=== PATIENT | female | born 1990 | race Caucasian/White ===

== ENCOUNTER 2022-10-12 10:28 | Emergency (ER) | payer OTHER, SELFPAY ==
--- NOTE | 2022-10-12 10:29 | ECG_ITS ---
Test Reason : CP Blood Pressure : / mmHG Vent. Rate : 111 BPM Atrial Rate : 111 BPM P-R Int : 146 ms QRS Dur : 074 ms QT Int : 360 ms P-R-T Axes : 069 029 032 degrees QTc Int : 489 ms Sinus tachycardia Otherwise normal ECG No previous ECGs available Referred By: Generic ED Physician Electronically Signed By:JONATHAN CARDONA MD
[2022-10-12 10:44] VITALS: BP 180/100; BMI 35.4
[2022-10-12 11:06] VITALS: BP 164/112; PULSE 101; TEMP 36.7; O2SAT 95
--- NOTE | 2022-10-12 11:15 | ED_ITS ---
HPI - Alcohol General Chief Complaint: ETOH/Substance Use Stated Complaint: chest pain Time Seen by Provider: 10/12/22 10:45 Source: patient Mode of arrival: EMS History of Present Illness HPI narrative: 32-year-old female with history of asthma, alcohol use disorder, states that she typically drinks a sleeve and a half a day but is been unable to drink much other than 1 shot this morning and is been having nausea and vomiting. Patient states she is also on methadone program but has been unable to get her methadone for 11 days as they will not give the methadone if she is intoxicated and she knew that she would fail the Breathalyzer. She states that she has had seizures previously from alcohol withdrawal and states that the chest pain is associated with her nausea and vomiting. Related Data Allergies Allergy/AdvReac Type Severity Reaction Status Date / Time Sulfa (Sulfonamide Allergy Intermediate RASH Verified 10/12/22 11:00 Antibiotics) [SULFA (SULFONAMIDE ANTIBIOTICS)] Review of Systems Review of Systems: Pertinent positives and negatives as stated in HPI PMFSH Past Medical History Source: nursing notes reviewed Social History Social History Advance Directives: No Physical Exam ED Vital Signs: Vital Signs - 24 hr 10/12/22 11:06 10/12/22 11:36 Temperature 98.0 F 98.4 F Pulse Rate 101 H 99 Respiratory Rate 12 Blood Pressure 164/112 H 164/110 H Pulse Oximetry 95 94 Oxygen Delivery Method Room Air Room Air BMI result Body Mass Index 35.4 VITAL SIGNS: Reviewed. GENERAL: Well developed, well nourished, in no acute distress. HEAD: Normocephalic/atraumatic EYES: PERRLA, EOMI EARS: Ext canals without abnormality NOSE: Nares patent bilateral OROPHARYNX: no oral lesions noted, posterior pharynx clear NECK: Supple, no adenopathy LUNGS: Normal breath sounds. No adventitious sounds or accessory muscle use. SpO2<95> CARDIOVASCULAR: Sinus tachycardia and rhythm without noted murmurs ABDOMEN: Soft, non-tender, non-distended with bowel sounds. MUSCULOSKELETAL: No tenderness, deformities, or effusions noted on gross inspection. EXTREMITIES: No cyanosis, clubbing or edema. SKIN: Inspection of the skin reveals no rashes NEUROLOGIC: Alert and oriented x 4. Strength and sensation to light touch were grossly intact x 4. Medical Decision Making Medical Decision Making [facility] Narrative: 32-year-old female with history and clinical presentation, DDX: Alcohol intoxication, alcohol withdrawal, alcohol gastritis, pancreatitis, no clinical suspicion for ACS. I reviewed all investigations, hematologic indices are significantly different from 5 year comparison, most notably patient has a macrocytic anemia which is consistent with underlying alcohol use and there are no history or symptoms to suggest occult bleeding from elsewhere. There is no left shift and a mild drop in wbc's, patient is afebrile. Coagulation studies are grossly within normal limits, chemistry indices are consistent with a very mild alcohol ketoacidosis but patient is tolerating oral intake at this time and has received 1 L of IV fluids as well as Zofran. In addition, there is a noted elevation of lipase and suspect patient has mild pancreatitis that is not interfering with oral intake at this time. Patient was placed on a CIWA and will give 10 mg of Librium and she will be evaluated by the gymnastics coach or instructor for inpatient alcohol detox program. She is otherwise medically clear to pursue that. Urinalysis negative for UTI. BAL-225. Patient placed in physician observation because the patient needed more time for evaluation and placement by the gymnastics coach or instructor for alcohol detox. At the time observation was started the patient's vital signs were stable, patient is alert and oriented, neuro: Nonfocal, CV RRR, lungs clear Differential Diagnosis Differential Diagnoses: The differential diagnosis associated with the presentation includes Please see the discussion above Lab Data [facility] Lab Attestation statement: I reviewed the patient's lab results. Please see the discussion above 10/12/22 12:15 10/12/22 11:25 Labs: Lab Results 10/12/22 10/12/22 10/12/22 Range/Units 11:25 11:25 11:25 WBC (4.8-10.8) X10*3/uL RBC (4.20-5.50) X10*6/uL Hgb (12.0-16.0) g/dl Hct (37.0-47.0) % MCV (80.0-98.0) fL MCH (27.0-33.0) pg MCHC (31.0-35.0) g/dl RDW (11.0-16.0) % Immature Gran % (Auto) (0.0-0.4) % Neut % (Auto) (45-73) % Lymph % (Auto) (20-40) % [place] % (Auto) (2-11) % Eos % (Auto) (0-4) % Baso % (Auto) (0-2) % Lymph # (Auto) (1.2-4.9) X10*3/uL [place] # (Auto) (0.1-1.2) X10*3/uL Eos # (Auto) (0.0-0.4) X10*3/uL Baso # (Auto) (0.0-0.2) X10*3/uL Abs Immat Gran (auto) (0.00-0.03) X10*3/uL Absolute Neuts (auto) (2.0-8.3) x10*3/uL Absolute Nucleated RBC (0.0-0.012) X10*3/uL Nucleated RBC % (auto) (0.0-0.2) /100WBC Sodium 136 (135-145) mmol/L Potassium 3.5 (3.3-5.1) mmol/L Chloride 98 (96-108) mmol/L Carbon Dioxide 18 L (22-29) mmol/L Anion Gap 24 H (12-20) BUN 10 (9-16) mg/dL Creatinine 0.59 (0.5-1.4) mg/dL Estim Creat Clear Calc 149.0 Estimated GFR > 60 Random Glucose 120 H (60-115) mg/dL Calcium 8.2 L (8.4-10.2) mg/dL Total Bilirubin 0.6 (0.0-1.0) mg/dL AST 93 H (5-31) U/L ALT 28 (0-31) U/L Alkaline Phosphatase 126 H (39-117) U/L Total Protein 6.9 (6.5-8.0) g/dL Albumin 3.1 L (3.5-5.0) g/dL Lipase 115 H (8-78) U/L Beta HCG, Quant < 2 mIU/mL Urine Color Urine Appearance Urine pH (5.0-9.0) Ur Specific [place] (1.005-1.025) Urine Protein (Neg-Trace) mg/dL Urine Glucose (UA) (Negative) mg/dL Urine Ketones (Negative) mg/dL Urine Blood (Negative) Urine Nitrite (Negative) Ur Leukocyte Esterase (Negative) Urine RBC (0-2) /HPF Urine WBC (0-5) /HPF Ur Squamous Epith Cells (0-2) /HPF Urine Bacteria (None Seen) Hyaline Casts (0-2) /LPF Urine Opiates Screen (Not Detect) Urine Fentanyl Screen (Not Detect) Ur Barbiturates Screen (Not Detect) Ur Phencyclidine Scrn (Not Detect) Ur Amphetamines Screen (Not Detect) U Benzodiazepines Scrn (Not Detect) Urine Cocaine Screen (Not Detect) U Marijuana (THC) Screen (Not Detect) Ethyl Alcohol 225 mg/dL 10/12/22 10/12/22 10/12/22 Range/Units 11:48 11:48 12:15 WBC 4.0 L (4.8-10.8) X10*3/uL RBC 3.14 L (4.20-5.50) X10*6/uL Hgb 11.5 L (12.0-16.0) g/dl Hct 31.2 L (37.0-47.0) % MCV 99.4 H (80.0-98.0) fL MCH 36.6 H (27.0-33.0) pg MCHC 36.9 H (31.0-35.0) g/dl RDW 16.3 H (11.0-16.0) % Immature Gran % (Auto) 0.3 (0.0-0.4) % Neut % (Auto) 55.6 (45-73) % Lymph % (Auto) 37.7 (20-40) % [place] % (Auto) 5.1 (2-11) % Eos % (Auto) 0.8 (0-4) % Baso % (Auto) 0.5 (0-2) % Lymph # (Auto) 1.5 (1.2-4.9) X10*3/uL [place] # (Auto) 0.2 (0.1-1.2) X10*3/uL Eos # (Auto) 0.0 (0.0-0.4) X10*3/uL Baso # (Auto) 0.0 (0.0-0.2) X10*3/uL Abs Immat Gran (auto) 0.01 (0.00-0.03) X10*3/uL Absolute Neuts (auto) 2.2 (2.0-8.3) x10*3/uL Absolute Nucleated RBC 0.000 (0.0-0.012) X10*3/uL Nucleated RBC % (auto) 0.0 (0.0-0.2) /100WBC Sodium (135-145) mmol/L Potassium (3.3-5.1) mmol/L Chloride (96-108) mmol/L Carbon Dioxide (22-29) mmol/L Anion Gap (12-20) BUN (9-16) mg/dL Creatinine (0.5-1.4) mg/dL Estim Creat Clear Calc Estimated GFR Random Glucose (60-115) mg/dL Calcium (8.4-10.2) mg/dL Total Bilirubin (0.0-1.0) mg/dL AST (5-31) U/L ALT (0-31) U/L Alkaline Phosphatase (39-117) U/L Total Protein (6.5-8.0) g/dL Albumin (3.5-5.0) g/dL Lipase (8-78) U/L Beta HCG, Quant mIU/mL Urine Color Yellow Urine Appearance Clear Urine pH 7.0 (5.0-9.0) Ur Specific [place] 1.025 (1.005-1.025) Urine Protein 30 (1+) H (Neg-Trace) mg/dL Urine Glucose (UA) Negative (Negative) mg/dL Urine Ketones Trace (Negative) mg/dL Urine Blood Negative (Negative) Urine Nitrite Negative (Negative) Ur Leukocyte Esterase Negative (Negative) Urine RBC 0-2 (0-2) /HPF Urine WBC 0-5 (0-5) /HPF Ur Squamous Epith Cells 0-2 (0-2) /HPF Urine Bacteria None Seen (None Seen) Hyaline Casts 0-2 (0-2) /LPF Urine Opiates Screen Not Detected (Not Detect) Urine Fentanyl Screen POSITIVE H (Not Detect) Ur Barbiturates Screen Not Detected (Not Detect) Ur Phencyclidine Scrn Not Detected (Not Detect) Ur Amphetamines Screen Not Detected (Not Detect) U Benzodiazepines Scrn Not Detected (Not Detect) Urine Cocaine Screen Not Detected (Not Detect) U Marijuana (THC) Screen Not Detected (Not Detect) Ethyl Alcohol mg/dL Independent Interpretation I performed an independent interpretation of an: EKG Interpretation: Sinus tachycardia, HR-111, no STEMI, ID/QRS/QTC are within normal limits. External Record Review External record reviewed: Outpatient record and Prior outpatient labs Chronic Conditions Patient?s care impacted by: Other Alcohol use disorder Medications Administered Discontinued Medications Generic Name Dose Route Start Last Admin Trade Name Freq PRN Reason Stop Dose Admin Sodium Chloride 1,000 mls @ 999 mls/hr 10/12/22 11:30 10/12/22 12:17 Ns IV 10/12/22 12:30 999 mls/hr .Q1H1M DI Administration Ondansetron HCl 4 mg 10/12/22 11:20 10/12/22 12:20 Ondansetron Hcl 4 Mg/2 Ml Vial IVPUSH 10/12/22 11:21 4 mg ONCE ONE Administration Critical Care Time Critical Care Time Critical Care Time: Yes Total Critical Care Time: 30 Attestation: I personally attest to this time spent taking care of the patient. Discharge Plan Discharge Clinical Impression: Alcoholic intoxication, Pancreatitis, Alcohol use disorder Patient Disposition: Still a Patient
[2022-10-12 11:36] VITALS: BP 164/110; PULSE 99; RESP 12; TEMP 36.9; O2SAT 94
[2022-10-12 11:46] LABS: Ethanol 225 mg/dL
--- NOTE | 2022-10-12 11:46 | PC.NURSE ---
pt a+o x3. brought from home via ems. she reported that she independently stopped taking methadone 11 days ago and has been substituting alcohol for methadone. she is a daily drinker and last drank one nip this morning and is requesting detox. she also reported that she has been a daily drinker x4 years after losing her son. hx of withdrawal and has been in detox in the past. CIWA 3, denies SI/HI, admits thoughts of self harm in the past but none at this time. reports feeling depressed.
[2022-10-12 11:50] LABS: Alanine Aminotransferase 28 U/L (0-31); Albumin Level 3.1 g/dL (3.5-5.0); Alkaline Phosphatase 126 U/L (39-117); Anion Gap 24 (12-20); Aspartate Amino Transferase 93 U/L (5-31); Bilirubin Total 0.6 mg/dL (0.0-1.0); Blood Urea Nitrogen 10 mg/dL (9-16); Calcium 8.2 mg/dL (8.4-10.2); Carbon Dioxide 18 mmol/L (22-29); Chloride 98 mmol/L (96-108); Estimated Glomerular Filt Rate > 60; Glucose Random 120 mg/dL (60-115); Lipase 115 U/L (8-78); Potassium 3.5 mmol/L (3.3-5.1); Sodium 136 mmol/L (135-145); Total Protein 6.9 g/dL (6.5-8.0)
[2022-10-12 11:55] LABS: Appearance Urine Clear; Color Urine Yellow; Glucose Urine UA Negative (Negative); Leukocyte Esterase Urine Negative (Negative); Nitrite Urine Negative (Negative); Specific Gravity - Urine 1.025 (1.005-1.025); UMIC TRIGGER UACC YES; Urine Blood Negative (Negative); Urine Ketones Trace mg/dL (Negative); Urine Protein 30 (1+) mg/dL (Neg-Trace)
[2022-10-12 11:56] LABS: HCG Quantitative < 2 mIU/mL
[2022-10-12 12:01] LABS: Bacteria Urine None Seen (None Seen); Hyaline Casts Urine 0-2 /LPF (0-2); RBC Urine 0-2 /HPF (0-2); Squamous Epithelial Cell Urine 0-2 /HPF (0-2); WBC Urine 0-5 /HPF (0-5)
[2022-10-12 12:08] LABS: Amphetamine Screen Urine Not Detected (Not Detect); Barbiturates, Urine Not Detected (Not Detect); Benzodiazepines Screen Urine Not Detected (Not Detect); Cannabinoid Screen Urine Not Detected (Not Detect); Cocaine Screen Urine Not Detected (Not Detect); Fentanyl, urine POSITIVE (Not Detect); Opiate Screen Urine Not Detected (Not Detect); Phencyclidine Screen Urine Not Detected (Not Detect)
[2022-10-12] MEDS: 0.9 % Sodium Chloride 1,000 ML 999 ML IV (12:17)
[2022-10-12] MEDS: ondansetron HCL 4 MG/2 ML VIAL IVPUSH (12:20)
[2022-10-12 12:35] LABS: Basophils Percent Auto 0.5 % (0-2); Eosinophils Percent Auto 0.8 % (0-4); Hematocrit 31.2 % (37.0-47.0); Hemoglobin 11.5 g/dl (12.0-16.0); Imm Gran Abs Auto 0.01 X10*3/uL (0.00-0.03); Imm Gran Pct Auto 0.3 % (0.0-0.4); Lymphocytes Absolute Auto 1.5 X10*3/uL (1.2-4.9); Lymphocytes Percent Auto 37.7 % (20-40); Mean Corpuscular HGB Conc 36.9 g/dl (31.0-35.0); Mean Corpuscular Hemoglobin 36.6 pg (27.0-33.0); Mean Corpuscular Volume 99.4 fL (80.0-98.0); Monocytes Absolute Auto 0.2 X10*3/uL (0.1-1.2); Monocytes Percent Auto 5.1 % (2-11); Neutrophils Absolute Auto 2.2 x10*3/uL (2.0-8.3); Neutrophils Percent Auto 55.6 % (45-73); Red Blood Count 3.14 X10*6/uL (4.20-5.50); Red Cell Distribution Width 16.3 % (11.0-16.0)
[2022-10-12 12:39] LABS: INTERNATIONAL NORM RATIO 1.1 (0.9-1.1); Prothrombin Time 12.3 SEC (10.0-13.1)
[2022-10-12 12:53] LABS: Mean Platelet Volume 10.5 fL (9.4-12.3); Platelet Count 74 X10*3/uL (160-400)
[2022-10-12] MEDS: chlordiazePOXIDE HCl 5 MG CAPSULE 10 MG PO (13:01)
--- NOTE | 2022-10-12 14:00 | MHC.RECOVSUP ---
Addendum entered by Thomas Marie 10/12/22 15:42: Pt accepted to [facility] for 9pm admission. [facility] will be scheduled for 7pm, provider aware. Original Note: Met with pt in ED8 who is here for GAUDENCIO. Pt informs she had been on Methadone but stopped taking it about 11 days ago and is not longer interested in MAT. Pt reports drinking about 2 sleeves of alcohol a day with her last drink being a shot this morning. Pt reports having been to [facility] a year ago and is interested in ATS again at this time. ATS bed search in process.
--- NOTE | 2022-10-12 14:43 | MHC.CARE ---
CARE Team left VM for RENNY Garza at [facility]
[2022-10-12 17:00] VITALS: BP 165/113; PULSE 105; RESP 12; TEMP 37.1; O2SAT 97
--- NOTE | 2022-10-12 19:12 | PC.NURSE ---
CLEARED FOR DISCHARGE, DISCHARGE INSTRUCTIONS REVIEWED WITH PT. Kori[facility]ori [facility] CENTER[facility]HELLE PROVIDED BY HEAVY DUTY CUSTODIAN.
== END 2022-10-12 18:00 | disposition home or self-care (01) ==
PROVIDERS: Emergency Provider Student in an Organized Health Care Education/Training Program
DX: F10.920 Alcohol use, unspecified with intoxication, uncomplicated (principal); Y90.7 Blood alcohol level of 200-239 mg/100 ml; F10.988 Alcohol use, unspecified with other alcohol-induced disorder; K85.90 Acute pancreatitis without necrosis or infection, unspecified; R07.9 Chest pain, unspecified
CPT/HCPCS: 36415; 80053; 80307; 81001; 83690; 84702; 85025; 85610; 93005; 96361; 96374; 99284; 99285; J2405

== ENCOUNTER → 2022-10-12 10:29 | Outpatient (BNV) | payer OTHER, SELFPAY | PROVIDERS: Emergency Provider Student in an Organized Health Care Education/Training Program; Visit Provider Internal Medicine Cardiovascular Disease | DX: R00.0 Tachycardia, unspecified (principal) | CPT/HCPCS: 93010 ==

== ENCOUNTER 2023-01-22 08:33 | Inpatient (IN) | payer OTHER, SELFPAY ==
[2023-01-22] VITALS (7 sets, daily range): BP systolic 131–161; BP diastolic 79–104; PULSE 102–135; RESP 18–21; TEMP 36.7–37.1; O2SAT 93–98; BMI 31.3
--- NOTE | ~2023-01-22 | XR_ITS ---
EXAMINATION: XR CHEST CLINICAL INFORMATION: Anterior chest pain, recent seizure. COMPARISON: None available. TECHNIQUE: Frontal view of the chest was obtained. FINDINGS: No significant abnormality is noted involving the heart, lungs, mediastinum, bony thorax or soft tissues. XR/XR chest 1V IMPRESSION: Unremarkable chest examination.
--- NOTE | ~2023-01-22 | US_ITS ---
EXAMINATION: US VENOUS ULTRASOUND WITH DOPPLER LOWER EXTREMITY, RIGHT CLINICAL INFORMATION: Right calf tenderness COMPARISON: None available. TECHNIQUE: Ultrasound of the deep veins is performed from the hip to the calf with compression sonography and color and pulse Doppler assessment. Spectral analysis with color-flow imaging is performed. FINDINGS: There is normal venous compression and respiratory variation and augmented flow. The visualized common femoral vein, superficial femoral vein, profunda femoral vein, popliteal vein, and the trifurcation region shows no evidence of deep venous thrombosis. There is no significant popliteal fossa cyst. If the patient's symptoms persist, followup ultrasound in 5 days 7 days might be of value to exclude proximal propagation from a non-visualized calf vein. US/US venous duplex LE RT IMPRESSION: No DVT demonstrated in the right lower extremity.
[2023-01-22 09:18] LABS: MANUAL DIFF FLAG NO
[2023-01-22 09:21] LABS: Basophils Percent Auto 0.5 % (0-2); Eosinophils Absolute Auto 0.2 X10*3/uL (0.0-0.4); Hematocrit 36.7 % (37.0-47.0); Imm Gran Abs Auto 0.01 X10*3/uL (0.00-0.03); Imm Gran Pct Auto 0.3 % (0.0-0.4); Lymphocytes Absolute Auto 0.9 X10*3/uL (1.2-4.9); Lymphocytes Percent Auto 22.8 % (20-40); Mean Corpuscular HGB Conc 35.4 g/dl (31.0-35.0); Mean Corpuscular Hemoglobin 37.8 pg (27.0-33.0); Mean Corpuscular Volume 106.7 fL (80.0-98.0); Mean Platelet Volume 9.3 fL (9.4-12.3); Monocytes Absolute Auto 0.2 X10*3/uL (0.1-1.2); Monocytes Percent Auto 5.1 % (2-11); Neutrophils Absolute Auto 2.5 x10*3/uL (2.0-8.3); Neutrophils Percent Auto 67.3 % (45-73); Red Blood Count 3.44 X10*6/uL (4.20-5.50); Red Cell Distribution Width 14.2 % (11.0-16.0); White Blood Count 3.7 X10*3/uL (4.8-10.8)
--- OUTSIDE RECORDS SUMMARY | 2023-01-22 09:22 | XMS_ITS | Continuity of Care Document ---
Author Name Unknown Organization [facility] ter Address [address] [place] [id number]- Care Team Providers Care Doctor Of Pharmacy Name Role Phone Not on Staff, PCP Primary Care Physician Unavail able Encounter [facility] Date(s): 05/01/22 - 05/02/[address] [id number]- Encounter Diagnosis Alcohol intoxication(Final) - 05/01/22 Opioid overdose(Final) - 05/01/22 Discharge Disposition: A-D/C Home Attending Physician: Yovanny Orozco MD Admitting Physician: Yovanny Orozco MD Referring Physician: Not on Staff, Referring MD Allergies, Adverse Reactions, Alerts Substance Reaction Severity Status Bactrim Active Immunizations Given and Recorded Vaccine Date Status Refusal Reason hepatitis B adult vaccine 1 05/03/11 Given tetanus-diphtheria toxoids (Td) 2 04/02/10 Given Influenza Inactive (IM) (oldterm) 3 12/19/09 Given influ virus vac, H1N1, inactive(oldterm) 4 04/04/09 Given Not Given Vaccine Date Status Refusal Reason hepatitis B adult vaccine 06/27/21 Not Given Pa rent Or Guardian Refuses 1Admin Note: vis given 2Admin Note: VIS 02/16/2008 3Admin Note: vis 4Admin Note: VIS Medications Acetaminophen 0 Refills, Maintenance Start Date: 12/06/10 Status: Ordered Aerochamber See Instructions, # 1 units, Maintenance, Use with albuterol and Qvar Inhalers., 11/20/12 15:08:49,Compound Start Date: 11/20/12 Status: Ordered albuterol CFC free 90 mcg/inh inhalation aerosol 2 puffs, Inhalation, Every 4 hours, PRN for wheezing, # 8.5 Gm, 12 Refills, Maintenance, Aerosol Start Date: 3/15/13 Status: Ordered albuterol CFC free 90 mcg/inh inhalation aerosol 2 puffs, Inhalation, Every 4 hours, PRN for wheezing, # 8.5 Gm, 11 Refills, Maintenance, Aerosol, 2puffs Inhalation Every 4 hours,PRN:for wheezing Start Date: 11/20/12 Status: Ordered albuterol CFC free 90 mcg/inh inhalation aerosol 1 puffs, Inhalation, 4 times a day, PRN for wheezing, # 25 Gm, 0 Refills, Maintenance, Aerosol Start Date: 07/10/10 Status: Ordered EC Naprosyn 500 mg oral enteric coated tablet 1 tablet = 500 mg, By Mouth, 2 times a day, with food, # 60 tablet, 2 Refills, Maintenance, EC Tablet, 1 tablet By Mouth 2 times a day,Instr:with food Start Date: 11/20/12 Status: Ordered EpiPen 2-Cipriano 0.3 mg injectable kit = 0.3 mg, Intramuscular, Once, # 2 pack/packet, 0 Refills, Soft Stop, 09/25/20 18:06:00 EDT, [facility]/pharmacy #[id number], Partial fill upon patient request if the prescription is for a schedule II opioid drug., 163, cm, 09/25/20 17:11:00 EDT, Height, 90.7, kg,... Start Date: 09/25/20 Status: Ordered gabapentin 100 mg oral capsule 2 capsule = 200 mg, By Mouth, 3 times a day, # 60 capsule, 0 Refills, Maintenance, Capsule Start Date: 07/13/10 Stop Date: 07/23/10 Status: Ordered ibuprofen 600 mg oral tablet 1 tablet = 600 mg, By Mouth, Every 6 hours, # 30 capsule, 1 Refills, Maintenance Start Date: 05/22/10 Status: Ordered Methadone By Mouth, 0 Refills, Maintenance Start Date: 08/31/12 Status: Ordered Multivitamin By Mouth, Daily, 0 Refills, Maintenance Start Date: 12/06/10 Status: Ordered Qvar 80 mcg/inh inhalation aerosol with adapter 1 puffs, Inhalation, 2 times a day, # 1 each, 11 Refills, Maintenance, 1 puffs Inhalation 2 times aday Start Date: 11/20/12 Status: Ordered Splint See Instructions, # 2 units, Maintenance, One right and one left wrist splint, to be worn at night for carpal tunnel. Dx: Wrist Pain and Carpal Tunnel, 11/20/12 15:15:00, Compound Start Date: 11/20/12 Status: Ordered Tivicay 50 mg oral tablet 1 tablet = 50 mg, By Mouth, Daily, # 5 tablet, 0 Refills, Maintenance, 06/26/21 23:08:00 EDT, Tablet, Partial fill upon patient request if the prescription is for a schedule II opioid drug. Start Date: 06/26/21 Stop Date: 07/01/21 Status: Ordered Truvada 200 mg-300 mg oral tablet 1 tablet, By Mouth, Daily, # 5 tablet, 0 Refills, Maintenance, 06/26/21 23:08:00 EDT, Tablet, Partial fill upon patient request if the prescription is for a schedule II opioid drug. Start Date: 06/26/21 Stop Date: 07/01/21 Status: Ordered Ventolin HFA 108 mcg/inh inhalation aerosol with adapter 2 puffs, Inhalation, Every 4 hours, PRN for wheezing, please give pt ventolin, # 18 Gm, 5 Refills, Maintenance, Aerosol Start Date: 08/31/12 Status: Ordered Xanax 1 mg oral tablet 1 tablet, By Mouth, 3 times a day, PRN Anxiety, tablet, 0 Refills, Maintenance, Tablet Start Date: 07/10/10 Status: Ordered Problem List Condition Confirmation Course Effective Dates Status Health St [facility] Informant Anxiety Confirmed Active Asthma Confirmed Active Depression Confirmed Active Pelvic fracture Confirmed Active Severe obesity (BMI 35.0-39.9) with comorbidity Confirmed Active Results Radiology Reports * Exam Date Time Procedure Performing Provider Status 05/01/22 11:45 PM Chest 2 Views Frontal and Lat Xiomara Villasenor; Auth (Verified) Notes: (Chest 2 Views Frontal and Lat) Reason For Exam: Trauma RESULT: Chest 2 Views Frontal and Lat Chest 2 Views Frontal and Lat Hx of Present Illness: pt coming from home after suspected overdose, agitated upon arrival; Reason:Trauma; Clinical Question(s): Fracture COMPARISON: 06/02/2021 FINDINGS: LINES AND TUBES: None. LUNGS AND PLEURA: Clear lungs. Normal pulmonary vascularity. No pleural effusion. No pneumothorax. HEART, MEDIASTINUM AND MARGO: Heart is normal in size. Normal mediastinal and hilar contour. BONES AND SOFT TISSUES: No acute abnormality. IMPRESSION: No acute abnormality. WSN: [id number] Ordering Physician: Malinda Sutton Dictated By: Garland Falcon MD Dictated Date/Time: 05/01/22 11:48 p Reviewed By: Garland Falcon MD Signed By: Garland Falcon MD Signed Date/Time: 05/01/22 11:48 pm Transcribed By: AISHA Transcribed Date/Time: 05/01/22 11:47 pm Vital Signs Most recent to oldest [Reference Range]: 1 2 3 Oxygen Saturation [94-100 %] 98 % (05/02/22 8:54 AM) 97 % (05/02/22 6:03 AM) 98 % (05/02/22 4:24 AM) Pulse Rate [55-90 bpm] 84 bpm (05/02/22 8:54 AM) 80 bpm (05/02/22 6:03 AM) 100 bpm *H* (05/02/22 4:24 AM) Blood Pressure [90-138/55-84 mm Hg] 149/86mm Hg *H* (05/02/22 8:54 AM) 140/80mm Hg *H* (05/02/22 6:03 AM) 135/83mm Hg (05/02/22 4:24 AM) Respiratory Rate [16-30 br/min] 18 br/min (05/02/22 8:54 AM) 18 br/min (05/02/22 6:03 AM) 16 br/min (05/02/22 4:24 AM) Temperature [96.8-100.4 DegF] 98.3 DegF (05/02/22 8:54 AM) 98.1 DegF (05/01/22 8:26 PM) Mode of Delivery (Oxygen) Room air (05/02/22 8:54 AM) Room air (05/02/22 6:03 AM) Room air (05/02/22 4:24 AM) Blood pressure sites Arm, left (05/02/22 8:54 AM) Temperature Route Oral (05/02/22 8:54 AM) Oral (05/01/22 8:26 PM) Social History Social History Type Response Smoking Status 10 or more cigarette s (1/2 pack or more)/day in last 30 days entered on: 09/25/20 Sex Note * [facility] , CIS S: TRANSCRIBE Garland Falcon MD S: VERIFY Event Display: Result: Authored Date: Chest 2 Views Frontal and Lat Hx of Present Illness: pt coming from home after suspected overdose, agitated upon arrival; Reason:Trauma; Clinical Question(s): Fracture COMPARISON: 06/02/2021 FINDINGS: LINES AND TUBES: None. LUNGS AND PLEURA: Clear lungs. Normal pulmonary vascularity. No pleural effusion. No pneumothorax. HEART, MEDIASTINUM AND MARGO: Heart is normal in size. Normal mediastinal and hilar contour. BONES AND SOFT TISSUES: No acute abnormality. IMPRESSION: No acute abnormality. WSN: [id number] Ordering Physician: Malinda Sutton Dictated By: Garland Falcon MD Dictated Date/Time: 05/01/22 11:48 p Reviewed By: Garland Falcon MD Signed By: Garland Falcon MD Signed Date/Time: 05/01/22 11:48 pm Transcribed By: AISHA Transcribed Date/Time: 05/01/22 11:47 pm Patient Care team information Care Team Personnel Name: Not on Staff, PCP Position: [facility] Physician (General Medicine) Member Role: PCP Name: *[facility], ED Attending Position: [facility] ED Attendings Patient Name: Felisha Mackenzie RN Position: [facility] ED RN W/OE and Tasks Member Role: Patient Care Provider Name: Virgilio Rolon Position: [facility] ED TA [facility] Member Role: Nursing Associate Name: Yovanny Orozco MD Position: [facility] Resident Member Role: ED Attending Physician Address: Address: [address] [place] [address] [place] [address]- Care Team Related Persons Name: CAROLINE RHODES Address: home [address] [place] [id number]
--- OUTSIDE RECORDS SUMMARY | 2023-01-22 09:22 | XMS_ITS | Continuity of Care Document ---
Author Name Unknown Organization [facility] ter Address [address] [place] [id number]- Care Team Providers Care Data Input Clerk Name Role Phone Not on Staff, PCP Primary Care Physician Unavail able Encounter [facility] Date(s): 08/14/21 - 08/14/[address] [address]- Discharge Disposition: A-D/C Walkout Attending Physician: Edil Braxton MD Admitting Physician: Edil Braxton MD Referring Physician: Not on Staff, Referring [...] Gm, 12 Refills, Maintenance, Aerosol Start Date: 06/12/12 Status: Ordered albuterol CFC free 90 mcg/inh inhalation aerosol 2 puffs, Inhalation, Every 4 hours, PRN for wheezing, # 8.5 Gm, 11 Refills, Maintenance, Aerosol, 2puffs Inhalation Every 4 hours,PRN:for wheezing Start Date: 11/20/12 Status: Ordered EC Naprosyn 500 mg oral enteric coated tablet 1 tablet = 500 mg, By Mouth, 2 times a day, with food, # 60 tablet, 2 Refills, Maintenance, EC Tablet, 1 tablet By Mouth 2 times a day,Instr:with food Start Date: 11/20/12 Status: Ordered ibuprofen 600 mg oral tablet [...] Maintenance, Aerosol Start Date: 08/31/12 Status: Ordered Problem List Condition Effective Dates Status Health Status Inform ant Anxiety(Confirmed) Active Asthma(Confirmed) Active Depression(Confirmed) Active Vital Signs Most recent to oldest [Reference Range]: 1 Oxygen Saturation [94-100 %] 99 % (08/14/21 9:39 AM) Pulse Rate [55-90 bpm] 86 bpm (08/14/21 9:39 AM) Blood Pressure [90-138/55-84 mm Hg] 133/ 99mm Hg (08/14/21 9:39 AM) Respiratory Rate [16-30 br/min] 21 br/mi n (08/14/21 9:39 AM) Temperature [96.8-100.4 DegF] 99.1 DegF (08/14/21 9:39 AM) Mode of Delivery (Oxygen) Room air (08/14/21 9:39 AM) Blood pressure sites Arm, left (08/14/21 9:39 AM) Temperature Route Oral (08/14/21 9:39 AM)
--- OUTSIDE RECORDS SUMMARY | 2023-01-22 09:22 | XMS_ITS | Continuity of Care Document ---
Author Name Unknown Organization [facility] ter Address [address] [place] [id number]- Care Team Providers Care Test Tech Name Role Phone Not on Staff, PCP Primary Care Physician Unavail able [facility]counter [facility] Date(s): 01/12/23 - 01/12/[address] [address]- Discharge Disposition: A-D/C Home Attending Physician: Helen Clark MD Admitting Physician: Helen Clark MD Referring Physician: Not on Staff, Referring MD Allergies, Adverse Reactions, Alerts Substance Reaction Severity Status Bactrim Active Immunizations Given and Recorded Vaccine Date Status Refusal Reason hepatitis B adult vaccine 1 05/03/11 Given tetanus-diphtheria toxoids (Td) 2 04/02/10 Given Influenza Inactive (IM) (oldterm) 3 12/19/09 Given influ virus vac, H1N1, inactive(oldterm) 4 04/04/09 Given 1Admin Note: vis given 2Admin Note: VIS 02/16/2008 3Admin Note: vis 4Admin Note: VIS Medications acetaminophen 325 mg oral tablet 325 mg, 1, tablet, By Mouth, Every 4 hours, PRN, # 12 tablet, Refills 0, Maintenance, as needed forpain, 12/16/22 3:31:00 EDT, Partial fill upon patient request if the prescription is for a scheduleII opioid drug. Start Date: 12/16/22 Status: Ordered Aerochamber See Instructions, # 1 units, Maintenance, Use with albuterol and Qvar Inhalers., 11/20/12 15:08:49,Compound Start Date: 11/20/12 Status: Ordered albuterol CFC free 90 mcg/inh inhalation aerosol 2 puffs, Inhalation, Every 4 hours, PRN for wheezing, # 8.5 Gm, 12 Refills, Maintenance, Aerosol Start Date: 06/12/12 Status: Ordered amLODIPine 5 mg oral tablet TAKE 1 TABLET BY MOUTH ONCE A DAY FOR HYPERTENSION Start Date: 12/16/22 Status: Ordered Comprehensive metabolic panel, CBC, Magnesium level Comprehensive metabolic panel, CBC, Magnesium level, See Instructions, # 1 Unknown, Refills 0, Tot.Refills 0, Maintenance, Please get labs done from 12/25 onwards at any [facility]. Please forward all results to Jose Reyes MD., 11/30... Start Date: 12/20/22 Status: Ordered EpiPen 2-Cipriano 0.3 mg injectable kit = 0.3 mg, Intramuscular, Once, # 2 pack/packet, 0 Refills, Soft Stop, 09/25/20 18:06:00 EDT, [facility]/pharmacy #[id number], Partial fill upon patient request if the prescription is for a schedule II opioid drug., 163, cm, 09/25/20 17:11:00 EDT, Height, 90.7, kg,... Start Date: 09/25/20 Status: Ordered FLUoxetine 10 mg oral tablet 1 tablet = 10 mg, By Mouth, Daily, Follow up with PCP to uptitrate dose, # 30 tablet, 0 Refills, Maintenance, 07/02/22 10:36:00 EDT, Tablet, [facility]/pharmacy #[id number], 163, cm, 07/01/22 23:25:00 EDT, Height, 96.4, kg, 06/28/22 18:30:00 EDT, Dry Weight Start Date: 07/02/22 Stop Date: 08/01/22 Status: Ordered folic acid 1 mg oral tablet 1 mg, 1, tablet, By Mouth, Daily, # 30 tablet, Refills 0, Tot. Refills 0, Maintenance, 07/02/22 10:33:00 EDT, Route to Pharmacy Electronically, [facility]/pharmacy #[id number], 163, cm, 07/01/22 23:25:00 EDT, Height, 96.4, kg, 06/28/22 18:30:00 EDT, Dry Weight Start Date: 07/02/22 Status: Ordered gabapentin 300 mg oral capsule 300 mg, 1, capsule, By Mouth, 3 times a day, # 90 capsule, Refills 0, Tot. Refills 0, Maintenance, 07/02/22 10:32:00 EDT, Route to Pharmacy Electronically, [facility]/pharmacy #[id number], 163, cm, 07/01/22 23:25:00 EDT, Height, 96.4, kg, 06/28/22 18:30:00 EDT, . Start Date: 07/02/22 Status: Ordered hydrOXYzine hydrochloride 25 mg oral tablet 1 tablet = 25 mg, By Mouth, 4 times a day, PRN for anxiety, # 40 tablet, 0 Refills, Maintenance, 12/16/22 3:31:00 EDT, Tablet, Partial fill upon patient request if the prescription is for a schedule II opioid drug. Start Date: 12/16/22 Status: Ordered Multivitamin By Mouth, Daily, 0 Refills, Maintenance Start Date: 12/06/10 Status: Ordered naloxone 4 mg/0.1 mL nasal spray 0 Refills, Maintenance, 12/16/22 3:32:00 EDT, Partial fill upon patient request if the prescriptionis for a schedule II opioid drug. Start Date: 12/16/22 Status: Ordered nicotine 21 mg/24 hr transdermal film, extended release 1 patch, Topically, Daily, # 30 patch, 0 Refills, Maintenance, 12/16/22 3:32:00 EDT, Patch, Partialfill upon patient request if the prescription is for a schedule II opioid drug. Start Date: 12/16/22 Status: Ordered Qvar 80 mcg/inh inhalation aerosol [...] Date: 06/26/21 Stop Date: 07/01/21 Status: Ordered Vitamin B1 100 mg oral tablet TAKE 1 TABLET BY MOUTH TWICE A DAY Start Date: 12/16/22 Status: Ordered Vitamin B6 50 mg oral tablet TAKE 1 TABLET BY MOUTH EVERY DAY Start Date: 12/16/22 Status: Ordered Problem List Condition Confirmation Course Effective Dates Status Health St atus Informant Anxiety Confirmed Active Asthma Confirmed Active Depression Confirmed Active Pelvic fracture Confirmed Active Severe obesity (BMI 35.0-39.9) with comorbidity Confirmed Active Vital Signs Most recent to oldest [Reference Range]: 1 2 3 Oxygen Saturation [94-100 %] 98 % (01/12/23 9:12 AM) 96 % (01/12/23 3:04 AM) 96 % (01/12/23 1:50 AM) Pulse Rate [55-90 bpm] 94 bpm *H* (01/12/23 9:12 AM) 116 bpm *H* (01/12/23 3:04 AM) 109 bpm *H* (01/12/23 1:50 AM) Blood Pressure [90-138/55-84 mm Hg] 138/85mm Hg (01/12/23 9:12 AM) 149/110mm Hg *H* (01/12/23 3:04 AM) 130/94mm Hg (01/12/23 1:50 AM) Respiratory Rate [16-30 br/min] 18 br/min (01/12/23 9:12 AM) 20 br/min (01/12/23 3:04 AM) 16 br/min (01/12/23 1:50 AM) Temperature [96.8-100.4 DegF] 98.5 DegF (01/12/23 3:04 AM) 98.7 DegF (01/12/23 1:50 AM) Mode of Delivery (Oxygen) Room air (01/12/23 9:12 AM) Room air (01/12/23 3:04 AM) Room air (01/12/23 1:50 AM) Blood pressure sites Arm, right (01/12/23 9:12 AM) Arm, right (01/12/23 3:04 AM) Arm, left (01/12/23 1:50 AM) Temperature Route Oral (01/12/23 3:04 AM) Oral (01/12/23 1:50 AM) Social History Social History Type Response Smoking Status 10 or more cigarette s (1/2 pack or more)/day in last 30 days entered on: 09/25/20 Sex Note * Thi JACKSON, Karolina Cerna: PERFORM Event Display: Patient Education Leaflets Authored Date: [id number] Alcohol Intoxication ?? [id number] Alcohol Intoxication Alcohol intoxication is very serious. It occurs when you drink alcohol faster than your liver can break it down. Severe intoxication is a medical emergency. It's also called alcohol overdose or alcohol poisoning. It can lead to . Here are some patrick facts: ??? It can take 10 minutes or more??to start??to??feel the effects of a drink. So it's easy to drink more than you planned. Binge drinking can lead to an alcohol overdose. Binge drinking is having: o5 or more drinks over a short time for men o 4 or more drinks over a short time for women ??? One drink may be more than 1 serving of alcohol. In some cases, a drink can be 2 to 4 servings. This depends on the type of drink. ??? It takes about 1 hour for your body to break down 1 serving of alcohol. If you have more than 1 drink, it can take a few hours or more. ??? People with alcohol abuse disorders are more likely to get alcohol poisoning. But it can happen to anyone who drinks too much alcohol. Even a first-time drinker is at risk. ??? Many things affect how drinks will affect you. These include: o If you've eaten o How fast you drink o Your weight o How much you normally drink (or not)o Medicines you are taking o If you have a chronic disease o If you are male or female o How old you are Symptoms of alcohol intoxication Mild intoxication ??? Feel more relaxed, less tense ??? Slightly slurred speech ??? Sleepiness ??? Poor motor skills Moderate intoxication ??? Changing behavior, aggression, depression ??? Poor judgment ??? Confusion ??? Trouble focusing ??? Poor balance and coordination ??? Worsening slurred speech Severe intoxication ??? Vomiting ??? Seizures ??? Fainting or passing out (unconscious) ??? Cold, clammy skin ??? Slow or irregular breathing ??? Low body temperature (hypothermia) ??? Coma ?? Health effects Alcohol causes health problems.??This can happen after only drinking a little. There is no set number of drinks or amount of alcohol that's too much.??How much you drink at one time affects your health. And so does drinking often. Alcohol affects your whole body in these ways: ??? Brain.??Alcohol can harm parts of the brain that affect your balance, memory, thinking, and feelings. It can cause memory loss, blackouts, depression, agitation, sleep cycle changes, and seizures. These changes may or may not go away. ??? Heart and vascular system.??Alcohol can damage heart muscle. This can cause the heart muscle to weaken and stretch (cardiomyopathy). This can lead to: o Trouble breathing o Irregular heartbeat o Atrial fibrillation o Leg swelling o Heart failure Alcohol also makes the blood vessels stiffen. This causes high blood pressure. All of these problems raise your risk for heart attacks or strokes. ??? Liver.??Alcohol causes fat to build up in the liver. This affects how the liver works. And it raises the risk for hepatitis. This condition leads to belly pain, appetite loss, yellow skin and eyes (jaundice), and bleeding problems. It also leads to harmful changes in the liver. These include??liver fibrosis and cirrhosis. This can affect your ability to fight off infections. These liver changes stop it from removing toxins in your blood. This can cause a brain disease called encephalopathy. ??? Pancreas.??Alcohol can cause inflammation of the pancreas (pancreatitis). It can lead to belly pain, fever, and diabetes. ??? Immune system.??Alcohol weakens your immune system. This makes it harder to fight off infections and colds. You'll also have a higherrisk of some infections. ??? Cancer risk.??Alcohol raises your risk of some types of cancer. They include cancer of the: o Mouth o Esophagus o Pharynx o Larynx o Liver o Breast ? Sexual function.??Alcohol abuse can also lead to sexual problems. There is no safe level of alcohol use for people who are or thinking of getting . Alcohol use in may cause lifelong harm to the baby. So alcohol should be avoided. It can also cause a group of defects called alcohol spectrum disorder. These defects can include physical problems. And also behavior and learning problems. ?? Home care for alcohol intoxication Follow these tips to care for yourself at home: ??? Don't drink any more alcohol. ??? Don't drive??until all effects of the alcohol have worn off. ??? Don't use machinery that can cause injuries. ??? Get lots of rest over the next few days. ??? Drink plenty of water and other drinks that don't have alcohol. ??? Try to eat regular meals. If you have been drinking a lot every day, you may have alcohol withdrawal. Symptoms often last 3 to 4 days. They may include: ??? Nervousness ??? Shakiness ??? Nausea ??? Sweating ??? Sleeplessness They may also include severe, life-threatening symptoms. These are known as delirium tremens (DTs).DTs typically begin between 48 and 96 hours after the last drink and last 1 to 5 days. They include: ??? Seizures ??? Confusion ??? Seeing or hearing things that are not there (hallucinations) Alcohol withdrawal can cause . Call your healthcare provider before you stop drinking. This isespecially important if you've had DTs during past alcohol withdrawals. They may be able to help you with medicine. They can also refer you to an inpatient detox program. Or stay with family or friends who know when to call for medical help and can support you. If you have severe symptoms, call your provider or call 911 for help (see below). ?? Follow-up care These groups can help you and your loved one: ??? Alcoholics Anonymous (A.A.). Gives support through a self-help fellowship. ?? Find A.A. meetings near you at www.aa.org. ??? Al-Anoliza. ?? Gives support to families at www.al-anon.org . Or call 443-337-1232. ??? SMART Recovery ( Self- Management and Recovery Training). A nationwide abstinence-oriented support group for people with addictive issues. This free program is focused on motivation to change, urge control, and living a balanced life. For more information and meetings near you, go to www.Reverbeo.org/ ??? Substance Abuse and Mental Health Services Administration (SAMHSA) Treatment [employer]. Free information on treatment resources in your area at https://findtreatment.gov/. Or call 458-352-8695. Call 911 Call 911 if any of these occur: ??? Trouble breathing or slow irregular breathing ??? Chest pain ??? Sudden weakness on 1 side of your body or sudden trouble speaking ??? Heavy bleeding or vomiting blood ??? Very sleepy or having trouble waking up ??? Fainting ??? Fast heart rate ??? Seizure ?? When to get medical advice Call your healthcare provider right away if any of these occur: ??? Severe shakiness? Fever of100.4??F (38??C) or higher, or as advised by your provider ??? Confusion or hallucinations ??? Painin your upper belly that gets worse ??? Repeated vomiting ?? Last Reviewed Date: 2021 ?? 1711-9827 [employer]. All rights reserved. This information is not intended as a substitute for professional medical care. Always follow your healthcare professional's instructions. ?? Patient Care team information Care Team Personnel Name: Elio Pack RN Position: [facility] RN Member Role: Primary Care Nurse Name: Geni Mesa RN Position: [facility] RN Member Role: Primary Care Nurse Name: Not on Staff, PCP Position: [facility] Physician (General Medicine) Member Role: PCP Name: Nusrat Miller RN Position: [facility] RN Member Role: Primary Care Nurse Name: Lea Michelle Position: [facility] ED [facility] Name: Helen Clark MD Position: [facility] ED Medicine MD Member Role: Admitting Physician Address: Address: [address] [place] [address] Name: Riaz Aguayo MD Position: [facility] Resident Member Role: ED Resident Address: Address: [address] [place] [address] Name: Mehrdad Stone RN Position: [facility] ED RN W/OE and Tasks Member Role: Patient Care Provider Care Team Related Persons Name: CAROLINE RHODES Address: home [address] [place] [address] [place] [id number]
--- OUTSIDE RECORDS SUMMARY | 2023-01-22 09:22 | XMS_ITS | Continuity of Care Document ---
Author Name Unknown Organization [facility] Address [address] [place] [id number]- Care Team Providers Care Manager Provider Relations Name Role Phone Not on Staff, PCP Primary Care Physician Unavail able Encounter [facility] Date(s): 10/29/21 - 10/29/[address] [address]- Discharge Disposition: A-D/C Care Home, Half-Way, or Care Home Fac Attending Physician: Isidro Alonzo MD Admitting Physician: Isidro Alonzo MD Referring Physician: Not on Staff, Referring [...] Most recent to oldest [Reference Range]: 1 Weight 80 kg (10/29/21 5:41 AM) Oxygen Saturation [94-100 %] 95 % (10/29/21 5:43 AM) Pulse Rate [55-90 bpm] 91 bpm *H* (10/29/21 5:43 AM) Blood Pressure [90-138/55-84 mm Hg] 127/ 87mm Hg (10/29/21 5:43 AM) Temperature [96.8-100.4 DegF] 98.5 DegF (10/29/21 5:43 AM) Mode of Delivery (Oxygen) Room air (10/29/21 5:43 AM) Blood pressure sites Arm, right (10/29/21 5:43 AM) Temperature Route Oral (10/29/21 5:43 AM)
--- OUTSIDE RECORDS SUMMARY | 2023-01-22 09:22 | XMS_ITS | Continuity of Care Document ---
Author Name Unknown Organization [facility] ter Address [address] [place] [address]- Care Team Providers Care Windshield Installer Name Role Phone Not on Staff, PCP Primary Care Physician Unavail able Encounter [facility] Date(s): 01/14/23 - 01/14/[address] [address]- Encounter Diagnosis Alcohol intoxication(Final) - 01/14/23 Discharge Disposition: A-D/C Home Attending Physician: Delia Gutierrez DO Admitting Physician: Delia Gutierrez DO Referring Physician: Not on Staff, Referring MD Allergies, Adverse Reactions, Alerts Substance Reaction Severity Status sulfADIAZINE Active Bactrim Active Immunizations Given and Recorded Vaccine [...] labs done from 12/25 onwards at any [facility]. Please forward all results to Jose Reyes MD., 11/30... Start Date: 12/20/22 Status: Ordered EpiPen 2-Cipriano 0.3 mg injectable kit = 0.3 mg, Intramuscular, Once, # 2 pack/packet, 0 Refills, Soft Stop, 09/25/20 18:06:00 EDT, [facility]/pharmacy #[id number], Partial fill upon patient request if the prescription is for a schedule II opioid drug., 163, cm, 09/25/20 17:11:00 EDT, Height, 90.7, kg,... Start Date: 09/25/20 Status: Ordered FLUoxetine 10 mg oral tablet 1 tablet = 10 mg, By Mouth, Daily, Follow up with PCP to uptitrate dose, # 30 tablet, 0 Refills, Maintenance, 07/02/22 10:36:00 EDT, Tablet, [facility]/pharmacy #[id number], 163, cm, 07/01/22 23:25:00 EDT, Height, 96.4, kg, 06/28/22 18:30:00 EDT, Dry Weight Start Date: 07/02/22 Stop Date: 08/01/22 Status: Ordered folic acid 1 mg oral tablet 1 mg, 1, tablet, By Mouth, Daily, # 30 tablet, Refills 0, Tot. Refills 0, Maintenance, 07/02/22 10:33:00 EDT, Route to Pharmacy Electronically, [facility]/pharmacy #[id number], 163, cm, 07/01/22 23:25:00 EDT, Height, 96.4, kg, 06/28/22 18:30:00 EDT, Dry Weight Start Date: 07/02/22 Status: Ordered gabapentin 300 mg oral capsule 300 mg, 1, capsule, By Mouth, 3 times a day, # 90 capsule, Refills 0, Tot. Refills 0, Maintenance, 07/02/22 10:32:00 EDT, Route to Pharmacy Electronically, [facility]/pharmacy #[id number], 163, cm, 07/01/22 23:25:00 EDT, Height, [...] [Reference Range]: 1 Oxygen Saturation [94-100 %] 96 % (01/14/23 5:07 AM) Pulse Rate [55-90 bpm] 103 bpm *H* (01/14/23 5:07 AM) Blood Pressure [90-138/55-84 mm Hg] 166/ 95mm Hg *H* (01/14/23 5:07 AM) Respiratory Rate [16-30 br/min] 18 br/mi n (01/14/23 5:07 AM) Temperature [96.8-100.4 DegF] 98.2 DegF (01/14/23 5:07 AM) Mode of Delivery (Oxygen) Room air (01/14/23 5:07 AM) Blood pressure sites Arm, right (01/14/23 5:07 AM) Temperature Route Oral (01/14/23 5:07 AM) Social History Social History Type Response Smoking Status 10 or more cigarette s (1/2 pack or more)/day in last 30 days entered on: 09/25/20 Sex Patient Care team information Care Team Personnel Name: Elio Pack RN Position: [facility] RN Member Role: Primary Care Nurse Name: Geni Mesa RN Position: S RN Member Role: Primary Care Nurse Name: Not on Staff, PCP Position: S Physician (General Medicine) Member Role: PCP Name: Nusrat Miller RN Position: [facility] RN Member Role: Primary Care Nurse Name: Delia Gutierrez DO Position: [facility] Resident Member Role: Admitting Physician Address: Address: [address] [place] [address] [place] [address]- Name: Grisel Campbell Position: [facility] ED TA [facility] Member Role: Beck Operator Name: Jennifer Heck RN Position: [facility] ED RN W/OE and Tasks Member Role: Patient Care Provider Name: Ted Knight Position: [facility] Resident Member Role: ED Resident Address: Address: [address] [place] [address]- Care Team Related Persons Name: RICHARDCHRISTALAnjali CAROLINE Address: home [address] [place] [address]
--- OUTSIDE RECORDS SUMMARY | 2023-01-22 09:22 | XMS_ITS | Continuity of Care Document ---
Author Name Unknown Organization [facility] Address [address] [place] [address]- Care Team Providers Care Day Care Home Mother Name Role Phone Not on Staff, PCP Primary Care Physician Unavail able Encounter [facility] Date(s): 04/03/22 - 04/04/[address] [address]- Encounter Diagnosis Alcohol intoxication(Final) - 04/03/22 Discharge Disposition: A-D/C Home Attending Physician: Arcadio Drake DO Admitting Physician: Arcadio Drake DO Referring Physician: Not on Staff, Referring [...] 0 Refills, Soft Stop, 09/25/20 18:06:00 EDT, [facility]pharm[facility] #[id number], Partial fill upon patient request if the [...] Refills, Maintenance Start Date: 08/31/12 Status: Ordered Methadone Liquid 24 mg, Solution, By Mouth, Once, Routine, 04/04/22 9:00:00 EST, Stop date 04/04/22 9:00:00 EST Start Date: 04/04/22 Stop Date: 04/04/22 Status: Completed Multivitamin By Mouth, Daily, 0 Refills, Maintenance [...] List Condition Confirmation Course Effective Dates Status [facility] atus Informant Anxiety Confirmed Active Asthma Confirmed Active Depression Confirmed Active Pelvic fracture Confirmed Active Severe obesity (BMI 35.0-39.9) with comorbidity Confirmed Active Vital Signs Most recent to oldest [Reference Range]: 1 2 3 Height 162 cm (04/03/22 7:02 PM) 162 cm (04/03/22 6:58 PM) Weight 95 kg (04/03/22 7:02 PM) 95 kg (04/03/22 6:58 PM) Oxygen Saturation [94-100 %] 98 % (04/04/22 10:40 AM) 98 % (04/04/22 7:01 AM) 99 % (04/03/22 10:16 PM) Pulse Rate [55-90 bpm] 66 bpm (04/04/22 10:40 AM) 79 bpm (04/04/22 7:01 AM) 87 bpm (04/03/22 10:16 PM) Body Mass Index [18.5-24.99 kg/m2] 36.2 kg/m2 *>HHI* (04/03/22 6:58 PM) Blood Pressure [90-138/55-84 mm Hg] 141/92mm Hg *H* (04/04/22 10:40 AM) 139/99mm Hg *H* (04/04/22 7:01 AM) 143/102mm Hg *H* (04/03/22 10:16 PM) Respiratory Rate [16-30 br/min] 15 br/min *L* (04/04/22 10:40 AM) 16 br/min (04/04/22 8:50 AM) 18 br/min (04/04/22 7:01 AM) Temperature [96.8-100.4 DegF] 98.5 DegF (04/04/22 10:40 AM) 99 DegF (04/04/22 7:01 AM) 98.6 DegF (04/03/22 10:16 PM) Mode of Delivery (Oxygen) Room air (04/04/22 7:01 AM) Room air (04/03/22 10:16 PM) Room air (04/03/22 6:58 PM) Blood pressure sites Arm, right (04/03/22 6:58 PM) Temperature Route Temporal (04/04/22 7:01 AM) Temporal (04/03/22 10:16 PM) Temporal (04/03/22 6:58 PM) Dry Weight 95 kg (04/03/22 7:02 PM) 95 kg (04/03/22 6:58 PM) Weight Obtained Via Bed scale (04/03/22 6:58 PM) Dry Weight Obtained Via Bed scale (04/03/22 6:58 PM) Social History Social History Type Response Smoking Status 10 or more cigarette s (1/2 pack or more)/day in last 30 days entered on: 09/25/20 Sex EKG study * Event Display: EKG Authored Date: Note * Марина CARO, Jana Richards: PERFORM Event Display: Patient Education Leaflets Authored Date: [id number] [facility] - Substance Abuse Resources ?? 151 If you need Substance Abuse Resources: ?? [facility] [place] [phone] ?? [facility] [phone] ?? [facility] [phone] ?? [facility] [phone] ?? [facility] [place] [phone] ?? [facility] [place] [phone] ?? [place] [facility] [phone] ?? [facility] [phone] ?? [facility] [place] [phone] ?? [facility] [phone] ?? [facility] [phone] ?? [facility] [phone] ?? [facility] [phone] ?? [facility] [phone] ?? [facility] [place] ?? [facility] (13-17 yo) [place] [phone] ?? [facility] [place] [phone] ? Partial Hospitalization ??? Outpatient therapy for adults and families with substance abuse problems [address] [place] [address] ? Support Services ? [facility] - Outpatient therapy /support for recovery / transitional housing &&shelters? [facility] [phone] ? [facility] [place] Action - women's AA group/street outreach program/health access assistance? [address] [place] [address] ? Alcoholic Anonymous - AA program to maintain sobriety/ Alanon-support for families of alcoholics/Alateen-support for children of same [phone] ? [facility] - recovery support services/sober social Opportunities [address] [place] [address] ? Patient Care team information Care Team Personnel Name: Not on Staff, PCP Position: [facility] Physician (General Medicine) Member Role: PCP Name: Spenser Mehta RN Position: [facility] ED RN W/OE and Tasks Member Role: Patient Care Provider Name: Arcadio Drake DO Position: [facility] Resident Member Role: Admitting Physician Address: Address: [address] [facility] [place] [address]- Care Team Related Persons Name: MIGUELAnjali CAROLINE Address: home [address] [place] [id number]
--- OUTSIDE RECORDS SUMMARY | 2023-01-22 09:22 | XMS_ITS | Continuity of Care Document ---
Author Name Unknown Organization [facility] Address [address] [place] [id number]- Care Team Providers Care Unit Director Name Role Phone Not on Staff, PCP Primary Care Physician Unavail able Encounter [facility] Date(s): 08/03/21 - 08/04/[address] [address]- Discharge Disposition: A-D/C Assisted, Group Home, or Long-Term Fac Attending Physician: Elizabeth Lugo MD Admitting Physician: Elizabeth Lugo MD Referring Physician: Not on Staff, Referring [...] day,Instr:with food Start Date: 11/20/12 Status: Ordered gabapentin 300 mg oral capsule 300 mg, Capsule, By Mouth, Once, Routine, 08/04/21 2:00:00 EDT, Stop date 08/04/21 2:00:00 EDT Start Date: 08/04/21 Stop Date: 08/04/21 Status: Completed ibuprofen 600 mg oral tablet 1 tablet [...] 1 2 3 Oxygen Saturation [94-100 %] 99 % (08/04/21 3:12 AM) 92 % *L* (08/03/21 10:00 PM) Pulse Rate [55-90 bpm] 78 bpm (08/04/21 3:12 AM) 72 bpm (08/03/21 10:00 PM) Blood Pressure [90-138/55-84 mm Hg] 124/81mm Hg (08/04/21 3:12 AM) 131/75mm Hg (08/03/21 10:00 PM) Respiratory Rate [16-30 br/min] 18 br/min (08/04/21 3:12 AM) 20 br/min (08/04/21 1:33 AM) 18 br/min (08/03/21 10:00 PM) Temperature [96.8-100.4 DegF] 98.7 DegF (08/04/21 3:12 AM) 98.1 DegF (08/03/21 10:00 PM) Mode of Delivery (Oxygen) Room air (08/04/21 3:12 AM) Room air (08/03/21 10:00 PM) Blood pressure sites Arm, right (08/04/21 3:12 AM) Temperature Route Oral (08/04/21 3:12 AM) Oral (08/03/21 10:00 PM)
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
[2023-01-22 09:23] LABS: Platelet Count 80 X10*3/uL (160-400)
--- OUTSIDE RECORDS SUMMARY | 2023-01-22 09:23 | XMS_ITS | Continuity of Care Document ---
Author Name Unknown Organization [facility] ter Address [address] [place] [id number] Care Team Providers Care Tobacco Grower Name Role Phone Not on Staff, PCP Primary Care Physician Unavail able Encounter [facility] Date(s): 06/28/22 - 07/02/[address] [id number]- Discharge Disposition: A-D/C Home Attending Physician: Bella Ramirez MD Admitting Physician: Amilcar Claros MD Referring Physician: Not on Staff, Referring [...] Not Given Pa rent Or Guardian Refuses influenza virus vaccine, inactivated 06/29/22 Not Given Patient Refuses 1Admin Note: vis given 2Admin Note: VIS 02/16/2008 3Admin Note: vis 4Admin Note: VIS Medications acetaminophen 325 mg oral tablet 650 mg, By Mouth, 3 times a day, for 14 days, # 42 tablet, Refills 0, Tot. Refills 0, Acute 07/16/22 10:37:00 EDT, 07/02/22 10:37:00 EDT, Route to Pharmacy Electronically, [facility]/pharmacy #[id number], 163, cm, 07/01/22 23:25:00 EDT, Height, 96.4, kg, 06/28/22... Start Date: 07/02/22 Stop Date: 07/16/22 Status: Ordered Acetaminophen Tablet 650 mg, Tablet, By Mouth, 07/02/22 8:00:00 EDT Start Date: 07/02/22 Stop Date: 07/02/22 Status: Completed Aerochamber See Instructions, # 1 units, Maintenance, Use with albuterol and Qvar Inhalers., 11/20/12 15:08:49,Compound Start Date: 11/20/12 Status: Ordered albuterol CFC free 90 mcg/inh inhalation aerosol 2 puffs, Inhalation, Every 4 hours, PRN for wheezing, # 8.5 Gm, 12 Refills, Maintenance, Aerosol Start Date: 06/12/12 Status: Ordered EpiPen 2-Cipriano 0.3 mg injectable kit = 0.3 mg, Intramuscular, Once, # 2 pack/packet, 0 Refills, Soft Stop, 09/25/20 18:06:00 EDT, [facility]/pharmacy #[id number], Partial fill upon patient request if the prescription is for a schedule II opioid drug., 163, cm, 09/25/20 17:11:00 EDT, Height, 90.7, kg,... Start Date: 09/25/20 Status: Ordered FLUoxetine 10 mg oral tablet 1 tablet = 10 mg, By Mouth, Daily, Follow up with PCP to uptitrate dose, # 30 tablet, 0 Refills, Maintenance, 07/02/22 10:36:00 EDT, Tablet, [facility]/pharmacy #[id number], 163, cm, 07/01/22 23:25:00 EDT, Height, 96.4, kg, 06/28/22 18:30:00 EDT, Dry Weight Start Date: 07/02/22 Stop Date: 08/01/22 Status: Ordered folic acid 1 mg oral tablet 1 mg, 1, tablet, By Mouth, Daily, # 30 tablet, Refills 0, Tot. Refills 0, Maintenance, 07/02/22 10:33:00 EDT, Route to Pharmacy Electronically, [facility]/pharmacy #[id number], 163, cm, 07/01/22 23:25:00 EDT, Height, 96.4, kg, 06/28/22 18:30:00 EDT, Dry Weight Start Date: 07/02/22 Status: Ordered gabapentin 300 mg oral capsule 300 mg, 1, capsule, By Mouth, 3 times a day, # 90 capsule, Refills 0, Tot. Refills 0, Maintenance, 07/02/22 10:32:00 EDT, Route to Pharmacy Electronically, [facility]/pharmacy #[id number], 163, cm, 07/01/22 23:25:00 EDT, Height, 96.4, kg, 06/28/22 18:30:00 EDT, Start Date: 07/02/22 Status: Ordered gabapentin 300 mg oral capsule 300 mg, Capsule, By Mouth, 07/02/22 9:00:00 EDT Start Date: 07/02/22 Stop Date: 07/02/22 Status: Completed hydrOXYzine pamoate 25 mg oral capsule 1 capsule = 25 mg, By Mouth, Every 6 hours, PRN Anxiety, for 30 days, # 120 capsule, 0 Refills, Acute 08/01/22 10:33:00 EDT, 07/02/22 10:33:00 EDT, Capsule, [facility]/pharmacy #[id number], 163, cm, 07/01/22 23:25:00 EDT, Height, 96.4, kg, 06/28/22 18:30:00 EDT, Marlena Start Date: 07/02/22 Stop Date: 08/01/22 Status: Ordered Methadone By Mouth, 0 Refills, Maintenance Start Date: 08/31/12 Status: Ordered Methadone Liquid 42 mg, Solution, By Mouth, 07/02/22 9:00:00 EDT Start Date: 07/02/22 Stop Date: 07/02/22 Status: Completed metoprolol 25 mg oral tablet 25 mg, Tablet, By Mouth, 07/02/22 9:00:00 EDT Start Date: 07/02/22 Stop Date: 07/02/22 Status: Completed Multivitamin By Mouth, Daily, 0 Refills, Maintenance Start Date: 12/06/10 Status: Ordered pyridoxine 50 mg oral tablet 50 mg, 1, tablet, By Mouth, Daily, for 30 days, # 30 tablet, Refills 0, Tot. Refills 0, Acute 08/01/22 10:59:00 EDT, 07/02/22 10:59:00 EDT, Route to Pharmacy Electronically, [facility]/pharmacy #[id number], 163, cm, 07/01/22 23:25:00 EDT, Height, 96.4, kg, 2... Start Date: 07/02/22 Stop Date: 08/01/22 Status: Ordered Qvar 80 mcg/inh inhalation aerosol [...] 15:15:00, Compound Start Date: 11/20/12 Status: Ordered thiamine 100 mg oral tablet 100 mg, 1, tablet, By Mouth, 2 times a day, for 30 days, # 60 tablet, Refills 0, Tot. Refills 0, Acute 08/01/22 10:34:00 EDT, 07/02/22 10:34:00 EDT, Route to Pharmacy Electronically, [facility]/pharmacy #[id number], 163, cm, 07/01/22 23:25:00 EDT, Height, 96.4, kg... Start Date: 07/02/22 Stop Date: 08/01/22 Status: Ordered Tivicay 50 mg oral tablet [...] Date: 06/26/21 Stop Date: 07/01/21 Status: Ordered Xanax 1 mg oral tablet [...] Exam Date Time Procedure Performing Provider Status 06/28/22 11:[address] Abd/Pelvis W/ IV Contrast Only Anika Estrella; Auth (Verified) Notes: (CT Abd/Pelvis W/ IV Contrast Only) Reason For Exam: chest pain, upper abdominal pain;Other: RESULT: CT Abd/Pelvis W/ IV Contrast Only CT Abd/Pelvis W/ IV Contrast Only Hx of Present Illness: pt reports CP since Friday night, states it radiates down her back and into her legs and that it is causing her to have SOB.; Reason: Other:; chest pain, upper abdominal pain; Clinical Question(s): Pancreatitis TECHNIQUE: Spiral CT through the abdomen and pelvis with IV contrast formatted in 3 planes. 100 cc of Omnipaque 300 was administered intravenously. This study was performed without oral contrast. Weight-based protocol using automatic tube modulation was used to optimize exposure parameters. CTDIvol Body: 12.32 mGy, DLP Body: 1615 mGy*cm. COMPARISON: None. FINDINGS: Corporate General Manager View Findings, Lines and Tubes: None. Visualized Chest: Lung bases are clear. No pleural effusion. The heart is normal in size. No pericardial effusion. Diaphragm: Normal. Liver: Liver is moderately fatty infiltrated. Low-attenuation area within the medial segment of theleft hepatic lobe adjacent to the falciform ligament consistent with normal variant. Gallbladder: No CT evidence of gallbladder pathology. Bile ducts: No biliary ductal dilation. Spleen: Normal. Pancreas: The pancreas appears edematous with peripancreatic stranding and trace amount of fluid. Adrenal glands: Normal. Kidneys and ureters: No hydronephrosis, stones, or suspicious masses. Bladder: Normal. Reproductive organs: Unremarkable. Stomach, small bowel, and large bowel: There is circumferential wall thickening within the duodenumwith adjacent stranding. Fatty infiltration of the submucosa throughout the colon may be a normal variant versus sequela to chronic inflammatory bowel disease. Appendix: Normal. Peritoneum and retroperitoneum: No ascites or pneumoperitoneum. No omental or mesenteric lesions. Lymph nodes: No enlarged lymph nodes. Blood vessels: Normal. No aneurysm. No evidence of venous thrombosis. Abdominal and pelvic wall: Unremarkable. Bones: No acute abnormality. IMPRESSION: Pancreatitis. Inflammatory wall thickening within the duodenum versus duodenitis. Moderate hepatic steatosis. No evidence of cholelithiasis or choledocholithiasis. WSN: [id number] Ordering Physician: Dora Grant Dictated By: Bipin Helton MD Dictated Date/Time: 06/28/22 12:19 p Reviewed By: Bipin Helton MD Signed By: Bipin Helton MD Signed Date/Time: 06/28/22 12:19 pm Transcribed By: AISHA Transcribed Date/Time: 06/28/22 12:11 pm * Exam Date Time Procedure Performing Provider Status 06/28/22 11:[address] Angio Chest Anika Estrella; Auth (Verified) Notes: (CT Angio Chest) Reason For Exam: PE suspected, Intermediate prob, positive D-dimer,;Other: RESULT: CT Angio Chest EXAMINATION: CT Angio Chest INDICATION: Hx of Present Illness: pt reports CP since Friday night, states it radiates down her back and into her legs and that it is causing her to have SOB.; Reason: Other:; PE suspected, Intermediate prob, positive D-dimer,; Clinical Question(s): Pulmonary Embolism; Order Comment: TECHNIQUE: Spiral CTA of the chest was performed after rapid IV contrast administration without cardiac gating, triggered by an EVA on the main pulmonary artery. Images are formatted in multiple planes using 2-D multiplanar and 3-D maximum intensity projection. 100 cc of Omnipaque 300 was administered intravenously. Weight-based protocol using automatic tube modulation was used to optimize exposure parameters. CTDIvol Body: 12.33 mGy, DLP Body: 1615 mGy*cm. COMPARISONS: None. ANGIOGRAPHIC FINDINGS: No pulmonary embolism to the subsegmental level. Normal caliber pulmonary arteries. No acute aortic abnormality seen on this study performed without cardiac gating. NON-ANGIOGRAPHIC FINDINGS: Corporate General Manager View Findings, Lines and Tubes: None. Trachea and Airways: Patent without evidence of tracheal or endobronchial lesion. Lungs and Pleura: Clear lungs. No effusion or pneumothorax. Mediastinum and kiko: No mass or hematoma. No mediastinal or hilar lymphadenopathy. No esophageal abnormality. Heart: Heart is normal in size. No pericardial effusion. Chest Wall Soft Tissues: Normal. Diaphragm and upper abdomen: No significant abnormality. The liver is fatty infiltrated. Bones: No acute abnormality. IMPRESSION: No evidence of pulmonary embolism. Hepatic steatosis. WSN: [id number] Ordering Physician: Dora Grant Dictated By: Bipin Helton MD Dictated Date/Time: 06/28/22 12:08 p Reviewed By: Bipin Helton MD Signed By: Bipin Helton MD Signed Date/Time: 06/28/22 12:08 pm Transcribed By: AISHA Transcribed Date/Time: 06/28/22 12:04 pm * Exam Date Time Procedure Performing Provider Status 06/28/22 3:01 AM Chest 2 Views Frontal and Lat Miller , Steph; Auth (Verified) Notes: (Chest 2 Views Frontal and Lat) Reason For Exam: Chest Pain;Other: RESULT: Chest 2 Views Frontal and Lat Chest 2 Views Frontal and Lat Hx of Present Illness: pt reports CP since Friday night, states it radiates down her back and into her legs and that it is causing her to have SOB.; Reason: Other:; Chest Pain; Clinical Question(s): Other: COMPARISON: 05/01/2022 FINDINGS: LINES AND TUBES: None. LUNGS AND PLEURA: Clear lungs. Normal pulmonary vascularity. No pleural effusion. No pneumothorax. HEART, MEDIASTINUM AND KIKO: Heart is normal in size. Normal mediastinal and hilar contour. BONES AND SOFT TISSUES: No acute abnormality. IMPRESSION: No acute abnormality. WSN: [id number] Ordering Physician: Audrey Foreman Dictated By: Garland Falcon MD Dictated Date/Time: 06/28/22 6:38 am Reviewed By: Garland Falcon MD Signed By: Garland Falcon MD Signed Date/Time: 06/28/22 6:38 am Transcribed By: AISHA Transcribed Date/Time: 06/28/22 6:38 am Vital Signs Most recent to oldest [Reference Range]: 1 2 3 4 Height 163 cm (07/02/22 12:50 PM) 163 cm (07/01/22 11:25 PM) 163 cm (07/01/22 7:54 PM) Weight 96.4 kg (06/28/22 6:30 PM) 100 kg (06/28/22 2:28 AM) Oxygen Saturation [94-100 %] 95 % (07/02/22 12:50 PM) 98 % (07/02/22 7:00 AM) 99 % (07/02/22 4:00 AM) Pulse Rate [55-90 bpm] 85 bpm (07/02/22 12:50 PM) 78 bpm (07/02/22 9:00 AM) 61 bpm (07/02/22 8:35 AM) Body Mass Index [18.5-24.99 kg/m2] 36.28 kg/m2 *>HHI* (06/28/22 6:30 PM) Blood Pressure [90-138/55-84 mm Hg] 133/79mm Hg (07/02/22 12:50 PM) 120/82mm Hg (07/02/22 9:00 AM) 125/91mm Hg (07/02/22 8:35 AM) Respiratory Rate [16-30 br/min] 95 br/min *H* (07/02/22 12:50 PM) 19 br/min (07/02/22 10:10 AM) 19 br/min (07/02/22 10:10 AM) 19 br/min (07/02/22 10:10 AM) Temperature [96.8-100.4 DegF] 97.4 DegF (07/02/22 12:50 PM) 97.7 DegF (07/02/22 7:00 AM) 98.1 DegF (07/02/22 4:00 AM) Mode of Delivery (Oxygen) Room air (07/02/22 12:50 PM) Room air (07/02/22 7:00 AM) Room air (07/02/22 4:00 AM) Blood pressure sites Arm, left (07/02/22 12:50 PM) Arm, left (07/02/22 7:00 AM) Arm, left (07/02/22 4:00 AM) Temperature Route Oral (07/02/22 12:50 PM) Oral (07/02/22 7:00 AM) Oral (07/01/22 11:25 PM) Dry Weight 96.4 kg (06/28/22 6:30 PM) Weight Obtained Via Bed scale (06/28/22 6:30 PM) Patient/family stated (06/28/22 2:28 AM) Dry Weight Obtained Via Bed scale (06/28/22 6:30 PM) Social History Social History Type Response Smoking Status 10 or more cigarette s (1/2 pack or more)/day in last 30 days entered on: 09/25/20 Sex Admission evaluation note * Praveen Barreto: PERFORM Event Display: Admission Note Authored Date: [id number] Patient: ??SARAH RHODES ? Age:??32 Years?Sex:??Female?:??1990?? Chief Complaint/Reason for Consultation Abdominal pain History of Present Illness 32-year-old female with history of EtOH, Opioid Use Disorder on Methadone, presents with abdominal pain.?? She was found to have acute pancreatitis demonstrated??on CT abdomen??with??elevated lipase.?? She was started on IV fluids??and her pain improved some with ketorolac.?? She drinks about 10 nips per day??and does not use any??heroin on the streets.?? She takes 42 mg of methadone daily from [facility],??last dose??06/24.?? She was treated with phenobarbital for alcohol withdrawal syndrome in the emergency department.?? She was unable to advance her diet as she was she will be admitted for further management. Review of Systems CONSTITUTIONAL: ??Denies any fever, chills, changes to weight or fatigue. EYES: Denies any changes to vision, burning or diplopia. HEENT: Denies any GRADY, nasal d/c, nose bleeds, changes to voice, vertigo, photophobia, hearing changes or dental problems. CV: Denies any CP, orthopnea, PND, edema, palpitations. PULM: Denies any SOB, wheezing, cough or production of phlegm. ABD: See HPI : Denies any changes to frequency. ??Denies dysuria, urgency, straining, hematuria, incontinence.? MS: Denies any joint or muscle pain, falls or changes to gait. NEURO: Denies any weakness, numbness, changes to speech confusion or memory loss. SKIN: Denies any rashes or lesions. ?? PSYCH: Denies any depression or anxiety. SIGECAPS negative. FUNCTIONAL: At baseline the patient is able to??ambulate independently Objective Vital Signs?? Temperature: 100.1 DegF (06/28/22 18:30:00) Temperature Route: Oral (06/28/22 18:30:00) Pulse Rate: 88 bpm (06/28/22 18:30:00) Respiratory Rate: 20 br/min (06/28/22 18:30:00) Systolic Blood Pressure:??169 mm Hg??High (06/28/22 18:30:00) Diastolic Blood Pressure:??111 mm Hg??High (06/28/22 18:30:00) Blood pressure sites: Arm, left (06/28/22 18:30:00) Mean Arterial Pressure: 130 mm Hg (06/28/22 18:30:00) Pulse Pressure: 58 mm Hg (06/28/22 18:30:00) Oxygen Saturation: 98 % (06/28/22 18:30:00) Mode of Delivery (Oxygen): Room air (06/28/22 18:30:00) Early Warning Score: 4 (06/28/22 18:31:59) ? Physical Exam General:??32-year-old female appears anxious??and irritable HEENT: NCAT, moist oral mucosa, good dentition, oropharynx without erythema Card: RRR no murmur, non displaced PMI, no JVD, 2+ radial pulse B/L Resp: CTA B/L, no wheezing, rales, ronchi Abdomen: Mild epigastric tenderness Extremities: no pitted edema B/L lower extremities Skin: Without rashes or lesions, good turgor Hem/Lymph: without bruising or lymphadenopathy Psych: appropriate affect Neuro: A&OX3, no focal motor deficits Assessment/Plan 32-year-old female with history of EtOH, Opioid Use Disorder on Methadone, presents with abdominal pain.? Pancreatitis (K85.90):??Treating with IV fluids and pain management??advance diet as tolerated ?? Alcohol use with withdrawal (F10.939):??Treating with CIWA protocol, phenobarbital, Ativan ?? Opioid use disorder (F11.90):??Confirmed with [facility]. We will resume methadone 42 mg daily ?? VTE Prophylaxis:??Pneumoboots ?VTE Prophylaxis Assessment:??VTE Prophylaxis Ordered ?? Code Status:??Full ?Order Code Status:??Code Status Ordered ?? Discharge Planning:??Home when ready ? Histories Allergies Allergies ?(Active and Proposed Allergies Only) Bactrim? (Severity: Unknown severity, Onset: Unknown) ? Past Medical History/Problem List Active Problems??(5) Anxiety Asthma Depression Pelvic fracture Severe obesity (BMI 35.0-39.9) with comorbidity ? Past Surgical History No surgery history documented. ? Social History Alcohol Details:??Use: Current. ??Frequency: 3-5 times per week. Substance Abuse Details:??Use: Never. Tobacco Details:??Use: 10 or more cigarettes (1/2 pack or more)/day in last 30 days. ? Family History Father: Diabetes mellitus type II Sister: Bipolar ? Medications Home Medications Albuterol (albuterol CFC free 90 mcg/inh inhalation aerosol)?2?puff(s)?Inhalation?Every4 hours?as needed?for wheezing Alprazolam (Xanax 1 mg oral tablet)?1?tab(s)?By Mouth?3 times a day?as needed?Anxiety Beclomethasone (Qvar 80 mcg/inh inhalation aerosol with adapter)?1?puff(s)?Inhalation?2times a day dolutegravir (Tivicay 50 mg oral tablet)?1?tab(s)?50?Milligram?By Mouth?Daily?for 5?Days Durable Medical Equipment (Aerochamber)?See Instructions?Use with albuterol and Qvar Inhalers. Durable Medical Equipment (Splint)?See Instructions?One right and one left wrist splint, to be worn at night for carpal tunnel.Dx: Wrist Pain and Carpal Tunnel Emtricitabine-Tenofovir (Truvada 200 mg-300 mg oral tablet)?1?tab(s)?By Mouth?Daily?for 5?Days EPINEPHrine (EpiPen 2-Cipriano 0.3 mg injectable kit)?0.3?Milligram?Intramuscular?Once Gabapentin (gabapentin 100 mg oral capsule)?2?capsule?200?Milligram?By Mouth?3 times a day?for 10?Days Ibuprofen (ibuprofen 600 mg oral tablet)?1?tab(s)?600?Milligram?By Mouth?Every 6 hours Methadone?By Mouth Multivitamin?By Mouth?Daily Naproxen (EC Naprosyn 500 mg oral enteric coated tablet)?1?tab(s)?500?Milligram?By Mouth?2 times a day?with food ? Results Recent Labs BLOOD COUNT & DIFF WBC 9.4 k/mm3 ()?? 06/28/2022 03:06 RBC 4.18 m/mm3 (Low)?? 06/28/2022 03:06 Hgb 13.5 Gm/dL ()?? 06/28/2022 03:06 Hct 38.6 % ()?? 06/28/2022 03:06 MCV 92.3 femtoliters ()?? 06/28/2022 03:06 MCH 32.3 pg ()?? 06/28/2022 03:06 MCHC 35.0 g/dL ()?? 06/28/2022 03:06 Platelet Count 145 k/mm3 (Low)?? 06/28/2022 03:06 RDW-SD 51.3 femtoliters (High)?? 06/28/2022 03:06 MPV 9.2 femtoliters (Low)?? 06/28/2022 03:06 Nucleated RBC (Automated) 0.0 #/100 WBC'S ()?? 06/28/2022 03:06 Abs. NRBC 0.0 k/mm3 ()?? 06/28/2022 03:06 Abs. Neut 7.1 k/mm3 (High)?? 06/28/2022 03:06 Abs. Lymph 1.8 k/mm3 ()?? 06/28/2022 03:06 Abs. Bond 0.4 k/mm3 ()?? 06/28/2022 03:06 Abs. Eo 0.0 k/mm3 ()?? 06/28/2022 03:06 Abs. Baso 0.0 k/mm3 ()?? 06/28/2022 03:06 Neut % 75.9 % ()?? 06/28/2022 03:06 Lymph % 18.7 % ()?? 06/28/2022 03:06 Bond % 4.5 % ()?? 06/28/2022 03:06 Eos % 0.1 % ()?? 06/28/2022 03:06 Baso % 0.3 % ()?? 06/28/2022 03:06 Imm Gran 0.5 % ()?? 06/28/2022 03:06 Abs. Imm Gran 0.1 k/mm3 ()?? 06/28/2022 03:06 ?? CARDIAC Nt-Probnp 364 pg/mL (High)?? 06/28/2022 03:06 High Sensitivity Troponin (HSTnT) HEMOLYZED ng/L ()?? 06/28/2022 14:50 ?? CHEM GENERAL Sodium 132 mmol/L (Low)?? 06/28/2022 09:14 Potassium 3.9 mmol/L ()?? 06/28/2022 09:14 Chloride 94 mmol/L (Low)?? 06/28/2022 09:14 Bicarbonate Level 21 mmol/L (Low)?? 06/28/2022 09:14 Anion Gap 17 ()?? 06/28/2022 09:14 Glucose Level 105 mg/dL (High)?? 06/28/2022 09:14 BUN 11 mg/dL ()?? 06/28/2022 09:14 Creatinine-Blood 0.8 mg/dL ()?? 06/28/2022 09:14 Estimated GFR Creatinine 105 ML/MIN/1.73 M2 ()?? 06/28/2022 09:14 Calcium 7.1 mg/dL (Low)?? 06/28/2022 09:14 Magnesium 1.5 mg/dL (Low)?? 06/28/2022 09:14 Protein, Total 6.2 Gm/dL ()?? 06/28/2022 09:14 Albumin 3.2 Gm/dL (Low)?? 06/28/2022 09:14 AG Ratio 1.1 ()?? 06/28/2022 09:14 Alkaline Phosphatase 197 units/L (High)?? 06/28/2022 09:14 Lipase 499 units/L (High)?? 06/28/2022 09:14 AST (SGOT) 249 units/L (High)?? 06/28/2022 09:14 ALT (SGPT) 149 units/L (High)?? 06/28/2022 09:14 Bilirubin, Total 1.6 mg/dL (High)?? 06/28/2022 09:14 ?? COAG D-Dimer 1.79 mg/L FEU (High)?? 06/28/2022 09:14 ?? ENDOCRINE/TUMOR MARKER Serum Qual NEGATIVE mIU/mL ()?? 06/28/2022 03:06 ?? HEME OTHER Hold Blue Top SPECIMEN DISCARDED AFTER 4 HOURS. ()?? 06/28/2022 03:06 ?? MISC. CHEMISTRY Hold Gel Top SPECIMEN DISCARDED AFTER 1 WEEK ()?? 06/28/2022 14:50 ?? UA/URINALYSIS Appear/Color, Urine YELLOW ()?? 06/28/2022 08:00 Specific [place], Urine 1.030 ()?? 06/28/2022 08:00 pH, Urine 6.0 ()?? 06/28/2022 08:00 Albumin, Urine 1+ (Abnormal)?? 06/28/2022 08:00 Glucose, Urine NEGATIVE ()?? 06/28/2022 08:00 Ketones, Urine TRACE (Abnormal)?? 06/28/2022 08:00 Bilirubin, Urine NEGATIVE ()?? 06/28/2022 08:00 Hemoglobin, Urine 3+ (Abnormal)?? 06/28/2022 08:00 Nitrite, Urine NEGATIVE ()?? 06/28/2022 08:00 Leukocyte, Urine NEGATIVE ()?? 06/28/2022 08:00 Urobilinogen NORMAL mg/dL ()?? 06/28/2022 08:00 WBC's, Urine 2 /HPF ()?? 06/28/2022 08:00 RBC's, Urine 3 /HPF ()?? 06/28/2022 08:00 Bacteria MODERATE HPF (Abnormal)?? 06/28/2022 08:00 Squamous Epith 16 /HPF (High)?? 06/28/2022 08:00 Amorphous Crystals MODERATE /HPF ()?? 06/28/2022 08:00 Mucus SLIGHT /LPF ()?? 06/28/2022 08:00 Hold Urine Culture Testing available 48 hours from time of collection. ()?? 06/28/2022 08:00 ?? VIROLOGY COVID-19 POC Result NEGATIVE ()?? 06/28/2022 02:11 ?RESULT: CT Abd/Pelvis W/ IV Contrast Only CT Abd/Pelvis W/ IV Contrast Only? IMPRESSION:? Pancreatitis. Inflammatory wall thickening within the duodenum versus duodenitis. ?? Moderate hepatic steatosis. ?? No evidence of cholelithiasis or choledocholithiasis. EKG study * Event Display: ECG 12-Lead Authored Date: Please click on pdf link to open report * Event Display: ECG 12-Lead Authored Date: Ventricular Rate: 91 BPM Atrial Rate: 91 BPM P-R Interval: 134 ms QRS Duration: 68 ms Q-T Interval: 366 ms QTC Calculation(Bazett): 450 ms P [place]: 39 degrees R [place]: 54 degrees T [place]: 45 degrees Normal sinus rhythm Normal ECG When compared with ECG of 03-APR-2022 21:07, Left posterior fascicular block is no longer Present Nonspecific T wave abnormality no longer evident in Inferior leads T wave inversion no longer evident in Lateral leads T wave amplitude has increased in Anterolateral leads Confirmed by PRINCE BACA MD ([id number]) on 06/28/2022 1:47:09 PM [place]: PRINCE BACA MD Note * Event Display: Cardiac Rhythm Strips Authored Date: * Roma Choe RN: PERFORM Event Display: Discharge/Transfer Note Hospital Authored Date: [id number] Nursing Discharge Note Entered On: 07/02/2022 13:36 EDT Performed On: 07/02/2022 13:35 EDT by Roma Choe RN Nursing Discharge Note 2 Discharge Time : 07/02/2022 13:35 EDT Discharge Level of Care at Discharge : Home/Fpc/Foster Care Patient Left Unit Via : Wheelchair Patient Accompanied Off Unit with : Other: oskar LANDEROS Instructions Provided & Signed by Pt : Yes Patient Understands D/C Instructions : Yes Verbalized Understanding of D/C Plan By : Patient Patient Instructions Discharge Signed : Yes Did Pt have Specialty Bed or Wound Vac : No Roma Choe RN - 07/02/2022 13:35 EDT * Ghulam Hicks DO: MODIFY, PERFORM Event Display: Discharge/Transfer Note Hospital Authored Date: Patient: ??SARAH RHODES ? Age:??32 Years?Sex:??Female?:??1990?? Patient Information Discharge Location: W4 Primary Care Physician: Not on Staff, PCP Admit Date/Time: 06/28/22 13:24 Discharge Disposition Discharge Disposition: Home: No Services Discharge Diagnosis Alcohol use disorder, severe, dependence (F10.20) Anxiety (F41.9) Depression, unspecified (F32.A) Hepatic steatosis (K76.0) Hypertension (I10) Nicotine use disorder (F17.200) Opioid use disorder (F11.90) Pancreatitis (K85.90) Thrombocytopenia (D69.6) _ Discharge Medications Acetaminophen (acetaminophen 325 mg oral tablet)?650?Milligram?By Mouth?3 times a day?for 14?Days Albuterol (albuterol CFC free 90 mcg/inh inhalation aerosol)?2?puff(s)?Inhalation?Every4 hours?as needed?for wheezing Alprazolam (Xanax 1 mg oral tablet)?1?tab(s)?By Mouth?3 times a day?as needed?Anxiety Beclomethasone (Qvar 80 mcg/inh inhalation aerosol with adapter)?1?puff(s)?Inhalation?2times a day dolutegravir (Tivicay 50 mg oral tablet)?1?tab(s)?50?Milligram?By Mouth?Daily?for 5?Days Durable Medical Equipment (Aerochamber)?See Instructions?Use with albuterol and Qvar Inhalers. Durable Medical Equipment (Splint)?See Instructions?One right and one left wrist splint, to be worn at night for carpal tunnel.Dx: Wrist Pain and Carpal Tunnel Emtricitabine-Tenofovir (Truvada 200 mg-300 mg oral tablet)?1?tab(s)?By Mouth?Daily?for 5?Days EPINEPHrine (EpiPen 2-Cipriano 0.3 mg injectable kit)?0.3?Milligram?Intramuscular?Once Fluoxetine (FLUoxetine 10 mg oral tablet)?1?tab(s)?10?Milligram?By Mouth?Daily?for 30?Days?Follow up with PCP to uptitrate dose Folic Acid (folic acid 1 mg oral tablet)?1?Milligram?1?tablet?By Mouth?Daily Gabapentin (gabapentin 300 mg oral capsule)?300?Milligram?1?capsule?By Mouth?3 times a day HydrOXYzine (hydrOXYzine pamoate 25 mg oral capsule)?1?capsule?25?Milligram?By Mouth?Every 6 hours?as needed?Anxiety?for 30?Days Methadone?By Mouth Multivitamin?By Mouth?Daily Pyridoxine (pyridoxine 50 mg oral tablet)?50?Milligram?1?tablet?By Mouth?Daily?for 30?Days Thiamine (thiamine 100 mg oral tablet)?100?Milligram?1?tablet?By Mouth?2 times a day?for 30?Days Medications Started Fluoxetine (FLUoxetine 10 mg oral tablet)?1?tab(s)?10?Milligram?By Mouth?Daily?for 30?Days?Follow up with PCP to uptitrate dose Folic Acid (folic acid 1 mg oral tablet)?1?Milligram?1?tablet?By Mouth?Daily Pyridoxine (pyridoxine 50 mg oral tablet)?50?Milligram?1?tablet?By Mouth?Daily?for 30?Days Thiamine (thiamine 100 mg oral tablet)?100?Milligram?1?tablet?By Mouth?2 times a day?for 30?Days Medications Discontinued Ibuprofen (ibuprofen 600 mg oral tablet)?1?tab(s)?600?Milligram?By Mouth?Every 6 hours Naproxen (EC Naprosyn 500 mg oral enteric coated tablet)?1?tab(s)?500?Milligram?By Mouth?2 times a day?with food Doses Changed Acetaminophen (acetaminophen 325 mg oral tablet)?650?Milligram?By Mouth?3 times a day?for 14?Days Gabapentin (gabapentin 300 mg oral capsule)?300?Milligram?1?capsule?By Mouth?3 times a day Allergies Allergies ?(Active and Proposed Allergies Only) Bactrim? (Severity: Unknown severity, Onset: Unknown) ? PCP Follow-Up/Heads-Up Please repeat CBC to monitor thrombocytopenia and LFTs within a week of discharge. Patient has anxiety that is not well controlled. She is started on fluoxetine and hydroxyzine. Please follow up on management of anxiety. Patient is interested in alcohol cessation but declines acamprosate. Please follow up and support alcohol cessation. Hospital Course 32-year-old female with history of EtOH, Opioid Use Disorder on Methadone, presents with abdominal pain.?? She was found to have acute pancreatitis demonstrated??on CT abdomen??with??elevated lipase.?? She was started on IV fluids??and her pain improved some with ketorolac.?? She drinks about 10 nips per day??and does not use any??heroin on the streets.?? She takes 42 mg of methadone daily from the [facility],??last dose??07/02/2022.?? She was treated with benzodiazepines for alcohol withdrawal syndrome??and scored low CIWA??not requiring??prn lorazepam on day of discharge. She has progressed to regular diet on discharge. ?? Pancreatitis - resolved Elevated transaminases Patient presenting due to abdominal pain. Transaminases likely 2/2 pancreatitis/alcohol associated??liver injury Found to have pancreatitis from CT of the abdomen as well as positive lipase without biliary involvement Tolerating PO. Pain control with methadone 42mg??verified home dose ?? Recommendations -Continue oral intake -Follow up LFT with PCP within 1??week ?? Alcohol use disorder, severe Unspecified depressive disorder Opiate use disorder, severe, on methadone maintenance therapy Nicotine use disorder, moderate Likely PTSD Drinking 10??nips a day. Addiction medicine consulted; a list of local clinics has been added??to her discharge materials ?? Recommendations -Continue multivitamin, folate, thiamine, pyridoxine -Continue hydroxyzine 25mg PO PRN anxiety -Discharge on acamprosate 666 mg TID which patient declines -Continue methadone 42mg -Continue gabapentin 300mg TID -Continue acetaminophen 650 TID PRN -Follow up with PCP for mental health management and evaluation ?? Hypertension - follow up with PCP.??Anxiety may be strong component to this patient's hypertension ?? Thrombocytopenia?? 4T score 1-2 and no recent exposure to heparin products this admission Likely component of dilution with IV fluids and liver dysfunction ?? Recommendations -Follow up with PCP for repeat CBC within 1 week Objective Measurements?? Height: 163 cm (07/01/22) Weight: 96.4 kg (06/28/22) Dry Weight: 96.4 kg (06/28/22) Body Mass Index:??36.28 kg/m2??Critical (06/28/22) ? Vital Signs?? Temperature: 97.7 DegF (07/02/22 07:00:00) Temperature Route: Oral (07/02/22 07:00:00) Pulse Rate: 78 bpm (07/02/22 09:00:00) Respiratory Rate: 19 br/min (07/02/22 10:10:00) Respiratory Rate: 19 br/min (07/02/22 10:10:00) Respiratory Rate: 19 br/min (07/02/22 10:10:00) Systolic Blood Pressure: 120 mm Hg (07/02/22 09:00:00) Diastolic Blood Pressure: 82 mm Hg (07/02/22 09:00:00) Blood pressure sites: Arm, left (07/02/22 07:00:00) Mean Arterial Pressure: 115 mm Hg (07/01/22 23:25:00) Pulse Pressure: 34 mm Hg (07/02/22 07:00:00) Oxygen Saturation: 98 % (07/02/22 07:00:00) Mode of Delivery (Oxygen): Room air (07/02/22 07:00:00) Early Warning Score: 6 (07/02/22 10:16:05) ? . Physical Exam General: No acute distress HEENT: EOMI, mucous membranes moist CV: RRR S1 S2 present. No murmurs, gallops, rubs appreciated. No JVD. No edema. Respiratory: All wynne clear to auscultation bilaterally. No wheezes, rales, rhonchi appreciated Abdominal: Soft, nontender. No rebound tenderness. Bowel sounds noted all four quadrants. : No suprapubic tenderness. Neuro: A&OX3. Moving upper and lower extremities. Sensation intact. CN II-XII. Psych: Affect appropriate Skin: No lesions, wounds, rashes. Consultants Shay[facility] - ??[place] Pending Results CBC ordered on 07/02/2022 Patient Education Titles Fluoxetine Oral Tablet?? Pancreatitis?? Hydroxyzine Oral Tablet?? Vitamin B1 (thiamine) Oral Tablet?? Folic Acid Supplements?? a - Provider Patient Instructions?? Follow-Up Appointments Added Follow Up ?Time Frame ?Comments [facility] PCP Assignment Line [phone]?1 to 2 weeks?inpatient followup Not on Staff, PCP Patient Instructions You were admitted for alcohol withdrawal and pancreatitis. ?? 1. Please take hydroxyzine 25mg one tablet every??6 hours as needed for anxiety. 2. Please take fluoxetine 10mg one tablet daily for anxiety. Follow up with your PCP to titrate up this medication. 3. Please take multivitamin,??folic acid, thiamine, and pyridoxine daily for supplementing nutrients that are deficient with alcohol intake. 4. Please follow up with your PCP to repeat your blood count and monitor your platelets and liver function within a week. 5. Please follow up with your PCP to address your high blood pressure. ?? If symptoms worsen or new symptoms develop, please seek medical attention. If you do not have a PCP, please call the [facility] hotline [phone]. Results Discharge Labs BLOOD COUNT & DIFF WBC 7.1 k/mm3 ()?? 07/01/2022 02:18 RBC 3.06 m/mm3 (Low)?? 07/01/2022 02:18 Hgb 10.3 Gm/dL (Low)?? 07/01/2022 02:18 Hct 29.1 % (Low)?? 07/01/2022 02:18 MCV 95.1 femtoliters ()?? 07/01/2022 02:18 MCH 33.7 pg ()?? 07/01/2022 02:18 MCHC 35.4 g/dL ()?? 07/01/2022 02:18 Platelet Count 91 k/mm3 (Low)?? 07/01/2022 02:18 RDW-SD 56.8 femtoliters (High)?? 07/01/2022 02:18 MPV 10.2 femtoliters ()?? 07/01/2022 02:18 Nucleated RBC (Automated) 0.0 #/100 WBC'S ()?? 07/01/2022 02:18 Abs. NRBC 0.0 k/mm3 ()?? 07/01/2022 02:18 Abs. Neut 7.1 k/mm3 (High)?? 06/28/2022 03:06 Abs. Lymph 1.8 k/mm3 ()?? 06/28/2022 03:06 Abs. Bond 0.4 k/mm3 ()?? 06/28/2022 03:06 Abs. Eo 0.0 k/mm3 ()?? 06/28/2022 03:06 Abs. Baso 0.0 k/mm3 ()?? 06/28/2022 03:06 Neut % 75.9 % ()?? 06/28/2022 03:06 Lymph % 18.7 % ()?? 06/28/2022 03:06 Bond % 4.5 % ()?? 06/28/2022 03:06 Eos % 0.1 % ()?? 06/28/2022 03:06 Baso % 0.3 % ()?? 06/28/2022 03:06 Imm Gran 0.5 % ()?? 06/28/2022 03:06 Abs. Imm Gran 0.1 k/mm3 ()?? 06/28/2022 03:06 ?? CARDIAC Nt-Probnp 364 pg/mL (High)?? 06/28/2022 03:06 High Sensitivity Troponin (HSTnT) HEMOLYZED ng/L ()?? 06/28/2022 14:50 ?? CHEM GENERAL Sodium 135 mmol/L ()?? 07/02/2022 09:48 Potassium 4.5 mmol/L ()?? 07/02/2022 09:48 Chloride 98 mmol/L ()?? 07/02/2022 09:48 Bicarbonate Level 26 mmol/L ()?? 07/02/2022 09:48 Anion Gap 11 ()?? 07/02/2022 09:48 Glucose Level 121 mg/dL (High)?? 07/02/2022 09:48 BUN 6 mg/dL ()?? 07/02/2022 09:48 Creatinine-Blood 0.6 mg/dL ()?? 07/02/2022 09:48 Estimated GFR Creatinine 121 ML/MIN/1.73 M2 ()?? 07/02/2022 09:48 Calcium 9.0 mg/dL ()?? 07/02/2022 09:48 Magnesium 2.4 mg/dL (High)?? 06/30/2022 02:53 Protein, Total 5.9 Gm/dL (Low)?? 07/02/2022 09:48 Albumin 3.2 Gm/dL (Low)?? 07/02/2022 09:48 AG Ratio 1.2 ()?? 07/02/2022 09:48 Alkaline Phosphatase 167 units/L (High)?? 07/02/2022 09:48 Lipase 499 units/L (High)?? 06/28/2022 09:14 AST (SGOT) 43 units/L (High)?? 07/02/2022 09:48 ALT (SGPT) 54 units/L (High)?? 07/02/2022 09:48 Bilirubin, Total 0.6 mg/dL ()?? 07/02/2022 09:48 Bilirubin, Direct 1.2 mg/dL (High)?? 06/29/2022 07:14 Bilirubin, Indirect 0.6 mg/dL ()?? 06/29/2022 07:14 ? COAG D-Dimer 1.79 mg/L FEU (High)?? 06/28/2022 09:14 ? ENDOCRINE/TUMOR MARKER Serum Qual NEGATIVE mIU/mL ()?? 06/28/2022 03:06 ? HEME OTHER Hold Blue Top SPECIMEN DISCARDED AFTER 4 HOURS. ()?? 06/28/2022 03:06 ? MISC. CHEMISTRY Hold Gel Top SPECIMEN DISCARDED AFTER 1 WEEK ()?? 06/28/2022 14:50 ? UA/URINALYSIS Appear/Color, Urine YELLOW ()?? 06/28/2022 08:00 Specific [place], Urine 1.030 ()?? 06/28/2022 08:00 pH, Urine 6.0 ()?? 06/28/2022 08:00 Albumin, Urine 1+ (Abnormal)?? 06/28/2022 08:00 Glucose, Urine NEGATIVE ()?? 06/28/2022 08:00 Ketones, Urine TRACE (Abnormal)?? 06/28/2022 08:00 Bilirubin, Urine NEGATIVE ()?? 06/28/2022 08:00 Hemoglobin, Urine 3+ (Abnormal)?? 06/28/2022 08:00 Nitrite, Urine NEGATIVE ()?? 06/28/2022 08:00 Leukocyte, Urine NEGATIVE ()?? 06/28/2022 08:00 Urobilinogen NORMAL mg/dL ()?? 06/28/2022 08:00 WBC's, Urine 2 /HPF ()?? 06/28/2022 08:00 RBC's, Urine 3 /HPF ()?? 06/28/2022 08:00 Bacteria MODERATE HPF (Abnormal)?? 06/28/2022 08:00 Squamous Epith 16 /HPF (High)?? 06/28/2022 08:00 Amorphous Crystals MODERATE /HPF ()?? 06/28/2022 08:00 Mucus SLIGHT /LPF ()?? 06/28/2022 08:00 Hold Urine Culture Testing available 48 hours from time of collection. ()?? 06/28/2022 08:00 ?? VIROLOGY COVID-19 POC Result NEGATIVE ()?? 06/28/2022 02:11 ? Imaging(s) ?CT Angio Chest ?? 06/28/2022 11:39??by Sunitha CARO, Bipin Ko ?EXAMINATION: CT Angio Chest ?? INDICATION: Hx of Present Illness: pt reports CP since Friday night, states it radiates down her back and into her legs and that it is causing her to have SOB.; Reason: Other:; PE suspected, Intermediate prob, positive D-dimer,; Clinical Question(s): Pulmonary Embolism; Order Comment: ?? TECHNIQUE: Spiral CTA of the chest was performed after rapid IV contrast administration without cardiac gating, triggered by an EAV on the main pulmonary artery. Images are formatted in multiple planes using 2-D multiplanar and 3-D maximum intensity projection. 100 cc of Omnipaque 300 was administered intravenously. Weight-based protocol using automatic tube modulation was used to optimize exposure parameters. ?? CTDIvol Body: 12.33 mGy, DLP Body: 1615 mGy*cm. ? COMPARISONS: None. ?? ANGIOGRAPHIC FINDINGS: ?? No pulmonary embolism to the subsegmental level. Normal caliber pulmonary arteries. ?? No acute aortic abnormality seen on this study performed without cardiac gating. ? NON-ANGIOGRAPHIC FINDINGS: ?? Corporate General Manager View Findings, Lines and Tubes: None. ?? Trachea and Airways: Patent without evidence of tracheal or endobronchial lesion. ?? Lungs and Pleura: Clear lungs. No effusion or pneumothorax. ?? Mediastinum and kiko: No mass or hematoma. No mediastinal or hilar lymphadenopathy. No esophageal abnormality. ?? Heart: Heart is normal in size. No pericardial effusion. ?? Chest Wall Soft Tissues: Normal. ?? Diaphragm and upper abdomen: No significant abnormality. The liver is fatty infiltrated. Bones: No acute abnormality. ?? IMPRESSION: ?? No evidence of pulmonary embolism. ?Chest 2 Views Frontal and Lat ?? 06/28/2022 03:01??by Garland Falcon MD ?Chest 2 Views Frontal and Lat ?? Hx of Present Illness: pt reports CP since Friday night, states it radiates down her back and into her legs and that it is causing her to have SOB.; Reason: Other:; Chest Pain; Clinical Question(s): Other: ?? COMPARISON: 05/01/2022 ?? FINDINGS: ?? LINES AND TUBES: None. ?? LUNGS AND PLEURA: Clear lungs. Normal pulmonary vascularity. No pleural effusion. No pneumothorax. ?? HEART, MEDIASTINUM AND KIKO: Heart is normal in size. Normal mediastinal and hilar contour. ?? BONES AND SOFT TISSUES: No acute abnormality. ?? IMPRESSION: ?? No acute abnormality. ?CT Abd/Pelvis W/ IV Contrast Only ?? 06/28/2022 11:39??[facility] ?CT Abd/Pelvis W/ IV Contrast Only ?? Hx of Present Illness: pt reports CP since Friday night, states it radiates down her back and into her legs and that it is causing her to have SOB.; Reason: Other:; chest pain, upper abdominal pain; Clinical Question(s): Pancreatitis ?? TECHNIQUE: Spiral CT through the abdomen and pelvis with IV contrast formatted in 3 planes. 100 cc of Omnipaque 300 was administered intravenously. This study was performed without oral contrast. Weight-based protocol using automatic tube modulation was used to optimize exposure parameters. ?? CTDIvol Body: 12.32 mGy, DLP Body: 1615 mGy*cm. ? COMPARISON: None. ?? FINDINGS: ?? Corporate General Manager View Findings, Lines and Tubes: None. ?? Visualized Chest: Lung bases are clear. No pleural effusion. The heart is normal in size. No pericardial effusion. ?? Diaphragm: Normal. ?? Liver: Liver is moderately fatty infiltrated. Low-attenuation area within the medial segment of theleft hepatic lobe adjacent to the falciform ligament consistent with normal variant. ?? Gallbladder: No CT evidence of gallbladder pathology. ?? Bile ducts: No biliary ductal dilation. ?? Spleen: Normal. ?? Pancreas: The pancreas appears edematous with peripancreatic stranding and trace amount of fluid. ?? Adrenal glands: Normal. ?? Kidneys and ureters: No hydronephrosis, stones, or suspicious masses. ?? Bladder: Normal. ?? Reproductive organs: Unremarkable. ?? Stomach, small bowel, and large bowel: There is circumferential wall thickening within the duodenumwith adjacent stranding. Fatty infiltration of the submucosa throughout the colon may be a normal variant versus sequela to chronic inflammatory bowel disease. ?? Appendix: Normal. ?? Peritoneum and retroperitoneum: No ascites or pneumoperitoneum. No omental or mesenteric lesions. ?? Lymph nodes: No enlarged lymph nodes. ?? Blood vessels: Normal. No aneurysm. No evidence of venous thrombosis. ?? Abdominal and pelvic wall: Unremarkable. ?? Bones: No acute abnormality. ?? IMPRESSION: ?? Pancreatitis. Inflammatory wall thickening within the duodenum versus duodenitis. ?? Moderate hepatic steatosis. ? 30 minutes spent on discharge ?? Patient seen and discussed with attending physician, MD Ghulam Franks DO, PGY-2 * Bella Ramirez MD: PERFORM Event Display: Discharge/Transfer Note Hospital Authored Date: [id number] Attending Attestation:??I have seen and evaluated this patient on day of service noted above. ??I have discussed the case and its management with the resident and agree with the findings and plan as documented in the resident???s note. * Roma Choe RN: PERFORM Event Display: Patient Education/Instruction Authored Date: [id number] Inpatient Adult Discharge Instructions [address] [address] Name: SARAH RHODES : 1990 Visit: 06/28/2022 13:24:00 Current Date: 07/02/2022 13:15 Account: [id number] Inpatient Adult Discharge Instructions We would like to thank you for allowing us to assist you with your healthcare needs. The following includes patient education materials and information regarding your injury/illness. Our entire staffstrives to provide an excellent experience for our patients and their families. PLEASE ENSURE YOU FOLLOW-UP PER THE INSTRUCTIONS BELOW! ?? YOUR OPINION IS IMPORTANT TO US! Please complete the survey you may receive by mail or email. Your feedback will be used to make improvements to the healthcare experiences of our patients and their families. Surveys are administered by [employer] ?? If further treatment with your primary care physician or another doctor is recommended, it is important for you to keep the appointment. Call your primary care physician or return to the Emergency Department immediately if your condition worsens, fails to improve, or new symptoms develop. If you need to find a doctor, you can call [facility] for a referral at [phone] or toll free at [phone] or log in to [email or web address].. ?? You can view and manage your care through the patient portal or by using a health care mike of your choosing. [employer] is a website that allows you to securely view your medical information including your hospital discharge summary, office visit summaries, medications and follow-up visits. You can also request appointments, renew medications, and request access to your medical information using a health care mike of your choosing, or just ask a question. You can enroll at [email or web address] or register during your next office visit. You have been discharged from [facility], Patient Care Unit: S3. If you have any questions regarding these instructions after you leave, please call us and we will be happy to assist you. [facility] Your Care Team Attending Physician James CARO, Bella Consulting Providers Eric CARO, Jose Peoples MD, Magali Discharging Providers Ghulam Hicks DO Reason for Admission From home. Pleuritic chest pain reported since friday. Radiates down to bilat legs. States pain is pressure and constant. Only hx is asthma. Reports also having nausea. NAD upon arrival. Refused IV. Your Diagnosis Pancreatitis Alcohol use with withdrawal Opioid use disorder Alcohol use disorder, severe, dependence Nicotine use disorder Anxiety Thrombocytopenia Depression, unspecified Hypertension Hepatic steatosis Tests Performed Below is a partial list of the tests performed during your hospitalization. You may have had other tests and procedures not included in this list. Please discuss all test results with your provider. B Type Natriuretic Peptide Basic Metabolic Panel BUN CBC w/ Differential Comprehensive Metabolic Panel COVID-19 RNA POC Creatinine D Dimer Electrolytes High??Sensitivity??Troponin T Hold Blue Top Tube HOLD GEL TUBE LFT's Lipase Magnesium Level Serum Qualitative Troponin T, High Sensitivity Urinalysis w/hold for Urine Culture CT Abd/Pelvis W/ IV Contrast Only CT Angio Chest XR Chest 2 Views Frontal and Lat Primary Care Provider Not on Staff, PCP Advance Directive Health Care Proxy on File No Patient is <18 years old Discharge Vitals Temperature: 97.4 DegF Height: 163 cm Pulse Rate: 85 bpm Weight: 96.4 kg Respiratory Rate:??95 br/min??High Body Mass Index:??36.28 kg/m2??Critical Systolic Blood Pressure: 133 mm Hg Body surface area: 2.09 Diastolic Blood Pressure: 79 mm Hg ?? Oxygen Saturation: 95 % ?? Studies Pending All tests and labs ordered during this hospital stay have been completed unless listed below. Please discuss all pending results with your provider listed above in these instructions. ?? CBC What to do next Instructions From Your Doctor You were admitted for alcohol withdrawal and pancreatitis. ?? 1. Please take hydroxyzine 25mg one tablet every??6 hours as needed for anxiety. 2. Please take fluoxetine 10mg one tablet daily for anxiety. Follow up with your PCP to titrate up this medication. 3. Please take multivitamin,??folic acid, thiamine, and pyridoxine daily for supplementing nutrients that are deficient with alcohol intake. 4. Please follow up with your PCP to repeat your blood count and monitor your platelets and liver function within a week. 5. Please follow up with your PCP to address your high blood pressure. 6. Please increase gabapentin from 200mg to 300mg three times a day. ?? If symptoms worsen or new symptoms develop, please seek medical attention. If you do not have a PCP, please call the [facility] PCP hotline [phone]. Discharge Orders You Need to Schedule the Following Appointments Follow Up with??[facility] PCP Assignment Line [phone] When??Within 1 to 2 weeks Why: inpatient followup Where: Follow Up with??Not on Staff, PCP When?? Discharge Medications SARAH RHODES :1990 Visit Date:06/28/2022 Medications: Please continue your medications until treatment is completed or stopped by your provider. Medications not listed below should be discontinued. Discuss any questions related to medications with your provider. What How Much When Instructions Next Dose New Fluoxetine (FLUoxetine 10 mg oral tablet) 1 tab(s) Oral Daily Duration: 30 Days Follow up with PCP to uptitrate dose ?? Pickup at [facility]/pharmacy #0859 as prescribed New Folic Acid (folic acid 1 mg oral tablet) 1 tab(s) Oral Daily Pickup at [facility]/pharmacy #0859 07/03?? AM New HydrOXYzine (hydrOXYzine pamoate 25 mg oral capsule) 1 capsule Oral Every 6 hours as needed for Anxiety Duration: 30 Days Pickup at [facility]/pharmacy #0859 as prescribed New Pyridoxine (pyridoxine 50 mg oral tablet) 1 tab(s) Oral Daily Duration: 30 Days Pickup at [facility]/pharmacy #0859 07/03?? AM New Thiamine (thiamine 100 mg oral tablet) 1 tab(s) Oral Twice a day Duration: 30 Days Pickup at [facility]/pharmacy #0859 07/02?? PM Changed Acetaminophen (acetaminophen 325 mg oral tablet) 650 Milligram Oral 3 times a day Duration: 14 [facility] 3PM if needed Changed Albuterol (albuterol CFC free 90 mcg/ inh inhalation aerosol) 2 puff(s) Inhalation Every 4 hours as needed for for wheezing as prescribed Changed Gabapentin (gabapentin 300 mg oral capsule) 1 capsule Oral 3 times a day Pickup at [facility]/pharmacy #0859 07/02 3PM Unchanged Alprazolam (Xanax 1 mg oral tablet) 1 tab(s) Oral 3 times a day as needed for Anxiety as prescribed Unchanged Beclomethasone (Qvar 80 mcg/ inh inhalation aerosol with adapter) 1 puff(s) Inhalation Twice a day as prescribed Unchanged dolutegravir (Tivicay 50 mg oral tablet) 1 tab(s) Oral Daily Duration: 5 Days as prescribed Unchanged Durable Medical Equipment (Aerochamber) See instructions Use with albuterol and Qvar Inhalers. ?? Unchanged Durable Medical Equipment (Splint) See instructions One right and one left wrist splint, to be worn at night for carpal tunnel. ?? Dx: Wrist Pain and Carpal Tunnel ?? Unchanged Emtricitabine-Tenofovir (Truvada 200 mg-300 mg oral tablet) 1 tab(s) Oral Daily Duration: 5 Days as prescribed Unchanged EPINEPHrine (EpiPen 2-Cipriano 0.3 mg injectable kit) 0.3 Milligram Intramuscular Once as prescribed Unchanged Methadone Oral 07/03 as prescribed Unchanged Multivitamin Oral Daily 4 AM Pharmacy Information [facility]/pharmacy #[id number]: [address], [place] [id number] [phone] ?? What How Much When Comments Stop Taking Ibuprofen (ibuprofen 600 mg oral tablet) 1 tab(s) Oral Every 6 hours Stop Taking Naproxen (EC Naprosyn 500 mg oral enteric coated tablet) 1 tab(s) Oral Twice a day with food ?? Test Results Below is a partial list of the most recent Laboratory test results done prior to this discharge. You may have had other tests and procedures not included in this list. Please discuss all test resultswith your provider. B Type Natriuretic Peptide (06/28/2022) ???Nt-Probnp - 364 pg/mL Basic Metabolic Panel (06/30/2022) ???Sodium - 133 mmol/L???Potassium - 3.7 mmol/L???Chloride - 101 mmol/L???Bicarbonate Level - 24 mmol/L???Anion Gap - 8???Glucose Level - 116 mg/dL???BUN - 3 mg/dL???Creatinine-Blood - 0.7 mg/dL???Estimated GFR Creatinine - 118 ML/MIN/1.73 M2???Calcium - 7.4 mg/dL BUN (06/29/2022) ???BUN - 3 mg/dL CBC w/ Differential (06/28/2022) ???WBC - 9.4 k/mm3???RBC - 4.18 m/mm3???Hgb - 13.5 Gm/dL???Hct - 38.6 %???MCV - 92.3 femtoliters???MCH - 32.3 pg???MCHC - 35.0 g/dL???Platelet Count - 145 k/mm3???RDW-SD - 51.3 femtoliters???MPV - 9.2 femtoliters???Nucleated RBC (Automated) - 0.0 #/100 WBC'S???Abs. NRBC - 0.0 k/mm3???Abs. Neut - 7.1 k/mm3???Abs. Lymph - 1.8 k/mm3???Abs. Bond - 0.4 k/mm3???Abs. Eo - 0.0 k/mm3???Abs. Baso - 0.0 k/mm3???Neut % - 75.9 %???Lymph % - 18.7 %???Bond % - 4.5 %???Eos % - 0.1 %???Baso % - 0.3 %???Imm Gran- 0.5 %???Abs. Imm Gran - 0.1 k/mm3 Comprehensive Metabolic Panel (07/02/2022) ???Sodium - 135 mmol/L???Potassium - 4.5 mmol/L???Chloride - 98 mmol/L???Bicarbonate Level - 26 mmol/L???Anion Gap - 11???Glucose Level - 121 mg/dL???BUN - 6 mg/dL???Creatinine-Blood - 0.6 mg/dL???Estimated GFR Creatinine - 121 ML/MIN/1.73 M2???Calcium - 9.0 mg/dL???Protein, Total - 5.9 Gm/dL???Albu min - 3.2 Gm/dL???AG Ratio - 1.2???Alkaline Phosphatase - 167 units/L???AST (SGOT) - 43 units/L???ALT (SGPT) - 54 units/L???Bilirubin, Total - 0.6 mg/dL COVID-19 RNA POC (06/28/2022) ???COVID-19 POC Result - NEGATIVE Creatinine (06/29/2022) ???Creatinine-Blood - 0.6 mg/dL???Estimated GFR Creatinine - 121 ML/MIN/1.73 M2 D Dimer (06/28/2022) ???D-Dimer - 1.79 mg/L FEU Electrolytes (06/29/2022) ???Sodium - 130 mmol/L???Potassium - 3.5 mmol/L???Chloride - 96 mmol/L???Bicarbonate Level - 22 mmol/L???Anion Gap - 12 High??Sensitivity??Troponin T (06/28/2022) ???High Sensitivity Troponin (HSTnT) - HEMOLYZED Hold Blue Top Tube (06/28/2022) ???Hold Blue Top - SPECIMEN DISCARDED AFTER 4 HOURS. HOLD GEL TUBE (06/28/2022) ???Hold Gel Top - SPECIMEN DISCARDED AFTER 1 WEEK LFT's (06/29/2022) ???Protein, Total - 5.3 Gm/dL???Albumin - 2.7 Gm/dL???Alkaline Phosphatase - 182 units/L???AST (SGOT) - 213 units/L???ALT (SGPT) - 90 units/L???Bilirubin, Total - 1.9 mg/dL???Bilirubin, Direct - 1.2 mg/dL???Bilirubin, Indirect - 0.6 mg/dL Lipase (06/28/2022) ???Lipase - 499 units/L Magnesium Level (06/30/2022) ???Magnesium - 2.4 mg/dL Serum Qualitative (06/28/2022) ??? Serum Qual - NEGATIVE Troponin T, High Sensitivity (06/28/2022) ???High Sensitivity Troponin (HSTnT) - HEMOLYZED Urinalysis w/hold for Urine Culture (06/28/2022) ???Appear/Color, Urine - YELLOW???Specific [place], Urine - 1.030???pH, Urine - 6.0???Albumin, Urine - 1+???Glucose, Urine - NEGATIVE???Ketones, Urine - TRACE???Bilirubin, Urine - NEGATIVE???Hemoglobin, Urine - 3+???Nitrite, Urine - NEGATIVE???Leukocyte, Urine - NEGATIVE???Urobilinogen - NORMAL???WBC's, Urine - 2 /HPF???RBC's, Urine - 3 /HPF???Bacteria - MODERATE???Squamous Epith - 16 /HPF???Amorphous Crystals - MODERATE???Mucus - SLIGHT???Hold Urine Culture - Testing available 48 hours from time of collection. Immunizations This Visit Not Given Vaccine Commentsinfluenza virus vaccine, inactivated Patient Refuses Allergies (NKA means No Known Allergies) Bactrim Problems Active Problems??(11) Age at leaving school-high schools?? Anxiety?? Asthma?? cocaine in urine 2009?? Depression?? 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 Pelvic fracture?? positive bronchial challenge?? Severe obesity (BMI 35.0-39.9) with comorbidity?? Education Materials Below is the list of Educational Leaflet Providered with your Discharge Instructions. Discharge Instructions for Acute Pancreatitis?? Fluoxetine Oral Tablet?? Pancreatitis?? Hydroxyzine Oral Tablet?? Vitamin B1 (thiamine) Oral Tablet?? Folic Acid Supplements?? a - Provider Patient Instructions?? Valuables and Belongings I fully understand and agree that [facility] accepts no responsibility for all my personal property including clothing, toilet articles, radios, jewelry, dentures, hearing aids, rings, money, or any other property that is in my possession or is brought to me after admission. I understand certain valuables may be placed in a hospital safe for a short period of time. I understand that the hospital is not liable for loss or damage due to accident, fire, or other natural occurrence while said property is in the safe. I accept full responsibility for any personal property that I keep with me, and will not hold the hospital responsible in case of loss or disappearance. I acknowledge that i have been encouraged to send valuables and belongings home. ?? Review of Valuable and Belonging List: With patient Date for Pt to Sign Valuables/Belongings: 07/02/22 12:50:00 ?? Other Discharge Information ? Case Management Discharge Plan?? Discharge Plan?? Discharge Level of Care at Discharge: Home/Fpc/Foster Care ?? Pulmonary Rehab Status?? Pulmonary Rehab Discharge Status?? Respiratory Rate:??95 br/min??High ? Common Emergency Awareness Tips IS IT A STROKE? Act FAST and Check for these signs: FACE Does the face look uneven? ARM Does one arm drift down? SPEECH Does their speech sound strange? TIME Call at any sign of stroke ?? Heart Attack Signs Chest discomfort: Most heart attacks involve discomfort in the center of the chest and lasts more than a few minutes, or goes away and comes back. It can feel like uncomfortable pressure, squeezing, fullness or pain. Discomfort in upper body: Symptoms can include pain or discomfort in one or both arms, back, neck, jaw or stomach. Shortness of breath: With or without discomfort. Other signs: Breaking out in a cold sweat, nausea, or lightheaded. Remember, MINUTES DO MATTER. If you experience any of these heart attack warning signs, call to get immediate medical attention! ?? Smoking can increase your chances of developing chronic health problems and can cause harmful effects to other family members in your house. If you smoke, you are strongly encouraged to quit. Please call [facility] Touchbase Link at [phone] or [phone] ([phone]) or log in to [email or web address] for referrals to smoking cessation programs. ?? The National Suicide Prevention Hotline is available 21/10 if you or someone you know needs to find a reason to keep living. By calling 3-683-172-TMMI ([employer] (0852) you'll be connected to a skilled, trained counselor at a crisis center in your area. INPATIENT DISCHARGE INSTRUCTIONS SIGNATURE PAGE SARAH RHODES Location:[facility] Registration Date and Time:06/28/2022 13:24 EDT Primary Care Physician: Not on Staff, PCP Kumar SARAH RHODES, have received the above patient education materials/instructions and have verbalized understanding. If ambulance or transport services are being used I further acknowledge being given a choice of service. ?? If you need to contact me, please call me at this number: . Patient/Vocational Education Teacher Name: Patient/Vocational Education Teacher Signature: Relationship to Patient: Witness Name/Signature: Date: * Roma Choe RN: PERFORM Event Display: Patient Education Leaflets Authored Date: [id number] Discharge Instructions for Acute Pancreatitis ?? [id number] Discharge Instructions for Acute Pancreatitis You have been diagnosed with acute pancreatitis. The pancreas is an organ that makes digestive juices and hormones. Your pancreas is inflamed or swollen. Gallstones are a common cause of pancreatitis. These hard stones form in the gallbladder. The gallbladder shares a tube with the pancreas into the small intestine. If gallstones block this tube, fluid can???t leave the pancreas. The fluid backs up and causes redness and swelling (inflammation).??Alcohol use is another very common cause of pancreatitis. There are other causes. Make sure you understand the cause of your pancreatitis. Then you can try to stop it from happening again. Immediate home care ??? Find someone to drive you to appointments. Acute pancreatitis is a serious condition, and you should never drive if you have symptoms. ??? Stop drinking if your illness was caused by alcohol. o Ask your healthcare provider about alcohol abuse programs and support groups suchas Alcoholics Anonymous. o Ask your provider about prescription medicines that can help you stop drinking. o Tell your provider about the alcohol withdrawal symptoms you have when you stop drinking. This is very important. You may need close medical supervision and special medicines??when you stop drinking. This will depend on your alcohol withdrawal history.? Take your medicines exactly as directed. Don???t skip doses. ??? Eat a low-fat diet. Ask your provider for menus and other diet information. ??? Stop smoking. Smoking increases problems if you have pancreatitis. ??? Learn to take your own pulse. Keep a record of your results. Ask your provider which readings mean that you need medical attention. ?? Ongoing??care ??? Tell your provider about any medicines you are taking. Some medicines can cause this condition. ??? Before starting any new medicine, ask your provider if it will harm your pancreas. This includes any new qkhd-aps-kgkrzqq medicines, vitamins, or herbal supplements. ??? Tell your pr ovider if you lose weight without dieting. ??? Be aware of symptoms that may mean your pancreatitishas come back. These symptoms include belly pain, nausea and vomiting, and fever. ??? Keep all follow-up appointments with your provider. Problems can often show up later. ??? If your pancreatitis was caused by gallstones, gallbladder removal will likely be advised. ?? Follow-up Follow up with your healthcare provider as advised. ?? When to call your healthcare provider Call your healthcare provider right away or seek immediate medical attention if you have any of thefollowing: ??? Fever??of?? 100.4?? F??( 38.0??C) or higher, or as advised by your provider ??? Chills ??? Severe pain from your upper belly to your back ??? Nausea and vomiting ??? Feel dizzy or lightheaded ??? Yellowing of your skin or eyes (jaundice) ??? Bruises on your belly or back ??? Belly swe lling and tenderness ??? Rapid pulse ??? Shallow, fast breathing ?? Last Reviewed Date: 2021 ?? [employer]. All rights reserved. This information is not intended as a substitute for professional medical care. Always follow your healthcare professional's instructions. ?? * Ghulam Hicks DO: PERFORM Event Display: Patient Education Leaflets Authored Date: [id number] Fluoxetine Oral Tablet ?? 86925-28 Fluoxetine Oral Tablet Brands: [employer] Uses This medicine is used for the following purposes: ??? anxiety ??? depression ??? eating disorders ??? menopausal symptoms ??? muscle weakness ??? obsessive compulsive disorder ??? post-traumatic stress disorder ?? Instructions This medicine may be taken with or without food. This medicine will work best if you take it at about the same time every day. Keep the medicine at room temperature. Avoid heat and direct light. It is important that you keep taking each dose of this medicine on time even if you are feeling well. If you forget to take a dose on time, take it as soon as you remember. If it is almost time for thenext dose, do not take the missed dose. Return to your normal schedule. Do not take 2 doses at one time. Tell your doctor and pharmacist about all your medicines. Include prescription and ijio-qkf-kgzlscghmmexlvwf, vitamins, and herbal medicines. Do not suddenly stop taking this medicine. Check with your doctor before stopping. ?? Cautions Tell your doctor and pharmacist if you ever had an allergic reaction to a medicine. Do not use the medication any more than instructed. Your ability to stay alert or to react quickly may be impaired by this medicine. Do not drive or operate machinery until you know how this medicine will affect you. Please check with your doctor before drinking alcohol while on this medicine. Contact your doctor if you notice a change in the amount or darkening of your urine. Family should check on the patient often. Call the doctor if patient becomes more depressed, has thoughts of suicide, or shows changes in behavior. Call the doctor if there are any signs of confusion or unusual changes in behavior. Tell the doctor or pharmacist if you are , planning to be , or . Do not start or stop any other medicines without first speaking to your doctor or pharmacist. If you have a painful erection or an erection for more than 4 hours, seek medical care right away. Do not share this medicine with anyone who has not been prescribed this medicine. Some patients have serious side effects from this medicine. Ask your pharmacist to show you the information from the Food and Drug Administration (FDA) and discuss it with you. ?? Side Effects The following is a list of some common side effects from this medicine. Please speak with your doctor about what you should do if you experience these or other side effects. ??? agitated feeling or trouble sleeping ??? decreased appetite ??? dizziness or drowsiness ??? lack of energy and tiredness ??? nausea ??? sweating Call your doctor or get medical help right away if you notice any of these more serious side effects: ??? bleeding or bruising ??? confusion ??? coughing up blood or vomit that looks like coffee grounds ??? swelling of the legs, feet, and hands ??? pain in the eye ??? fainting ??? hallucinations (unusual thoughts, seeing or hearing things that are not real) ??? fast or irregular heart beats ??? muscle aches, spasms or abnormal movements ??? muscle weakness ??? dilation of the pupils ??? problems w ith sexual functions or desire ??? bloody or dark, tarry stools ??? suicidal thoughts ??? blurring or changes of vision ??? severe or persistent vomiting ??? unexpected or extreme weight loss A few people may have an allergic reaction to this medicine. Symptoms can include difficulty breathing, skin rash, itching, swelling, or severe dizziness. If you notice any of these symptoms, seek medical help quickly. ?? Extra Please speak with your doctor, nurse, or pharmacist if you have any questions about this medicine. ?? [email or web address] IMPORTANT NOTE: This document tells you briefly how to take your medicine, but it does not tell youall there is to know about it. Your doctor or pharmacist may give you other documents about your medicine. Please talk to them if you have any questions. Always follow their advice. There is a more complete description of this medicine available in Indian. Scan this code on your smartphone or tablet or use the web address below. You can also ask your pharmacist for a printout. If you have any questions, please ask your pharmacist. The display and use of this drug information is subject to Terms of Use. Copyright(c) 2022 [employer]. ?? [employer]. All rights reserved. This information is not intended as a substitute for professional medical care. Always follow your healthcare professional's instructions. ?? * Ghulam Hicks DO: PERFORM Event Display: Patient Education Leaflets Authored Date: [id number] Pancreatitis ?? [id number] Pancreatitis The pancreas is an organ in the??belly (abdomen). It secretes hormones and digestive juices (enzymes) into the stomach to aid with digestion and blood sugar levels. Pancreatitis is an inflammation ofthe pancreas. In many cases, it's caused when the duct that connects the pancreas and gallbladder is blocked by a gallstone.??Heavy alcohol use is another major cause.??Less common causes can includemedicines, trauma, certain medical procedures, viruses, and toxins. Sometimes the cause of pancreatitis can't be found.??Genetic testing is sometimes done in those cases, especially if there is a family history of pancreatic disease. Symptoms of pancreatitis include: ??? Severe abdominal pain? Nausea and vomiting ??? Severe indigestion ??? Racing heart ??? Fever If the pancreatitis becomes a chronic problem, diarrhea, chronic pain, weight loss, and poor nutrition can result. At first, pancreatitis may be treated in the hospital.??It may be diagnosed by history, exam, bloodtests, and sometimes imaging studies.?? While in the hospital, fluids and medicines can be provided. The underlying cause of the problem must also be treated to prevent further problems. If gallstones are the cause, you and your healthcare provider can discuss choices for treating them.??This oftenresults in gallbladder surgery. Sometimes another test must be done to clear the drainage ducts of a blocked gallstones.??If alcohol is the cause, talk with your healthcare provider about a program to help you stop drinking. Home care ??? Don't drink alcohol. ??? Rest in bed or sit up in a chair until you feel better. ??? Take medicines as prescribed. If you were given??an antibiotic for infection,??take it until it's gone, even if you feel better. Let your healthcare provider know if you vomit up your medicine. Tips for eating and drinking: ??? Try sipping small amounts of clear liquids often to prevent dehydration.? Your provider may advise clear liquids only for 1 or 2 days. This is to rest the pancreas. ??? When you start eating again, start with small amounts. Have small, more frequent meals rather than larger meals.??Low-fat meals are best. Fruits, vegetables, and whole grains are good choices. Stay away from fried and greasy foods. ?? Follow-up care Follow up with your healthcare provider as advised. ?? When to get medical care Call your healthcare provider right away if any of these occur: ??? Pain that continues or gets worse ??? Repeated vomiting ??? Dizziness, weakness ??? Fever of 100.4?? F (38?? C) or higher, or as advised by your provider ??? Severe muscle cramps ??? Yellowish coloring of the skin and eyes (jaundice) ?? Call 911 Call 911 if you have any of the following: ??? Vomiting blood or large amounts of blood in stool ??? Seizure ??? Loss of consciousness ?? Last Reviewed Date: 2021 ?? [id number] [employer]. All rights reserved. This information is not intended as a substitute for professional medical care. Always follow your healthcare professional's instructions. ?? * [facility]SP[facility]erscribe , CIS S: TRANSCRIBE Garland Falcon MD: VERIFY Event Display: Result: Authored Date: [id number] Chest 2 Views Frontal and Lat Hx of Present Illness: pt reports CP since Friday night, states it radiates down her back and into her legs and that it is causing her to have SOB.; Reason: Other:; Chest Pain; Clinical Question(s): Other: COMPARISON: 05/01/2022 FINDINGS: LINES AND TUBES: None. LUNGS AND PLEURA: Clear lungs. Normal pulmonary vascularity. No pleural effusion. No pneumothorax. HEART, MEDIASTINUM AND KIKO: Heart is normal in size. Normal mediastinal and hilar contour. BONES AND SOFT TISSUES: No acute abnormality. IMPRESSION: No acute abnormality. WSN: [id number] Ordering Physician: Audrey Foreman Dictated By: Garland Falcon MD Dictated Date/Time: 06/28/22 6:38 am Reviewed By: Garland Falcon MD Signed By: Garland Falcon MD Signed Date/Time: 06/28/22 6:38 am Transcribed By: AISHA Transcribed Date/Time: 06/28/22 6:38 am Hospital Progress note * Lorri Marie RN: SIGN, MODIFY, PERFORM, SIGN, VERIFY Event Display: Progress Note Hospital Authored Date: [id number] Patient: SARAH RHODES Age: 32 years Sex: Female : 1990 Associated Diagnoses: None Author: Lorri Marie RN Findings Problem Related to Alteration in Gastrointestinal : Alteration in Gastrointestinal Func/new 07/02/2022 9:00 EDT Alteration in GI status Related to Pancreatitis, Other: acute pancreatitis Goals & Outcomes, Gastrointestinal Establish a regular pattern of elimination for pt, Pt will have a bowel movement prior to discharge, Pt will maintain adequate GI function appropriate for pt, Pt will maintain normal elimination patterns Interventions, Gastrointestinal Assess/monitor abdomen for distention, tenderness, Assess/monitor abdominal girth & bowel function, Assess/monitor bowel pattern, bowel sounds, flatus, Assess/monitor number of bowel movements, Assess/monitor color, quantity, quality, consistency of stoo, Assess/monitor pt for nausea, vomiting, Assess/monitor intake & output BH Goals/Interventions, Gastrointestinal Yes Gastrointestinal, Problem Start 06/29/2022 4:23 Reviewed plan with, Gastrointestinal Patient Patient Progression, Gastrointestinal Pt progressing according to plan . Nursing Data Musculoskeletal Data. : Musculoskeletal Data. 07/02/2022 9:00 EDT Musculoskeletal WNL . Vital Signs : VITAL SIGNS SECTION 07/02/2022 9:00 EDT Pulse Rate 78 bpm Respiratory Rate 19 br/min Systolic Blood Pressure 120 mm Hg Diastolic Blood Pressure 82 mm Hg . Evaluation A?Ox4, speech is claer, follows all commands, denies any dizziness, N,V, diarrhea. Reports abdominal pain 8/10 minimal relief with medications states iot does not work, anxious requesting multiple medication andrea CARO at the bedside, appetite excellent, no issues with , ambulating independently.Plan is to be discharged to home, Refused vitamins, Methadone given 42mg oral solution. refer to [facility] for further detailed information. . * Lorri Marie RN: PERFORM Event Display: Progress Note Hospital Authored Date: report called to S3 yinka pt to be discharged to home * Elio Pack RN: PERFORM, SIGN, VERIFY Event Display: Progress Note Hospital Authored Date: Patient: SARAH RHODES Age: 32 years Sex: Female : 1990 Associated Diagnoses: None Author: Elio Pack RN Findings Narrative/Incidental A/ox4, follows commands and makes needs known, ambulating independently in the room. Abd pain and headache noted, given prn toradol with good effect, scoring a 6 on the CIWA scale not requiring any ativan. Anxiety noted. Due to be discharged in the AM. Bed in locked low position.. * Ghulam Hicks DO: PERFORM, MODIFY Event Display: Progress Note Hospital Authored Date: Patient: ??SARAH RHODES ? Age:??32 Years?Sex:??Female?:??1990?? Subjective No acute events overnight. ?? Patient seen and examined at bedside. ??Patient extremely anxious??and??boring her tray across the room??in frustration.?? Reporting pain??in right arm after IV reinsertion.?? Flushing without??issue??with IV therapy nurse at bedside.?? She is tolerating p.o.??at a slow pace??now on regular diet Will discontinue IV fluids and??continue to monitor.?? Add on oxycodone??2.5??mg??3 times daily??for??as needed for pain control. ??Addiction medicine consult??with recommendations for gabapentin andacamprosate. Dissipate discharge tomorrow. ?? She has not??scoring high enough for as needed??lorazepam for CIWA??but will give??hydroxyzine and a one-time dose of lorazepam??for her anxiety at this time.?? We will start clonidine??today Review of Systems A full review of systems was completed and is otherwise negative except as mentioned in history of present illness. Allergies Allergies ?(Active and Proposed Allergies Only) Bactrim? (Severity: Unknown severity, Onset: Unknown) ? Objective Vital Signs?? Temperature: 98.2 DegF (07/01/22 19:54:00) Temperature Route: Oral (07/01/22 19:54:00) Pulse Rate: 87 bpm (07/01/22 19:54:00) Respiratory Rate: 18 br/min (07/01/22 19:54:00) Systolic Blood Pressure:??142 mm Hg??High (07/01/22 19:54:00) Diastolic Blood Pressure:??95 mm Hg??High (07/01/22 19:54:00) Blood pressure sites: Arm, left (07/01/22 19:54:00) Mean Arterial Pressure: 111 mm Hg (07/01/22 19:54:00) Pulse Pressure: 47 mm Hg (07/01/22 19:54:00) Oxygen Saturation: 99 % (07/01/22 19:54:00) Mode of Delivery (Oxygen): Room air (07/01/22 19:54:00) Early Warning Score: 4 (07/01/22 19:55:24) ? Ventilator Settings?? No qualifying data available. ? Intake/Output? 06/28 13:24 07/01 07:00 06/30 07:00 06/29 07:00 06/28 07:00 ?? 07/01 20:00 07/01 20:00 07/01 06:59 06/30 06:59 06/29 06:59 Intake ? 9290 ? 1680 ? 3030 ? 3205 ? 1375 Output ?0 ?0 ?0 ?0 ?0 Net Total ? 9290 ? 1680 ? 3030 ? 3205 ? 1375 ? Urine Count ? 13 ?4 ?6 ?3 ?0 ? Physical Exam General: Anxious HEENT: EOMI, mucous membranes moist CV: RRR S1 S2 present. No murmurs, gallops, rubs appreciated. No JVD. No edema. Respiratory: All wynne clear to auscultation bilaterally. No wheezes, rales, rhonchi appreciated Abdominal: Soft, tenderness to epigastric. No rebound tenderness. Bowel sounds noted all four quadrants. : No suprapubic tenderness. Neuro: A&OX3. Moving upper and lower extremities. Sensation intact. CN II-XII. Psych: Affect appropriate Skin: No lesions, wounds, rashes. _ Inpatient Medications Medications (26) Active SCHEDULED: (12) Acetaminophen 325 mg Tablet (Acetaminophen Tablet) ??650 mg, By Mouth, Every 4 hours Calcium Carbonate 500 mg (Calcium 200 mg) Chewable Tablet (calcium carbonate 500 mg (200 mg elemental calcium) oral tablet, chewable) ??1,000 mg 2 tablet, Chew, 3 times a day Clonidine 0.1 mg Tablet (cloNIDine 0.1 mg oral tablet) ??0.1 mg, By Mouth, 4 times a day Folic Acid 1 mg Tablet (Folic Acid Tablet) ??1 mg, By Mouth, Daily Gabapentin 300 mg Capsule (gabapentin 300 mg oral capsule) ??300 mg, By Mouth, 3 times a day Methadone 10mg/5mL UD Solution (Methadone Liquid) ??42 mg 21 mL, By Mouth, Daily Metoprolol 25mg Tablet (metoprolol 25 mg oral tablet) ??25 mg, By Mouth, 2 times a day Multivitamin Tablet ??1 tablet, By Mouth, Daily NaCl 0.9% Flush 3ml (NaCL 0.9% Flush) ??3 mL, IV Push, Every 8 hours Pantoprazole 40 mg EC Tablet (Protonix 40 mg oral delayed release tablet) ??40 mg, By Mouth, 2 times a day Pyridoxine 50 mg Tablet (Pyridoxine Tablet) ??50 mg, By Mouth, Daily Thiamine 100 mg Tablet (Thiamine Tablet) ??100 mg, By Mouth, 2 times a day CONTINUOUS: (0) PRN: (14) Albuterol 90mcg/Inhalation Inhaler HFA (albuterol CFC free 90 mcg/inh inhalation aerosol) ??180 mcg2 puffs, Inhalation, Every 4 hours Dextromethorphan-Guaifenesin 20 mg-200 mg/10 mL Liqu UD (Robitussin DM Liquid) ??10 mL, By Mouth, Every 4 hours HydrOXYzine Pamoate 25mg Capsule (hydrOXYzine pamoate 25 mg oral capsule) ??25 mg, By Mouth, Every 6 hours Ketorolac 30 mg/mL Inj (Toradol Inj) ??15 mg 0.5 mL, IV Push Slowly, Every 6 hours Lorazepam 1 mg Tablet (Ativan Tablet) ??1 mg, By Mouth, Every 2 hours Lorazepam 2 mg Tablet (Ativan Tablet) ??2 mg, By Mouth, Every 2 hours Lorazepam 2 mg Tablet (LORazepam Tablet) ??2 mg, By Mouth, Every hour Melatonin 3 mg Tablet (Melatonin Tablet) ??3 mg, By Mouth, Daily at bedtime NaCl 0.9% Flush 3ml (NaCL 0.9% Flush) ??3 mL, IV Push, Every 8 hours nalOXONE ??400mcg/mL Inj (nalOXONE Inj) ??0.2 mg 0.5 mL, IV Push, Every 5 minutes OxyCODONE 5 mg IR Tablet (oxyCODONE 5 mg oral tablet) ??2.5 mg, By Mouth, Every 8 hours Polyethylene Glycol 17 Gm Powder (MiraLax Powder) ??17 Gm 1 pack/packet, By Mouth, Daily Senna 8.6 mg / Docusate 50 mg tablet (Docusate/Senna Tablet) ??1 tablet, By Mouth, 2 times a day Simethicone 80 mg Chewable Tablet (Simethicone Tablet) ??80 mg, Chew, 3 times a day ? Results Recent Labs BLOOD COUNT & DIFF WBC 7.1 k/mm3 ()?? 07/01/2022 02:18 RBC 3.06 m/mm3 (Low)?? 07/01/2022 02:18 Hgb 10.3 Gm/dL (Low)?? 07/01/2022 02:18 Hct 29.1 % (Low)?? 07/01/2022 02:18 MCV 95.1 femtoliters ()?? 07/01/2022 02:18 MCH 33.7 pg ()?? 07/01/2022 02:18 MCHC 35.4 g/dL ()?? 07/01/2022 02:18 Platelet Count 91 k/mm3 (Low)?? 07/01/2022 02:18 RDW-SD 56.8 femtoliters (High)?? 07/01/2022 02:18 MPV 10.2 femtoliters ()?? 07/01/2022 02:18 Nucleated RBC (Automated) 0.0 #/100 WBC'S ()?? 07/01/2022 02:18 Abs. NRBC 0.0 k/mm3 ()?? 07/01/2022 02:18 ?? CHEM GENERAL Sodium 135 mmol/L ()?? 07/01/2022 02:18 Potassium 4.7 mmol/L ()?? 07/01/2022 02:18 Chloride 101 mmol/L ()?? 07/01/2022 02:18 Bicarbonate Level 23 mmol/L ()?? 07/01/2022 02:18 Anion Gap 11 ()?? 07/01/2022 02:18 Glucose Level 108 mg/dL (High)?? 07/01/2022 02:18 BUN 5 mg/dL (Low)?? 07/01/2022 02:18 Creatinine-Blood 0.7 mg/dL ()?? 07/01/2022 02:18 Estimated GFR Creatinine 118 ML/MIN/1.73 M2 ()?? 07/01/2022 02:18 Calcium 9.0 mg/dL ()?? 07/01/2022 02:18 Magnesium 2.4 mg/dL (High)?? 06/30/2022 02:53 Protein, Total 5.4 Gm/dL (Low)?? 07/01/2022 02:18 Albumin 2.8 Gm/dL (Low)?? 07/01/2022 02:18 AG Ratio 1.1 ()?? 07/01/2022 02:18 Alkaline Phosphatase 170 units/L (High)?? 07/01/2022 02:18 AST (SGOT) 88 units/L (High)?? 07/01/2022 02:18 ALT (SGPT) 69 units/L (High)?? 07/01/2022 02:18 Bilirubin, Total 0.7 mg/dL ()?? 07/01/2022 02:18 ? Assessment/Plan 32-year-old woman with history of EtOH, Opioid Use Disorder on Methadone, that s admitted to [facility] due to abdominal pain, found to have pancreatitis, currently on CIWA for alcohol withdrawal. ?? Pancreatitis Elevated transaminases Patient presenting due to abdominal pain. Transaminases likely 2/2 pancreatitis/alcohol associated??liver injury Found to have pancreatitis from CT of the abdomen as well as positive lipase without biliary involvement Tolerating PO. Pain control with methadone 42mg??verified home dose ?? Plan: -Discontinue IV fluids. -Continue oral intake -Pain control as below -Follow LFTs,??can consider HIDA if having worsening??LFTs/abdominal pain ?? Alcohol use disorder, severe, with active withdrawal Unspecified depressive disorder Opiate use disorder, severe, on methadone maintenance therapy Nicotine use disorder, moderate Likely PTSD Drinking 10??nips a day. Addiction medicine consulted; a list of local clinics has been added??to her discharge materials ?? Plan: -CIWA with PRN lorazepam with multivitamin, folate, thiamine, pyridoxine -Start hydroxyzine 25mg PO PRN anxiety -Can do PRN lorazepam for anxiety -Discharge on acamprosate 666 mg TID -Continue methadone 42mg -Start oxycodone 2.5mg??q8h PRN pain -Start gabapentin 300mg TID -Continue keterolac PRN -Schedule acetaminophen 650 q4h -Follow up with PCP for mental health management and evaluation ?? Hypertension - start clonidine 0.1mg QID;??can consider switching metoprolol to carvedilol 3.125mg BID on discharge ?? Thrombocytopenia?? 4T score 1-2 and no recent exposure to heparin products this admission Likely component of dilution with IV fluids and liver dysfunction ?? Plan -Continue to monitor ?? Full Code DVT prophylaxis: pneumatic compression boots Regular diet ?? Anticipate discharge tomorrow ?? Patient seen and discussed with attending physician, MD Ghulam Franks DO, PGY-2 * James CARO, Bella: PERFORM Event Display: Progress Note Hospital Authored Date: Attending Attestation:??I have seen and evaluated this patient on day of service noted above. ??I have discussed the case and its management with the resident and agree with the findings and plan as documented in the resident???s note. CTA Chest vessels W contrast IV * [facility] , CIS S: TRANSCRIBE Sunitha CARO, Bipin H: VERIFY Event Display: Result: Authored Date: EXAMINATION: CT Angio Chest INDICATION: Hx of Present Illness: pt reports CP since Friday night, states it radiates down her back and into her legs and that it is causing her to have SOB.; Reason: Other:; PE suspected, Intermediate prob, positive D-dimer,; Clinical Question(s): Pulmonary Embolism; Order Comment: TECHNIQUE: Spiral CTA of the chest was performed after rapid IV contrast administration without cardiac gating, triggered by an EVA on the main pulmonary artery. Images are formatted in multiple planes using 2-D multiplanar and 3-D maximum intensity projection. 100 cc of Omnipaque 300 was administered intravenously. Weight-based protocol using automatic tube modulation was used to optimize exposure parameters. CTDIvol Body: 12.33 mGy, DLP Body: 1615 mGy*cm. COMPARISONS: None. ANGIOGRAPHIC FINDINGS: No pulmonary embolism to the subsegmental level. Normal caliber pulmonary arteries. No acute aortic abnormality seen on this study performed without cardiac gating. NON-ANGIOGRAPHIC FINDINGS: Corporate General Manager View Findings, Lines and Tubes: None. Trachea and Airways: Patent without evidence of tracheal or endobronchial lesion. Lungs and Pleura: Clear lungs. No effusion or pneumothorax. Mediastinum and kiko: No mass or hematoma. No mediastinal or hilar lymphadenopathy. No esophageal abnormality. Heart: Heart is normal in size. No pericardial effusion. Chest Wall Soft Tissues: Normal. Diaphragm and upper abdomen: No significant abnormality. The liver is fatty infiltrated. Bones: No acute abnormality. IMPRESSION: No evidence of pulmonary embolism. Hepatic steatosis. WSN: [id number] Ordering Physician: Dora Grant Dictated By: Bipin Helton MD Dictated Date/Time: 06/28/22 12:08 p Reviewed By: Bipin Helton MD Signed By: Bipin Helton MD Signed Date/Time: 06/28/22 12:08 pm Transcribed By: AISHA Transcribed Date/Time: 06/28/22 12:[address] Abdomen and Pelvis W contrast IV * [facility] , CIS S: TRANSCRIBE Bipin Helton MD: VERIFY Event Display: Result: Authored Date: [id number] CT Abd/Pelvis W/ IV Contrast Only Hx of Present Illness: pt reports CP since Friday night, states it radiates down her back and into her legs and that it is causing her to have SOB.; Reason: Other:; chest pain, upper abdominal pain; Clinical Question(s): Pancreatitis TECHNIQUE: Spiral CT through the abdomen and pelvis with IV contrast formatted in 3 planes. 100 cc of Omnipaque 300 was administered intravenously. This study was performed without oral contrast. Weight-based protocol using automatic tube modulation was used to optimize exposure parameters. CTDIvol Body: 12.32 mGy, DLP Body: 1615 mGy*cm. COMPARISON: None. FINDINGS: Corporate General Manager View Findings, Lines and Tubes: None. Visualized Chest: Lung bases are clear. No pleural effusion. The heart is normal in size. No pericardial effusion. Diaphragm: Normal. Liver: Liver is moderately fatty infiltrated. Low-attenuation area within the medial segment of theleft hepatic lobe adjacent to the falciform ligament consistent with normal variant. Gallbladder: No CT evidence of gallbladder pathology. Bile ducts: No biliary ductal dilation. Spleen: Normal. Pancreas: The pancreas appears edematous with peripancreatic stranding and trace amount of fluid. Adrenal glands: Normal. Kidneys and ureters: No hydronephrosis, stones, or suspicious masses. Bladder: Normal. Reproductive organs: Unremarkable. Stomach, small bowel, and large bowel: There is circumferential wall thickening within the duodenumwith adjacent stranding. Fatty infiltration of the submucosa throughout the colon may be a normal variant versus sequela to chronic inflammatory bowel disease. Appendix: Normal. Peritoneum and retroperitoneum: No ascites or pneumoperitoneum. No omental or mesenteric lesions. Lymph nodes: No enlarged lymph nodes. Blood vessels: Normal. No aneurysm. No evidence of venous thrombosis. Abdominal and pelvic wall: Unremarkable. Bones: No acute abnormality. IMPRESSION: Pancreatitis. Inflammatory wall thickening within the duodenum versus duodenitis. Moderate hepatic steatosis. No evidence of cholelithiasis or choledocholithiasis. WSN: [id number] Ordering Physician: Dora Grant Dictated By: Bipin Helton MD Dictated Date/Time: 06/28/22 12:19 p Reviewed By: Bipin Helton MD Signed By: Bipin Helton MD Signed Date/Time: 06/28/22 12:19 pm Transcribed By: AISHA Transcribed Date/Time: 06/28/22 12:11 pm Patient Care team information Care Team Personnel Name: Elio Pack RN Position: [facility] RN Member Role: Primary Care Nurse Name: Not on Staff, PCP Position: [facility] Physician (General Medicine) Member Role: PCP Name: SHANAE Incat Attending Position: [facility] ED Medicine Name: Nieves Cornelius Position: [facility] ED TA [facility] Member Role: Patient Care Provider Name: Dora Álvarez Position: [facility] Associate Professional Member Role: ED Physician Patient Service Coordinator Address: Address: [address] [place] [address] [place] [address]- [place] Name: Gela Bernardo RN Position: S ED RN W/OE and Tasks Member Role: Patient Care Provider Care Team Related Persons Name: CAROLINE RHODES Address: home [address] [place] [id number]
--- OUTSIDE RECORDS SUMMARY | 2023-01-22 09:23 | XMS_ITS | Continuity of Care Document ---
Author Name Unknown Organization [facility] ter Address [address] [place] [id number] Care Team Providers [employer] Consulting Director Name Role Phone Not on Staff, PCP Primary Care Physician Unavail able [place] [facility] [place]16[place]22 - 12/20/[address] [address]- Encounter Diagnosis Aggression(Final) - 12/15/22 Altered mental status(Final) - 12/15/22 Alcohol use(Final) - 12/15/22 Discharge Disposition: A-D/C Home Attending Physician: Juan Mario MD Admitting Physician: Nandini Clay MD Referring Physician: Not on Staff, Referring [...] labs done from 12/25 onwards at any [facility]. Please forward all results to Jose Reyes MD., 11/30... Start Date: 12/20/22 Status: Ordered EpiPen 2-Cipriano 0.3 mg injectable kit = 0.3 mg, Intramuscular, Once, # 2 pack/packet, 0 Refills, Soft Stop, 09/25/20 18:06:00 EDT, [facility]/pharmacy #[id number], Partial fill upon patient request if the prescription is for a schedule II opioid drug., 163, cm, 09/25/20 17:11:00 EDT, Height, 90.7, kg,... Start Date: 09/25/20 Status: Ordered FLUoxetine 10 mg oral tablet 1 tablet = 10 mg, By Mouth, Daily, Follow up with PCP to uptitrate dose, # 30 tablet, 0 Refills, Maintenance, 07/02/22 10:36:00 EDT, Tablet, [facility]/pharmacy #[id number], 163, cm, 07/01/22 23:25:00 EDT, Height, 96.4, kg, 06/28/22 18:30:00 EDT, Dry Weight Start Date: 07/02/22 Stop Date: 08/01/22 Status: Ordered folic acid 1 mg oral tablet 1 mg, 1, tablet, By Mouth, Daily, # 30 tablet, Refills 0, Tot. Refills 0, Maintenance, 07/02/22 10:33:00 EDT, Route to Pharmacy Electronically, [facility]/pharmacy #[id number], 163, cm, 07/01/22 23:25:00 EDT, Height, 96.4, kg, 06/28/22 18:30:00 EDT, Dry Weight Start Date: 07/02/22 Status: Ordered gabapentin 300 mg oral capsule 300 mg, Capsule, By Mouth, 12/20/22 9:00:00 EDT Start Date: 12/20/22 Stop Date: 12/20/22 Status: Completed gabapentin 300 mg oral capsule 300 mg, 1, capsule, By Mouth, 3 times a day, # 90 capsule, Refills 0, Tot. Refills 0, Maintenance, 07/02/22 10:32:00 EDT, Route to Pharmacy Electronically, [facility]/pharmacy #[id number], 163, cm, 07/01/22 23:25:00 EDT, Height, [...] (BMI 35.0-39.9) with comorbidity Confirmed Active Results Orders for Microbiology Reports Name Date Blood Culture 12/15/22 Blood Culture #2 12/15/22 Microbiology Reports TEST:Blood Culture, Second Order STATUS:Auth (Verified) BODY SITE: SOURCE:Blood COLLECTED DATE/TIME:12/15/22 9:45 PM Blood Culture, Second Order SPECIMEN DESCRIPTION : BLOOD L AC SPECIAL REQUESTS : NONE CULTURE : NO GROWTH 5 DAYS. REPORT STATUS : FINAL 12/20/2022 TEST:Blood Culture STATUS:Auth (Verified) BODY SITE: SOURCE:Blood COLLECTED DATE/TIME:12/15/22 9:40 PM Blood Culture SPECIMEN DESCRIPTION : BLOOD RT AC SPECIAL REQUESTS : NONE CULTURE : NO GROWTH 5 DAYS. REPORT STATUS : FINAL 12/20/2022 Radiology Reports * Exam Date Time Procedure Performing Provider Status 12/17/22 9:[address] Angio Chest Francine Lozano; Au th (Verified) Notes: (CT Angio Chest) Reason For Exam: PE Suspected, Intermediate Prob, Positive D-Dimer;Other: RESULT: CT Angio Chest EXAMINATION: CT Angio Chest INDICATION: Reason: Other:; PE Suspected, Intermediate Prob, Positive D-Dimer; Clinical Question(s): Pulmonary Embolism; Order Comment: TECHNIQUE: Spiral CTA of the chest was performed after rapid IV contrast administration without cardiac gating, triggered by an EVA on the main pulmonary artery. Images are formatted in multiple planes using 2-D multiplanar and 3-D maximum intensity projection. 50 cc of Omnipaque 300 was administered intravenously. Weight-based protocol using automatic tube modulation was used to optimize exposure parameters. CTDIvol Body: 5.53 mGy, DLP Body: 297 mGy*cm. COMPARISONS: 06/10/2022. ANGIOGRAPHIC FINDINGS: No pulmonary embolism to the proximalmost segmental level. Normal caliber pulmonary arteries. No acute aortic abnormality seen on this study performed without cardiac gating. Incidental two-vessel aortic arch, normal anatomical variant. NON-ANGIOGRAPHIC FINDINGS: Architectural Associate View Findings, Lines and Tubes: None. Trachea and Airways: Proximal tracheal bronchial tree is patent. Lungs and Pleura: Minimal basilar atelectasis. Low inspiratory volumes. No consolidation or cavitation. No effusion or pneumothorax. Mediastinum and kiko: No mass or hematoma. No mediastinal or hilar lymphadenopathy. No esophageal abnormality. Heart: Mild left ventricular enlargement with overall normal heart size. Low-attenuation seen in the right atrium with appearance of series 301 image 65 is new from the previous exam but is likely due to mixing artifact. There is mild lipomatous intra-atrial septum. No pericardial effusion. Chest Wall Soft Tissues: No acute abnormality. No axillary adenopathy. Diaphragm and upper abdomen: Hepatic steatosis. Bones: No acute abnormality. IMPRESSION: No evidence of pulmonary embolism to the proximal segmental level. WSN: [id number] Ordering Physician: Marielle Harris Dictated By: Yadira Washburn MD Dictated Date/Time: 12/17/22 10:18 a Reviewed By: Yadira Washburn MD Signed By: Yadira Washburn MD Signed Date/Time: 12/17/22 10:18 am Transcribed By: AISHA Transcribed Date/Time: 12/17/22 10:13 am * Exam Date Time Procedure Performing Provider Status 12/16/22 9:36 AM US RUQ Billings , Leticia; Auth (Ve rified) Notes: (US RUQ) Reason For Exam: Cirrhosis RESULT: US RUQ US RUQ Reason: Cirrhosis; Clinical Question(s): Biliary Obstruction COMPARISON: CT abdomen pelvis 06/28/2022 FINDINGS: The union laborer, suboptimal study due to body habitus. Liver: Diffusely echogenic parenchyma with focal sparing around the gallbladder. No suspicious lesion. Smooth hepatic contour. Main portal vein patent with normal hepatopetal direction of flow. Gallbladder: No gallstones. Nonmobile sludge present. Normal wall thickness. No pericholecystic fluid. Negative Gerber sign. Biliary Tree: Suboptimal visualization due body habitus. Common duct measures not visualized. Pancreas: Not visualized. Right kidney: 11.5 cm in length. Suboptimal visualization due to the habitus, but appears to have normal parenchymal echotexture and thickness. No hydronephrosis, stone or mass. IMPRESSION: Echogenic liver likely representing hepatic steatosis. Nonmobile sludge present in gallbladder. I have personally reviewed the images and I agree with this report. WSN: [id number] Ordering Physician: Kiana Daly Dictated By: Wendie Bazan DO Dictated Date/Time: 12/16/22 11:56 a Reviewed By: Florentin Rawls MD Signed By: Florentin Rawls MD Signed Date/Time: 12/16/22 12:01 pm Transcribed By: AISHA Transcribed Date/Time: 12/16/22 10:37 am * Exam Date Time Procedure Performing Provider Status 12/15/22 10:16 PM Chest Portable Ania Btets; Au th (Verified) Notes: (Chest Portable) Reason For Exam: Shortness of Breath RESULT: Chest Portable Chest Portable Hx of Present Illness: ETOH; Reason: Shortness of Breath; Clinical Question(s): CHF COMPARISON: Priors, most recent dated 06/28/2022 FINDINGS: LINES AND TUBES: None. LUNGS AND PLEURA: The lung volumes are low which accentuates the cardiac silhouette and pulmonary vasculature and causes crowding of bronchovascular markings at the bases. No focal consolidation. Normal pulmonary vasculature. No pleural effusion. No pneumothorax. HEART, MEDIASTINUM AND KIKO: Prominence of the cardiac silhouette is likely secondary to AP portable technique and low lung volumes. Normal mediastinal and hilar contour. BONES AND SOFT TISSUES: No acute abnormality. IMPRESSION: Slightly low lung volumes. No acute abnormality. WSN: [id number] Ordering Physician: Juanis Moreira Dictated By: Karen Ness MD Dictated Date/Time: 12/15/22 10:40 p Reviewed By: Karen Ness MD Signed By: Karen Ness MD Signed Date/Time: 12/15/22 10:40 pm Transcribed By: AISHA Transcribed Date/Time: 12/15/22 10:39 pm * Exam Date Time Procedure Performing Provider Status 12/15/22 10:[address] Head/Brain W/O Contrast Stupak , O leg; Auth (Verified) Notes: (CT Head/Brain W/O Contrast) Reason For Exam: Trauma RESULT: CT Head/Brain W/O Contrast CT Head/Brain W/O Contrast INDICATION: Hx of Present Illness: ETOH; Reason: Trauma; Clinical Question(s): Hematoma; Order Comment: TECHNIQUE: Noncontrast head CT using axial technique and reconstructed in axial and coronal planes.Iterative reconstruction techniques are used to optimize dose and image quality. CTDIvol Head: 46.40 mGy, DLP Head: 772 mGy*cm. COMPARISON: 06/02/2021. FINDINGS: Architectural Associate view findings, lines and tubes: None. BRAIN AND EXTRA-AXIAL SPACES: No parenchymal hemorrhage, midline shift, or mass effect. Mejía-white matter differentiation is wellpreserved. No acute infarct. Negative insular ribbon and hyperdense vessel signs. Ventricles, sulci, and basilar cisterns are normal. No white matter lesions. No subarachnoid hemorrhage. No subdural or epidural collection. CALVARIUM, SKULL BASE, AND SOFT TISSUES: No fractures or suspicious bony lesions. Mild mucosal thickening of the paranasal sinuses. The mastoid air cells are clear. Visualized orbits and globes are intact. The extracranial soft tissues are unremarkable. IMPRESSION: No acute intracranial pathology. I have personally reviewed the images and I agree with this report. WSN: [id number] Ordering Physician: Wendie Ordoñez Dictated By: Donavan[Radiology] Rojelio CARO Dictated Date/Time: 12/15/22 10:14 p Reviewed By: Timo Navarro MD Signed By: Timo Navarro MD Signed Date/Time: 12/15/22 10:19 pm Transcribed By: AISHA Transcribed Date/Time: 12/15/22 10:07 pm Vital Signs Most recent to oldest [Reference Range]: 1 2 3 Height 163 cm (12/20/22 9:19 AM) 163 cm (12/20/22 5:30 AM) 163 cm (12/19/22 8:25 PM) Weight 97.5 kg (12/17/22 10:11 AM) Oxygen Saturation [94-100 %] 99 % (12/20/22 11:00 AM) 99 % (12/20/22 5:30 AM) 18 % *L* (12/19/22 8:25 PM) Pulse Rate [55-90 bpm] 111 bpm *H* (12/20/22 11:00 AM) 84 bpm (12/20/22:19 AM) 81 bpm (12/20/22 5:30 AM) Body Mass Index [18.5-24.99 kg/m2] 36.7 kg/m2 *>HHI* (12/17/22 10:11 AM) Blood Pressure [90-138/55-84 mm Hg] 136/85mm Hg (12/20/22 11:00 AM) 145/85mm Hg *H* (12/20/22: AM) 145/84mm Hg *H* (12/20/22 5:30 AM) Respiratory Rate [16-30 br/min] 16 br/min (12/20/22 11:00 AM) 16 br/min (12/20/22:22 AM) 18 br/min (12/20/22 5:30 AM) Temperature [96.8-100.4 DegF] 98.2 DegF (12/20/22 11:00 AM) 98.3 DegF (12/20/22 5:30 AM) 98.8 DegF (12/19/22 8:25 PM) Liters per Minute 2 L/min (12/17/22 1:34 AM) 1.5 L/min (12/16/22 11:24 PM) 3 L/min (12/16/22 1:56 PM) Mode of Delivery (Oxygen) Room air (12/20/22 11:00 AM) Room air (12/20/22 5:30 AM) Room air (12/19/22 8:25 PM) Blood pressure sites Arm, right (12/20/22 11:00 AM) Arm, right (12/20/22 9:19 AM) Arm, right (12/20/22 5:30 AM) Temperature Route Oral (12/20/22 11:00 AM) Oral (12/20/22 5:30 AM) Oral (12/19/22 8:25 PM) Dry Weight 97.5 kg (12/17/22 10:11 AM) Social History Social History Type Response Smoking Status 10 or more cigarette s (1/2 pack or more)/day in last 30 days entered on: 09/25/20 Sex Admission evaluation note * Malika CARO, Kiana Meyer: PERFORM, MODIFY, MODIFY, MODIFY, MODIFY Event Display: Admission Note Authored Date: [id number] Patient: ??AMANDA RHODES ? Age:??32 Years?Sex:??Female?:??1990?? Chief Complaint/Reason for Consultation ETOH/Aggression History of Present Illness 32-year-old female with PMH of alcohol use disorder, anxiety/depression, history of hep C, hypertension, tobacco use disorder, opioid use disorder on methadone, history of pancreatitis,, thrombocytopenia was brought to the ED due to agitation and altered mental status. ?? Patient's medical chart reviewed, seen and examined at bedside.?? Patient altered and dozed out. not able to obtain any history from her. history obtained from chart review and collaterals.??As per the patient's father Mr. Lomax phone [phone] states that patient has been drinking a lot lately.?? He mentions that he saw her a month ago and again few days ago he noticed increased swellingaround her eyes and throughout her body.?? He also endorses 2 weeks ago that patient had an episodeof seizure but refused to go to the hospital.?? Earlier today patient drank a lot and got into argument with her father on phone and later syncopized and fell so EMS was called and brought to the ED for evaluation.?? Not sure if patient has any head injury.?? Not able to obtain any review of systemquestions from the patient. ?? Initially in the ED patient remains afebrile, HR 118, tachypneic 25, BP 142/78, saturation 98% on 3 L of nasal cannula.?? No leukocytosis WBC 4.8, macrocytic anemia 8.1, PLT 150, electrolytes normal, BUN/creatinine 8/0.6, alk phos 197, AST/ALT 225/72, alcoholic pattern, T. bili 2.8, lactate 2.2,ammonia 60, ethanol 475, CT head negative, chest x-ray with no acute findings.?? Patient received thiamine/folic acid/multivitamin, lorazepam, Versed.?? Patient will be admitted to inpatient medicineservice for alcohol intoxication and impending withdrawal Review of Systems Not able to obtain due to altered mental status Objective ? Vital Signs?? Temperature: 98.2 DegF (12/15/22 22:07:00) Temperature Route: Oral (12/15/22 22:07:00) Pulse Rate:??118 bpm??High (12/16/22 02:37:00) Respiratory Rate: 25 br/min (12/16/22 02:37:00) Systolic Blood Pressure:??142 mm Hg??High (12/16/22 02:37:00) Diastolic Blood Pressure: 78 mm Hg (12/16/22 02:37:00) Mean Arterial Pressure: 93 mm Hg (12/15/22 21:43:00) Pulse Pressure: 64 mm Hg (12/16/22 02:37:00) Oxygen Saturation: 98 % (12/16/22 02:37:00) Liters per Minute: 3 L/min (12/16/22 02:37:00) Mode of Delivery (Oxygen): Nasal cannula (12/16/22 02:37:00) Early Warning Score:??10??Critical (12/16/22 02:41:28) ? Pain Scores 1 - 10 Pain Scale Score: 0 (21:05) ? Intake/Output? 12/16 00:05 12/16 07:00 12/15 07:00 12/14 07:00 12/13 07:00 ?? 12/16 03:40 12/16 03:40 12/16 06:59 12/15 06:59 12/14 06:59 Intake ? 50 ?0 ? 50 ?0 ?0 Output ?0 ?0 ?0 ?0 ?0 Net Total ? 50 ?0 ? 50 ?0 ?0 ? Precautions Seizure Precautions ? Physical Exam Gen- not in acute distress,comfortabily lying on bed, speaking in full sentences. HEENT- Normocephalic, Atraumatic, Neck-supple, no JVD Heart-S1S2(+),??regular, no murmurs. lungs- Clear, b/l air entry, no wheezing. Abdomen-soft,, + distended,??bowel sounds present, No guarding. Extremities-pulses palpable. No pedal edema. No calf tenderness. Neurological-altered, moving all her extremities and sleep??and??responds??with??loud shouting Psychiatric-not able to assess. ?? (12/15/2022 22:[address] Head/Brain W/O Contrast) IMPRESSION: ?? No acute intracranial pathology. ? (12/15/2022 22:16 EDT Chest Portable) IMPRESSION: Slightly low lung volumes. No acute abnormality. Assessment/Plan 32-year-old female with PMH of alcohol use disorder, anxiety/depression, history of hep C, hypertension, tobacco use disorder, opioid use disorder on methadone, history of pancreatitis,, thrombocytopenia was brought to the ED due to agitation and altered mental status.Initially in the ED patient remains afebrile, HR 118, tachypneic 25, BP 142/78, saturation 98% on 3 L of nasal cannula.?? No leukocytosis WBC 4.8, macrocytic anemia 8.1, PLT 150, electrolytes normal, BUN/creatinine 8/0.6, alk [id number], AST/ALT 225/72, alcoholic pattern, T. bili 2.8, lactate 2.2, ammonia 60, ethanol 475, CT head negative, chest x-ray with no acute findings.?? Patient received thiamine/folic acid/multivitamin, lo razepam, Versed.?? Patient will be admitted to inpatient medicine service for alcohol intoxication and impending withdrawal ? 1. ??Aggression ??(R46.89) 2. ??Altered mental status ??(R41.82) 3. ??Alcohol use ??(Z78.9) 4. ??Alcohol withdrawal ??(F10.939) Alcohol induced thrombocytopenia Alcohol liver disease/cirrhosis Transaminitis Macrocytic anemia Hyperbilirubinemia 5. ??Syncope and collapse ??(R55) Vitals as per unit standards Telemetry monitoring On [facility] protocol Lorazepam as needed as per [facility] score Thiamine/folic acid/multivitamin/pyridoxine Right upper quadrant ultrasound Elevated LFTs Daily trend BUN/creatinine Follow-up with hepatitis??panel Hydroxyzine for anxiety as needed Addiction medicine consult and social work consult Cautious with fluids ?? 6. ??Asthma ??(J45.909)??albuterol as needed 7. ??Depression ??(F32.A)??fluoxetine 10 mg daily ?? Code???full Diet???regular diet DVT prophylaxis???pneumatic compression boots, VTE guidelines??done, thrombocytopenia ?? Patient seen and examined on??12/16/2022 Histories Allergies Allergies ?(Active and Proposed Allergies [...] II Sister: Bipolar ? Medications Home Medications Acetaminophen (acetaminophen 325 mg oral tablet)?325?Milligram?1?tablet?By Mouth?Every 4 hours?as needed?as needed for pain Albuterol (albuterol CFC free 90 mcg/inh inhalation aerosol)?2?puff(s)?Inhalation?Every4 hours?as needed?for wheezing Amlodipine (amLODIPine 5 mg oral tablet)?TAKE 1 TABLET BY MOUTH ONCE A DAY FOR HYPERTENSION Beclomethasone (Qvar 80 mcg/inh inhalation aerosol with [...] capsule)?300?Milligram?1?capsule?By Mouth?3 times a day HydrOXYzine (hydrOXYzine hydrochloride 25 mg oral tablet)?1?tab(s)?25?Milligram?By Mouth?4 times a day?as needed?for anxiety Methadone?By Mouth Multivitamin?By Mouth?Daily Nicotine (nicotine 21 mg/24 hr transdermal film, extended release)?1?patch(es)?Topically?Daily Pyridoxine (Vitamin B6 50 mg oral tablet)?TAKE 1 TABLET BY MOUTH EVERY DAY Thiamine (Vitamin B1 100 mg oral tablet)?TAKE 1 TABLET BY MOUTH TWICE A DAY ? Inpatient Medications Medications (21) Active SCHEDULED: (9) Amlodipine 5 mg Tablet (amLODIPine 5 mg oral tablet) ??5 mg, By Mouth, Daily Fluoxetine 10 mg Capsule (FLUoxetine 10 mg oral capsule) ??10 mg, By Mouth, Daily Folic Acid 1 mg Tablet (Folic Acid Tablet) ??1 mg, By Mouth, Daily Gabapentin 300 mg Capsule (gabapentin 300 mg oral capsule) ??300 mg, By Mouth, 3 times a day Multivitamin Tablet ??1 tablet, By Mouth, Daily Nicotine 21 mg / 24 hour Patch (Nicotine Topical) ??21 mg, Topically, Daily Pyridoxine 50 mg Tablet (Pyridoxine Tablet) ??50 mg, By Mouth, Daily Remove Patch (Remove ??Patch) ??1 each, Topically, Daily Thiamine 100 mg Tablet (Thiamine Tablet) ??100 mg, By Mouth, 2 times a day CONTINUOUS: (0) PRN: (12) Acetaminophen 325 mg Tablet (Acetaminophen Tablet) ??650 mg, By Mouth, Every 4 hours Albuterol 90mcg/Inhalation Inhaler HFA (albuterol CFC free 90 mcg/inh inhalation aerosol) ??180 mcg2 puffs, Inhalation, Every 4 hours Docusate Sodium 100 mg Capsule (Docusate Sodium Capsule) ??100 mg 1 capsule, By Mouth, 2 times a day HydrOXYzine HCL 10mg Tablet (hydrOXYzine hydrochloride 10 mg oral tablet) ??25 mg, By Mouth, 4 times a day Lorazepam 2 mg Inj Syringe (LORazepam Inj) ??1 mg, IV Push Slowly, Every hour Lorazepam 2 mg Inj Syringe (LORazepam Inj) ??2 mg, IV Push Slowly, Every hour Lorazepam 2 mg Inj Syringe (LORazepam Inj) ??3 mg, IV Push Slowly, Every hour Lorazepam 2 mg Inj Syringe (LORazepam Inj) ??4 mg, IV Push Slowly, Every hour Melatonin 3 mg Tablet (Melatonin Tablet) ??3 mg, By Mouth, Daily at bedtime NaCl 0.9% Flush 3ml (NaCL 0.9% Flush) ??3 mL, IV Push, Every 8 hours Polyethylene Glycol 17 Gm Powder (MiraLax Powder) ??17 Gm 1 pack/packet, By Mouth, Daily Senna Tablet ??8.6 mg 1 tablet, By Mouth, 2 times a day ? Results Recent Labs BLOOD COUNT & DIFF WBC 4.8 k/mm3 ()?? 12/15/2022 21:40 RBC 2.04 m/mm3 (Low)?? 12/15/2022 21:40 Hgb 8.1 Gm/dL (Low)?? 12/15/2022 21:40 Hct 24.7 % (Low)?? 12/15/2022 21:40 MCV 121.1 femtoliters (High)?? 12/15/2022 21:40 MCH 39.7 pg (High)?? 12/15/2022 21:40 MCHC 32.8 g/dL (Low)?? 12/15/2022 21:40 Platelet Count 150 k/mm3 ()?? 12/15/2022 21:40 RDW-SD 95.0 femtoliters (High)?? 12/15/2022 21:40 MPV 9.2 femtoliters (Low)?? 12/15/2022 21:40 Nucleated RBC (Automated) 8.0 #/100 WBC'S ()?? 12/15/2022 21:40 Abs. NRBC 0.4 k/mm3 ()?? 12/15/2022 21:40 Abs. Neut 2.0 k/mm3 ()?? 12/15/2022 21:40 Abs. Lymph 2.2 k/mm3 ()?? 12/15/2022 21:40 Abs. [place] 0.4 k/mm3 ()?? 12/15/2022 21:40 Abs. Eo 0.1 k/mm3 ()?? 12/15/2022 21:40 Abs. Baso 0.1 k/mm3 ()?? 12/15/2022 21:40 Neut % 41.9 % (Low)?? 12/15/2022 21:40 Lymph % 45.7 % (High)?? 12/15/2022 21:40 [place] % 8.6 % ()?? 12/15/2022 21:40 Eos % 1.5 % ()?? 12/15/2022 21:40 Baso % 1.3 % ()?? 12/15/2022 21:40 Imm Gran 1.0 % ()?? 12/15/2022 21:40 Abs. Imm Gran 0.1 k/mm3 ()?? 12/15/2022 21:40 ?? CHEM GENERAL Sodium 146 mmol/L (High)?? 12/15/2022 21:40 Potassium 3.6 mmol/L ()?? 12/15/2022 21:40 Chloride 106 mmol/L ()?? 12/15/2022 21:40 Bicarbonate Level 29 mmol/L ()?? 12/15/2022 21:40 Anion Gap 11 ()?? 12/15/2022 21:40 Glucose Level 126 mg/dL (High)?? 12/15/2022 21:40 BUN 8 mg/dL ()?? 12/15/2022 21:40 Creatinine-Blood 0.6 mg/dL ()?? 12/15/2022 21:40 Estimated GFR Creatinine 123 ML/MIN/1.73 M2 ()?? 12/15/2022 21:40 Calcium 8.1 mg/dL (Low)?? 12/15/2022 21:40 Protein, Total 5.9 Gm/dL (Low)?? 12/15/2022 21:40 Albumin 3.4 Gm/dL ()?? 12/15/2022 21:40 AG Ratio 1.4 ()?? 12/15/2022 21:40 Alkaline Phosphatase 197 units/L (High)?? 12/15/2022 21:40 AST (SGOT) 225 units/L (High)?? 12/15/2022 21:40 ALT (SGPT) 72 units/L (High)?? 12/15/2022 21:40 Bilirubin, Total 2.8 mg/dL (High)?? 12/15/2022 21:40 Lactate 2.2 mmol/L ()?? 12/15/2022 21:40 ?? ENDOCRINE/TUMOR MARKER TSH 1.33 uIU/mL ()?? 12/15/2022 21:40 ?? MISC. CHEMISTRY Ammonia, Venous 60 ??mole/L (High)?? 12/15/2022 21:40 ?? TOXICOLOGY/TDM Ethanol, Serum or Plasma 475 mg/dL (Abnormal)?? 12/15/2022 21:40 Salicylate Level <0.3 mg/dL (Low)?? 12/15/2022 21:40 Acetaminophen Level <5 mg/L (Low)?? 12/15/2022 21:40 ?? UA/URINALYSIS Appear/Color, Urine YELLOW ()?? 12/16/2022 02:09 Specific [place], Urine 1.006 ()?? 12/16/2022 02:09 pH, Urine 6.5 ()?? 12/16/2022 02:09 Albumin, Urine TRACE (Abnormal)?? 12/16/2022 02:09 Glucose, Urine NEGATIVE ()?? 12/16/2022 02:09 Ketones, Urine NEGATIVE ()?? 12/16/2022 02:09 Bilirubin, Urine NEGATIVE ()?? 12/16/2022 02:09 Hemoglobin, Urine NEGATIVE ()?? 12/16/2022 02:09 Nitrite, Urine NEGATIVE ()?? 12/16/2022 02:09 Leukocyte, Urine 3+ (Abnormal)?? 12/16/2022 02:09 Urobilinogen NORMAL mg/dL ()?? 12/16/2022 02:09 WBC's, Urine 14 /HPF (High)?? 12/16/2022 02:09 RBC's, Urine 2 /HPF ()?? 12/16/2022 02:09 Bacteria HEAVY HPF (Abnormal)?? 12/16/2022 02:09 Squamous Epith 1 /HPF ()?? 12/16/2022 02:09 Hold Urine Culture Testing available 48 hours from time of collection. ()?? 12/16/2022 02:09 ? Urinalysis Albumin, Urine: TRACE Abnormal (02:09) Appear/Color, Urine: YELLOW (02:09) Bacteria: HEAVY Abnormal (02:09) Bilirubin, Urine: NEGATIVE (02:09) Glucose, Urine: NEGATIVE (02:09) Hemoglobin, Urine: NEGATIVE (02:09) Hold Urine Culture: Testing available 48 hours from time of collection. (02:09) Ketones, Urine: NEGATIVE (02:09) Leukocyte, Urine: 3+ Abnormal (02:09) Nitrite, Urine: NEGATIVE (02:09) pH, Urine: 6.5 (02:09) RBC's, Urine: 2 /HPF (02:09) Specific [place], Urine: 1.006 (02:09) Squamous Epith: 1 /HPF (02:09) Urobilinogen: NORMAL (02:09) WBC's, Urine:??14 /HPF??High (02:09) ? [1]??Chest Portable; Karen Ness MD 12/15/2022 22:16 EDT * Priti Lucas MD: PERFORM Event Display: Admission Note Authored Date: Patient was seen and examined in a.m. in the ER Boyfriend at bedside. Patient was??agitated at the time of my evaluation. ??She is alert awake and oriented x2 Complaining of short of breath and right upper quadrant abdominal pain. Patient's LFTs high.?? Ultrasound abdomen showed hepatic steatosis,??sludge in the gallbladder. Troponin high, denies any chest pain. ??Could be from tachycardia. ??Unable to find an EKG. ??Ordered an EKG, will follow We will continue to trend troponin I will check D-dimer level. ??If D-dimer high, will need CT angio chest to rule out any PE. ??Patient is on oxygen since admission. ??Chest x-ray normal. ??Reason unclear ?? For details please check H&P done earlier today US Heart * Event Display: Echocardiogram - Complete Authored Date: Transthoracic Echocardiography Report (TTE) Patient Demographics Patient Name AMANDA RHODES Date of Study 12/18/2022 Corporate Gender Female Facility Race Ethnicity Date of 1990 Height: 64.17 inches Age 32 year(s) Weight: 211.64 pounds Accession Number [id number] BSA: 2.01 m2 Room Number [id number] BMI: 36.13 kg/m2 Referring Physician Shayy Marcos MD Interpreting Prince Baca MD Physician Hot Pipe Gauger Ale Flores Indications Heart failure. Clinical History HTN, tobacco use disorder, opioid use disorder, alcohol abuse Study Data Type of Study TTE procedure:Echo Complete-Doppler, Colorflow, M-Mode. Study Date12/18/2022 Start Time: 10:26 AM Study [place] [facility] [place] Status: Bedside Patient Status: Routine Technical Quality: Adequate due to non-compliant. Blood Pressure:141/97 mmHg EKG: Normal sinus rhythm HR: 94 bpm 2D Measurements LV Diastolic Dimension: 4.87 cm LV Systolic Dimension: 3.52 cm LV Septum Diastolic: 1.36 cm LV PW Diastolic: 1.19 cm AO Root Dimension: 3.1 cm LA ESV (BP):63.02 ml LVOT Stroke Volume: 71.69 ml LA ESV Index: 31 ml/m2 Stroke Volume Index35.67 ml/m2 LVOT: 2.24 cm Cardiac Index:3.35 l/min/m2 Ascending Aorta:3.1 cm Doppler Measurements MV Peak E-Wave: 90.9 cm/s MV Peak A-Wave: 102 cm/s LVOT Peak Velocity: 114 cm/s MV E/A Ratio: 0.89 LVOT VTI18.2 cm MV P1/2t: 47 msec TR Velocity:238 cm/s MV Deceleration Time: 161 msec TR Gradient:22.66 mmHg MV Area (PHT): 4.68 cm2 E' Septal Velocity: 10.2 cm/s E' Lateral Velocity: 13.1 cm/s E/Med E':[id number] E/Lat E':[id number] Cardiac Anatomy Left Ventricle/Interventricular Septum The left ventricle is poorly visualized. The apical views are foreshortened. The left ventricular size is normal. The left ventricular wall thickness is moderately increased. The LV systolic function is low normal . The left ventricular ejection fraction is 50-55 %. The inferior wall is hypokinetic . Unable to assess diastolic function due to E/A fusion . Left Atrium/Interatrial Septum The left atrium is poorly visualized. The left atrial size is at the upper limit of normal. Aortic Valve The aortic valve is trileaflet . There is no significant aortic regurgitation. There is no significant aortic stenosis. Mitral Valve The mitral valve opening is normal. There is mild mitral regurgitation. Aorta The aortic root is normal in size. The ascending aorta is not well visualized. Right Ventricle The right ventricle is normal in size and function. Right Atrium The right atrium is normal in size. Pulmonic Valve The pulmonic valve appears normal. Tricuspid Valve The tricuspid valve appears normal . There is trace tricuspid valve regurgitation. Pumonary Artery The pulmonary artery systolic pressure estimation is within normal limits. Venous Structures The inferior vena cava is poorly visualized. The inferior vena cava appears grossly normal. Pericardium/Extracardiac There is no significant pericardial effusion. Summary The left ventricle is poorly visualized. The apical views are foreshortened. The left ventricular size is normal. The left ventricular wall thickness is moderately increased. The LV systolic function is low normal . The left ventricular ejection fraction is 50-55 %. The inferior wall is hypokinetic . Unable to assess diastolic function due to E/A fusion . The mitral valve opening is normal. There is mild mitral regurgitation. The right ventricle is normal in size and function. Comparison No prior study available for comparison. Signature * Event Display: Echocardiogram - Complete Authored Date: Cardiology * Event Display: Cardiac Rhythm Strips Authored Date: Hospital Progress note * Eric CARO, Jose Oneill: PERFORM Event Display: Progress Note Hospital Authored Date: This patient was seen today by me at 10:46 AM. She was awake alert calm much better than she was yesterday. On task oriented cooperative. She looked quite comfortable. Knows that she is going to be getting discharged today. Overnight there was some agitation and some outburst threatening to leave AGAINST MEDICAL ADVICE but eventually some additional lorazepam to calm things down She has no other new complaints today. On exam as noted above no obvious intoxication no obvious withdrawal. Vital signs show temperature 98 heart rate 84 blood pressure 145/85 O2 sat 99% on room air Laboratory studies reviewed: White count good H&H stable but low platelet count a little lower but still decent at 137. Electrolytes and renal numbers good magnesium 1.5. Alk phos 177 down from 185 SGOT 128 down from 160 SGPT 58 which is stable at 58 from yesterday bilirubin down to 2.0 from 2.8. ASSESSMENT AND PLAN: This is a 32-year-old woman admitted to the hospital for alcohol intoxication,aggressive behavior, altered mental status. The addiction consultation service was asked to see herfor advice regarding substance use disorders. As previously: 1. Alcohol use disorder. This clearly is the major drug addiction that she has at this point in time. See above for the history. What she is interested in now would be a referral for counseling. She would not really want any other outpatient programs. She also agrees to take naltrexone. Unfortunately, her current LFTs are abnormal, high enough that we would not want to start naltrexone at this moment. However, I will continue to monitor the LFTs and once she hits SGOTs and SGPTs of 50 or less, she can consider. She is almost there with the SGPT at least. The only stipulations when she starts the naltrexone is to make sure she has not been having any opioids and also to make sure the LFTs are in the acceptable range as mentioned. The patient is going to be discharged today. Unfortunately she has no primary care physician who can follow-up on the LFTs and give her the go ahead to start the naltrexone. We we have arranged is that the primary team will give the patient a lab slip and have her get the lab work done by next Friday, 25 December. They will send the results to me. I will check them when available and advise our addiction coordinator Michell to convey the results and the recommendationfrom the to the staff at [facility] who will be seeing her I believe on January 02 as a new patient specifically for some help with her alcohol use disorder and to prescribe the naltrexone going forward. As previously: 2. Opioid use disorder. This is not active. She did have a problem with it a decade ago. She was onmethadone for years and amazingly she has done well self weaning and being off of the methadone forfew months. At this point, she is not interested in any further agonist therapy, but antagonist therapy in the form of naltrexone is something she would certainly consider, especially where she will also be on it for alcohol use disorder. This would be the perfect medication to try for her. All themore reason to try to get her started on that in the near future as mentioned above. 3. Cocaine use disorder. Again, this is old, historical, no use for over 10 years, doing well. No action necessary really at this time. Smoking, she knows she should stop. She is going to make a concerted effort to do that over time. She is now on the 21+7 mg nicotine patches. She just started that this morning so it is too soon tojudge the effectiveness. She can continue that at home if it is working out well wean it as tolerated over time and she should discuss it further with her treatment providers. I have communicated my thoughts and recommendations today to Dr. Davis of the primary team. The addiction consultation service will sign off at this time as she is being discharged. * Geni Mesa RN: MODIFY, SIGN, PERFORM, SIGN, VERIFY, MODIFY, SIGN Event Display: Progress Note Hospital Authored Date: [id number] Patient: AMANDA RHODES Age: 32 years Sex: Female : 1990 Associated Diagnoses: None Author: Geni Mesa RN Findings Problem Related to Alteration in Fluid Electrolyte : Alteration in Fluid Electrolyte Func/new 12/19/2022 22:00 EDT Alteration Fluid Electrolytes Related to Electrolyte Imbalance Goals & Outcomes, Fluid/Electrolyte Blood glucose levels will stabilize during hospitalization,Vital signs, electrolytes & glucose levels will stabilize, Pt will maintain adequate GI/ function appropriate for pt, Pt will maintain skin turgor, Pt will resume/maintain adequate cardiac output, Pt will resume/maintain adequate hemodynamic status, Pt will state importance of adhering to medication regime Interventions, Fluid Electrolyte monitor cardiac status, monitor dietary intake, monitor effects ofinsulin, glucose values, Teach Pt/caregiver cause of imbalance & corrective therapy Goals/Interventions,Fluid Electrolyte Yes Fluid Electrolyte, Problem Start 12/19/2022 12:20 Reviewed plan with, Fluid Electrolyte Patient Patient Progression, Fluid Electrolyte Pt progressing according to plan . Alteration in Psychosocial : Alteration in Psychosocial Function/new 12/19/2022 22:00 EDT Alteration in Psychosocial Related to Acute Alcohol Withdrawal Goals & Outcomes, Psychosocial Psychosocial support will be provided to Pt/S.O. as needed, Pt will state importance of adhering to medication regime, Pt/caregiver will be offered appropriate resources & support, Pt/caregiver will express feelings/needs/fears /concerns Interventions, Psychosocial Assess for complications related to acute alcohol withdrawal, Determinept's stage of withdrawal as per CIWA scale, Encourage pt to continue to detox, Initiate & maintain Seizure Precautions, Minimize stimulation, Minimize stressors Goals/Interventions, Psychosocial Yes Psychosocial, Problem Start 12/17/2022 11:47 Reviewed Plan with, Psychosocial Patient Patient Progression, Psychosocial Pt progressing according to plan . Narrative/Incidental Notified by PCT that pt was angry and pulled off heart monitor at the start of shift. Upon enteringroom, asked the pt what was wrong; pt was upset and complained, raised voice and swearing, that shehad not seen and talked to the doctor since the prior day. She was upset and angry at the wait and not being able to get medication. Pt stated she was done and wanted to leave AMA. This RN told the pt as it is the first time with the pt; she will look into it and page the provider; also attempted to get the heart monitor back on and explain the risks of low magnesium (she did receive magnesium during the day to replace), the pt continued with her complaint. director supply chain was notified. Covering provider paged; ativan 3mg IV once ordered. After receiving, pt calmed down and allowed heart monitor jeremías placed back on. Informed that pt refused lab. Spoke to pt and reinforced low magnesium and risks. Pt agreeable to labs being draw but later in the morning. Spoke to lab and someone will try later. Provider made aware. Pt is A&Ox4. On tele, NSR to ST. On RA. Heparin subcut. Able to ambulate independently. On Alcohol Withdrawal Protocol. CIWA hit a score of 11 once when pt was restless and pacing about the room.Prn phenobarbital 130mg IV given. Hep C lab pending from 12/15. . Discharge Information Rehabilitation Discharge : Rehab Discharge Index 12/17/2022 13:12 EDT Comments on treatment indicated 32 F admitted 2' AMS, alcohol intoxication and impending withdrawal. WBAT. Skilled PT for ambulation, strength, balance, stairs. Rec d/c home Cane: distance 20-50 Distance pt will ambulate > 30 feet c LRAD Full chart review completed Yes Hospital course Hospital course Other findings see comment Plan of care PT Gait training, Transfer training, Therapeutic exercise, Functional Activities, Balance training, Neuromuscular education * Paul CARO, Darren: PERFORM Event Display: Progress Note Hospital Authored Date: Patient: ??AMANDA RHODES ? Age:??32 Years?Sex:??Female?:??1990?? I was paged to the patient's bedside by nurse at 8:13PM by request from patient who was angry and pulled off heart monitor . Per nurse, patient wanted to leave AMA because she had not seen a doctor since yesterday (12/18). I took a few minutes to review the patient's chart and noted progress notes and note from addiction medicine in chart since 12/18. During chart review, I noted that patient had switched from ativan to phenobarbital due to concerns regarding sedation and not adequately coveringpatient's symptoms as well as a concern for new cardiomyopathy. I went to assess the patient a few minutes later and while walking into room, noted the patient was visibly upset. She stated that she w anted to leave against medical advice because she has not seen a doctor in the last two days because they come in while she is sleeping and then never come again. She endorses frustration regarding length of time between requests for medication and receiving them. While discussing concerns regarding level of sedation with medications, patient states that the doctor does not know the difference between heavy sleeping and sedation and that she has nothing else to do in the room except sleep. She is angry that she has not received anything for her pain which she equates to her alcohol withdrawalsymptoms. At one point she noted wanting to due to the severity of her w/d symptoms but no active SI or plan. Patient does not feel that phenobarbital works for withdrawal, going so far as correct this provider as he tried to explain the treatment plan for her. She stated that ativan worked better for her but wanted more than one or two milligrams as these only worked for 1 and 4 hours respectively. When provider asked what he can do to help her, she stated that she would want 5mg of ativan and when provider offered 2mg as this was a more standard dose, patient requested 3mgs. Patient stated that she would stay if she could get 3mgs SHAHBAZ but would not wait an hour for it and provider told her he would try and coordinate with the nurse to get that done as quickly as possible. Did not go completely into the risks of leaving AMA as patient agreed to stay, but should patient request again will start with defining risks in order to assess patient understanding.??At this time, patient was able to make needs known and communicate with provider but still require further discussion with patient to assess decision making capacity. ?? Darren Miller MD PGY-3 Medicine-Pediatrics Pager [phone] Consult note * Event Display: Consultation Note Authored Date: [id number] CONSULTATION DATE: 12/19/2022 INPATIENT ADDICTION CONSULTATION REASON FOR CONSULTATION: Advice regarding polysubstance use disorder. We were asked to see this patient by Dr. Tory Do's service, for advice regarding the above. The patient's chart was reviewed in detail and the patient was seen and interviewed today by me in her room on [place] [id number] at 1320. Present was a male visitor at the bedside. I asked her in private whether she would like him present and she wanted me to excuse him from the room, which I did. He was therefore not present for any of the discussion and I did not discuss her situation with him at all. He came back again after the visit. CHIEF COMPLAINT: Alcohol intoxication, aggression, altered mental status. HISTORY OF PRESENT ILLNESS: The patient is a 32-year-old woman admitted to the hospital on 12/16/2022 with the above complaints. She has a longstanding known history of alcohol use disorder and she was in with the above. She has been improving since. PAST MEDICAL HISTORY: As follows: 1. Alcohol use disorder, see below. 2. Anxiety. 3. Depression. 4. Hepatitis C. 5. Hypertension. 6. Opioid use disorder, see below. 7. Smoking, see below. 8. Pancreatic problems in the past. 9. Thrombocytopenia. 10. Recent seizure at home, refused hospital stay. Details not that delineated. 11. Asthma. 12. Morbid obesity. 13. Old pelvic fracture. 14. Possible cirrhosis of the liver. 15. Abnormal LFTs. 16. Elevated MCV. PAST SURGICAL HISTORY: None that we know of. MEDICATIONS: Now here in the hospital include the followin. Phenobarbital 130 mg IV q. 2 hours p.r.n. 2. Melatonin 3 mg one p.o. at bedtime p.r.n. 3. Pyridoxine 50 mg daily. 4. Folic acid 1 mg daily. 5. Heparin 5000 units subcu t.i.d. 6. Thiamine 100 mg b.i.d. 7. Multivitamin with minerals 1 a day. 8. B12 1000 mcg daily. 9. Ondansetron 4 mg IV every 6 hours. 10. Fluoxetine 10 mg daily. 11. Amlodipine 5 mg daily. 12. Nicotine patch 21 mg daily. 13. Gabapentin 300 mg t.i.d. 14. Hydroxyzine 25 mg p.o. 4 times a day p.r.n. for anxiety. 15. Albuterol inhaler p.r.n. 16. Tylenol p.r.n. 17. Senna and other bowel regimen p.r.n. ALLERGIES TO MEDICATIONS: BACTRIM, which causes no stated drug reaction. FAMILY HISTORY: Father had diabetes type 2. Sister with bipolar disorder. SOCIAL HISTORY: The patient is not currently employed. I think she lives with others, but it is notclear. SMOKING HISTORY: One-half pack of cigarettes now and she smoked for many, many years, probably since teenage years. She notes that the current nicotine patch is not adequate to control nicotine craving, that size is 21 mg. She is not sure she wants to stop smoking, but she is giving it some thought. Alcohol use disorder. This has been a problem for about 5 years. Prior to that, she would just drink a little bit here and there. 5 years ago, she lost a child and that set her off to major problems with alcohol over the last few years. She has had pretty good experience with AA in the past, has had a sponsor through AA as well. She never was a sponsor though. She agrees that some of the principles of AA would be helpful to her. She does not really believe in the 12 steps per se, but does get some benefit out of the meetings themselves, that is one thing she is willing to consider going forward. She notes that she has not ever been able to go to any longer stays like a 30- day program or anything like that. Mostly that is because of some housing rules and she cannot be out of her facility, where she lives for longer than certain period of time, where she will lose it and have to move out. Thus she is not be interested in that. On the other hand, she would be interested in outpatient counseling. She is not interested in wellness health coach is because she has had 2 separate ones and both of them had failed her. They were not available, they did not followup when she needed them and she is not interested in the wellness health coach approach at this point. She is interested in medication. She notes that she had tried Campral in the past and it was not effective for her. She has never tried naltrexone. In the past, she had been on methadone for an extensive period of time, so she was not a candidate for naltrexone, but she is no longer on the methadone and would consider it. Opioid use disorder, used to be a major problem. She used opioids for a while when she was younger.However, her last use was about 10 years ago. She has been on methadone fairly consistently until just a few months ago and then she decided she wanted to get off of that. Happily, she was able to wean herself off and has done okay without a relapse since, that is quite an accomplishment. Consequently, she has no interest in going back on the methadone or Suboxone. However, it may coincide beautifully with trying naltrexone for alcohol use disorder and she is willing to consider the naltrexone obviously for opioid use disorder as well. Next problem is cocaine use disorder. She did have a problem with cocaine use disorder, but that was many years ago and she has not used at all in about 10 years. She feels no need for any help with that, per se. She notes no other street drug use or any past addiction to anything else. She does note that about a month ago, she had 4 doses of Suboxone that she tried to help with alcohol use disorder and craving. They did nothing for her. That is not surprising because that is not really clinically indicated for alcohol use disorder. She has used none since. Therefore, she would not be at risk of using naltrexone soon, even though she used Suboxone in the past because it has beenlong enough to be out of her system. REVIEW OF SYSTEMS: Right now is positive for a lot of withdrawal symptoms. She feels that the primary team has not treated her withdrawal aggressively enough and hopes for more medication and taking a little bit more time to get her completely off of things. Review of systems is otherwise negative. PHYSICAL EXAMINATION: GENERAL: The patient appears alert, active, a little agitated at times. Initially when I first mentioned who I was and why I was there, she got little tearful. She got slightly tearful when she mentioned her child passing away, understandably. She got a little frustrated at first when she stated something like I do not really like to talk about all this, meaning drug use disorder history. We persevered and she persevered and we got to thehistory pretty well. Eventually, she was very easily forthcoming with the history it seems. VITAL SIGNS: Today, temperature 98, heart rate 107, respiratory rate 18, blood pressure 146/112, O2sat 98% on room air. CIWA numbers are 7, 12, 1, 0, 1. So by the CIWA scale numbers, things seem to be doing pretty well. She did not look overtly intoxicated or to be in any withdrawal when I was looking at her at that moment. HEENT: Oral mucosa is moist. She was eating lunch including some fish. LUNGS: Clear anteriorly. HEART: S1, S2 normal. NEUROLOGIC: Moving all 4 extremities pretty well. MUSCULOSKELETAL: Appears to have normal muscle bulk and tone. SKIN: Had no gooseflesh or diaphoresis. PSYCHIATRIC: A little agitated mood, affect was anxious a bit, but not terribly so. DATA REVIEW: White count normal, H and H low at 8 and 25, MCV very high at 117 and it had been [id number]. Platelets 149. INR up to 1.2. Electrolytes good, renal numbers good. Phosphorus high at 4.6. Magnesium a touch low at 1.1. Calcium 9.2, phosphorus 4.6, magnesium 1.1. B12 was 276. Folate was a little low at 2.3. Alkaline phosphatase today 185 up from 179 on the 17th. SGOT 160, down from 216, SGPT 58, down from 67. Bilirubin up to 2.8 from 1.6. ASSESSMENT AND PLAN: This is a 32-year-old woman admitted to the hospital for alcohol intoxication,aggressive behavior, altered mental status. The addiction consultation service was asked to see herfor advice regarding substance use disorders. 1. Alcohol use disorder. This clearly is the major drug addiction that she has at this point in time. See above for the history. What she is interested in now would be a referral for counseling. She would not really want any other outpatient programs. She also agrees to take naltrexone. Unfortunately, her current LFTs are abnormal, high enough that we would not want to start naltrexone at this moment. However, I will continue to monitor the LFTs and once she hits SGOTs and SGPTs of 50 or less, she can consider. She is almost there with the SGPT at least. The only stipulations when she starts the naltrexone is to make sure she has not been having any opioids and also to make sure the LFTs are in the acceptable range as mentioned. At the time of discharge, hopefully, she can get a month's supply and then follow up with her doctors about that. 2. Opioid use disorder. This is not active. She did have a problem with it a decade ago. She was onmethadone for years and amazingly she has done well self weaning and being off of the methadone forfew months. At this point, she is not interested in any further agonist therapy, but antagonist therapy in the form of naltrexone is something she would certainly consider, especially where she will also be on it for alcohol use disorder. This would be the perfect medication to try for her. All themore reason to try to get her started on that in the near future as mentioned above. 3. Cocaine use disorder. Again, this is old, historical, no use for over 10 years, doing well. No action necessary really at this time. Smoking, she knows she should stop. She is going to make a concerted effort to do that over time. The current nicotine patch 21 mg is not adequate though to currently control her nicotine withdrawal symptoms. She requested increase. My recommendation would be to add a second 7 mg patch, so she would be on both of 21 mg and a 7 mg patch daily to help control the symptoms. That could be further titrated if necessary going forward. Longer term strategies, she will hopefully be talked about with her primary care doctor as well. The hospital service is taking care of all of the other issues. I note that she does have a pretty high MCV higher than one would expect only with alcohol use disorder. I see that other studies have been done regarding B12 and folate and she is on supplements. That of course can be followed up overtime as well. 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 Hopefully, that is going to settle down enough to allow her to take the medication. She may have some degree of underlying cirrhosis as well. I did point out to her that Suboxone is not a good medication choice or clinically indicated choicefor alcohol use disorder. She understands that now. Thank you very much for this consultation. If you have any further questions, please do not hesitate to ask them. I have communicated my thoughts and recommendations today to Dr. Davis of the primary team. The addiction consultation service will continue to follow this patient with you. Dictated by: Jose Reyes M.D. Signing Clinician: Jose Reyes M.D. Dictated: 12/19/2022 05:28:52 Transcribed: 01:24:17 PM Transcribed by: JC DocID: [id number] PRELIMINARY REPORT UNLESS MANUALLY/ELECTRONICALLY SIGNED cc: Tory Do M.D. RESIDENT -[facility] [address], [address] * Michell Lang: PERFORM, SIGN, VERIFY Event Display: Consultation Note Authored Date: [id number] Patient: AMANDA RHODES Age: 32 years Sex: Female : 1990 Associated Diagnoses: None Author: Michell Lang This remote mortgage underwriter met with patient this afternoon to discuss addiction recovery resources. Patient was asked if she had a preference of a clinic she would prefer for naltrexone. Patient stated she does notcare. Patient was asked if she would like other resources or referrals and patient stated I don't want to think about that stuff right now . I informed patient that I will follow up with her in the morning about additional resources. For Naltrexone, patient has an appointment scheduled at [facility] on01/02/2023 at 9:15am. Addiction Consultation Team [address] [place] [id number] Patient: Amanda Rhodes (: 1990) Date: 12/19/2022 You have been referred to the following: [address] [address] Appointment: 01/02/2023 at 9:15am for naltrexone. * Martina CARO, Gil Oneill: PERFORM, MODIFY, MODIFY Event Display: Consultation Note Authored Date: [id number] Patient: ??AMANDA RHODES ? Age:??32 Years?Sex:??Female?:??1990?? Indication for Consult ETOH/Aggression History of Present Illness/Interval History This is a 32-year-old female with past medical history of alcohol use disorder, tobacco use disorder, opioid use disorder on methadone, hepatitis C, hypertension, history of pancreatitis, thrombocytopenia who was admitted on 12/16/2022 with agitation and altered mental status and was admitted for alcohol intoxication. ? Based on admission note: He mentions that he saw her a month ago and again few days ago he noticed increased swelling around her eyes and throughout her body.?? He also endorses 2 weeks ago that patient had an episode of seizure but refused to go to the hospital.?? Earlier today patient drank a lotand got into argument with her father on phone and later syncopized and fell so EMS was called and brought to the ED for evaluation. ??When I saw the patient patient was??initially??withdrawing keeping asking for??pain medications and??Ativan. ??She was not cooperative with history.?? When I saw her on the following day she was??complaining that she is not getting??her medications and??she is??con sidering??leaving AMA.?? Also she was talking over the phone on??and??did not participate in??history.?? Patient informed about the cardiac findings and??and need to follow-up in the future. ? Initially in the ED patient remains afebrile, HR 118, tachypneic 25, BP 142/78, saturation 98% on 3L of nasal cannula.?? No leukocytosis WBC 4.8, macrocytic anemia 8.1, PLT 150, electrolytes normal,BUN/creatinine 8/0.6, alk phos 197, AST/ALT 225/72. T. bili 2.8, lactate 2.2, ammonia 60, ethanol 475. ?? CTA chest was negative for pulmonary embolism. CT head is no acute abnormality. ?? Cardiac work-up Patient had elevated troponin on 12/16/2022.?? Troponin was 54 then 69 and 62,023. She had an echocardiogram which showed LVEF 50 to 55%.?? There is inferior wall hypokinesia. Chest x-ray no pulmonary edema. Review of Systems Pertinent positives as per the HPI. All other systems were reviewed and were negative ? Physical Exam Vitals & Measurements T:??98.2?F?? HR:??107??(Peripheral)?? RR:??18?? BP:??148/95?? SpO2:??96%?? HT:??163??cm?? WT:??97.5??kg?? BMI:??36.7?? Weight lb/oz: 214 lb 15 oz General: In no acute distress HEENT: Sclerae anicteric Cardiovascular: Regular rhythm, normal first and second heart sounds. No Murmur . No JVP Respiratory: Clear to auscultation all lung wynne GI: Normoactive bowel sounds, soft Extremities: Warm, no edema Neuro: Nonfocal? Assessment/Plan ?? Assessment This is a 32-year-old female with past medical history of alcohol use disorder, tobacco use disorder, opioid use disorder on methadone, hepatitis C, hypertension, history of pancreatitis, thrombocytopenia who was admitted on 12/16/2022 with agitation and altered mental status and was admitted for alcohol intoxication. Troponin was 54 then 69 and 62,023. She had an echocardiogram which showed LVEF 50 to 55%.?? There is inferior wall hypokinesia. EKG with no ischemic changes. ??Patient was not participating in history but??no significant chest pain on exertion. ??She is complaining from pain everywhere. ??Patient has??issues with alcohol abuse and she is not??interested in quitting or??detox. ??At the present given??her symptoms with??the flat troponin??patient did not have??acute??ACS. ?? Recommendations?? Patient need a stress test outpatient Follow-up with cardiology outpatient ? Thank you for allowing us to participate in the care of your patient. Please feel free to page the cardiology consult pager [phone] with questions. ?? Patient discussed with attending physician ??Marlene ?? Allergies Bactrim Home Medications Acetaminophen: 325 mg = 1 tablet, By Mouth, Every 4 hours, PRN (as needed for pain) Albuterol: 2 puffs, Inhalation, Every 4 hours, PRN (for wheezing) Amlodipine: TAKE 1 TABLET BY MOUTH ONCE A DAY FOR HYPERTENSION Beclomethasone: 1 puffs, Inhalation, 2 times a day dolutegravir: 50 mg = 1 tablet, By Mouth, Daily Durable Medical Equipment: See Instructions, Use with albuterol and Qvar Inhalers. Durable Medical Equipment: See Instructions, One right and one left wrist splint, to be worn at night for carpal tunnel.Dx: Wrist Pain and Carpal Tunnel Emtricitabine-Tenofovir: 1 tablet, By Mouth, Daily EPINEPHrine: 0.3 mg, Intramuscular, Once Fluoxetine: 10 mg = 1 tablet, By Mouth, Daily, Follow up with PCP to uptitrate dose Folic Acid: 1 mg = 1 tablet, By Mouth, Daily Gabapentin: 300 mg = 1 capsule, By Mouth, 3 times a day HydrOXYzine: 25 mg = 1 tablet, By Mouth, 4 times a day, PRN (for anxiety) Multivitamin: By Mouth, Daily nalOXONE Nicotine: 1 patch, Topically, Daily Pyridoxine: TAKE 1 TABLET BY MOUTH EVERY DAY Thiamine: TAKE 1 TABLET BY MOUTH TWICE A DAY Hospital Medications Medications (20) Active SCHEDULED: (10) Amlodipine 5 mg Tablet (amLODIPine 5 mg oral tablet) ??5 mg, By Mouth, Daily Fluoxetine 10 mg Capsule (FLUoxetine 10 mg oral capsule) ??10 mg, By Mouth, Daily Folic Acid 1 mg Tablet (Folic Acid Tablet) ??1 mg, By Mouth, Daily Gabapentin 300 mg Capsule (gabapentin 300 mg oral capsule) ??300 mg, By Mouth, 3 times a day Multivitamin Therapeutic / Minerals Tablet (Multivit Therapeutic/Minerals Tablet) ??1 tablet, By Mouth, Daily Nicotine 21 mg / 24 hour Patch (Nicotine Topical) ??21 mg, Topically, Daily Pyridoxine 50 mg Tablet (Pyridoxine Tablet) ??50 mg, By Mouth, Daily Remove Patch (Remove ??Patch) ??1 each, Topically, Daily Thiamine 100 mg Tablet (Thiamine Tablet) ??100 mg, By Mouth, 2 times a day Vitamin B-12 ??1000 mcg Tablet (Vitamin B12 1000 mcg oral tablet) ??1,000 mcg, By Mouth, Daily CONTINUOUS: (1) Lactated Ringers (1000 mL) Cont IV 1,000 mL (LR 1,000 mL) ??1,000 mL, IV Infusion, 75 mL/hr PRN: (9) Acetaminophen 325 mg Tablet (Acetaminophen Tablet) ??650 mg, By Mouth, Every 4 hours Albuterol 90mcg/Inhalation Inhaler HFA (albuterol CFC free 90 mcg/inh inhalation aerosol) ??180 mcg2 puffs, Inhalation, Every 4 hours Docusate Sodium 100 mg Capsule (Docusate Sodium Capsule) ??100 mg 1 capsule, By Mouth, 2 times a day HydrOXYzine HCL 10mg Tablet (hydrOXYzine hydrochloride 10 mg oral tablet) ??25 mg, By Mouth, 4 times a day Melatonin 3 mg Tablet (Melatonin Tablet) ??3 mg, By Mouth, Daily at bedtime NaCl 0.9% Flush 3ml (NaCL 0.9% Flush) ??3 mL, IV Push, Every 8 hours Ondansetron 2mg/mL Inj (2mL Vial) (Zofran Inj) ??4 mg, IV Push, Every 6 hours Polyethylene Glycol 17 Gm Powder (MiraLax Powder) ??17 Gm 1 pack/packet, By Mouth, Daily Senna Tablet ??8.6 mg 1 tablet, By Mouth, 2 times a day Lab Results Cardiology Labs WBC: 4.9 k/mm3 (12/17/22) RBC:??2.01 m/mm3??Low (12/17/22) Hgb:??8.1 Gm/dL??Low (12/17/22) Hct:??24.2 %??Low (12/17/22) MCV:??120.4 femtoliters??High (12/17/22) MCH:??40.3 pg??High (12/17/22) MCHC: 33.5 g/dL (12/17/22) Platelet Count: 164 k/mm3 (12/17/22) RDW-SD:??85.9 femtoliters??High (12/17/22) Nucleated RBC (Automated): 8.4 #/100 WBC'S (12/17/22) Abs. Neut: 1.8 k/mm3 (12/16/22) Abs. Lymph: 2.4 k/mm3 (12/16/22) Abs. [place]:??0.3 k/mm3??Low (12/16/22) Abs. Eo: 0.1 k/mm3 (12/16/22) Abs. Baso: 0.1 k/mm3 (12/16/22) Neut %:??38.5 %??Low (12/16/22) [place] %: 6.3 % (12/16/22) Eos %: 1.5 % (12/16/22) Baso %: 1.1 % (12/16/22) Imm Gran: 0.7 % (12/16/22) Abs. Imm Gran: 0 k/mm3 (12/16/22) Sodium: 140 mmol/L (12/17/22) Potassium: 4 mmol/L (12/17/22) Chloride: 102 mmol/L (12/17/22) Bicarbonate Level: 26 mmol/L (12/17/22) Glucose Level:??104 mg/dL??High (12/16/22) BUN: 8 mg/dL (12/17/22) Creatinine-Blood: 0.5 mg/dL (12/17/22) Calcium:??7.6 mg/dL??Low (12/16/22) Protein, Total:??5.5 Gm/dL??Low (12/16/22) Albumin:??3.2 Gm/dL??Low (12/16/22) Alkaline Phosphatase:??179 units/L??High (12/16/22) AST (SGOT):??216 units/L??High (12/17/22) ALT (SGPT):??67 units/L??High (12/17/22) Bilirubin, Total:??2.7 mg/dL??High (12/17/22) Nt-Probnp: 47 pg/mL (12/16/22) TSH: 1.33 uIU/mL (12/15/22) Diagnostic Impression ECG ECG 12-Lead ?? 02:44:30 Please click on pdf link to open report ?? Signed By: Prince Baca MD ?? ECG 12-Lead ?? 02:44:30 Ventricular Rate: 91 BPM Atrial Rate: 91 BPM P-R Interval: 134 ms QRS Duration: 68 ms Q-T Interval: 366 ms QTC Calculation(Bazett): 450 ms P Meridian: 39 degrees R Meridian: 54 degrees T Meridian: 45 degrees Normal sinus rhythm Normal ECG When compared with ECG of 03-APR-2022 21:07, Left posterior fascicular block is no longer Present Nonspecific T wave abnormality no longer evident in Inferior leads T wave inversion no longer evident in Lateral leads T wave amplitude has increased in Anterolateral leads Confirmed by PRINCE BACA MD ([id number]) on 06/28/2022 1:47:09 PM ?? [place]: PRINCE BACA MD ?? Signed By: Prince Baca MD Echo Echocardiogram - Complete ?? 10:26:09 Summary The left ventricle is poorly visualized. The apical views are foreshortened. The left ventricular size is normal. The left ventricular wall thickness is moderately increased. The LV systolic function is low normal . The left ventricular ejection fraction is 50-55 %. The inferior wall is hypokinetic . Unable to assess diastolic function due to E/A fusion . ?? The mitral valve opening is normal. There is mild mitral regurgitation. ?? The right ventricle is normal in size and function. ?? Comparison No prior study available for comparison. ?? Signature ?? Signed By: Ruddy CARO, Prince Romero Problem List/Past Medical History Ongoing Anxiety Asthma Depression Pelvic fracture Severe obesity (BMI 35.0-39.9) with comorbidity Procedure/Surgical History No qualifying data available. Social History Alcohol Use: Current. Frequency: 3-5 times per week. Substance Abuse Use: Never. Tobacco Use: 10 or more cigarettes (1/2 pack or more)/day in last 30 days. Family History Father: Diabetes mellitus type II Sister: Bipolar * Margaret Rosario MD: PERFORM Event Display: Consultation Note Authored Date: Unfortunate 32yoF with EtOH dependence who presented with abdominal pain. Course c/b EtOH withdrawal. She had troponinemia with no EKG changes and echo with inferior WMA. Likely type II ischemia, currently no chest pain and no HF symptoms although she is??not offering much??history as she is in pain everywhere. ? - Outpatient stress test Note * Kendy Badillo RN: PERFORM Event Display: Discharge/Transfer Note Hospital Authored Date: Nursing Discharge Note Entered On: 12/20/2022 13:36 EDT Performed On: 12/20/2022 13:36 EDT by Kendy Badillo RN Nursing Discharge Note 2 Discharge Time : 12/20/2022 14:45 EDT Patient Left Unit Via : Ambulatory Patient Accompanied Off Unit with : Responsible adult DC Instructions Provided & Signed by Pt : Yes Patient Understands D/C Instructions : Yes Patient Instructions Discharge Signed : Yes Did Pt have Specialty Bed or Wound Vac : No Kendy Badillo RN - 12/20/2022 15:12 EDT Discharge Level of Care at Discharge : Home/Fpc/Foster Care Kendy Badillo RN - 12/20/2022 13:36 EDT * Stef Davis MD: PERFORM, MODIFY Event Display: Discharge/Transfer Note Hospital Authored Date: [id number] Patient: ??AMANDA RHODES ? Age:??32 Years?Sex:??Female?:??1990?? Patient Information Discharge Location: S2 Primary Care Physician: Not on Staff, PCP Admit Date/Time: 12/16/22 00:05 Discharge Disposition Discharge Disposition: Home: No Services Discharge Diagnosis Aggression (R46.89) Altered mental status (R41.82) Alcohol use (Z78.9) Alcohol withdrawal (F10.939) Syncope and collapse (R55) Asthma (J45.909) Depression (F32.A) ?? _ Discharge Medications Acetaminophen (acetaminophen 325 mg oral tablet)?325?Milligram?1?tablet?By Mouth?Every 4 hours?as needed?as needed for pain Albuterol (albuterol CFC free 90 mcg/inh inhalation aerosol)?2?puff(s)?Inhalation?Every4 hours?as needed?for wheezing Amlodipine (amLODIPine 5 mg oral tablet)?TAKE 1 TABLET BY MOUTH ONCE A DAY FOR HYPERTENSION Beclomethasone (Qvar 80 mcg/inh inhalation aerosol with [...] capsule)?300?Milligram?1?capsule?By Mouth?3 times a day HydrOXYzine (hydrOXYzine hydrochloride 25 mg oral tablet)?1?tab(s)?25?Milligram?By Mouth?4 times a day?as needed?for anxiety Multivitamin?By Mouth?Daily Nicotine (nicotine 21 mg/24 hr transdermal film, extended release)?1?patch(es)?Topically?Daily Pyridoxine (Vitamin B6 50 mg oral tablet)?TAKE 1 TABLET BY MOUTH EVERY DAY Thiamine (Vitamin B1 100 mg oral tablet)?TAKE 1 TABLET BY MOUTH TWICE A DAY ? Quality Measures Tobacco Use Treatment:??Nicotine patch 28 mg daily (21 + 7) ? Durable Medical Equipment Discharge recommendations: Home (12/17/22) Ambulatory devices needed: None (12/19/22) ? Medications Started N/A Plan to start naltrexone Medications Discontinued N/A PCP Follow-Up/Heads-Up Patient was admitted for alcohol withdrawal. Patient also found to have inferior wall hypokinesia on cardiac echo and will need close outpatient followup with cardiology including stress test. Patient also should start naltrexone as per upcoming Addiction Medicine appointment on 01/02. ?? Labs to be drawn??on 12/25: Comprehensive Metabolic Panel Complete Blood Count Serum Magnesium ?? PLEASE FORWARD ALL LAB RESULTS TO JOSE REYES MD. Hospital Course ??32-year-old female with PMH of alcohol use disorder, anxiety/depression, history of hep C, hypertension, tobacco use disorder, opioid use disorder on methadone, history of pancreatitis,, thrombocytopenia was brought to the ED due to agitation and altered mental status. Patient's father Mr. Lomaxphone [phone] gave collateral history of increased alcohol consumption and a few days ago he noticed increased swelling around her eyes and throughout her body.?? He also endorses 2 weeks ago that patient had an episode of seizure but refused to go to the hospital.?? Earlier that day patient drank a lot and got into argument with her father on phone and later syncopized and fell so EMS was called and brought to the ED for evaluation.?? CT head was negative with high urine ethanol tox screen with alcoholic pattern transaminitis and patient was admitted for alcohol withdrawal. Patient was initially managed with lorazepam and then phenobarbital as lorazepam was effective only for veryshort durations. As part of syncopal workup, echocardiogram showed new inferior wall hypokinesia with no symptoms and cardiology recommended close outpatient followup for stress test. Hospital coursewas complicated by electrolyte abnormalities which were corrected. Patient also seen by addiction medicine for starting naltrexone for alcohol cessation. Currently, patient no longer in active withdrawal and is being discharged home. ?? 32-year-old female with PMH of alcohol use disorder, anxiety/depression, history of hep C, hypertension, tobacco use disorder, opioid use disorder??previously on methadone, history of pancreatitis, thrombocytopenia was brought to the ED due to agitation and altered mental status which was controlled with a single dose of haloperidol. Patient was admitted for management of alcohol intoxication andalcohol withdrawal. She is now being worked up for new-onset myocardial injury and treated for alcohol withdrawal. ? Acute toxic encephalopathy -??ethanol 475 mg/dL??positive on admission - resolved Aggression - resolved Alcohol withdrawal - resolved Alcoholic liver disease/cirrhosis Patient presented with transaminitis, thrombocytopenia (chronic), macrocytic anemia, hyperbilirubinemia, all likely of alcoholic etiology, patient does also mention occasional use of benzodiazepines Right upper quadrant ultrasound showed echogenic liver likely representing hepatic steatosis. Nonmobile sludge present in gallbladder. ?? Recommendation: -??Followup with PCP - Labs on 12/25 followed by appointment for naltrexone on 01/02 ?? Alcohol use disorder Opioid use disorder Tobacco use disorder Addiction medicine consult placed, discussed, patient open to starting naltrexone on discharge onceliver enzymes normalize. She [facility] never been in [facility] and might be open to trying it. Feels that acamprosate does not help. Patient previously on methadone in June, not receiving methadone in hospital but having minimal pain, does not want to be on methadone or Subxone again and prefers to stay clean with [facility] Clarified with methadone clinic on [facility], patient's last dose was 38 mg 09/26/2022, she was then denied a week later and has stopped being with the clinic As per her history she is not using opioids at the moment and feels she can quit by herself ?? Recommendation: - Nicotine patch dose increased to 28 mg as per addiction medicine advice, can followup for prescription if interested in cessation - Plan to start naltrexone when LFTs normalize ?? New-onset cardiomyopathy Myocardial injury ruled in by troponins, may be alcoholic or ischemic as there is a syncopal history Echo - The left ventricular wall thickness is moderately increased. The LV systolic function is lownormal. The left ventricular ejection fraction is 50-55 %. The inferior wall is hypokinetic. EKG non-ischemic ?? Recommendation: - Cardiology consulted, followup for stress test with [facility] Cardiology - Preliminary discussion indicated that stress test outpatient may be sufficient for evaluation, however, will need a more in-depth evaluation as patient was agitated and not providing history ?? Hypomagnesemia - resolved Very low magnesium of 1.1, may be related to chronic alcohol use ?? Recommendation: - Followup with PCP ?? Syncope and collapse May be of cardiac etiology or due to toxic encephalopathy CT head negative, CTA chest negative ?? Recommendation: - Followup with PCP ?? Chronic stable medical conditions Asthma:??Continue??albuterol inhaler 180 mcg PRN Depression: Continue??fluoxetine 10 mg daily ?? Objective . Physical Exam Constitutional: Alert, in no acute distress. Head EENT: Extraocular muscle movement intact.??Moist mucous membranes.?? Neck: Supple. No JVD. Cardiovascular: S1, S2 regular. No murmurs, rubs or gallops. Respiratory: Clear to auscultation. No wheezing or crackles. No use of accessory muscles. Gastrointestinal: Abdomen soft, non-tender, non-distended. Normal bowel sounds. Extremities: No lower extremity pitting??edema. Neurologic: Awake, alert and oriented to time, place and person, Speech normal. No focal neurological deficits. Skin: No rash. Psychiatric: Normal mood and affect.?? Patient Education Titles Naltrexone Oral Tablet?? Alcohol Withdrawal?? Follow-Up Appointments Added Follow Up ?Time Frame ?Comments [facility] Cardiology?Please call [phone] to schedule outpatient stress test. You will need close cardiology followup. [employer] [address] [place] [id number]?Appointment: 01/02/2023 at 9:15am for naltrexone.?? [facility] PCP Assignment Line [phone]?1-2 day: call to discuss follow up visit Patient Instructions You were admitted for alcohol withdrawal. You were treated symptomatically with benzodiazepines andphenobarbital. You had electrolyte abnormalities including low magnesium which we corrected, probably due to alcohol use. ?? Please call [facility] PCP Assignment Line at [phone] for PCP followup. Please get labs drawn at a [facility] Lab next Monday 12/25, and followup for your appointment to start naltrexone for alcohol use on 01/02. Please call [facility] Cardiology at [phone] to discuss outpatient cardiology followup. ?? Labs to be drawn??on 12/25: Comprehensive Metabolic Panel Complete Blood Count Serum Magnesium ?? PLEASE FORWARD ALL LAB RESULTS TO JOSE REYES MD. ?? We have not changed any of your current medications, continue taking all your medications as prescribed. ?? Thank you for letting us participate in your care. We wish you the best of luck! Results Discharge Labs BLOOD COUNT & DIFF WBC 6.3 k/mm3 ()?? 12/20/2022 07:20 RBC 2.12 m/mm3 (Low)?? 12/20/2022 07:20 Hgb 8.6 Gm/dL (Low)?? 12/20/2022 07:20 Hct 25.7 % (Low)?? 12/20/2022 07:20 MCV 121.2 femtoliters (High)?? 12/20/2022 07:20 MCH 40.6 pg (High)?? 12/20/2022 07:20 MCHC 33.5 g/dL ()?? 12/20/2022 07:20 Platelet Count 137 k/mm3 (Low)?? 12/20/2022 07:20 RDW-SD 73.7 femtoliters (High)?? 12/20/2022 07:20 MPV 9.3 femtoliters (Low)?? 12/20/2022 07:20 Nucleated RBC (Automated) 0.6 #/100 WBC'S ()?? 12/20/2022 07:20 Abs. NRBC 0.0 k/mm3 ()?? 12/20/2022 07:20 Abs. Neut 2.5 k/mm3 ()?? 12/20/2022 07:20 Abs. Lymph 3.1 k/mm3 ()?? 12/20/2022 07:20 Abs. [place] 0.4 k/mm3 ()?? 12/20/2022 07:20 Abs. Eo 0.2 k/mm3 ()?? 12/20/2022 07:20 Abs. Baso 0.1 k/mm3 ()?? 12/20/2022 07:20 Neut % 39.1 % (Low)?? 12/20/2022 07:20 Lymph % 49.5 % (High)?? 12/20/2022 07:20 [place] % 6.7 % ()?? 12/20/2022 07:20 Eos % 3.2 % ()?? 12/20/2022 07:20 Baso % 1.0 % ()?? 12/20/2022 07:20 Imm Gran 0.5 % ()?? 12/20/2022 07:20 Abs. Imm Gran 0.0 k/mm3 ()?? 12/20/2022 07:20 ?? CARDIAC Nt-Probnp 47 pg/mL ()?? 12/16/2022 03:46 High Sensitivity Troponin (HSTnT) 83 ng/L (Critical)?? 12/17/2022 05:05 ?? CHEM GENERAL Sodium 137 mmol/L ()?? 12/20/2022 07:20 Potassium 3.9 mmol/L ()?? 12/20/2022 07:20 Chloride 101 mmol/L ()?? 12/20/2022 07:20 Bicarbonate Level 23 mmol/L ()?? 12/20/2022 07:20 Anion Gap 13 ()?? 12/20/2022 07:20 Glucose Level 92 mg/dL ()?? 12/20/2022 07:20 BUN 12 mg/dL ()?? 12/20/2022 07:20 Creatinine-Blood 0.6 mg/dL ()?? 12/20/2022 07:20 Estimated GFR Creatinine 123 ML/MIN/1.73 M2 ()?? 12/20/2022 07:20 Calcium 8.6 mg/dL ()?? 12/20/2022 07:20 Phosphorus 5.0 mg/dL (High)?? 12/20/2022 07:20 Magnesium 1.5 mg/dL (Low)?? 12/20/2022 07:20 Protein, Total 5.9 Gm/dL (Low)?? 12/20/2022 07:20 Albumin 3.5 Gm/dL ()?? 12/20/2022 07:20 AG Ratio 1.5 ()?? 12/20/2022 07:20 Alkaline Phosphatase 177 units/L (High)?? 12/20/2022 07:20 AST (SGOT) 128 units/L (High)?? 12/20/2022 07:20 ALT (SGPT) 58 units/L (High)?? 12/20/2022 07:20 Bilirubin, Total 2.0 mg/dL (High)?? 12/20/2022 07:20 Bilirubin, Direct 1.6 mg/dL (High)?? 12/17/2022 05:05 Bilirubin, Indirect 1.1 mg/dL (High)?? 12/17/2022 05:05 Vitamin B12 Level 276 pg/mL ()?? 12/17/2022 05:05 Folic Acid Level 2.3 ng/mL (Low)?? 12/17/2022 05:05 Lactate 1.8 mmol/L ()?? 12/16/2022 07:37 ?? COAG INR 1.2 (High)?? 12/19/2022 07:39 Protime (PT) 12.3 seconds (High)?? 12/19/2022 07:39 APTT 25.5 seconds ()?? 12/19/2022 07:39 D-Dimer 3.43 mg/L FEU (High)?? 12/17/2022 05:05 ?? ENDOCRINE/TUMOR MARKER TSH 1.33 uIU/mL ()?? 12/15/2022 21:40 ? MISC. CHEMISTRY Ammonia, Venous 60 ??mole/L (High)?? 12/15/2022 21:40 ? SEROLOGY INF DISEASE Anti Hepatitis A IgM NEGATIVE (N)?? 12/15/2022 21:40 Hepatitis B Surface Antigen NEGATIVE (N)?? 12/15/2022 21:40 Hepatitis B Core Ab, IgM NEGATIVE ()?? 12/15/2022 21:40 Hepatitis C Ab Reactive by screening EIA. (Abnormal)?? 12/15/2022 21:40 ?? TOXICOLOGY/TDM Ethanol, Serum or Plasma 475 mg/dL (Abnormal)?? 12/15/2022 21:40 Salicylate Level <0.3 mg/dL (Low)?? 12/15/2022 21:40 Barbiturate Screen, Urine NONE DETECTED ()?? 12/16/2022 02:09 Cannabinoid Screen, Urine NONE DETECTED ()?? 12/16/2022 02:09 Cocaine Metabolite Screen, Urine NONE DETECTED ()?? 12/16/2022 02:09 Benzodiazepine Screen, Urine POSITIVE (Abnormal)?? 12/16/2022 02:09 Amphetamine Screen, Urine NONE DETECTED ()?? 12/16/2022 02:09 Opiate Screen, Urine NONE DETECTED ()?? 12/16/2022 02:09 Acetaminophen Level <5 mg/L (Low)?? 12/15/2022 21:40 Fentanyl Screen, Urine Result NONE DETECTED ()?? 12/16/2022 02:09 ?? UA/URINALYSIS Appear/Color, Urine YELLOW ()?? 12/16/2022 02:09 Specific [place], Urine 1.006 ()?? 12/16/2022 02:09 pH, Urine 6.5 ()?? 12/16/2022 02:09 Albumin, Urine TRACE (Abnormal)?? 12/16/2022 02:09 Glucose, Urine NEGATIVE ()?? 12/16/2022 02:09 Ketones, Urine NEGATIVE ()?? 12/16/2022 02:09 Bilirubin, Urine NEGATIVE ()?? 12/16/2022 02:09 Hemoglobin, Urine NEGATIVE ()?? 12/16/2022 02:09 Nitrite, Urine NEGATIVE ()?? 12/16/2022 02:09 Leukocyte, Urine 3+ (Abnormal)?? 12/16/2022 02:09 Urobilinogen NORMAL mg/dL ()?? 12/16/2022 02:09 WBC's, Urine 14 /HPF (High)?? 12/16/2022 02:09 RBC's, Urine 2 /HPF ()?? 12/16/2022 02:09 Bacteria HEAVY HPF (Abnormal)?? 12/16/2022 02:09 Squamous Epith 1 /HPF ()?? 12/16/2022 02:09 Hold Urine Culture Testing available 48 hours from time of collection. ()?? 12/16/2022 02:09 ?? URINE OTHER Est Creatinine Clearance 114.92 mL/min ()?? 12/20/2022 08:38 ? VIROLOGY COVID-19 by RT-PCR NEGATIVE ()?? 12/16/2022 02:09 ? Microbiology ?? COVID-19 (Novel Coronavirus), Rapid PCR?? Completed?? Source: Nasal Body Site: Nose Collected Dt/Tm: 12/15/2022 21:37 Last Updated Dt/Tm: 12/16/2022 04:08 ? Imaging(s) ?CT Head/Brain W/O Contrast ?? 12/15/2022 22:02??by Timo Navarro MD ?IMPRESSION: ?? No acute intracranial pathology. ?CT Angio Chest ?? 12/17/2022 09:54??by Yadira Washburn MD ?IMPRESSION: ?? No evidence of pulmonary embolism to the proximal segmental level. ?Echocardiogram - Complete ?? 12/18/2022 10:26??by Prince Baca MD ?Summary ??The left ventricle is poorly visualized. The apical views are foreshortened. ??The left ventricular size is normal. The left ventricular wall thickness is ??moderately increased. The LV systolic function is low normal . The left ??ventricular ejection fraction is 50-55 %. The inferior wall is hypokinetic . ??Unable to assess diastolic function due to E/A fusion . ?? The mitral valve opening is normal. There is mild mitral regurgitation. ?? The right ventricle is normal in size and function. ?? Comparison ??No prior study available for comparison. ?US RUQ ?? 12/16/2022 09:36??by Curly CARO, Florentin ?IMPRESSION: ?? Echogenic liver likely representing hepatic steatosis. ?? Nonmobile sludge present in gallbladder. ? Consults(s) ?Consultation Note ?? 12/19/2022 17:28??by Jose Reyes MD ?Addiction Medicine ?Consultation Note ?? 12/19/2022 14:17??by Michell Lang ?Addiction Consultation Team [employer] [address] [place] [id number] Appointment: 01/02/2023 at 9:15am for naltrexone.?Consultation Note ?? 12/18/2022 14:23??by Margaret Rosario MD ?Recommendations ??Patient need a stress test outpatient ??Follow-up with cardiology outpatient ? Patient seen and discussed with the attending physician, Dr. Mario. Stef Davis?? Internal Medicine Resident PGY 1 Pager #[phone] * Shelbi CAOR, Juan: PERFORM Event Display: Discharge/Transfer Note Hospital Authored Date: Attending Attestation:??I have seen and evaluated this patient. ??I have discussed the case and itsmanagement with the resident and agree with the findings and plan as documented in the resident???snote. * Kendy Badillo RN: PERFORM Event Display: Patient Education/Instruction Authored Date: Inpatient Adult Discharge Instructions [address] [id number] Name: AMANDA RHODES : 1990 Visit: 12/16/2022 00:05:00 Current Date: 12/20/2022 13:39 Account: [id number] Inpatient Adult Discharge Instructions We would like [...] and their families. Surveys are administered by [employer] ?? If further treatment with your primary care physician or another doctor is recommended, it is important for you to keep the appointment. Call your primary care physician or return to the Emergency Department immediately if your condition worsens, fails to improve, or new symptoms develop. If you need to find a doctor, you can call [facility] [employer] for a referral at [phone] or toll free at [phone] or log in to [email or web address].. ?? [facility], in keeping with [facility] guidance, no longer requires face masks for staff, patientsor visitors in most situations. Similiar to time spent indoors at other locations, there is the chance that you were exposed to repiratory viruses during your time with us (such as flu or COVID-19). If you develop symptoms concerning for a viral respiratory infection, please seek testing (and treatment if indicated) from your medical provider or home test kit. ?? You can view and manage your care through the patient portal or by using a health care mike of your choosing. [employer] is a website that allows you to securely view your medical information including your hospital discharge summary, office visit summaries, medications and follow-up visits. You can also request appointments, renew medications, and request access to your medical information using a health care imke of your choosing, or just ask a question. You can enroll at [email or web address] or register during your next office visit. You have been discharged from [facility], Patient Care Unit: S2. If you have any questions regarding these instructions after you leave, please call us and we will be happy to assist you. [facility] Your Care Team Attending Physician Shelbi CARO, Juan Consulting Providers Cl Lucas MD, MD, Jose Oneill Discharging Providers Shelbi CARO, Juan Reason for Admission ETOH/Aggression Your Diagnosis Alcohol use Altered mental status Aggression Alcohol withdrawal Syncope and collapse Asthma Depression Tests Performed Below is a partial list of the tests performed during your hospitalization. You may have had other tests and procedures not included in this list. Please discuss all test results with your provider. Acetaminophen Level ACUTE HEPATITIS PROFILE Alcohol Level ALT Ammonia Venous Amphetamine Urine Screen Aspirin Level AST Barbiturate Urine Screen Basic Metabolic Panel Benzodiazepine Urine Screen Bilirubin Total + Direct BNP BUN Cannabinoid Urine Screen Cocaine Urine Screen COVID-19 (Novel Coronavirus), Rapid PCR Creatinine D Dimer FENTANYL SCREEN, URINE FOLIC ACID High??Sensitivity??Troponin T Lactate Level Lactic Acid Level LFT's Lytes Opiate Screen Urine PT (INR) PTT TSH with T4 Reflex (Adults Only) Urinalysis w/hold for Urine Culture VITAMIN B12 CT Angio Chest CT Head/Brain W/O Contrast RUQ (US) XR Chest Portable Primary Care Provider Not on Staff, PCP Advance Directive Health Care Proxy on File Yes - Health Care Proxy Discharge Vitals Temperature: 98.2 DegF Height: 163 cm Pulse Rate:??111 bpm??High Weight: 97.5 kg Respiratory Rate: 16 br/min Body Mass Index:??36.7 kg/m2??Critical Systolic Blood Pressure: 136 mm Hg Body surface area: 2.1 Diastolic Blood Pressure:??85 mm Hg??High ?? Oxygen Saturation: 99 % ?? Studies Pending All tests and labs ordered during this hospital stay have been completed unless listed below. Please discuss all pending results with your provider listed above in these instructions. ?? Add On Lab Order Blood Culture Blood Culture #2 CBC CBC w/ Differential Comprehensive Metabolic Panel High??Sensitivity??Troponin T Magnesium Level Phosphorus Level What to do next Instructions From Your Doctor Discharge Orders You Need to Schedule the Following Appointments Follow Up with??[facility] Cardiology Why: Please call [phone] to schedule outpatient stress test. You will need close cardiology followup. Where: ?? [phone] Follow Up with??[employer] [address] [place] [id number] Why: Appointment: 01/02/2023 at 9:15am for naltrexone.?? Follow Up with??[facility] PCP Assignment Line [phone] When:??Within 1-2 day: call to discuss follow up visit Discharge Medications AMANDA RHODES :1990 Visit Date:12/16/2022 Medications: Please continue your medications until treatment is completed or stopped by your provider. Medications not listed below should be discontinued. Discuss any questions related to medications with your provider. What How Much When Instructions Next Dose Unchanged Acetaminophen (acetaminophen 325 mg oral tablet) 1 tab(s) Oral Every 4 hours as needed for as needed for pain NEEDED Unchanged Albuterol (albuterol CFC free 90 mcg/ inh inhalation aerosol) 2 puff(s) Inhalation Every 4 hours as needed for for wheezing NEEDED Unchanged Amlodipine (amLODIPine 5 mg oral tablet) TAKE 1 TABLET BY MOUTH ONCE A DAY FOR HYPERTENSION ?? 12/21/2022 8am Unchanged Beclomethasone (Qvar 80 mcg/ inh inhalation aerosol with adapter) 1 puff(s) Inhalation Twice a day 12/20/2022 8pm Unchanged dolutegravir (Tivicay 50 mg oral tablet) 1 tab(s) Oral Daily Duration: 5 Days 12/21/2022 8am Unchanged Durable Medical Equipment (Aerochamber) See instructions Use with albuterol and Qvar Inhalers. ?? Unchanged Durable Medical Equipment (Splint) See instructions One right and one left wrist splint, to be worn at night for carpal tunnel. ?? Dx: Wrist Pain and Carpal Tunnel ?? Unchanged Emtricitabine-Tenofovir (Truvada 200 mg-300 mg oral tablet) 1 tab(s) Oral Daily Duration: 5 Days 12/21/2022 8am Unchanged EPINEPHrine (EpiPen 2-Cipriano 0.3 mg injectable kit) 0.3 Milligram Intramuscular Once Unchanged Fluoxetine (FLUoxetine 10 mg oral tablet) 1 tab(s) Oral Daily Duration: 30 Days Follow up with PCP to uptitrate dose ?? 12/21/2022 8am Unchanged Folic Acid (folic acid 1 mg oral tablet) 1 tab(s) Oral Daily 12/21/2022 8am Unchanged Gabapentin (gabapentin 300 mg oral capsule) 1 capsule Oral 3 times a day 12/20/2022 5pm Unchanged HydrOXYzine (hydrOXYzine hydrochloride 25 mg oral tablet) 1 tab(s) Oral 4 times a day as needed for for anxiety NEEDED Unchanged Multivitamin Oral Daily 12/21/2022 8am Unchanged nalOXONE (naloxone 4 mg/ 0.1 mL nasal spray) Unchanged Nicotine (nicotine 21 mg/ 24 hr transdermal film, extended release) 1 patch(es) Topically Daily 12/21/2022 8am Unchanged Pyridoxine (Vitamin B6 50 mg oral tablet) TAKE 1 TABLET BY MOUTH EVERY DAY ?? 12/22/2022 8am Unchanged Thiamine (Vitamin B1 100 mg oral tablet) TAKE 1 TABLET BY MOUTH TWICE A DAY ?? 12/21/2022 8am ?? What How Much When Comments Stop Taking Alprazolam (Xanax 1 mg oral tablet) 1 tab(s) Oral 3 times a day as needed for Anxiety Stop Taking Methadone Oral Test Results Below is a partial list of the most recent Laboratory test results done prior to this discharge. You may have had other tests and procedures not included in this list. Please discuss all test resultswith your provider. Est Creatinine Clearance - 114.92 mL/min (12/20/2022) Acetaminophen Level (12/15/2022) ? ?Acetaminophen Level - <5 mg/L ACUTE HEPATITIS PROFILE (12/15/2022) ???Anti Hepatitis A IgM - NEGATIVE???Hepatitis B Surface Antigen - NEGATIVE???Hepatitis B Core Ab, IgM - NEGATIVE???Hepatitis C Ab - Reactive by screening EIA. Alcohol Level (12/15/2022) ???Ethanol, Serum or Plasma - 475 mg/dL ALT (12/17/2022) ???ALT (SGPT) - 67 units/L Ammonia Venous (12/15/2022) ???Ammonia, Venous - 60 ??mole/L Amphetamine Urine Screen (12/16/2022) ???Amphetamine Screen, Urine - NONE DETECTED Aspirin Level (12/15/2022) ? ?Salicylate Level - <0.3 mg/dL AST (12/17/2022) ???AST (SGOT) - 216 units/L Barbiturate Urine Screen (12/16/2022) ???Barbiturate Screen, Urine - NONE DETECTED Basic Metabolic Panel (12/16/2022) ???Sodium - 145 mmol/L???Potassium - 3.9 mmol/L???Chloride - 106 mmol/L???Bicarbonate Level - 29 mmol/L???Anion Gap - 10???Glucose Level - 104 mg/dL???BUN - 9 mg/dL???Creatinine-Blood - 0.5 mg/dL???Estimated GFR Creatinine - 128 ML/MIN/1.73 M2???Calcium - 7.6 mg/dL Benzodiazepine Urine Screen (12/16/2022) ???Benzodiazepine Screen, Urine - POSITIVE Bilirubin Total + Direct (12/17/2022) ???Bilirubin, Total - 2.7 mg/dL???Bilirubin, Direct - 1.6 mg/dL???Bilirubin, Indirect - 1.1 mg/dL BNP (12/16/2022) ???Nt-Probnp - 47 pg/mL BUN (12/17/2022) ???BUN - 8 mg/dL Cannabinoid Urine Screen (12/16/2022) ???Cannabinoid Screen, Urine - NONE DETECTED Cocaine Urine Screen (12/16/2022) ???Cocaine Metabolite Screen, Urine - NONE DETECTED COVID-19 (Novel Coronavirus), Rapid PCR (12/16/2022) ???COVID-19 by RT-PCR - NEGATIVE Creatinine (12/17/2022) ???Creatinine-Blood - 0.5 mg/dL???Estimated GFR Creatinine - 128 ML/MIN/1.73 M2 D Dimer (12/17/2022) ???D-Dimer - 3.43 mg/L FEU FENTANYL SCREEN, URINE (12/16/2022) ???Fentanyl Screen, Urine Result - NONE DETECTED FOLIC ACID (12/17/2022) ???Folic Acid Level - 2.3 ng/mL High??Sensitivity??Troponin T (12/17/2022) ???High Sensitivity Troponin (HSTnT) - 83 ng/L Lactate Level (12/16/2022) ???Lactate - 1.8 mmol/L Lactic Acid Level (12/16/2022) ???Lactate - 1.8 mmol/L LFT's (12/16/2022) ???Protein, Total - 5.5 Gm/dL???Albumin - 3.2 Gm/dL???Alkaline Phosphatase - 179 units/L???AST (SGOT) - 203 units/L???ALT (SGPT) - 63 units/L???Bilirubin, Total - 2.5 mg/dL???Bilirubin, Direct - 1.6 mg/dL???Bilirubin, Indirect - 0.9 mg/dL Lytes (12/17/2022) ???Sodium - 140 mmol/L???Potassium - 4.0 mmol/L???Chloride - 102 mmol/L???Bicarbonate Level - 26 mmol/L???Anion Gap - 12 Opiate Screen Urine (12/16/2022) ???Opiate Screen, Urine - NONE DETECTED PT (INR) (12/19/2022) ???INR - 1.2???Protime (PT) - 12.3 seconds PTT (12/19/2022) ???APTT - 25.5 seconds TSH with T4 Reflex (Adults Only) (12/15/2022) ???TSH - 1.33 uIU/mL Urinalysis w/hold for Urine Culture (12/16/2022) ???Appear/Color, Urine - YELLOW???Specific [place], Urine - 1.006???pH, Urine - 6.5???Albumin, Urine - TRACE???Glucose, Urine - NEGATIVE???Ketones, Urine - NEGATIVE???Bilirubin, Urine - NEGATIVE???Hemoglobin, Urine - NEGATIVE???Nitrite, Urine - NEGATIVE???Leukocyte, Urine - 3+???Urobilinogen - NORMAL???WBC's, Urine - 14 /HPF???RBC's, Urine - 2 /HPF???Bacteria - HEAVY???Squamous Epith - 1 /HPF???Hold Urine Culture - Testing available 48 hours from time of collection. VITAMIN B12 (12/17/2022) ???Vitamin B12 Level - 276 pg/mL Allergies (NKA means No Known Allergies) Bactrim Problems Active Problems??(11) Age at leaving school-high schools?? Anxiety?? Asthma?? cocaine in urine 2009?? Depression?? 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 Pelvic fracture?? positive bronchial challenge?? Severe obesity (BMI 35.0-39.9) with comorbidity?? Education Materials Below is the list of Educational Leaflet Providered with your Discharge Instructions. Naltrexone Oral Tablet?? Alcohol Withdrawal?? Valuables and Belongings I fully understand and agree that [facility] accepts no responsibility for all my [...] patient Date for Pt to Sign Valuables/Belongings: 12/17/22 18:18:00 ?? Other Discharge Information ? Case Management Discharge Plan?? Discharge Agency Information?? Additional Info for D/C Instructions: To become established with a new primary care provider, please call the [facility]- PCP line at ??[phone]. The PCP line staff will book you a new PCP appt at one of the facilities accepting new pts. ?? Pulmonary Rehab Status?? Pulmonary Rehab Discharge Status?? Respiratory Rate: 16 br/min ? Common Emergency Awareness Tips IS IT [...] are strongly encouraged to quit. Please call [facility] [employer] at [phone] or [phone]) or log in to [email or web address] for referrals to smoking cessation programs. ?? 917 Suicide & Crisis Lifeline is available 21/10 if you or someone you know needs to find a reason to keep living. By calling 921 you'll be connected to a skilled, trained counselor at a crisis center in your area. INPATIENT DISCHARGE INSTRUCTIONS SIGNATURE PAGE AMANDA RHODES Location:[facility] Registration Date and Time:12/16/2022 00:05 EDT Primary Care Physician: Not on Staff, PCP Attending Physician: Shelbi CARO, Juan, I AMANDA RHODES, have received the above patient education materials/instructions and have verbalized understanding. If ambulance or transport services are being used I further acknowledge being given a choice of service. ?? If you need to contact me, please call me at this number: . Patient/Stem Maker Name: Patient/Stem Maker Signature: Relationship to Patient: Witness Name/Signature: Date: * Stef Davis MD: PERFORM Event Display: Patient Education Leaflets Authored Date: [id number] Naltrexone Oral Tablet ?? 21796-567 Naltrexone Oral Tablet Brands: [employer] Uses This medicine is used for the following purposes: ??? drug addiction ??? alcohol dependence ?? Instructions Swallow with a full glass (8 oz) of water unless your doctor gives you different instructions. You may take with food to prevent stomach upset. This medicine will work best if you take it at about the same time every day. Store at room temperature away from heat, light, and moisture. Do not keep in the bathroom. It is important that you keep taking each dose of this medicine on time even if you are feeling well. If you forget to take a dose on time, take it as soon as you remember. If it is almost time for thenext dose, do not take the missed dose. Return to your normal schedule. Do not take 2 doses at one time. Drug interactions can change how medicines work or increase risk for side effects. Tell your healthcare providers about all medicines taken. Include prescription and [id number]-[id number] medicines, vitamins, and herbal medicines. Speak with your doctor or pharmacist before starting or stopping any medicine. If you need to stop this medicine, your doctor may wish to gradually reduce the dosage before stopping. Keep all appointments for medical exams and tests while on this medicine. ?? Cautions Tell your doctor and pharmacist if you ever had an allergic reaction to a medicine. This medicine may cause you to experience some withdrawal symptoms from your pain medication. Tell your doctor right away if you have unusual sweating, chills, stomach pain, diarrhea, yawning or irritability. Some patients taking this medicine have experienced serious side effects. Please speak with your doctor to understand the risks and benefits associated with this medicine. This medicine is associated with a rare, but serious problem of the liver. Speak to your doctor about the early signs of liver problems and the benefits and risks of using this medicine. Do not use the medication any more than instructed. This medicine may cause dizziness or fainting, especially after exercising or in hot weather. Be very careful when standing or sitting up quickly. If possible, avoid using with alcohol, marijuana, or other medicines that can cause dizziness or drowsiness. These include allergy/cold products, muscle relaxers, sleep aids, and pain relievers. Your ability to stay alert or to react quickly may be impaired by this medicine. Do not drive or operate machinery until you know how this medicine will affect you. Call the doctor if there are any signs of confusion or unusual changes in behavior. Tell the doctor or pharmacist if you are , planning to be , or . Contact your doctor immediately if you experience any swelling of your hands, face, lips, eyes, throat or tongue. Always carry an ID card or wear a medical alert bracelet indicating your medical condition. Do not share this medicine with anyone who has not been prescribed this medicine. Always refill this medicine before it runs out. ?? Side Effects The following is a list of some common side effects from this medicine. Please speak with your doctor about what you should do if you experience these or other side effects. ??? agitated feeling or trouble sleeping ??? dizziness ??? lack of energy and tiredness ??? headaches ??? nausea ??? restlessness Call your doctor or get medical help right away if you notice any of these more serious side effects: ??? abdominal cramps ??? severe or persistent abdominal pain ??? decreased awareness or responsiveness ??? bone pain ??? confusion ??? diarrhea ??? hallucinations (unusual thoughts, seeing or hearingthings that are not real) ??? pain in the joints ??? signs of liver damage (such as yellowing of eye or skin, dark urine, or unusual tiredness) ??? muscle aches, spasms or abnormal movements ??? nervousness ??? runny nose ??? shortness of breath ??? severe or persistent vomiting A few people may have an allergic reaction to this medicine. Symptoms can include difficulty breathing, skin rash, itching, swelling, or severe dizziness. If you notice any of these symptoms, seek medical help quickly. ?? Extra Please speak with your doctor, nurse, or pharmacist if you have any questions about this medicine. ?? [email or web address] IMPORTANT NOTE: This document tells you briefly how to take your medicine, but it does not tell youall there is to know about it. Your doctor or pharmacist may give you other documents about your medicine. Please talk to them if you have any questions. Always follow their advice. There is a more complete description of this medicine available in [employer]. Scan this code on your smartphone or tablet or use the web address below. You can also ask your pharmacist for a printout. If you have any questions, please ask your pharmacist. The display and use of this drug information is subject to Terms of Use. Copyright(c) 2022 [employer]. ?? The [employer]. All rights reserved. This information is not intended as a substitute for professional medical care. Always follow your healthcare professional's instructions. ?? * Ryan CARO, Stef: PERFORM Event Display: Patient Education Leaflets Authored Date: [id number] Alcohol Withdrawal ?? [id number] Alcohol Withdrawal Alcohol withdrawal often starts after prolonged heavy drinking, and then you suddenly stop drinking. Or you cut down on your alcohol use. It is not one thing. It is a complex combination of signs andsymptoms that often occur together and define a certain problem or condition. ??? Alcohol withdrawal is potentially life-threatening. It is a medical emergency. ??? It can startas early as a couple of hours after your last drink. Or it may take 1 to 3 days to develop. ??? It can last from days to a week or more. ??? It can worsen very quickly. Signs and symptoms There are??several stages of alcohol withdrawal. But they overlap, as do their signs and symptoms. In the earlier stages, it most often includes: ??? Anxiety ??? Shakiness ??? Nausea and vomiting ???Sweating ??? Insomnia ??? Headaches ??? Fever ??? Mood swings, irritability, agitation, restlessness ?? Delirium tremens (DTs) DTs are a severe and life-threatening complication. If??DTs happen, they often start about 3 to 5 days after your last drink. They are potentially life threatening, so medical care should be sought. Symptoms of DTs include: ??? Sudden and severe mental or nervous system changes ??? Uncontrollable tremors ??? Severe disorientation, confusion, hallucinations ??? Heart racing, or irregular heartbeat??? High blood pressure ??? Seizures ??? Possible coma and ?? Home care ??? You'll need plenty of rest and fluids over the next several days. Eat regular meals and drink plenty of fluids to prevent dehydration. Don't drink any more alcohol. During this time, itis best that you're not alone. Stay with family or friends who can help and support you. You can also admit yourself to a residential detox program. ??? Don't drive until all symptoms are gone and you are feeling better. If you've had a seizure, don't drive until you've been examined by a healthcare provider. ??? If you were given sedative medicine to reduce your symptoms, don't take it more often than prescribed. Never take it with alcohol. ?? Follow-up care Once you've gone through the withdrawal symptoms, you've fought half of the ray. To avoid the risk of going back to your past drinking pattern, it's vital that you get follow-up support and treatment. ??? Alcoholics Anonymous (AA) offers support through a self-help fellowship. There are no dues or fees. Search the internet or go to the AA website at www.aa.org to find a local meeting place. ??? [employer] offers support to families of alcohol users. Go to the Al-Anon website at www.alKoolLearninganon.org . ??? Residential alcohol detox programs are available. Search the internet for treatment centers [facility]. ?? Call 911 Call 911 if any of these occur: ??? Seizure ??? Trouble breathing or slow, irregular breathing ??? Chest pain ??? Sudden weakness on a side of the body or sudden trouble speaking ??? Heavy bleeding or vomiting blood ??? Very drowsy or trouble awakening ??? Fainting or loss of consciousness ??? Rapid heart rate ?? When to get medical advice Call your healthcare provider right away??if any of these occur: ??? Severe shakiness ??? Hallucinations ??? Fever over 100.4?? F (38.0?? C) ??? Headache, confusion, extreme drowsiness, inability to awaken ??? Increasing upper abdominal pain ??? Repeated vomiting ?? Last Reviewed Date: 2021 ?? [id number] The [employer]. All rights reserved. This information is not intended as a substitute for professional medical care. Always follow your healthcare professional's instructions. ?? Patient Care team information Care Team Personnel Name: Elio Pack RN Position: [facility] RN Member Role: Primary Care Nurse Name: Geni Mesa RN Position: [facility] RN Member Role: Primary Care Nurse Name: Not on Staff, PCP Position: [facility] Physician (General Medicine) Member Role: PCP Name: Nusrat Miller RN Position: [facility] RN Member Role: Primary Care Nurse Name: Miki Yates RN Position: [facility] RN Member Role: Primary Care Nurse Name: JoseLia Hemphill Attending Position: [facility] ED Medicine Name: Isabelle Yanez RN Position: [facility] RN W/OE and Tasks Member Role: Patient Care Provider Name: Grisel Campbell Position: [facility] ED TA [facility] Member Role: Lipcoat Sprayer Name: Rocco Valdes Position: [facility] ED OA Charge Member Role: ED Associate Care Team Related Persons Name: CAROLINE RHODES Address: home [address] [place] [address] [place] [id number]
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
--- OUTSIDE RECORDS SUMMARY | 2023-01-22 09:23 | XMS_ITS | Continuity of Care Document ---
Author Name Unknown Organization [facility] ter Address [address] [place] [id number]- Care Team Providers Care Hosting Engineer Name Role Phone Denice Pickett NP Primary Care Physician Encounter [facility] Date(s): 04/01/22 - 04/01/[address] [address]- Encounter Diagnosis Opiate or related narcotic overdose(Final) - 04/01/22 Discharge Disposition: A-D/C Home Attending Physician: Hussain Waters MD Admitting Physician: Hussain Waters MD Referring Physician: Not on Staff, Referring [...] Refills, Soft Stop, 09/25/20 18:06:00 EDT, [facility]/pharmacy #[id number], Partial fill upon patient request if the prescription is for a schedule II opioid drug., 163, cm, 09/25/20 17:11:00 EDT, Height, 90.7, kg,... Start Date: 09/25/20 Status: Ordered gabapentin 100 mg oral capsule 2 capsule = 200 mg, By Mouth, 3 times a day, # 60 capsule, 0 Refills, Maintenance, Capsule Start Date: 07/13/10 Stop Date: 07/23/10 Status: Ordered Xanax 1 mg oral tablet 1 tablet, By Mouth, 3 times a day, PRN Anxiety, tablet, 0 Refills, Maintenance, Tablet Start Date: 07/10/10 Status: Ordered Problem List Condition Confirmation Course Effective Dates Status Health St atus Informant Obese class I Confirmed Active Pelvic fracture Confirmed Active Vital Signs Most recent to oldest [Reference Range]: 1 Oxygen Saturation [94-100 %] 96 % (04/01/22 2:12 PM) Respiratory Rate [16-30 br/min] 18 br/mi n (04/01/22 2:12 PM) Social History Social History Type Response Smoking Status 10 or more cigarette s (1/2 pack or more)/day in last 30 days entered on: 09/25/20 Sex Patient Care team information Care Team Personnel Name: Piyush JACKSON, Denice Echols Position: [facility] Outreach Member Role: PCP Address: Address: [address] [place] [id number] Name: Michelle Cintron Position: [facility] ED [facility] Member Role: Field Irrigation Worker Name: Raffaele Squires MD Position: [facility] Resident Member Role: ED Resident Address: Address: [address] [place] [address]- Name: Hussain Waters MD Position: [facility] Resident Member Role: Admitting Physician Address: Address: [address] [place] [address]- Name: Mary Olivares RN Position: [facility] ED RN W/OE and Tasks Member Role: Patient Care Provider
--- OUTSIDE RECORDS SUMMARY | 2023-01-22 09:23 | XMS_ITS | Continuity of Care Document ---
Author Name Unknown Organization [facility] Address [address] [place] [address]- Care Team Providers Care Batch Mixer Operator Name Role Phone Not on Staff, PCP Primary Care Physician Unavail able Encounter [facility] Date(s): 08/01/22 - 08/31/22 [facility] [address] [place] [id number]- Allergies, Adverse Reactions, Alerts Substance Reaction Severity [...] 3Admin Note: vis 4Admin Note: VIS Medications Aerochamber See Instructions, # 1 units, Maintenance, [...] 0 Refills, Soft Stop, 09/25/20 18:06:00 EDT, [facility]/pharmacy #[id number], Partial fill upon patient request if the prescription is for a schedule II opioid drug., 163, cm, 09/25/20 17:11:00 EDT, Height, 90.7, kg,... Start Date: 09/25/20 Status: Ordered FLUoxetine 10 mg oral tablet 1 tablet = 10 mg, By Mouth, Daily, Follow up with PCP to uptitrate dose, # 30 tablet, 0 Refills, Maintenance, 07/02/22 10:36:00 EDT, Tablet, [facility]/pharmacy #[id number], 163, cm, 07/01/22 23:25:00 EDT, Height, 96.4, kg, 06/28/22 18:30:00 EDT, Dry Weight Start Date: 07/02/22 Stop Date: 08/01/22 Status: Ordered folic acid 1 mg oral tablet 1 mg, 1, tablet, By Mouth, Daily, # 30 tablet, Refills 0, Tot. Refills 0, Maintenance, 07/02/22 10:33:00 EDT, Route to Pharmacy Electronically, [facility]/pharmacy #[id number], 163, cm, 07/01/22 23:25:00 EDT, Height, 96.4, kg, 06/28/22 18:30:00 EDT, Dry Weight Start Date: 07/02/22 Status: Ordered gabapentin 300 mg oral capsule 300 mg, 1, capsule, By Mouth, 3 times a day, # 90 capsule, Refills 0, Tot. Refills 0, Maintenance, 07/02/22 10:32:00 EDT, Route to Pharmacy Electronically, [facility]/pharmacy #[id number], 163, cm, 07/01/22 23:25:00 EDT, Height, 96.4, kg, 06/28/22 18:30:00 EDT, Start Date: 07/02/22 Status: Ordered Methadone By Mouth, 0 Refills, [...] obesity (BMI 35.0-39.9) with comorbidity Confirmed Active Social History Social History Type Response Smoking Status 10 or more cigarette s (1/2 pack or more)/day in last 30 days entered on: 09/25/20 Sex Patient Care team information Care Team Personnel Name: Elio Pack RN Position: [facility] RN Member Role: Primary Care Nurse Name: Not on Staff, PCP Position: [facility] Physician (General Medicine) Member Role: PCP Care Team Related Persons Name: CAROLINE RHODES Address: home [address] [place] [id number]
--- OUTSIDE RECORDS SUMMARY | 2023-01-22 09:23 | XMS_ITS | Continuity of Care Document ---
Author Name Unknown Organization [facility] Address [address] [place] [id number]- Care Team Providers Care Transfer Man Name Role Phone Cass Locke MD Primary Care Physician Encounter [facility] Date(s): 03/10/19 - 03/20/[address] [address]- [facility] Attending Physician: Valentina Lowry Admitting Physician: Valentina Lowry Referring Physician: Valentina Lowry Allergies, Adverse Reactions, Alerts Substance Reaction Severity [...] 15:15:00, Compound Start Date: 11/20/12 Status: Ordered Ventolin HFA 108 mcg/inh inhalation aerosol with adapter 2 puffs, Inhalation, Every 4 hours, PRN for wheezing, please give pt ventolin, # 18 Gm, 5 Refills, Maintenance, Aerosol Start Date: 08/31/12 Status: Ordered Problem List Condition Effective Dates Status Health Status Inform ant Anxiety(Confirmed) Active Asthma(Confirmed) Active Depression(Confirmed) Active
[2023-01-22 09:46] LABS: Alanine Aminotransferase 180 U/L (0-31); Albumin Level 3.5 g/dL (3.5-5.0); Alkaline Phosphatase 350 U/L (39-117); Anion Gap 24 (12-20); Aspartate Amino Transferase 394 U/L (5-31); Bilirubin Total 1.4 mg/dL (0.0-1.0); Blood Urea Nitrogen 18 mg/dL (9-16); Calcium 8.2 mg/dL (8.4-10.2); Carbon Dioxide 15 mmol/L (22-29); Chloride 98 mmol/L (96-108); Estimated Glomerular Filt Rate > 60; Glucose Random 102 mg/dL (60-115); Potassium 3.8 mmol/L (3.3-5.1); Sodium 133 mmol/L (135-145); Total Protein 7.8 g/dL (6.5-8.0)
[2023-01-22 10:31] LABS: UPreg QC Valid YES; Urine Pregnancy NEGATIVE (NEGATIVE)
[2023-01-22 10:33] LABS: Amphetamine Screen Urine Not Detected (Not Detect); Barbiturates, Urine POSITIVE (Not Detect); Benzodiazepines Screen Urine POSITIVE (Not Detect); Cannabinoid Screen Urine Not Detected (Not Detect); Cocaine Screen Urine Not Detected (Not Detect); Fentanyl, urine POSITIVE (Not Detect); Opiate Screen Urine Not Detected (Not Detect); Phencyclidine Screen Urine Not Detected (Not Detect)
[2023-01-22 10:36] LABS: Appearance Urine Cloudy; Color Urine Dark Yellow; Glucose Urine UA Negative (Negative); Leukocyte Esterase Urine Negative (Negative); Nitrite Urine Negative (Negative); PH 5.5 (5.0-9.0); Specific Gravity - Urine 1.025 (1.005-1.025); Urine Blood Negative (Negative); Urine Ketones Negative (Negative); Urine Protein Trace mg/dL (Neg-Trace)
[2023-01-22 10:47] LABS: Bacteria Urine 1+ (None Seen); Granular Casts Urine Present; RBC Urine 0-2 /HPF (0-2); WBC Urine 0-5 /HPF (0-5)
--- NOTE | 2023-01-22 11:20 | ED.OVERDOSE ---
HPI - Overdose General Chief Complaint: Overdose Stated Complaint: OD HEROIN,NARCAN GIVEN,ETOH USE PER EMS Time Seen by Provider: 01/22/23 08:48 Source: patient and EMS Mode of arrival: EMS Limitations: no limitations History of Present Illness HPI Narrative: patient states she snorted fentanyl in a suicide attempt. She states she has been drinking heavily so that she will . The police gave her seun CARO complaint: intentional overdose Onset (ago): minute(s) Intent: suicide attempt Related Data Home Medications Medication Instructions Recorded Confirmed amlodipine 10 mg tablet 10 mg PO DAILY 01/22/23 01/22/23 folic acid 1 mg tablet 1 mg PO DAILY 01/22/23 01/22/23 hydroxyzine pamoate 25 mg capsule 25 mg PO TID 01/22/23 01/22/23 thiamine HCl (vitamin B1) 100 mg 100 mg PO DAILY 01/22/23 01/22/23 tablet Allergies Allergy/AdvReac Type Severity Reaction Status Date / Time Sulfa (Sulfonamide Allergy Intermediate RASH Verified 10/12/22 11:00 Antibiotics) [SULFA (SULFONAMIDE ANTIBIOTICS)] Review of Systems Review of Systems: Yes all other systems are reviewed and are negative Neurologic: Denies Sensory deficit (Neuro) [facility] Social History Social History Alcohol intake: current Alcohol intake frequency: 3 or more drinks per day Alcohol type: hard liquor Advance Directives: No Healthcare Proxy: No Guardian: No Physical Exam Vital Signs: Vital Signs: Last Vital Signs Temp 98.8 F 01/22/23 11:30 Pulse 134 H 01/22/23 11:30 Resp 18 01/22/23 11:30 BP 131/79 01/22/23 11:30 Pulse Ox 95 01/22/23 11:30 O2 Del Method Room Air 01/22/23 11:30 BMI result Body Mass Index 31.3 Const: Other: obese female intoxicated Nutritional Appearance: obese Orientation/consciousness: oriented to person and patient oriented x3 Limitations: no limitations HEENT: Other: large hematoma to chin Ears: external ears normal General nose exam: Normal external nose present Mouth: Normal oral and palatal mucosa present and oropharynx normal Throat: Yes posterior oropharynx normal Eyes: General: appearance normal, both eyes and all related structures Neck: Other: supple Neck: Yes normal visual inspection Chest: Chest palpation & inspection: normal inspection of the chest Resp: Auscultation: clear to auscultation bilaterally Cardio: Jugular venous distension: no JVD Rate: regular rate Rhythm: regular rhythm Heart sounds: S1 normal heart sound present and S2 normal heart sound present GI: Inspection: Yes normal to inspection Palpation (GI): Soft to palpation, nontender and No hepatosplenomegaly present Auscultation: normal bowel sounds : General: Yes no CVA tenderness Back/Spine/Pelvis: Back: no CVA tenderness Skin: Other: large hematoma to chin Neuro: General: oriented to person and patient oriented x3 Cranial nerves: Yes CN's II-XII intact bilaterally Motor exam (neuro): 5/5 motor strength present throughout Sensory Exam: No Sensory deficit (Neuro) Extrem: General: Yes normal to inspection Psych: Appearance: grossly normal Course Reevaluation(s) Reevaluation #1: crisis states the patient will be admitted Time: 11:24 Reevaluation #2: patient seen by hospitalist they will admit for impending withdrawals Time: 14:25 Reevaluation #3: I spent 40 minutes of critical care, with interventions, assessments, speaking to patient, consultants, and family. Time: 14:26 Medications Administered Generic Name Dose Route Start Last Admin Trade Name Freq PRN Reason Stop Dose Admin Folic Acid 1 mg 01/22/23 12:15 01/22/23 12:16 Folic Acid 1 Mg Tablet PO 1 mg DAILY DI Administration Thiamine HCl 100 mg 01/22/23 12:15 01/22/23 12:16 Thiamine Hcl 100 Mg Tablet PO 100 mg DAILY DI Administration Discontinued Medications Generic Name Dose Route Start Last Admin Trade Name Freq PRN Reason Stop Dose Admin Lorazepam 2 mg 01/22/23 12:14 01/22/23 11:45 Lorazepam 1 Mg Tablet PO 01/22/23 12:15 2 mg ONCE ONE Administration Phenobarbital Sodium 65 mg 01/22/23 12:23 01/22/23 12:37 Phenobarbital Sodium 65 Mg/Ml Vial IM 01/22/23 12:24 65 mg ONCE ONE Administration Medical Decision Making Differential Diagnosis Differential Diagnoses: The differential diagnosis associated with the presentation includes (opiate overdose, alcohol intoxication, suicidal ideation, depression) Admission/Observation Consideration of admission/observation: Escalation of care including admission/observation considered (upon arrival patient considered for admission) Consult Healthcare Provider Management of the patient was discussed with: Behavioral Health Provider Lab Data MDM Lab Attestation statement: I reviewed the patient's lab results. (low WBC low platelets elevated LFTs all consistent with alcoholism) 01/22/23 09:15 01/22/23 09:15 Labs: Lab Results 01/22/23 01/22/23 01/22/23 Range/Units 09:15 10:20 10:33 WBC 3.7 L (4.8-10.8) X10*3/uL RBC 3.44 L (4.20-5.50) X10*6/uL Hgb 13.0 (12.0-16.0) g/dl Hct 36.7 L (37.0-47.0) % MCV 106.7 H (80.0-98.0) fL MCH 37.8 H (27.0-33.0) pg MCHC 35.4 H (31.0-35.0) g/dl RDW 14.2 (11.0-16.0) % Plt Count 80 L (160-400) X10*3/uL MPV 9.3 L (9.4-12.3) fL Immature Gran % (Auto) 0.3 (0.0-0.4) % Neut % (Auto) 67.3 (45-73) % Lymph % (Auto) 22.8 (20-40) % [place] % (Auto) 5.1 (2-11) % Eos % (Auto) 4.0 (0-4) % Baso % (Auto) 0.5 (0-2) % Lymph # (Auto) 0.9 L (1.2-4.9) X10*3/uL [place] # (Auto) 0.2 (0.1-1.2) X10*3/uL Eos # (Auto) 0.2 (0.0-0.4) X10*3/uL Baso # (Auto) 0.0 (0.0-0.2) X10*3/uL Abs Immat Gran (auto) 0.01 (0.00-0.03) X10*3/uL Absolute Neuts (auto) 2.5 (2.0-8.3) x10*3/uL Absolute Nucleated RBC 0.000 (0.0-0.012) X10*3/uL Nucleated RBC % (auto) 0.0 (0.0-0.2) /100WBC Sodium 133 L (135-145) mmol/L Potassium 3.8 (3.3-5.1) mmol/L Chloride 98 (96-108) mmol/L Carbon Dioxide 15 L (22-29) mmol/L Anion Gap 24 H (12-20) BUN 18 H (9-16) mg/dL Creatinine 0.79 (0.5-1.4) mg/dL Estim Creat Clear Calc 116.0 Estimated GFR > 60 Random Glucose 102 (60-115) mg/dL Calcium 8.2 L (8.4-10.2) mg/dL Total Bilirubin 1.4 H (0.0-1.0) mg/dL AST 394 H (5-31) U/L ALT 180 H (0-31) U/L Alkaline Phosphatase 350 H (39-117) U/L Total Protein 7.8 (6.5-8.0) g/dL Albumin 3.5 (3.5-5.0) g/dL Urine Color Dark Yellow Urine Appearance Cloudy Urine pH 5.5 (5.0-9.0) Ur Specific Holly 1.025 (1.005-1.025) Urine Protein Trace (Neg-Trace) mg/dL Urine Glucose (UA) Negative (Negative) mg/dL Urine Ketones Negative (Negative) mg/dL Urine Blood Negative (Negative) Urine Nitrite Negative (Negative) Ur Leukocyte Esterase Negative (Negative) Urine RBC 0-2 (0-2) /HPF Urine WBC 0-5 (0-5) /HPF Ur Squamous Epith Cells 11-20 (0-2) /HPF Urine Bacteria 1+ (None Seen) Hyaline Casts 11-20 (0-2) /LPF Granular Casts Present Urine Test NEGATIVE (NEGATIVE) Urine Opiates Screen Not Detected (Not Detect) Urine Fentanyl Screen POSITIVE H (Not Detect) Ur Barbiturates Screen POSITIVE H (Not Detect) Ur Phencyclidine Scrn Not Detected (Not Detect) Ur Amphetamines Screen Not Detected (Not Detect) U Benzodiazepines Scrn POSITIVE H (Not Detect) Urine Cocaine Screen Not Detected (Not Detect) U Marijuana (THC) Screen Not Detected (Not Detect) Ethyl Alcohol 274 mg/dL Independent Historian Clinical information obtained from an independent historian. History obtained from or confirmed by: EMS Tests considered The following testing was considered but not selected: Ultrasound considered but abnormal lfts likely secondary to alcohol abuse Chronic Conditions Patient?s care impacted by: Other (alcoholism) Social Determinants Patient?s care significantly limited by Social Determinants of Health including: Alcoholism and drug addiction in family Discharge Plan Discharge Clinical Impression: Drug overdose, Suicide attempt by multiple drug overdose, Major depression, Alcohol withdrawal Patient Disposition: Admitted As Inpatient
[2023-01-22 11:28] LABS: Ethanol 274 mg/dL
[2023-01-22] MEDS: LORazepam 1 MG TABLET 2 MG PO (11:45)
[2023-01-22] MEDS: Thiamine HCL 100 MG TABLET PO (12:16)
[2023-01-22] MEDS: Folic Acid 1 MG TABLET PO (12:16)
[2023-01-22] MEDS: PHENobarbitaL sodium 65 MG/ML VIAL IM (12:37)
--- NOTE | 2023-01-22 14:18 | PM.IMHP ---
History of Present Illness Date of Service: 01/22/23 Attending physician on admission: [facility] Chief Complaint: etoh use, SI 32-year-old female with history of severe alcohol use disorder, history of severe alcohol withdrawal with seizures and delirium tremens, history treated hepatitis-C, asthma, opioid use disorder, history of pancreatitis, hypertension who is a current 1 pack per day smoker presents to the ED via EMS following an intentional overdose on 3 bags inhaled heroin with attempt to kill herself. She was found by police INR decline and with agonal breathing and was revived with Narcan x2 and was ventilated with Ambu bagged by EMS for several minutes prior to arrival. She was also intoxicated appearing but alert and oriented on arrival. On arrival, respirations even and regular mode patient becoming increasingly tachycardic to 134 initially hypertensive to 165/13 with blood pressure 131/79 on admission. No hypoxia. She is pancytopenic with WBC 3.7, RBC 3.44, H/H13.0/106.7 (suspect concentrated- was 9.9/28.8 on 12/29 at [facility]), platelets 80. Renal function normal. Sodium 133, potassium 3.8, chloride 98, CO2 15, anion gap 24, magnesium level pending. Total bilirubin 1.4, AST 394, ALT 180, alkaline phosphatase 350. Urinalysis unremarkable. Urine tox screen positive for fentanyl, barbiturates, benzodiazepines. Ethyl alcohol level 274 on arrival. Patient tells me that she is very depressed and wants to . She has been drinking in excess to cope. Typically drinks about 1 sleeve on a daily basis. Feels her last alcoholic beverage was around 08:00 yesterday morning. Reports having had an alcohol withdrawal seizure 3 days ago and had significant bruising on her body. She is reporting midsternal chest pain reproducible to palpation and worse with inspiration. She is telling me that she has shortness of breath and wheezing and uses an albuterol inhaler as well as Flovent at home. She is currently fairly and is visibly very tremulous but denies any nausea, vomiting, AH/VH/TH or confusion. She does feel anxious and agitated but this is not new or acutely worsened. In the ED, has received 2 mg lorazepam, 65 mg phenobarbital, 100 mg thiamine p.o., and 1 mg folic acid. Care team recommending psychiatric admission but given history severe withdrawals, recommended medical admission for alcohol withdrawal with phenobarbital before transferring to him psychiatric unit. Of note, patient presented to [facility] ED acutely intoxicated yesterday afternoon. She required multiple rounds of Zyprexa due to significant agitation both verbally and physically with staff. She was treated prophylactically with phenobarbital. Head CT and cervical spine CT performed as patient sustained a fall with head banging and both were negative for any acute abnormality. She tells me she had a scan yesterday which showed blood clots. She states she also had an ultrasound of the right upper quadrant yesterday. However both of these scans took place about 1 month ago. The CTA of the chest was negative for any PE or acute abnormality. Right upper quadrant ultrasound showed echogenic liver likely representing hepatic steatosis and non mobile sludge in the gallbladder, but no obstructing stones. Patient denied any suicidality while in the ED and was deemed to have capacity yesterday and did leave against medical advice. Review of Systems Review of Systems: General: No fevers, malaise, unintentional weight loss HEENT: No blurred vision, diplopia. No sore throat, nasal congestion, rhinorrhea, sinus pain, ear pain Cardiovascular: No chest pain, palpitations, or leg edema Respiratory: +sob, +wheezing. No shortness of breath, wheezing, cough GI: RUQ pain. No nausea, vomiting, diarrhea, constipation, melena, hematochezia : No dysuria, hematuria, increased urinary frequency, decreased urinary output MSK: No myalgia, back pain. +R calf tenderness, +anterior chest pain Neuro: No headaches, weakness, paresthesias, confusion. +tremors Psych: +SI, +depression. No auditory/visual/tactile hallucinations Skin: No rashes or lesions [facility] Medical History History of hepatitis C Asthma History of seizure due to alcohol withdrawal History of alcohol withdrawal delirium Severe alcohol use disorder Opioid dependence Major depression Social History (Updated 01/22/23 @ 14:48 by LIANET Silva) Household Members: None Housing: Apartment Do you presently have visiting nurse or other home services: No Alcohol intake: current Alcohol intake frequency: 3 or more drinks per day Alcohol type: hard liquor Patient Tobacco Use Status: Current everyday Tobacco user Tobacco use type: Cigarette Cigarette Packs Per Day: 1 Cigarettes Per Day: 20.0 Smoked in Last 30 Days: Yes Patient Interested in Nicotine Replacement: No Use of substances other than those prescribed or required for medical reasons: Yes Substance Use Type: Other Substance Use Type Other:: fentanyl, yesterday Substance Use Frequency: Occasionally Last Used Substance: Just Prior to Admission Currently Displaying Signs/Symptoms of Drug Intoxication Withdrawal: No Any prior treatment program specific to substance use: No Have you been hit, kicked, punched, or otherwise hurt by someone within the past year? If so, by whom?: No Do you feel safe in your current relationship?: Yes Are you made to feel afraid or neglected: No Advance Directives: No Healthcare Proxy: No Guardian: No Do you have thoughts of harming others: None Do you have a plan to hurt others: No Plan Recently lost weight without trying: No Eating poorly because of decreased appetite: No Nutrition Risks: On aspiration precautions Patient : No : No Poor oral hygiene: No service: No Meds Allergies Allergy/AdvReac Type Severity Reaction Status Date / Time Sulfa (Sulfonamide Allergy Intermediate RASH Verified 10/12/22 11:00 Antibiotics) [SULFA (SULFONAMIDE ANTIBIOTICS)] Active Medications: Current Medications Acetaminophen (Acetaminophen 325 Mg Tablet) 650 mg PO Q6H PRN PRN Reason: Pain, Mild (Pain Scale 1-3) Al Hydroxide/Mg Hydroxide (Magnesium Hydrox/Alum Hydrox 30 Ml Oral.Susp) 30 ml PO Q4H PRN PRN Reason: Heartburn/Nausea Docusate Sodium (Docusate Sodium 100 Mg Capsule) 100 mg PO DAILY PRN PRN Reason: Constipation Folic Acid (Folic Acid 1 Mg Tablet) 1 mg PO DAILY [facility] Last Admin: 01/22/23 12:16 Dose: 1 mg Sodium Chloride (Ns) 1,000 mls @ 100 mls/hr IVCONT .Q10H DI Ondansetron HCl (Ondansetron Hcl 4 Mg/2 Ml Vial) 4 mg IVPUSH Q8H PRN PRN Reason: Nausea and Vomiting Pharmacy Consult (Consult Rx Etoh Phenob Im/Po) 1 each MISCELLANE ONCE PRN; Protocol PRN Reason: Consult order Sodium Chloride (0.9 % Sodium Chloride Flush 3 Ml Syringe) 3 ml IVFLUSH QSHIFT DI Thiamine HCl (Thiamine Hcl 100 Mg Tablet) 100 mg PO DAILY [facility] Last Admin: 01/22/23 12:16 Dose: 100 mg Home Medications Medication Instructions Recorded Confirmed Last Taken Type amlodipine 10 mg tablet 10 mg PO DAILY 01/22/23 01/22/23 Unknown History folic acid 1 mg tablet 1 mg PO DAILY 01/22/23 01/22/23 Unknown History hydroxyzine pamoate 25 mg capsule 25 mg PO TID 01/22/23 01/22/23 Unknown History thiamine HCl (vitamin B1) 100 mg 100 mg PO DAILY 01/22/23 01/22/23 Unknown History tablet Physical Exam Vital Signs and Narrative: Vital Signs: Last Vital Signs Temp 98.8 F 01/22/23 11:30 Pulse 134 H 01/22/23 11:30 Resp 18 01/22/23 11:30 BP 131/79 01/22/23 11:30 Pulse Ox 95 01/22/23 11:30 O2 Del Method Room Air 01/22/23 11:30 BMI result Body Mass Index 31.3 Constitutional - Awake and Alert, with whole body tremors Eyes - PERRLA, EOMI Cardiovascular - S1S2, RRR, No edema Respiratory - Normal lung expansion, Normal respiratory effort, No respiratory distress, CTA bilaterally Chest - reproducible tenderness to palpation over the mid chest Gastrointestinal - NT / ND; +BS; No rebound or guarding Extremities - Left calf ttp, no swelling, warmth, or erythema Skin - Warm/Dry. Multiple areas of ecchymosis most notably on chin and right side face at varying levels of healing Neurological - Alert & oriented x3, but seems somewhat confused when giving history leading up to arrival here as far as timelines but is accurate in describing other details, horizontal nystagmus otherwise CN II-XII in tact, 5/5 strength BUE and BLE Psychological - depressed mood Results Labs 01/23/23 05:26 01/23/23 05:26 Labs: Laboratory Results - last 24 hr 01/22/23 01/22/23 01/22/23 09:15 10:20 10:33 MCV 106.7 H MCH 37.8 H MCHC 35.4 H RDW 14.2 Plt Count 80 L MPV 9.3 L Immature Gran % (Auto) 0.3 Neut % (Auto) 67.3 Lymph % (Auto) 22.8 Harney % (Auto) 5.1 Eos % (Auto) 4.0 Baso % (Auto) 0.5 Lymph # (Auto) 0.9 L Harney # (Auto) 0.2 Eos # (Auto) 0.2 Baso # (Auto) 0.0 Abs Immat Gran (auto) 0.01 Absolute Neuts (auto) 2.5 Absolute Nucleated RBC 0.000 Nucleated RBC % (auto) 0.0 Anion Gap 24 H Estim Creat Clear Calc 116.0 Estimated GFR > 60 Random Glucose 102 Calcium 8.2 L Total Bilirubin 1.4 H AST 394 H ALT 180 H Alkaline Phosphatase 350 H Total Protein 7.8 Albumin 3.5 Urine Color Dark Yellow Urine Appearance Cloudy Urine pH 5.5 Ur Specific Panacea 1.025 Urine Protein Trace Urine Glucose (UA) Negative Urine Ketones Negative Urine Blood Negative Urine Nitrite Negative Ur Leukocyte Esterase Negative Urine RBC 0-2 Urine WBC 0-5 Ur Squamous Epith Cells 11-20 Urine Bacteria 1+ Hyaline Casts 11-20 Granular Casts Present Urine Test NEGATIVE Urine Opiates Screen Not Detected Urine Fentanyl Screen POSITIVE H Ur Barbiturates Screen POSITIVE H Ur Phencyclidine Scrn Not Detected Ur Amphetamines Screen Not Detected U Benzodiazepines Scrn POSITIVE H Urine Cocaine Screen Not Detected U Marijuana (THC) Screen Not Detected Ethyl Alcohol 274 Assessment and Plan (1) Alcohol withdrawal: Status: Acute (2) Suicide attempt by multiple drug overdose: Status: Acute (3) Major depression: Status: Acute Plan 32-year-old female with history of severe alcohol use disorder, history of severe alcohol withdrawal with seizures and delirium tremens, history treated hepatitis-C, asthma, opioid use disorder, history of pancreatitis, hypertension who is a current 1 pack per day smoker admitted for alcohol withdrawal in patient with SI and intentional overdose on opiates requiring narcan administration. #Depression with SI and intentional OD on opiates -Plan to transfer to psychiatry once medically cleared -Will need Care team consult -Sitter consult #alcohol use disorder at risk for severe withdrawal -Reports last consumed 1 sleeve nips (whiskey) at 8am yesterday, etoh level on arrival 274 -History of etoh w/d seizure and DTs -CIWA 10 on exam, monitor CIWA q.4h -initiate phenobarbital protocol -IV thiamine and 3 days, transition to p.o. -1 mg folic acid daily -seizure precaution -addition med consult # opiate use disorder with intentional overdose -received Narcan x2 prior to arrival -not interested in methadone, agreeable to discuss suboxone -addiction med consult # elevated LFTs -total bilirubin 1.4, AST 394, ALT 180, alkaline phosphatase 350 -right upper quadrant ultrasound at [facility] on 12/29 showed echogenic liver likely representing hepatic steatosis -history hepatitis-C treated but has had recent IV drug abuse -hepatitis-B/C antibody, hepatitis-C viral load, HIV ordered -Follow LFTs #Pancytopenia -likely r/t etoh use -Follow CBC #Mild persistent asthma -continue flovent, albuterol prn # right calf tenderness -venous duplex early ordered to rule out DVT #Pleuritic/reproducible chest pain -post-traumatic following etoh withdrawal seizure, intentional trauma throwing self on floor at [facility] -Will check CXR -tylenol, lidocaine patch DVT prophylaxis- SCPs due to thrombocytopenia Full code Pt requires inpt stay at least 2 midnights for management of alcohol withdrawal in pt at risk for severe withdrawal on phenobarb per protocol who is actively suicidal and will require probable placement to psychiatry pending re-evaluation by care team once medically cleared Time Spent With Patient Time: Total time managing care of this patient today ____ minutes. Quality Stroke Does the patient have a stroke diagnosis?: No VTE Prior VTE?: No VTE Risk Level:: Medical - moderate - high VTE Device Contraindication: N/A - Device Ordered VTE Drug Contraindication: Treatment Not Indicated
--- NOTE | 2023-01-22 14:24 | PHA.MEDREC ---
Pharmacy Consult ? Medication Reconciliation Pharmacy has reviewed the medication reconciliation completed by Sara. Shellie Hassan, MelvinD
[2023-01-22 14:38] LABS: Magnesium 1.5 mg/dL (1.6-2.6)
--- NOTE | 2023-01-22 14:52 | MHC.CARE ---
CARE Team completed assessment; Pt was found IPLOC. Pt is now a medical admit for alcohol withdrawal. Please re-consult CARE Team if clinically indicated at time of medical clearance.
[2023-01-22] MEDS: PHENobarbitaL sodium 130 MG/ML IM ONCE 395.2 MG IM (15:29)
[2023-01-22] MEDS: Lidocaine 4 % Patch ADH..PATCH 1 PATCH TRANSDERMA (15:29)
[2023-01-22] MEDS: Nicotine 21 MG PATCH.TD24 TRANSDERMA (15:30)
--- NOTE | 2023-01-22 15:49 | PC.NURSE ---
Genesis Aleman (sister) [phone]
--- NOTE | 2023-01-22 15:54 | PC.NURSE ---
22gIV placed in left forearm w/o complications. delay in medication administration d/t pt being in pod and coming into main ED. medication now administered per provider order. pt currently diaphoretic and tremulous at this time. respirations even and unlabored at this time. 1:1 sitter present. call torrez placed within reach.
--- NOTE | 2023-01-22 15:57 | PC.NURSE ---
PT was TX to the POD after being cleared medically in the emergency dept. PT verbalized feeling like she was going into withdrawals and stated previously she has had some really bad times coming off alcohol . History includes seizures and discomfort. Ethanol level 274 at 0915. Lorazepam 2mg given PO for CIWA of 8 at 1145. consulted with PT and 65mg Phenobarbital 65mg ordered IM. PT was referred for an inpatient medical admission and was transferred to the main ED where she could receive IV fluids awaiting transfer. While in the POD there were no behavioral concerns and appetite was good with PT eating 100% of meals and multiple snacks.
--- NOTE | 2023-01-22 15:58 | HO.SUDE ---
Met with pt in ED15 after consult placed to Addiction Medicine for opioid use disorder with intentional overdose and alcohol use disorder. Pt had presented to the ED after being found by boyfriend unresponsive at home, received Narcan with positive effect. Per triage note, pt states I just want to and reports drug use was a suicide attempt. Upon provider evaluation, pt medically admitted for alcohol withdrawal, suicide attempt by multiple drug overdose, and major depression. Plan to transition to [facility] once medically cleared. Upon t/w entering room, pt laying in bed, awake, alert, engages in conversation, is tremulous and irritable. Pt very upset that tv in room is not working and also requesting phenobarb dose. Pt difficult to engage in conversation regarding substance use due to irritability and symptoms of alcohol withdrawal. Pt does report this is 6th overdose, used 3 bags IN today. Pt reports she does not consistently use opioids, however, in September pt had reportedly been on methadone. Pt currently denies opioid withdrawal symptoms. States I don't use like that. I just did this because the bags were in a sweater that was given to me. Pt reports alcohol use, 10 nips whiskey daily since loss of her child 6 years ago. Pt reports numerous ATS admissions. Pt declines to engage further in discussion regarding substance use. Pts RN aware of withdrawal symptoms. Discussed with Hilda Perry APRN.
[2023-01-22] MEDS: 0.9 % Sodium Chloride 1,000 ML 100 ML IVCONT (16:04)
[2023-01-22] MEDS: Thiamine HCL 100 MG in 0.9 % Sodium Chloride 100 ML 202 MG IV (16:05)
[2023-01-22] MEDS: 0.9 % Sodium Chloride Flush 3 ML SYRINGE IVFLUSH ×2 (16:06→21:30)
--- NOTE | 2023-01-22 16:27 | PC.NURSE ---
report given to RN on IMC - RN states that she needs to find a sitter for pt as sitter down here in main ED is a tech. RN states that she will message me sitter is available. will notify transport when able.
[2023-01-22] MEDS: PHENobarbitaL sodium 130 MG/ML VIAL IM Q3Hx2 221 MG IM ×2 (18:01→21:29)
--- NOTE | 2023-01-22 18:28 | PC.NURSE ---
Patient arrived from ED approximately 1645 Patient Observer at bedside at all times. Oriented to room, call torrez system and staff. A&OX4 speech clear. VAN to command 5/5 per pt generalized whole body edema. Noted to bed very tremulous throughout whole body. LSCTA denies SOB or CP, ST on tele into 130's. BS+X4 abdomen soft non-tender denies nausea/vomiting. IV fluids infusing per order. Bruising noted to face and dark purple bruise to chin. IM phenobarb protocol in place. Will continue to monitor and report changes
[2023-01-22] MEDS: Acetaminophen 325 MG TABLET 650 MG PO (21:43)
[2023-01-23] VITALS (7 sets, daily range): BP systolic 144–182; BP diastolic 88–132; PULSE 94–125; RESP 16–20; TEMP 36.1–37.4; O2SAT 94–98
[2023-01-23] MEDS: 0.9 % Sodium Chloride 1,000 ML 100 ML IVCONT (03:32)
[2023-01-23] MEDS: LORazepam 2 MG/ML VIAL 1 MG IVPUSH (05:31)
[2023-01-23 06:25] LABS: Eosinophils Percent Auto 0.7 % (0-4); Hematocrit 30.9 % (37.0-47.0); PLT CLUMP 1; SCAN SMEAR FLAG 1
[2023-01-23 06:27] LABS: Imm Gran Abs Auto 0.01 X10*3/uL (0.00-0.03); Imm Gran Pct Auto 0.4 % (0.0-0.4); Lymphocytes Absolute Auto 1.6 X10*3/uL (1.2-4.9); Lymphocytes Percent Auto 56.7 % (20-40); MANUAL DIFF FLAG SCAN; Mean Corpuscular Volume 104.7 fL (80.0-98.0); Mean Platelet Volume 12.6 fL (9.4-12.3); Monocytes Absolute Auto 0.1 X10*3/uL (0.1-1.2); Monocytes Percent Auto 5.1 % (2-11); Neutrophils Percent Auto 37.1 % (45-73); Red Blood Count 2.95 X10*6/uL (4.20-5.50); Red Cell Distribution Width 13.7 % (11.0-16.0)
[2023-01-23 06:33] LABS: HBS Num1 > 1000.00 mIU/mL (0-7.99); HBc Num1 0.09 S/CO (0.00-0.79); HBsAGNum1 0.37 S/CO (0.00-0.99); HIV AB/AG Nonreactive (Nonreactive); HIV Num 1 0.04 S/CO (0.00-0.99); Hepatitis B Core Antibody Nonreactive (Nonreactive); Hepatitis B Surface Antigen Negative (Negative); ~HepC Num1 15.98 S/CO (0.00-0.79); ~Hepatitis B Surface Antibody REACTIVE (Nonreactive); ~Hepatitis C Antibody Reactive (Nonreactive)
[2023-01-23 06:34] LABS: Platelet Count 74 X10*3/uL (160-400); White Blood Count 2.8 X10*3/uL (4.8-10.8)
[2023-01-23 06:40] LABS: Alanine Aminotransferase 195 U/L (0-31); Albumin Level 3.3 g/dL (3.5-5.0); Alkaline Phosphatase 383 U/L (39-117); Anion Gap 19 (12-20); Aspartate Amino Transferase 588 U/L (5-31); Bilirubin Direct 0.6 mg/dL (0.0-0.5); Bilirubin Total 1.4 mg/dL (0.0-1.0); Blood Urea Nitrogen 11 mg/dL (9-16); Calcium 8.4 mg/dL (8.4-10.2); Carbon Dioxide 20 mmol/L (22-29); Chloride 95 mmol/L (96-108); Creatinine Clr Calc Pharmacy 136.8; Estimated Glomerular Filt Rate > 60; Glucose Random 106 mg/dL (60-115); Hemoglobin 10.4 g/dl (12.0-16.0); Potassium 3.8 mmol/L (3.3-5.1); Sodium 130 mmol/L (135-145); Total Protein 7.4 g/dL (6.5-8.0)
[2023-01-23 06:42] LABS: Mean Corpuscular Hemoglobin 35.3 pg (27.0-33.0)
[2023-01-23 06:43] LABS: Mean Corpuscular HGB Conc 33.7 g/dl (31.0-35.0)
[2023-01-23 06:49] LABS: SLIDE REVIEW VERIFIED
[2023-01-23] MEDS: Fluticasone Propionate 100 MCG BLST.W.DEV 1 PUFF INHALE ×2 (07:46→19:43)
--- NOTE | 2023-01-23 08:35 | MHC.CM.PN ---
CM met with Patient at bedside. Patient lives alone in an apartment at address listed but says she is only living there, for now. Patient receives food stamps and is asking for assisting with getting lees assistance(Family Resource Guide to be given to Patient).DC plan appears to be pending Psych/Recovery Team and Care Team Consults r/t diagnosis of Severe ETOH, Opioid Use D/O, Intentional Overdose/attempt to kill herself. CM has initiated and will follow for dc planning. PCP is from [facility].
[2023-01-23] MEDS: Nicotine 21 MG PATCH.TD24 TRANSDERMA (09:03)
[2023-01-23] MEDS: Acetaminophen 325 MG TABLET 650 MG PO (09:05)
[2023-01-23] MEDS: Folic Acid 1 MG TABLET PO (09:05)
[2023-01-23] MEDS: PHENobarbitaL 15 MG TABLET 45 MG PO ×2 (09:05→19:18)
[2023-01-23] MEDS: Thiamine HCL 100 MG TABLET PO (09:05)
[2023-01-23] MEDS: Lidocaine 4 % Patch ADH..PATCH 1 PATCH TRANSDERMA (09:06)
--- NOTE | 2023-01-23 09:11 | P.PNIM_ITS ---
Subjective Subjective Date of Service: 01/24/23 Interval History: f/u on alcohol withdrawal, SI with opioid OD Physical Exam 2 Vital Signs: Vital Signs: Last Vital Signs Temp 97.0 F 01/23/23 07:04 Pulse 106 H 01/23/23 07:48 Resp 16 01/23/23 07:48 BP 174/98 H 01/23/23 07:04 Pulse Ox 95 01/23/23 07:04 O2 Del Method Room Air 01/23/23 07:04 BMI result Body Mass Index 31.3 Const: Other: Constitutional - Awake and Alert, with whole body tremors Eyes - PERRLA, EOMI Cardiovascular - S1S2, RRR, No edema Respiratory - Normal lung expansion, Normal respiratory effort, No respiratory distress, CTA bilaterally Chest - reproducible tenderness to palpation over the mid chest Gastrointestinal - NT / ND; +BS; No rebound or guarding Extremities - Left calf ttp, no swelling, warmth, or erythema Skin - Warm/Dry. Multiple areas of ecchymosis most notably on chin and right side face at varying levels of healing Neurological - Alert & oriented x3, but seems somewhat confused when giving history leading up to arrival here as far as timelines but is accurate in describing other details, horizontal nystagmus otherwise CN II-XII in tact, 5/5 strength BUE and BLE Psychological - depressed mood Objective Data Active Medications Acetaminophen (Acetaminophen 325 Mg Tablet) 650 mg PO Q6H PRN PRN Reason: Pain, Mild (Pain Scale 1-3) Last Admin: 01/23/23 09:05 Dose: 650 mg Documented By: FRANCHESKA Al Hydroxide/Mg Hydroxide (Magnesium Hydrox/Alum Hydrox 30 Ml Oral.Susp) 30 ml PO Q4H PRN PRN Reason: Heartburn/Nausea Albuterol Sulfate (Albuterol Sulfate 90 Mcg 8 Gm Inhaler) 1 puff INHALE RQ4H PRN PRN Reason: Shortness of Breath/Wheezing Docusate Sodium (Docusate Sodium 100 Mg Capsule) 100 mg PO DAILY PRN PRN Reason: Constipation Fluticasone Propionate (Fluticasone Propionate 100 Mcg Blst.W.Dev) 1 puff INHALE RBID [facility] Last Admin: 01/23/23 07:46 Dose: 1 puff Documented By: AZALIA Folic Acid (Folic Acid 1 Mg Tablet) 1 mg PO DAILY [facility] Last Admin: 01/23/23 09:05 Dose: 1 mg Documented By: FRANCHESKA Sodium Chloride (Ns) 1,000 mls @ 100 mls/hr IVCONT .Q10H [facility] Last Admin: 01/23/23 03:32 Dose: 100 mls/hr Documented By: ARTIE Lidocaine (Lidocaine 4 % Patch Adh..Patch) 1 patch TRANSDERMA DAILY [facility]; Protocol Last Admin: 01/23/23 09:06 Dose: 1 patch Documented By: FRANCHESKA Nicotine (Nicotine 21 Mg Patch.Td24) 21 mg TRANSDERMA DAILY [facility] Last Admin: 01/23/23 09:03 Dose: 21 mg Documented By: FRANCHESKA Ondansetron HCl (Ondansetron Hcl 4 Mg/2 Ml Vial) 4 mg IVPUSH Q8H PRN PRN Reason: Nausea and Vomiting Pharmacy Consult (Consult Rx Etoh Phenob Im/Po) 1 each MISCELLANE ONCE PRN; Protocol PRN Reason: Consult order Phenobarbital (Phenobarbital 15 Mg Tablet) 45 mg PO BID [facility]; Protocol Stop: 01/24/23 21:01 Last Admin: 01/23/23 09:05 Dose: 45 mg Documented By: FRANCHESKA Phenobarbital (Phenobarbital 15 Mg Tablet) 15 mg PO BID [facility]; Protocol Stop: 01/26/23 21:01 Phenobarbital (Phenobarbital 15 Mg Tablet) 15 mg PO DAILY [facility]; Protocol Stop: 01/28/23 09:01 Sodium Chloride (0.9 % Sodium Chloride Flush 3 Ml Syringe) 3 ml IVFLUSH QSHIFT [facility] Last Admin: 01/23/23 09:06 Dose: Not Given Documented By: FRANCHESKA Non-Admin Reason: IV Running Thiamine HCl (Thiamine Hcl 100 Mg Tablet) 100 mg PO DAILY [facility] Last Admin: 01/23/23 09:05 Dose: 100 mg Documented By: FRANCHESKA Thiamine HCl (Thiamine Hcl 100 Mg Tablet) 100 mg PO DAILY [facility] Stop: 01/25/23 09:01 Last Admin: 01/23/23 09:10 Dose: Not Given Documented By: FRANCHESKA Non-Admin Reason: Previously Administered Labs 01/23/23 05:26 01/23/23 05:26 Labs: Laboratory Results - last 24 hr 01/22/23 01/22/23 01/22/23 09:15 10:20 10:33 MCV 106.7 H MCH 37.8 H MCHC 35.4 H RDW 14.2 Plt Count 80 L MPV 9.3 L Immature Gran % (Auto) 0.3 Neut % (Auto) 67.3 Lymph % (Auto) 22.8 [place] % (Auto) 5.1 Eos % (Auto) 4.0 Baso % (Auto) 0.5 Lymph # (Auto) 0.9 L [place] # (Auto) 0.2 Eos # (Auto) 0.2 Baso # (Auto) 0.0 Abs Immat Gran (auto) 0.01 Absolute Neuts (auto) 2.5 Absolute Nucleated RBC 0.000 Nucleated RBC % (auto) 0.0 Smear Tech's Comments Anion Gap 24 H Estim Creat Clear Calc 116.0 Estimated GFR > 60 Random Glucose 102 Calcium 8.2 L Magnesium 1.5 L Total Bilirubin 1.4 H Direct Bilirubin AST 394 H ALT 180 H Alkaline Phosphatase 350 H Total Protein 7.8 Albumin 3.5 Urine Color Dark Yellow Urine Appearance Cloudy Urine pH 5.5 Ur Specific [place] 1.025 Urine Protein Trace Urine Glucose (UA) Negative Urine Ketones Negative Urine Blood Negative Urine Nitrite Negative Ur Leukocyte Esterase Negative Urine RBC 0-2 Urine WBC 0-5 Ur Squamous Epith Cells 11-20 Urine Bacteria 1+ Hyaline Casts 11-20 Granular Casts Present Urine Test NEGATIVE Urine Opiates Screen Not Detected Urine Fentanyl Screen POSITIVE H Ur Barbiturates Screen POSITIVE H Ur Phencyclidine Scrn Not Detected Ur Amphetamines Screen Not Detected U Benzodiazepines Scrn POSITIVE H Urine Cocaine Screen Not Detected U Marijuana (THC) Screen Not Detected Ethyl Alcohol 274 Hep Bs Antigen Hep Bs Antibody Hep B Core Total Ab Hepatitis C Ab (EIA) HIV 1&2 Ab/P24 Ag 4thGn 01/23/23 05:26 MCV 104.7 H MCH 35.3 H MCHC 33.7 RDW 13.7 Plt Count 74 L MPV 12.6 H Immature Gran % (Auto) 0.4 Neut % (Auto) 37.1 L Lymph % (Auto) 56.7 H [place] % (Auto) 5.1 Eos % (Auto) 0.7 Baso % (Auto) 0.0 Lymph # (Auto) 1.6 [place] # (Auto) 0.1 Eos # (Auto) 0.0 Baso # (Auto) 0.0 Abs Immat Gran (auto) 0.01 Absolute Neuts (auto) 1.0 L Absolute Nucleated RBC 0.000 Nucleated RBC % (auto) 0.0 Smear Tech's Comments VERIFIED Anion Gap 19 Estim Creat Clear Calc 136.8 Estimated GFR > 60 Random Glucose 106 Calcium 8.4 Magnesium Total Bilirubin 1.4 H Direct Bilirubin 0.6 H AST 588 H ALT 195 H Alkaline Phosphatase 383 H Total Protein 7.4 Albumin 3.3 L Urine Color Urine Appearance Urine pH Ur Specific [place] Urine Protein Urine Glucose (UA) Urine Ketones Urine Blood Urine Nitrite Ur Leukocyte Esterase Urine RBC Urine WBC Ur Squamous Epith Cells Urine Bacteria Hyaline Casts Granular Casts Urine Test Urine Opiates Screen Urine Fentanyl Screen Ur Barbiturates Screen Ur Phencyclidine Scrn Ur Amphetamines Screen U Benzodiazepines Scrn Urine Cocaine Screen U Marijuana (THC) Screen Ethyl Alcohol Hep Bs Antigen Negative Hep Bs Antibody REACTIVE Hep B Core Total Ab Nonreactive Hepatitis C Ab (EIA) Reactive H HIV 1&2 Ab/P24 Ag 4thGn Nonreactive Assessment and Plan (1) Major depression: Status: Acute (2) Alcohol withdrawal: Status: Acute (3) Suicide attempt by multiple drug overdose: Status: Acute Plan 32-year-old female with history of severe alcohol use disorder, history of severe alcohol withdrawal with seizures and delirium tremens, history treated hepatitis-C, asthma, opioid use disorder, history of pancreatitis, hypertension who is a current 1 pack per day smoker admitted for alcohol withdrawal in patient with SI and intentional overdose on opiates requiring narcan administration. #Depression with SI and intentional OD on opiates -Plan to transfer to psychiatry once medically cleared -1:1 observation #alcohol use disorder at risk for severe withdrawal -Phenobarbital protocol for withdrawal -thiamine and folate replacement x 3 days -addiction med consult # opiate use disorder with intentional overdose -received Narcan x2 prior to arrival -not interested in methadone, agreeable to discuss suboxone -addiction med consult # elevated LFTs -total bilirubin 1.4, AST 394, ALT 180, alkaline phosphatase 350 -right upper quadrant ultrasound at [facility] on 12/29 showed echogenic liver likely representing hepatic steatosis -history hepatitis-C treated but has had recent IV drug abuse -hepatitis-B/C antibody, hepatitis-C viral load, HIV ordered -Follow LFTs #Pancytopenia -likely r/t etoh use -Follow CBC #Mild persistent asthma -continue flovent, albuterol prn # right calf tenderness, US no DVT #HTN--high, resume home Norvasc 10 daily #Pleuritic/reproducible chest pain -post-traumatic following etoh withdrawal seizure, intentional trauma throwing self on floor at [facility] -negative CXR -tylenol, lidocaine patch DVT prophylaxis- SCPs due to thrombocytopenia Full code Need for inpaitnet: r management of alcohol withdrawal in pt at risk for severe withdrawal on phenobarb per protocol who is actively suicidal and will require probable placement to psychiatry pending re-evaluation by care team once medically cleared Time Spent With Patient Time: Total time managing care of this patient today ____ minutes. Quality Stroke Does the patient have a stroke diagnosis?: No VTE Prior VTE?: No VTE Risk Level:: Medical - moderate - high VTE Device Contraindication: N/A - Device Ordered VTE Drug Contraindication: Treatment Not Indicated
[2023-01-23] MEDS: amLODIPine Besylate 10 MG TABLET PO (09:36)
--- NOTE | 2023-01-23 12:53 | MHC.RECOVRN ---
Attempted to meet with pt to follow up, provide support, assess for opioid withdrawal. Pt laying in bed, asleep, briefly wakes to voice. Quickly returns to sleep before answering any questions. Unable to engage at this time. Appears comfortable. T/w available if needed. Discussed with Hilda Perry APRN.
[2023-01-23] MEDS: hydrOXYzine HCL 25 MG TABLET PO ×2 (12:59→19:18)
[2023-01-23] MEDS: 0.9 % Sodium Chloride Flush 3 ML SYRINGE IVFLUSH (13:02)
[2023-01-23] MEDS: hydrALAZINE HCl 20 MG/ML VIAL 10 MG IVPUSH (19:18)
[2023-01-24 07:43] VITALS: BP 136/85; PULSE 123; RESP 20; TEMP 36.9; O2SAT 94
[2023-01-24] MEDS: hydrOXYzine HCL 25 MG TABLET PO (08:27)
[2023-01-24] MEDS: PHENobarbitaL 15 MG TABLET 45 MG PO (08:28)
[2023-01-24] MEDS: Nicotine 21 MG PATCH.TD24 TRANSDERMA (08:28)
[2023-01-24] MEDS: Thiamine HCL 100 MG TABLET PO (08:28)
[2023-01-24] MEDS: amLODIPine Besylate 10 MG TABLET PO (08:28)
[2023-01-24] MEDS: Folic Acid 1 MG TABLET PO (08:28)
[2023-01-24] MEDS: 0.9 % Sodium Chloride Flush 3 ML SYRINGE IVFLUSH (08:29)
[2023-01-24] MEDS: Lidocaine 4 % Patch ADH..PATCH 1 PATCH TRANSDERMA (08:29)
[2023-01-24] MEDS: ondansetron HCL 4 MG/2 ML VIAL IVPUSH (09:32)
[2023-01-24 10:01] LABS: COVID-19 Test Negative (Negative); IDNOW Serial# BCCEAD1C
--- NOTE | 2023-01-24 10:27 | P.DS_ITS ---
DS: Providers Provider Date of Service: 01/24/23 Date of admission: 01/22/23 14:11 Primary care physician: None Physician Consults: 01/22/23 08:55 Consult to Care Team Stat Comment: Reason for consultation: suicidal, alcoholic, heroin od 01/22/23 14:16 Consult for Sitter Routine Reason for consultation: SI with intentional heroin OD 01/22/23 14:54 Addiction Medicine Routine Consulting Provider: Addiction Covering Reason for consultation: opioid use disorder with intentional OD, etoh use disorder 01/23/23 14:54 Consult to Care Team Routine Comment: Reason for consultation: medically clear DS: Diagnosis Discharge Diagnosis (1) Major depression: Status: Acute (2) Alcohol withdrawal: Status: Acute (3) Suicide attempt by multiple drug overdose: Status: Acute DS: Summary Hospital Course Hospital Course: Admission HPI Chief Complaint: etoh use, SI 32-year-old female with history of severe alcohol use disorder, history of severe alcohol withdrawal with seizures and delirium tremens, history treated hepatitis-C, asthma, opioid use disorder, history of pancreatitis, hypertension who is a current 1 pack per day smoker presents to the ED via EMS following an intentional overdose on 3 bags inhaled heroin with attempt to kill herself. She was found by police INR decline and with agonal breathing and was revived with Narcan x2 and was ventilated with Ambu bagged by EMS for several minutes prior to arrival. She was also intoxicated appearing but alert and oriented on arrival. On arrival, respirations even and regular mode patient becoming increasingly tachycardic to 134 initially hypertensive to 165/13 with blood pressure 131/79 on admission. No hypoxia. She is pancytopenic with WBC 3.7, RBC 3.44, H/H13.0/106.7 (suspect concentrated- was 9.9/28.8 on 12/29 at [facility]), platelets 80. Renal function normal. Sodium 133, potassium 3.8, chloride 98, CO2 15, anion gap 24, magnesium level pending. Total bilirubin 1.4, AST 394, ALT 180, alkaline phosphatase 350. Urinalysis unremarkable. Urine tox screen positive for fentanyl, barbiturates, benzodiazepines. Ethyl alcohol level 274 on arrival. Patient tells me that she is very depressed and wants to . She has been drinking in excess to cope. Typically drinks about 1 sleeve on a daily basis. Feels her last alcoholic beverage was around 08:00 yesterday morning. Reports having had an alcohol withdrawal seizure 3 days ago and had significant bruising on her body. She is reporting midsternal chest pain reproducible to palpation and worse with inspiration. She is telling me that she has shortness of breath and wheezing and uses an albuterol inhaler as well as Flovent at home. She is currently fairly and is visibly very tremulous but denies any nausea, vomiting, AH/VH/TH or confusion. She does feel anxious and agitated but this is not new or acutely worsened. In the ED, has received 2 mg lorazepam, 65 mg phen obarbital, 100 mg thiamine p.o., and 1 mg folic acid. Care team recommending psychiatric admission but given history severe withdrawals, recommended medical admission for alcohol withdrawal with phenobarbital before transferring to him psychiatric unit. Of note, patient presented to [facility] ED acutely intoxicated yesterday afternoon. She required multiple rounds of Zyprexa due to significant agitation both verbally and physically with staff. She was treated prophylactically with phenobarbital. Head CT and cervical spine CT performed as patient sustained a fall with head banging and both were negative for any acute abnormality. She tells me she had a scan yesterday which showed blood clots. She states she also had an ultrasound of the right upper quadrant yesterday. However both of these scans took place about 1 month ago. The CTA of the chest was negative for any PE or acute abnormality. Right upper quadrant ultrasound showed echogenic liver likely representing hepatic steatosis and non mobile sludge in the gallbladder, but no obstructing stones. Patient denied any suicidality while in the ED and was deemed to have capacity yesterday and did leave against medical advice. Hospital course: As the patient awaited placement in an inpatient psychiatric bed, she experienced alcohol withdrawal symptoms, leading to her temporary admission to the medical floor. Here, she received treatment following the Phenobarbital alcohol withdrawal protocol and showed a positive response. Currently, she is no longer experiencing withdrawal symptoms, but she still acknowledges having suicidal ideation and expresses a desire to be transferred to the psychiatric floor. Additionally, the patient has hypertension that is not adequately controlled with a 10 mg dose of Norvasc, so I am including Atenolol at 25 mg to her medication regimen. Time Spent with Patient Time attestation: Total time managing care of this patient today ____ minutes. Discharge coordination time: Greater than 30 minutes Quality: Safe Use of Opioids Does Pt have an Active Cancer Diagnosis on the Problem List?: No Quality: Stroke Does the patient have a stroke diagnosis?: No Physical Exam Vital Signs: Vital Signs: Last Vital Signs Temp 98.5 F 01/24/23 07:43 Pulse 123 H 01/24/23 07:43 Resp 20 01/24/23 07:43 BP 136/85 01/24/23 07:43 Pulse Ox 94 01/24/23 07:43 O2 Del Method Room Air 01/24/23 07:43 BMI result Body Mass Index 31.3 Const: Other: General: AO X 3, no acute distress Resp: CTA bilateral CVS: S1,S2,RRR GI: +BS, NT, no distention Skin: bruse on chin Neuro: motor grossly intact Psych: appropriate affect DS: Data Data Completed and Pending Labs on day of discharge: Laboratory Results - last 24 hr 01/24/23 08:51 COVID-19 ([facility]) Negative COVID-19 Clin Com See Note Discharge Plan Discharge Anticipated Discharge Date/Time: 01/24/23 10:11 Patient Disposition: Xfer Psychiatric Hosp Discharge Diagnosis: alcohol withdrawal, Depression with Suicide attempt Referrals: Physician,None [Primary Care Provider] - 1 Week Discharge Medications: New atenolol 25 mg Tablet 25 mg PO DAILY Qty: 20 0RF Protocol: Hold for SBP/HR < HOLD for SBP < : 90 HOLD for HR < : 60 nicotine 21 mg/24 hr Patch 24 Hour 21 mg transdermal DAILY Qty: 14 0RF Continued thiamine HCl (vitamin B1) 100 mg tablet 100 mg PO DAILY amlodipine 10 mg tablet 10 mg PO DAILY folic acid 1 mg tablet 1 mg PO DAILY hydroxyzine pamoate 25 mg capsule 25 mg PO TID Discharge Orders: Discharge Order (Routine); Ordered 01/24/23 Ordered By: Arun Hernández Diet: Advance to usual diet Activity on Discharge: As tolerated Stand Alone Forms: Patient Portal Discharge page
--- NOTE | 2023-01-24 11:00 | MHC.CM.PN ---
Pt is medically cleared and being transferred to the psych unit when bed available.
[2023-01-24 11:54] VITALS: BP 148/61; PULSE 127; RESP 20; TEMP 36.9; O2SAT 95
[2023-01-24] MEDS: atenoloL 25 MG TABLET PO (11:57)
[2023-01-26 09:48] LABS: HCV Log PCR <1.18 NOT DETECTED Log IU/mL (NOT DETECTED); HepC Viral Load <15 NOT DETECTED IU/mL (NOT DETECTED)
== END 2023-01-24 14:33 | DRG 817 ==
LOC: HO.ED 11:28 → HO.EDOVER 14:41 → HO.IMC 15:57
PROVIDERS: Admitting Provider Physician Assistant; Emergency Provider Emergency Medicine; Visit Provider Internal Medicine
DX: T40.2X2A Poisoning by other opioids, intentional self-harm, initial encounter (principal); D61.818 Other pancytopenia; K76.0 Fatty (change of) liver, not elsewhere classified; F10.239 Alcohol dependence with withdrawal, unspecified; F32.9 Major depressive disorder, single episode, unspecified; I10 Essential (primary) hypertension; J45.30 Mild persistent asthma, uncomplicated; F17.210 Nicotine dependence, cigarettes, uncomplicated; Y90.8 Blood alcohol level of 240 mg/100 ml or more; Z71.6 Tobacco abuse counseling; Z20.822 Contact with and (suspected) exposure to COVID-19; Z79.899 Other long term (current) drug therapy
CPT/HCPCS: 36415; 71045; 80048; 80053; 80076; 80307; 81001; 81025; 83735; 85025; 86704; 86706; 86803; 87340; 87389; 87522; 87635; 93971; 94640; 99285; J2060; J2405; J2560; J3411; S9485

== ENCOUNTER → 2023-01-22 14:11 | Outpatient (BNV) | payer OTHER, SELFPAY | PROVIDERS: Admitting Provider Physician Assistant; Emergency Provider Emergency Medicine; Visit Provider Physician Assistant | DX: F32.9 Major depressive disorder, single episode, unspecified (principal); F10.939 Alcohol use, unspecified with withdrawal, unspecified; T50.912A Poisoning by multiple unspecified drugs, medicaments and biological substances, intentional self-harm, initial encounter | CPT/HCPCS: 99223; 99232; 99239 ==

== ENCOUNTER 2023-01-24 11:02 | Inpatient (IN) | payer OTHER, SELFPAY ==
[2023-01-24 14:15] VITALS: BP 134/91; PULSE 70; TEMP 36.7; O2SAT 96
--- OUTSIDE RECORDS SUMMARY | 2023-01-24 14:36 | XMS_ITS | Continuity of Care Document ---
Author Name Unknown Organization [facility] ter Address [address] [place] [id number]- Care Team Providers Care Adult Literacy Teacher Name Role Phone Not on Staff, PCP Primary Care Physician Unavail able Encounter [facility] Date(s): 01/21/23 - 01/22/[address] [address]- Encounter Diagnosis Alcohol intoxication(Final) - 01/21/23 Discharge Disposition: A-D/C Home Attending Physician: Isidro Alonzo MD Admitting Physician: [...] labs done from 12/25 onwards at any [facility]. Please forward all results to Jose Reyes MD., 11/30... Start Date: 12/20/22 Status: Ordered EpiPen 2-Cipriano 0.3 mg injectable kit = 0.3 mg, Intramuscular, Once, # 2 pack/packet, 0 Refills, Soft Stop, 09/25/20 18:06:00 EDT, [facility]/pharmacy #[id number], Partial fill upon patient request if the prescription is for a schedule II opioid drug., 163, cm, 09/25/20 17:11:00 EDT, Height, 90.7, kg,... Start Date: 09/25/20 Status: Ordered FLUoxetine 10 mg oral tablet 1 tablet = 10 mg, By Mouth, Daily, Follow up with PCP to uptitrate dose, # 30 tablet, 0 Refills, Maintenance, 07/02/22 10:36:00 EDT, Tablet, [facility]/pharmacy #[id number], 163, cm, 07/01/22 23:25:00 EDT, Height, 96.4, kg, 06/28/22 18:30:00 EDT, Dry Weight Start Date: 07/02/22 Stop Date: 08/01/22 Status: Ordered folic acid 1 mg oral tablet 1 mg, 1, tablet, By Mouth, Daily, # 30 tablet, Refills 0, Tot. Refills 0, Maintenance, 07/02/22 10:33:00 EDT, Route to Pharmacy Electronically, [facility]/pharmacy #[id number], 163, cm, 07/01/22 23:25:00 EDT, Height, 96.4, kg, 06/28/22 18:30:00 EDT, Dry Weight Start Date: 07/02/22 Status: Ordered gabapentin 300 mg oral capsule 300 mg, 1, capsule, By Mouth, 3 times a day, # 90 capsule, Refills 0, Tot. Refills 0, Maintenance, 07/02/22 10:32:00 EDT, Route to Pharmacy Electronically, [facility]/pharmacy #[id number], 163, cm, 07/01/22 23:25:00 EDT, [...] Exam Date Time Procedure Performing Provider Status 01/21/23 10:[address] Cervical Spine W/O Contrast Jeovanny Santos; Auth (Verified) Notes: (CT Cervical Spine W/O Contrast) Reason For Exam: Neck trauma, dangerous injury mechanism;Other: RESULT: CT Cervical Spine W/O Contrast CT Head/Brain W/O Contrast, CT Cervical Spine W/O Contrast INDICATION: Hx of Present Illness: +ETOH.; Reason: Trauma; Clinical Question(s): Hematoma; Order Comment: TECHNIQUE: Noncontrast head CT using axial technique was reconstructed in axial and coronal planes.Noncontrast spiral CT through the cervical spine was formatted in 3 planes. Automatic tube modulation was used for the cervical spine and iterative dose reconstruction was used for both the head and cervical spine to optimize scan parameters and image quality. CTDIvol Body: 17.20 mGy, DLP Body: 451 mGy*cm. CTDIvol Head: 41.60 mGy, DLP Head: 672 mGy*cm. COMPARISON: None. FINDINGS: Rerecording Mixer View Findings, Lines and Tubes: None. BRAIN AND EXTRA-AXIAL SPACES: No parenchymal hemorrhage, midline shift, or mass effect. Mejía-white matter differentiation is wellpreserved. No acute infarct. Ventricles, sulci, and basilar cisterns are normal. No white matter lesions. No subarachnoid hemorrhage. No subdural or epidural collection. CALVARIUM, SKULL BASE, AND SOFT TISSUES: No fractures or suspicious bony lesions. The paranasal sinuses and mastoid air cells are clear. Visualized orbits and globes are intact. The extracranial soft tissues are unremarkable. CERVICAL SPINE: No fracture. No acute osseous abnormalities. Normal alignment. No locked or perched facet. Intervertebral disc spaces and vertebral body heightsare preserved. OTHER BONES: No acute abnormality. CERVICAL SOFT TISSUES AND LUNG APICES: Normal soft tissues. Visualized lung apices are clear. IMPRESSION: No acute abnormality of the head or cervical spine. WSN: [id number] Ordering Physician: Rahul Davenport Dictated By: Garland Falcon MD Dictated Date/Time: 01/21/23 10:55 p Reviewed By: Garland Falcon MD Signed By: Garland Falcon MD Signed Date/Time: 01/21/23 10:55 pm Transcribed By: AISHA Transcribed Date/Time: 01/21/23 10:42 pm * Exam Date Time Procedure Performing Provider Status 01/21/23 10:[address] Head/Brain W/O Contrast Rain Santos; Auth (Verified) Notes: (CT Head/Brain W/O Contrast) Reason For Exam: Trauma RESULT: CT Head/Brain W/O Contrast CT Head/Brain W/O Contrast, CT Cervical Spine W/O Contrast INDICATION: Hx of Present Illness: +ETOH.; Reason: Trauma; Clinical Question(s): Hematoma; Order Comment: TECHNIQUE: Noncontrast head CT using axial technique was reconstructed in axial and coronal planes.Noncontrast spiral CT through the cervical spine was formatted in 3 planes. Automatic tube modulation was used for the cervical spine and iterative dose reconstruction was used for both the head and cervical spine to optimize scan parameters and image quality. CTDIvol Body: 17.20 mGy, DLP Body: 451 mGy*cm. CTDIvol Head: 41.60 mGy, DLP Head: 672 mGy*cm. COMPARISON: None. FINDINGS: Rerecording Mixer View Findings, Lines and Tubes: None. BRAIN AND EXTRA-AXIAL SPACES: No parenchymal hemorrhage, midline shift, or mass effect. Mejía-white matter differentiation is wellpreserved. No acute infarct. Ventricles, sulci, and basilar cisterns are normal. No white matter lesions. No subarachnoid hemorrhage. No subdural or epidural collection. CALVARIUM, SKULL BASE, AND SOFT TISSUES: No fractures or suspicious bony lesions. The paranasal sinuses and mastoid air cells are clear. Visualized orbits and globes are intact. The extracranial soft tissues are unremarkable. CERVICAL SPINE: No fracture. No acute osseous abnormalities. Normal alignment. No locked or perched facet. Intervertebral disc spaces and vertebral body heightsare preserved. OTHER BONES: No acute abnormality. CERVICAL SOFT TISSUES AND LUNG APICES: Normal soft tissues. Visualized lung apices are clear. IMPRESSION: No acute abnormality of the head or cervical spine. WSN: [id number] Ordering Physician: Rahul Davenport Dictated By: Garland Falcon MD Dictated Date/Time: 01/21/23 10:55 p Reviewed By: Garland Falcon MD Signed By: Garland Falcon MD Signed Date/Time: 01/21/23 10:55 pm Transcribed By: AISHA Transcribed Date/Time: 01/21/23 10:42 pm Vital Signs Most recent to oldest [Reference Range]: 1 2 3 Height 167.6 cm (01/21/23 5:01 PM) Weight 98 kg (01/21/23 5:01 PM) Oxygen Saturation [94-100 %] 100 % (01/21/23 8:39 PM) 100 % (01/21/23 6:11 PM) 96 % (01/21/23 4:45 PM) Pulse Rate [55-90 bpm] 100 bpm *H* (01/21/23 8:39 PM) 101 bpm *H* (01/21/23 6:11 PM) 114 bpm *H* (01/21/23 4:45 PM) Blood Pressure [90-138/55-84 mm Hg] 136/99mm Hg (01/21/23 8:39 PM) 137/82mm Hg (01/21/23 4:45 PM) Respiratory Rate [16-30 br/min] 18 br/min (01/21/23 8:39 PM) 18 br/min (01/21/23 4:45 PM) Temperature [96.8-100.4 DegF] 98.1 DegF (01/21/23 8:39 PM) Liters per Minute 2 L/min (01/21/23 8:39 PM) 2 L/min (01/21/23 6:11 PM) Mode of Delivery (Oxygen) Nasal cannula (01/21/23 8:39 PM) Nasal cannula (01/21/23 6:11 PM) Room air (01/21/23 4:45 PM) Temperature Route Oral (01/21/23 8:39 PM) Dry Weight 98 kg (01/21/23 5:01 PM) Weight Obtained Via Patient/family state d (01/21/23 5:01 PM) Dry Weight Obtained Via Patient/family s tated (01/21/23 5:01 PM) Social History Social History Type Response Smoking Status 10 or more cigarette s (1/2 pack or more)/day in last 30 days entered on: 09/25/20 Sex Note * Rahul Davenport DO R: PERFORM Event Display: Patient Education Leaflets Authored Date: [id number] Alcohol Intoxication ?? [id number] Alcohol Intoxication Alcohol intoxication is very serious. [...] to families at www.al-anon.org . Or call 843-118-7354. ??? SMART Recovery ( Self- Management and Recovery Training). A nationwide abstinence-oriented support group for people with addictive issues. This free program is focused on motivation to change, urge control, and living a balanced life. For more information and meetings near you, go to www.Conject.org/ ??? Substance Abuse and Mental Health Services Administration ([facility]) Treatment Visual Display Manager. Free information on treatment resources in your area at https://findtreatment.gov/. Or call 992-583-3828. Call 911 Call 911 if any of [...] vomiting ?? Last Reviewed Date: 2021 ?? 7098-7164 [employer]. All rights reserved. This information is not intended as a substitute for professional medical care. Always follow your healthcare professional's instructions. ?? Patient Care team information Care Team Personnel Name: Elio Pack RN Position: [facility] RN Member Role: Primary Care Nurse Name: Geni Mesa RN Position: [facility] RN Member Role: Primary Care Nurse Name: Not on Staff, PCP Position: [facility] Physician (General Medicine) Member Role: PCP Name: Nusrat Miller RN Position: [facility] RN Member Role: Primary Care Nurse Name: *[facility], ED Attending Position: [facility] ED Attendings Patient Name: Dann Salgado Position: [facility] ED RN W/OE and Tasks Member Role: Patient Care Provider Name: Shayy Hernandez Position: [facility] ED TA [facility] Member Role: Title One Reading Teacher Name: Isidro Alonzo MD Position: [facility] ED Medicine MD Member Role: ED Attending Physician Address: Address: [address] [place] [address] [place] [address]- Care Team Related Persons Name: CAROLINE RHODES Address: home [address] [place] [address]
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
--- NOTE | 2023-01-24 17:28 | PC.NURSE ---
Pt refused flu vaccine
[2023-01-24 20:07] VITALS: BP 146/80; PULSE 95; RESP 20; TEMP 37.1; O2SAT 95
[2023-01-24] MEDS: Gabapentin 300 MG CAPSULE PO ×2 (20:36)
[2023-01-24] MEDS: PHENobarbitaL 15 MG TABLET 45 MG PO (20:36)
[2023-01-24] MEDS: QUEtiapine Fumarate 100 MG TABLET PO (21:42)
[2023-01-25 08:15] VITALS: BP 142/90; PULSE 96; RESP 20; TEMP 36.7; O2SAT 94
[2023-01-25] MEDS: Albuterol Sulfate 90 MCG 8 GM INHALER 1 PUFF INHALE ×3 (08:17→20:30)
[2023-01-25] MEDS: Gabapentin 300 MG CAPSULE PO ×3 (08:22→20:24)
[2023-01-25] MEDS: PHENobarbitaL 15 MG TABLET PO ×2 (08:22→20:23)
[2023-01-25] MEDS: atenoloL 25 MG TABLET PO (08:22)
[2023-01-25] MEDS: Nicotine 21 MG PATCH.TD24 TRANSDERMA (08:23)
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
[2023-01-25] MEDS: Sertraline HCL 25 MG TABLET PO (09:20)
--- NOTE | 2023-01-25 17:44 | PC.NURSE ---
Addendum entered and electronically signed by Angela Bauman RN 01/25/23 17:49: Flipflops removed, red socks provided. Original Note: Approached this leader writer this am and stated she fell last night and did not report it. Initially stated she fell due to flipflops worn over socks. Then stated she was making her bed and fell onto bed striking knees on floor. Then stated she was opening up bed, fell onto bed and did not strike knees on floor. No redness, bruising, inflammation noted to knees. No d/o discomfort. Multiple bruises noted on body during admission process 01/24/23; anterior and posterior torso, face, upper and lower extremities due to hx falls and withdrawal seizures per pt. Dr Azar notified of report of fall. Safety checks reviewed, pt to remain on 15 min safety checks.
[2023-01-25 20:09] VITALS: BP 140/96; PULSE 106; RESP 18; TEMP 36.7; O2SAT 95
[2023-01-25] MEDS: Fluticasone Propionate 100 MCG BLST.W.DEV 1 PUFF INHALE (20:23)
[2023-01-25] MEDS: hydrOXYzine HCL 25 MG TABLET PO (20:30)
[2023-01-25] MEDS: Acetaminophen 325 MG TABLET 650 MG PO (20:30)
[2023-01-25] MEDS: QUEtiapine Fumarate 100 MG TABLET PO (21:25)
[2023-01-26] MEDS: Acetaminophen 325 MG TABLET 650 MG PO ×2 (01:26→21:03)
--- NOTE | 2023-01-26 02:58 | PC.NURSE ---
Amanda reported to this RN that she had fallen in her room while attempting to ambulate to the bathroom. c/o slight pain in her bilateral knees. Dr. Plascencia and the nursing typists supervisor made aware
[2023-01-26] MEDS: QUEtiapine Fumarate 100 MG TABLET PO ×2 (03:45→21:46)
[2023-01-26 04:45] VITALS: RESP 18
[2023-01-26 08:28] VITALS: BP 160/86; PULSE 90; RESP 16; TEMP 36.1; O2SAT 96
--- NOTE | 2023-01-26 09:10 | P.PNPSI_ITS ---
Subjective Subjective Date of Service: 01/26/23 Reason For Visit: SI and attempt Subjective Notes: Conditional Voluntary Healthcare Proxy: No Guardianship: No Medical Problems Affecting Mental Status: No Interim History: Patient was seen and discussed in rounds today. Records and plans were reviewed. She had a better day yesterday but last evening again while trying to get in bed she had a fall but on her bed with no injuries. I offered her a walker but she does not wanted. She did have trouble sleeping and Seroquel was repeated and she did sleep with that. No complaints or side effects. No changes were made Review of Systems Review of Systems Yes all other systems are reviewed and are negative Mental Status Exam Mental Status Exam Narrative: She is alert, oriented and pleasant. Normal speech. Good eye contact. Affect is appropriate, subdued and tearful. No signs of psychosis. No current SI/HI upon inquiry. Cognitively she is intact. Judgment is intact Diagnostics Vital Signs (24Hr): Vital Signs - 24 hr 01/25/23 20:09 01/26/23 04:45 01/26/23 08:28 Temperature 98.0 F 97.0 F Pulse Rate 106 H 90 Respiratory Rate 18 18 16 Blood Pressure 140/96 H 160/86 H Pulse Oximetry 95 96 Oxygen Delivery Method Room Air Room Air Medications Medications Current Medications Acetaminophen (Acetaminophen 325 Mg Tablet) 650 mg PO Q6H PRN PRN Reason: Headache/Pain Mild Scale (1-3) Last Admin: 01/26/23 01:26 Dose: 650 mg Al Hydroxide/Mg Hydroxide (Magnesium Hydrox/Alum Hydrox 30 Ml Oral.Susp) 30 ml PO Q6H PRN PRN Reason: Heartburn/Nausea Al Hydroxide/Mg Hydroxide (Magnesium Hydrox/Alum Hydrox 30 Ml Oral.Susp) 30 ml PO Q4H PRN PRN Reason: Heartburn/Nausea Albuterol Sulfate (Albuterol Sulfate 90 Mcg 8 Gm Inhaler) 1 puff INHALE RQ4H PRN PRN Reason: Shortness of Breath/Wheezing Last Admin: 01/25/23 20:30 Dose: 1 puff Atenolol (Atenolol 25 Mg Tablet) 25 mg PO DAILY DI; Protocol Last Admin: 01/25/23 08:22 Dose: 25 mg Docusate Sodium (Docusate Sodium 100 Mg Capsule) 100 mg PO DAILY PRN PRN Reason: Constipation Fluticasone Propionate (Fluticasone Propionate 100 Mcg Blst.W.Dev) 1 puff INHALE RBID [facility] Last Admin: 01/25/23 20:23 Dose: 1 puff Gabapentin (Gabapentin 300 Mg Capsule) 300 mg PO TID [facility] Last Admin: 01/25/23 20:24 Dose: 300 mg Hydralazine HCl (Hydralazine Hcl 10 Mg Tablet) 10 mg PO TID PRN; Protocol PRN Reason: SBP>180 or DBP>100 Hydroxyzine HCl (Hydroxyzine Hcl 25 Mg Tablet) 25 mg PO Q6H PRN PRN Reason: Anxiety Last Admin: 01/25/23 20:30 Dose: 25 mg Magnesium Hydroxide (Milk Of Magnesia 30 Ml Oral.Susp) 30 ml PO DAILY PRN PRN Reason: Constipation Nicotine (Nicotine 21 Mg Patch.Td24) 21 mg TRANSDERMA DAILY [facility] Last Admin: 01/25/23 08:23 Dose: 21 mg Nicotine Polacrilex (Nicotine Polacrilex 2 Mg Gum) 4 mg BUCCAL Q2H PRN PRN Reason: Nicotine Cravings Phenobarbital (Phenobarbital 15 Mg Tablet) 15 mg PO BID [facility] Stop: 01/27/23 21:00 Last Admin: 01/25/23 20:23 Dose: 15 mg Quetiapine Fumarate (Quetiapine Fumarate 100 Mg Tablet) 100 mg PO BEDTIME [facility] Last Admin: 01/25/23 21:25 Dose: 100 mg Sertraline HCl (Sertraline Hcl 25 Mg Tablet) 25 mg PO DAILY [facility] Last Admin: 01/25/23 09:20 Dose: 25 mg Allergies Allergies Allergy/AdvReac Type Severity Reaction Status Date / Time Sulfa (Sulfonamide Allergy Intermediate RASH Verified 10/12/22 11:00 Antibiotics) [SULFA (SULFONAMIDE ANTIBIOTICS)] Assessment & Plan Assessment & Plan (1) Major depression: Status: Acute Code(s): F32.9 - Major depressive disorder, single episode, unspecified (2) Alcohol withdrawal: Status: Acute Code(s): F10.939 - Alcohol use, unspecified with withdrawal, unspecified Plan Amanda meets criteria for inpatient level of care for safety and stabilization. She is not having any current acute signs of withdrawals. She continues on the phenobarbital and gabapentin. Zoloft 25 mg was initiated. Side effects discussed. She will meet with her treatment team on 01/27/202301/26: Continue current plans and regimen Reason for continued inpatient stay Substantial Risk for: med/psych decompensation Time Spent With Patient Time: Total time managing care of this patient today ____ minutes.
[2023-01-26] MEDS: Sertraline HCL 25 MG TABLET PO (09:15)
[2023-01-26] MEDS: PHENobarbitaL 15 MG TABLET PO ×2 (09:15→21:04)
[2023-01-26] MEDS: Gabapentin 300 MG CAPSULE PO ×3 (09:15→21:04)
[2023-01-26] MEDS: atenoloL 25 MG TABLET PO (09:15)
[2023-01-26] MEDS: Albuterol Sulfate 90 MCG 8 GM INHALER 1 PUFF INHALE ×2 (10:16→21:46)
[2023-01-26] MEDS: Nicotine 21 MG PATCH.TD24 TRANSDERMA (12:59)
[2023-01-26 19:35] VITALS: BP 169/98; PULSE 95; RESP 16; TEMP 36.7; O2SAT 96
[2023-01-27] MEDS: Albuterol Sulfate 90 MCG 8 GM INHALER 1 PUFF INHALE ×2 (07:16→21:04)
[2023-01-27 09:05] VITALS: BP 170/101; PULSE 105; RESP 18; TEMP 32.2; O2SAT 97
[2023-01-27] MEDS: atenoloL 25 MG TABLET PO (09:11)
[2023-01-27] MEDS: PHENobarbitaL 15 MG TABLET PO ×2 (09:11→21:05)
[2023-01-27] MEDS: Gabapentin 300 MG CAPSULE PO ×2 (09:11→14:05)
[2023-01-27] MEDS: Nicotine 21 MG PATCH.TD24 TRANSDERMA (09:11)
[2023-01-27] MEDS: Sertraline HCL 25 MG TABLET PO (09:11)
[2023-01-27] MEDS: Acetaminophen 325 MG TABLET 650 MG PO (09:16)
[2023-01-27] MEDS: hydrALAZINE HCl 10 MG TABLET PO (09:16)
[2023-01-27 09:45] VITALS: BP 155/104; PULSE 106; RESP 18
[2023-01-27 13:31] VITALS: BP 164/103; PULSE 77
--- NOTE | 2023-01-27 13:32 | PM.EVENT ---
Event Note Date of Service: 01/27/23 Event Note: Pt with uncontrolled htn. Add hctz 12.5mg daily. Continue amlodipine 10mg and atenolol 25mg as prescribed. Follow blood pressures. Check renal function/lytes in 3d. Time Spent With Patient Time: Total time managing care of this patient today ____ minutes.
[2023-01-27] MEDS: amLODIPine Besylate 10 MG TABLET PO (14:04)
--- NOTE | 2023-01-27 15:47 | HO.PSYCHPN ---
Subjective Subjective Date of Service: 01/27/23 Reason For Visit: SI and attempt Interim History: somewhat emotional, teary. reporting trauma Hx and c/o always feeling on edge, irritability, mood instability, anxiety, jumpiness, hypervigilance. pt states she has been on clonidine before without help and is resistant to being on it again. aware she is on SSRI presently, zoloft, agreeable to increase dose from 25 mg to 50 mg. agrees to trial of doxazosin, which she has not been on in the past. c/o neuropathic pain, presumed to be alcoholic, agrees to increase gabapentin from 300 TID to 600 TID. per staff, reporting falls in her room, unwitnessed. no post-traumatic sequelae observed, no pain complaints. c/o foul-smelling urine. Mental Status Exam Mental Status Exam Narrative: She is alert, oriented. Normal speech. Good eye contact. Affect is appropriate, subdued and tearful. No signs of psychosis. thoughts linear and logical. mood anxious. no SI/HI/AVH expressed. Cognitively she is intact. Judgment is intact Diagnostics Vital Signs (24Hr): Vital Signs - 24 hr 01/26/23 19:35 01/27/23 09:05 01/27/23 09:45 Temperature 98.1 F 89.9 F L Pulse Rate 95 105 H 106 H Respiratory Rate 16 18 18 Blood Pressure 169/98 H 170/101 H 155/104 H Pulse Oximetry 96 97 Oxygen Delivery Method Room Air 01/27/23 13:31 Temperature Pulse Rate 77 Respiratory Rate Blood Pressure 164/103 H Pulse Oximetry Oxygen Delivery Method Medications Medications Current Medications Acetaminophen (Acetaminophen 325 Mg Tablet) 650 mg PO Q6H PRN PRN Reason: Headache/Pain Mild Scale (1-3) Last Admin: 01/27/23 09:16 Dose: 650 mg Al Hydroxide/Mg Hydroxide (Magnesium Hydrox/Alum Hydrox 30 Ml Oral.Susp) 30 ml PO Q6H PRN PRN Reason: Heartburn/Nausea Al Hydroxide/Mg Hydroxide (Magnesium Hydrox/Alum Hydrox 30 Ml Oral.Susp) 30 ml PO Q4H PRN PRN Reason: Heartburn/Nausea Albuterol Sulfate (Albuterol Sulfate 90 Mcg 8 Gm Inhaler) 1 puff INHALE RQ4H PRN PRN Reason: Shortness of Breath/Wheezing Last Admin: 01/27/23 07:16 Dose: 1 puff Amlodipine Besylate (Amlodipine Besylate 10 Mg Tablet) 10 mg PO DAILY [facility]; Protocol Last Admin: 01/27/23 14:04 Dose: 10 mg Atenolol (Atenolol 25 Mg Tablet) 25 mg PO DAILY [facility]; Protocol Last Admin: 01/27/23 09:11 Dose: 25 mg Docusate Sodium (Docusate Sodium 100 Mg Capsule) 100 mg PO DAILY PRN PRN Reason: Constipation Doxazosin Mesylate (Doxazosin Mesylate 1 Mg Tablet) 1 mg PO DAILY [facility]; Protocol Fluticasone Propionate (Fluticasone Propionate 100 Mcg Blst.W.Dev) 1 puff INHALE RBID [facility] Last Admin: 01/27/23 09:16 Dose: Not Given Gabapentin (Gabapentin 300 Mg Capsule) 600 mg PO TID [facility] Hydralazine HCl (Hydralazine Hcl 10 Mg Tablet) 10 mg PO TID PRN; Protocol PRN Reason: SBP>180 or DBP>100 Last Admin: 01/27/23 09:16 Dose: 10 mg Magnesium Hydroxide (Milk Of Magnesia 30 Ml Oral.Susp) 30 ml PO DAILY PRN PRN Reason: Constipation Nicotine (Nicotine 21 Mg Patch.Td24) 21 mg TRANSDERMA DAILY [facility] Last Admin: 01/27/23 09:11 Dose: 21 mg Nicotine Polacrilex (Nicotine Polacrilex 2 Mg Gum) 4 mg BUCCAL Q2H PRN PRN Reason: Nicotine Cravings Phenobarbital (Phenobarbital 15 Mg Tablet) 15 mg PO BID [facility] Stop: 01/27/23 21:00 Last Admin: 01/27/23 09:11 Dose: 15 mg Quetiapine Fumarate (Quetiapine Fumarate 100 Mg Tablet) 100 mg PO BEDTIME [facility] Last Admin: 01/26/23 21:46 Dose: 100 mg Sertraline HCl (Sertraline Hcl 50 Mg Tablet) 50 mg PO DAILY [facility] Allergies Allergies Allergy/AdvReac Type Severity Reaction Status Date / Time Sulfa (Sulfonamide Allergy Intermediate RASH Verified 10/12/22 11:00 Antibiotics) [SULFA (SULFONAMIDE ANTIBIOTICS)] Assessment & Plan Assessment & Plan (1) Major depression: Status: Acute Code(s): F32.9 - Major depressive disorder, single episode, unspecified (2) Alcohol withdrawal: Status: Acute Code(s): F10.939 - Alcohol use, unspecified with withdrawal, unspecified Plan 01/25: Amanda meets criteria for inpatient level of care for safety and stabilization. She is not having any current acute signs of withdrawal. She continues on the phenobarbital and gabapentin. Zoloft 25 mg was initiated. Side effects discussed. She will meet with her treatment team on 01/27/202301/26: Continue current plans and regimen. 01/27: increase zoloft to 50 mg daily. increase gabapentin to 600 TID for neuropathic pain. start doxazosin 1 mg daily for BP and PTSD-related anxiety. Reason for continued inpatient stay Substantial Risk for: inability to function and rapid decompensation Time Spent With Patient Time: Total time managing care of this patient today _35___ minutes.
[2023-01-27 16:14] LABS: Appearance Urine Clear; Color Urine Yellow; Glucose Urine UA Negative (Negative); Leukocyte Esterase Urine Negative (Negative); Nitrite Urine Negative (Negative); Specific Gravity - Urine 1.015 (1.005-1.025); Urine Blood Negative (Negative); Urine Ketones Negative (Negative); Urine Protein Trace mg/dL (Neg-Trace)
[2023-01-27] MEDS: Doxazosin Mesylate 1 MG TABLET PO (16:47)
[2023-01-27 16:49] VITALS: BP 163/99; PULSE 93
[2023-01-27 16:49] LABS: MANUAL DIFF FLAG NO
[2023-01-27 16:56] LABS: Basophils Percent Auto 0.4 % (0-2); Eosinophils Percent Auto 0.6 % (0-4); Hematocrit 36.4 % (37.0-47.0); Hemoglobin 12.1 g/dl (12.0-16.0); Imm Gran Abs Auto 0.01 X10*3/uL (0.00-0.03); Imm Gran Pct Auto 0.2 % (0.0-0.4); Lymphocytes Absolute Auto 1.3 X10*3/uL (1.2-4.9); Lymphocytes Percent Auto 25.4 % (20-40); Mean Corpuscular HGB Conc 33.2 g/dl (31.0-35.0); Mean Corpuscular Hemoglobin 35.6 pg (27.0-33.0); Mean Corpuscular Volume 107.1 fL (80.0-98.0); Monocytes Absolute Auto 0.4 X10*3/uL (0.1-1.2); Monocytes Percent Auto 8.1 % (2-11); Neutrophils Absolute Auto 3.2 x10*3/uL (2.0-8.3); Neutrophils Percent Auto 65.3 % (45-73); Platelet Count 118 X10*3/uL (160-400); Red Cell Distribution Width 13.7 % (11.0-16.0)
[2023-01-27 17:14] LABS: Alanine Aminotransferase 115 U/L (0-31); Albumin Level 3.9 g/dL (3.5-5.0); Alkaline Phosphatase 199 U/L (39-117); Anion Gap 17 (12-20); Aspartate Amino Transferase 105 U/L (5-31); Bilirubin Direct 0.6 mg/dL (0.0-0.5); Blood Urea Nitrogen 8 mg/dL (9-16); Calcium 10.1 mg/dL (8.4-10.2); Carbon Dioxide 22 mmol/L (22-29); Chloride 101 mmol/L (96-108); Estimated Glomerular Filt Rate > 60; Glucose Random 208 mg/dL (60-115); INTERNATIONAL NORM RATIO 0.9 (0.9-1.1); Potassium 4.4 mmol/L (3.3-5.1); Prothrombin Time 11.4 SEC (11.1-13.3); Sodium 136 mmol/L (135-145); Total Protein 7.8 g/dL (6.5-8.0)
[2023-01-27 17:29] LABS: TSH reflex Free T4 1.37 uIU/mL (0.32-4.0)
[2023-01-27 17:43] LABS: Folate 15.4 ng/mL (> or = 4.0); Vitamin B12 419 pg/mL (200-900)
[2023-01-27 19:45] VITALS: BP 139/87; PULSE 105; RESP 15; TEMP 36.7; O2SAT 96
[2023-01-27] MEDS: Gabapentin 300 MG CAPSULE 600 MG PO (21:05)
[2023-01-27] MEDS: QUEtiapine Fumarate 100 MG TABLET PO (21:05)
[2023-01-28] MEDS: QUEtiapine Fumarate 50 MG TABLET PO ×4 (04:49→22:18)
[2023-01-28 08:00] VITALS: BP 149/80; PULSE 99; RESP 16; TEMP 36.6; O2SAT 97
[2023-01-28 08:05] VITALS: BP 133/84; PULSE 108; TEMP 36.6; O2SAT 97
[2023-01-28] MEDS: amLODIPine Besylate 10 MG TABLET PO (08:33)
[2023-01-28] MEDS: Sertraline HCL 50 MG TABLET PO (08:33)
[2023-01-28] MEDS: Doxazosin Mesylate 1 MG TABLET PO (08:33)
[2023-01-28] MEDS: atenoloL 25 MG TABLET PO (08:33)
[2023-01-28] MEDS: Gabapentin 300 MG CAPSULE 600 MG PO ×3 (08:33→20:44)
[2023-01-28] MEDS: Nicotine 21 MG PATCH.TD24 TRANSDERMA (08:37)
--- NOTE | 2023-01-28 09:56 | HO.PSYCHPN ---
Subjective Subjective Date of Service: 01/28/23 Reason For Visit: SI and attempt Subjective Notes: Conditional Voluntary Interim History: Reviewed with . Pt reports feeling anxious today. She is requesting increase in Seroquel throughout the day. Pt reports feeling irritable because I just want to go to a CSS program . denies SI/HI/VH/AH. Medication Compliance: Yes Side effects from medications: No Attending Groups: Yes Review of Systems Constitutional: Reports as per HPI Eyes: Reports as per HPI Reports as per HPI Cardiovascular: Reports as per HPI Respiratory: Reports as per HPI Gastrointestinal: Reports as per HPI Genitourinary: Reports as per HPI Musculoskeletal: Reports as per HPI Skin/Breast: Reports as per HPI Reports as per HPI Psychiatric: Reports as per HPI Endocrine: Reports as per HPI Hematologic/Lymphatic: Reports as per HPI Allergic/Immunologic: Reports as per HPI Mental Status Exam Mental Status Exam Narrative: Pt is alert and oriented; behavior is cooperative and calm; dressed in casual attire; mood is described as anxious ; eye contact appropriate; Speech is normal rate, volume and prosody and not pressured; no psychomotor agitation/retardation present; thought process is organized and goal directed; Thought content is on tx; otherwise pertinent to relevant topics and without any delusional content, paranoid ideations or grandiosity; denies HI. Reports passive suicidal ideation. There is no evidence of perceptual disturbance. Patients insight and judgment are poor. Diagnostics Vital Signs (24Hr): Vital Signs - 24 hr 01/27/23 13:31 01/27/23 16:49 01/27/23 19:45 Temperature 98.1 F Pulse Rate 77 93 105 H Respiratory Rate 15 Blood Pressure 164/103 H 163/99 H 139/87 Pulse Oximetry 96 Oxygen Delivery Method Room Air 01/28/23 08:05 Temperature 97.9 F Pulse Rate 108 H Respiratory Rate Blood Pressure 133/84 Pulse Oximetry 97 Oxygen Delivery Method Room Air Labs 01/27/23 16:45 01/27/23 16:45 Labs: Laboratory Results - last 48 hr 01/27/23 01/27/23 01/27/23 16:45 16:45 Unknown WBC 5.0 RBC 3.40 L Hgb 12.1 Hct 36.4 L MCV 107.1 H MCH 35.6 H MCHC 33.2 RDW 13.7 Plt Count 118 L D MPV 11.0 Immature Gran % (Auto) 0.2 Neut % (Auto) 65.3 Lymph % (Auto) 25.4 [place] % (Auto) 8.1 Eos % (Auto) 0.6 Baso % (Auto) 0.4 Lymph # (Auto) 1.3 [place] # (Auto) 0.4 Eos # (Auto) 0.0 Baso # (Auto) 0.0 Abs Immat Gran (auto) 0.01 Absolute Neuts (auto) 3.2 Absolute Nucleated RBC 0.000 Nucleated RBC % (auto) 0.0 PT 11.4 INR 0.9 Sodium 136 Potassium 4.4 Chloride 101 Carbon Dioxide 22 Anion Gap 17 BUN 8 L Creatinine 0.67 Estim Creat Clear Calc TNP Estimated GFR > 60 Random Glucose 208 H Calcium 10.1 D Total Bilirubin 1.0 Direct Bilirubin 0.6 H AST 105 H ALT 115 H Alkaline Phosphatase 199 H Total Protein 7.8 Albumin 3.9 Vitamin B12 419 Folate 15.4 TSH 1.37 Cancelled Urine Color Yellow Urine Appearance Clear Urine pH 6.0 Ur Specific [place] 1.015 Urine Protein Trace Urine Glucose (UA) Negative Urine Ketones Negative Urine Blood Negative Urine Nitrite Negative Ur Leukocyte Esterase Negative Medications Medications Current Medications Acetaminophen (Acetaminophen 325 Mg Tablet) 650 mg PO Q6H PRN PRN Reason: Headache/Pain Mild Scale (1-3) Last Admin: 01/27/23 09:16 Dose: 650 mg Al Hydroxide/Mg Hydroxide (Magnesium Hydrox/Alum Hydrox 30 Ml Oral.Susp) 30 ml PO Q6H PRN PRN Reason: Heartburn/Nausea Al Hydroxide/Mg Hydroxide (Magnesium Hydrox/Alum Hydrox 30 Ml Oral.Susp) 30 ml PO Q4H PRN PRN Reason: Heartburn/Nausea Albuterol Sulfate (Albuterol Sulfate 90 Mcg 8 Gm Inhaler) 1 puff INHALE RQ4H PRN PRN Reason: Shortness of Breath/Wheezing Last Admin: 01/27/23 21:04 Dose: 1 puff Amlodipine Besylate (Amlodipine Besylate 10 Mg Tablet) 10 mg PO DAILY [facility]; Protocol Last Admin: 01/28/23 08:33 Dose: 10 mg Atenolol (Atenolol 25 Mg Tablet) 25 mg PO DAILY [facility]; Protocol Last Admin: 01/28/23 08:33 Dose: 25 mg Docusate Sodium (Docusate Sodium 100 Mg Capsule) 100 mg PO DAILY PRN PRN Reason: Constipation Doxazosin Mesylate (Doxazosin Mesylate 1 Mg Tablet) 1 mg PO DAILY [facility]; Protocol Last Admin: 01/28/23 08:33 Dose: 1 mg Fluticasone Propionate (Fluticasone Propionate 100 Mcg Blst.W.Dev) 1 puff INHALE RBID [facility] Last Admin: 01/28/23 08:39 Dose: Not Given Gabapentin (Gabapentin 300 Mg Capsule) 600 mg PO TID [facility] Last Admin: 01/28/23 08:33 Dose: 600 mg Hydralazine HCl (Hydralazine Hcl 10 Mg Tablet) 10 mg PO TID PRN; Protocol PRN Reason: SBP>180 or DBP>100 Last Admin: 01/27/23 09:16 Dose: 10 mg Magnesium Hydroxide (Milk Of Magnesia 30 Ml Oral.Susp) 30 ml PO DAILY PRN PRN Reason: Constipation Nicotine (Nicotine 21 Mg Patch.Td24) 21 mg TRANSDERMA DAILY [facility] Last Admin: 01/28/23 08:37 Dose: 21 mg Nicotine Polacrilex (Nicotine Polacrilex 2 Mg Gum) 4 mg BUCCAL Q2H PRN PRN Reason: Nicotine Cravings Quetiapine Fumarate (Quetiapine Fumarate 100 Mg Tablet) 100 mg PO BEDTIME [facility] Last Admin: 01/27/23 21:05 Dose: 100 mg Sertraline HCl (Sertraline Hcl 50 Mg Tablet) 50 mg PO DAILY [facility] Last Admin: 01/28/23 08:33 Dose: 50 mg Allergies Allergies Allergy/AdvReac Type Severity Reaction Status Date / Time Sulfa (Sulfonamide Allergy Intermediate RASH Verified 10/12/22 11:00 Antibiotics) [SULFA (SULFONAMIDE ANTIBIOTICS)] Assessment & Plan Assessment & Plan (1) Major depression: Status: Acute Code(s): F32.9 - Major depressive disorder, single episode, unspecified (2) Alcohol withdrawal: Status: Acute Code(s): F10.939 - Alcohol use, unspecified with withdrawal, unspecified Plan 01/25: Amanda meets criteria for inpatient level of care for safety and stabilization. She is not having any current acute signs of withdrawal. She continues on the phenobarbital and gabapentin. Zoloft 25 mg was initiated. Side effects discussed. She will meet with her treatment team on 01/27/202301/26: Continue current plans and regimen. 01/27: increase zoloft to 50 mg daily. increase gabapentin to 600 TID for neuropathic pain. start doxazosin 1 mg daily for BP and PTSD-related anxiety. 01/28: Pt reports feeling anxious today. She is requesting increase in Seroquel throughout the day. Pt reports feeling irritable because I just want to go to a CSS program . denies SI/HI/VH/AH. Seroquel increased to 50mg PO TID. Patient educated on: diagnosis, medication risk/benefits, substance abuse and therapeutic strategies Informed Consent: understands Reason for continued inpatient stay Substantial Risk for: med/psych decompensation Time Spent With Patient Time: Total time managing care of this patient today _30___ minutes.
[2023-01-28 15:24] VITALS: BP 133/76; PULSE 101; RESP 16; TEMP 36.7; O2SAT 99
[2023-01-28] MEDS: QUEtiapine Fumarate 100 MG TABLET PO (22:19)
[2023-01-29] MEDS: Nicotine 21 MG PATCH.TD24 TRANSDERMA (07:46)
[2023-01-29] MEDS: amLODIPine Besylate 10 MG TABLET PO (07:46)
[2023-01-29] MEDS: Fluticasone Propionate 100 MCG BLST.W.DEV 1 PUFF INHALE (07:46)
[2023-01-29] MEDS: atenoloL 25 MG TABLET PO (07:47)
[2023-01-29] MEDS: Gabapentin 300 MG CAPSULE 600 MG PO ×3 (07:47→20:31)
[2023-01-29] MEDS: QUEtiapine Fumarate 50 MG TABLET PO ×3 (07:47→17:24)
[2023-01-29] MEDS: Doxazosin Mesylate 1 MG TABLET PO (07:48)
[2023-01-29] MEDS: Sertraline HCL 50 MG TABLET PO (07:48)
[2023-01-29 08:13] VITALS: BP 141/92; PULSE 85; TEMP 36.5; O2SAT 94
--- NOTE | 2023-01-29 09:41 | P.PNPSI_ITS ---
Subjective Subjective Date of Service: 01/29/23 Reason For Visit: SI and attempt Subjective Notes: Conditional Voluntary Interim History: Reviewed with . Pt continues irritable, short tempered, observed yelling on phone; upset at partner for not giving her father more clothing to bring to the hospital. Reports feeling bored . She reports sleep improved last night d/t increase in Seroquel; is requesting an additional dose during the evening. Seroquel increased to 50mg PO 0900, 1400, 1700 and 200mg PO bedtime. Waiting to hear back from [facility]. denies SI/HI/VH/AH. Medication Compliance: Yes Side effects from medications: No Attending Groups: Intermittent Review of Systems Constitutional: Reports as per HPI Eyes: Reports as per HPI Reports as per HPI Cardiovascular: Reports as per HPI Respiratory: Reports as per HPI Gastrointestinal: Reports as per HPI Genitourinary: Reports as per HPI Musculoskeletal: Reports as per HPI Skin/Breast: Reports as per HPI Reports as per HPI Psychiatric: Reports as per HPI Endocrine: Reports as per HPI Hematologic/Lymphatic: Reports as per HPI Allergic/Immunologic: Reports as per HPI Mental Status Exam Mental Status Exam Narrative: Pt is alert and oriented; behavior is cooperative and calm; dressed in casual attire; mood is described as irritated ; eye contact appropriate; Speech is normal rate, volume and prosody and not pressured; no psychomotor agitation/retardation present; thought process is organized and goal directed; Thought content is on tx; otherwise pertinent to relevant topics and without any delusional content, paranoid ideations or grandiosity; denies SI/HI. There is no evidence of perceptual disturbance. Patients insight and judgment are poor but improving. Diagnostics Vital Signs (24Hr): Vital Signs - 24 hr 01/28/23 15:24 01/29/23 08:13 Temperature 98.0 F 97.7 F Pulse Rate 101 H 85 Respiratory Rate 16 Blood Pressure 133/76 141/92 H Pulse Oximetry 99 94 Oxygen Delivery Method Room Air Room Air Labs 01/27/23 16:45 01/27/23 16:45 Labs: Laboratory Results - last 48 hr 01/27/23 01/27/23 01/27/23 16:45 16:45 Unknown WBC 5.0 RBC 3.40 L Hgb 12.1 Hct 36.4 L MCV 107.1 H MCH 35.6 H MCHC 33.2 RDW 13.7 Plt Count 118 L D MPV 11.0 Immature Gran % (Auto) 0.2 Neut % (Auto) 65.3 Lymph % (Auto) 25.4 [place] % (Auto) 8.1 Eos % (Auto) 0.6 Baso % (Auto) 0.4 Lymph # (Auto) 1.3 [place] # (Auto) 0.4 Eos # (Auto) 0.0 Baso # (Auto) 0.0 Abs Immat Gran (auto) 0.01 Absolute Neuts (auto) 3.2 Absolute Nucleated RBC 0.000 Nucleated RBC % (auto) 0.0 PT 11.4 INR 0.9 Sodium 136 Potassium 4.4 Chloride 101 Carbon Dioxide 22 Anion Gap 17 BUN 8 L Creatinine 0.67 Estim Creat Clear Calc TNP Estimated GFR > 60 Random Glucose 208 H Calcium 10.1 D Total Bilirubin 1.0 Direct Bilirubin 0.6 H AST 105 H ALT 115 H Alkaline Phosphatase 199 H Total Protein 7.8 Albumin 3.9 Vitamin B12 419 Folate 15.4 TSH 1.37 Cancelled Urine Color Yellow Urine Appearance Clear Urine pH 6.0 Ur Specific [place] 1.015 Urine Protein Trace Urine Glucose (UA) Negative Urine Ketones Negative Urine Blood Negative Urine Nitrite Negative Ur Leukocyte Esterase Negative Medications Medications Current Medications Acetaminophen (Acetaminophen 325 Mg Tablet) 650 mg PO Q6H PRN PRN Reason: Headache/Pain Mild Scale (1-3) Last Admin: 01/27/23 09:16 Dose: 650 mg Al Hydroxide/Mg Hydroxide (Magnesium Hydrox/Alum Hydrox 30 Ml Oral.Susp) 30 ml PO Q6H PRN PRN Reason: Heartburn/Nausea Al Hydroxide/Mg Hydroxide (Magnesium Hydrox/Alum Hydrox 30 Ml Oral.Susp) 30 ml PO Q4H PRN PRN Reason: Heartburn/Nausea Albuterol Sulfate (Albuterol Sulfate 90 Mcg 8 Gm Inhaler) 1 puff INHALE RQ4H PRN PRN Reason: Shortness of Breath/Wheezing Last Admin: 01/27/23 21:04 Dose: 1 puff Amlodipine Besylate (Amlodipine Besylate 10 Mg Tablet) 10 mg PO DAILY [facility]; Protocol Last Admin: 01/29/23 07:46 Dose: 10 mg Atenolol (Atenolol 25 Mg Tablet) 25 mg PO DAILY [facility]; Protocol Last Admin: 01/29/23 07:47 Dose: 25 mg Docusate Sodium (Docusate Sodium 100 Mg Capsule) 100 mg PO DAILY PRN PRN Reason: Constipation Doxazosin Mesylate (Doxazosin Mesylate 1 Mg Tablet) 1 mg PO DAILY [facility]; Protocol Last Admin: 01/29/23 07:48 Dose: 1 mg Fluticasone Propionate (Fluticasone Propionate 100 Mcg Blst.W.Dev) 1 puff INHALE RBID [facility] Last Admin: 01/29/23 07:46 Dose: 1 puff Gabapentin (Gabapentin 300 Mg Capsule) 600 mg PO TID [facility] Last Admin: 01/29/23 07:47 Dose: 600 mg Hydralazine HCl (Hydralazine Hcl 10 Mg Tablet) 10 mg PO TID PRN; Protocol PRN Reason: SBP>180 or DBP>100 Last Admin: 01/27/23 09:16 Dose: 10 mg Magnesium Hydroxide (Milk Of Magnesia 30 Ml Oral.Susp) 30 ml PO DAILY PRN PRN Reason: Constipation Nicotine (Nicotine 21 Mg Patch.Td24) 21 mg TRANSDERMA DAILY [facility] Last Admin: 01/29/23 07:46 Dose: 21 mg Nicotine Polacrilex (Nicotine Polacrilex 2 Mg Gum) 4 mg BUCCAL Q2H PRN PRN Reason: Nicotine Cravings Quetiapine Fumarate (Quetiapine Fumarate 100 Mg Tablet) 100 mg PO BEDTIME [facility] Last Admin: 01/28/23 22:19 Dose: 100 mg Quetiapine Fumarate (Quetiapine Fumarate 50 Mg Tablet) 50 mg PO TID [facility] Last Admin: 01/29/23 07:47 Dose: 50 mg Sertraline HCl (Sertraline Hcl 50 Mg Tablet) 50 mg PO DAILY [facility] Last Admin: 01/29/23 07:48 Dose: 50 mg Allergies Allergies Allergy/AdvReac Type Severity Reaction Status Date / Time Sulfa (Sulfonamide Allergy Intermediate RASH Verified 10/12/22 11:00 Antibiotics) [SULFA (SULFONAMIDE ANTIBIOTICS)] Assessment & Plan Assessment & Plan (1) Major depression: Status: Acute Code(s): F32.9 - Major depressive disorder, single episode, unspecified (2) Alcohol withdrawal: Status: Acute Code(s): F10.939 - Alcohol use, unspecified with withdrawal, unspecified Plan 01/25: Amanda meets criteria for inpatient level of care for safety and stabilization. She is not having any current acute signs of withdrawal. She continues on the phenobarbital and gabapentin. Zoloft 25 mg was initiated. Side effects discussed. She will meet with her treatment team on 01/27/202301/26: Continue current plans and regimen. 01/27: increase zoloft to 50 mg daily. increase gabapentin to 600 TID for neuropathic pain. start doxazosin 1 mg daily for BP and PTSD-related anxiety. 01/28: Pt reports feeling anxious today. She is requesting increase in Seroquel throughout the day. Pt reports feeling irritable because I just want to go to a CSS program . denies SI/HI/VH/AH. Seroquel increased to 50mg PO TID. 01/29: Pt continues irritable, short tempered, observed yelling on phone; upset at partner for not giving her father more clothing to bring to the hospital. She reports sleep improved last night d/t increase in Seroquel; is requesting an additional dose during the evening. Seroquel increased to 50mg PO 0900, 1400, 1700 and 200mg PO bedtime. Waiting to hear back from [facility]. Patient educated on: diagnosis, medication risk/benefits, substance abuse and therapeutic strategies Informed Consent: understands Reason for continued inpatient stay Substantial Risk for: med/psych decompensation Time Spent With Patient Time: Total time managing care of this patient today _30___ minutes.
[2023-01-29 13:00] VITALS: BP 138/94; PULSE 104
[2023-01-29] MEDS: docosanoL 10 % Cream 2 GM TUBE 1 APPL TOPICAL ×3 (14:03→20:27)
--- NOTE | 2023-01-29 19:44 | PM.EVENT ---
Event Note Date of Service: 01/29/23 Event Note: Patient's blood pressure better controlled the past few days though remains slightly elevated at 138/94. Will hold off for now on making any changes to patient's antihypertensives. Continue amlodipine 10 mg daily and atenolol 25 mg daily. Will continue to follow to monitor BP for the next couple of days. Time Spent With Patient Time: Total time managing care of this patient today ____ minutes.
[2023-01-29 20:26] VITALS: BP 130/63; PULSE 92; TEMP 36.4; O2SAT 95
[2023-01-29] MEDS: QUEtiapine Fumarate 200 MG TABLET PO (21:50)
[2023-01-30 08:10] VITALS: BP 142/67; PULSE 85; RESP 16; TEMP 36.3; O2SAT 98
[2023-01-30 08:16] VITALS: BMI 38.3
[2023-01-30] MEDS: Nicotine 21 MG PATCH.TD24 TRANSDERMA (08:59)
[2023-01-30] MEDS: Sertraline HCL 50 MG TABLET PO (09:00)
[2023-01-30] MEDS: Doxazosin Mesylate 1 MG TABLET PO (09:00)
[2023-01-30] MEDS: amLODIPine Besylate 10 MG TABLET PO (09:01)
[2023-01-30] MEDS: atenoloL 25 MG TABLET PO (09:01)
[2023-01-30] MEDS: Gabapentin 300 MG CAPSULE 600 MG PO ×3 (09:01→21:59)
[2023-01-30] MEDS: docosanoL 10 % Cream 2 GM TUBE 1 APPL TOPICAL ×4 (09:02→20:52)
[2023-01-30] MEDS: Albuterol Sulfate 90 MCG 8 GM INHALER 1 PUFF INHALE ×2 (09:03→21:59)
[2023-01-30] MEDS: QUEtiapine Fumarate 50 MG TABLET PO ×2 (09:15→13:42)
--- NOTE | 2023-01-30 09:24 | HO.PSYCHPN ---
Subjective Subjective Date of Service: 01/30/23 Reason For Visit: SI and attempt Subjective Notes: Conditional Voluntary Interim History: Reviewed with . Pt reports she is feeling stressed and ready to go ; pt stated, I'm over this place. People are annoying me . Pt reports she has been sleeping well. Requesting increase in Seroquel to help with anxiety and agitation. Medication Compliance: Yes Side effects from medications: No Attending Groups: Intermittent Review of Systems Constitutional: Reports as per HPI Eyes: Reports as per HPI Reports as per HPI Cardiovascular: Reports as per HPI Respiratory: Reports as per HPI Gastrointestinal: Reports as per HPI Genitourinary: Reports as per HPI Musculoskeletal: Reports as per HPI Skin/Breast: Reports as per HPI Reports as per HPI Psychiatric: Reports as per HPI Endocrine: Reports as per HPI Hematologic/Lymphatic: Reports as per HPI Allergic/Immunologic: Reports as per HPI Mental Status Exam Mental Status Exam Narrative: Pt is alert and oriented; behavior is cooperative; dressed in casual attire; mood is described as stressed ; eye contact appropriate; Speech is normal rate, volume and prosody and not pressured; no psychomotor agitation/retardation present; thought process is organized and goal directed; Thought content is on discharged; otherwise pertinent to relevant topics and without any delusional content, paranoid ideations or grandiosity; denies SI/HI. There is no evidence of perceptual disturbance. Patients insight and judgment are fair. Diagnostics Vital Signs (24Hr): Vital Signs - 24 hr 01/29/23 13:00 01/29/23 20:26 01/30/23 08:10 Temperature 97.5 F 97.3 F Pulse Rate 104 H 92 85 Respiratory Rate 16 Blood Pressure 138/94 H 130/63 142/67 H Pulse Oximetry 95 98 Oxygen Delivery Method Room Air Room Air BMI result Body Mass Index 38.3 Labs 01/27/23 16:45 01/27/23 16:45 Medications Medications Current Medications Acetaminophen (Acetaminophen 325 Mg Tablet) 650 mg PO Q6H PRN PRN Reason: Headache/Pain Mild Scale (1-3) Last Admin: 01/27/23 09:16 Dose: 650 mg Al Hydroxide/Mg Hydroxide (Magnesium Hydrox/Alum Hydrox 30 Ml Oral.Susp) 30 ml PO Q6H PRN PRN Reason: Heartburn/Nausea Al Hydroxide/Mg Hydroxide (Magnesium Hydrox/Alum Hydrox 30 Ml Oral.Susp) 30 ml PO Q4H PRN PRN Reason: Heartburn/Nausea Albuterol Sulfate (Albuterol Sulfate 90 Mcg 8 Gm Inhaler) 1 puff INHALE RQ4H PRN PRN Reason: Shortness of Breath/Wheezing Last Admin: 01/30/23 09:03 Dose: 1 puff Amlodipine Besylate (Amlodipine Besylate 10 Mg Tablet) 10 mg PO DAILY [facility]; Protocol Last Admin: 01/30/23 09:01 Dose: 10 mg Atenolol (Atenolol 25 Mg Tablet) 25 mg PO DAILY [facility]; Protocol Last Admin: 01/30/23 09:01 Dose: 25 mg Docosanol (Docosanol 10 % Cream 2 Gm Tube) 1 appl TOPICAL 5XD [facility]; Protocol Last Admin: 01/30/23 09:02 Dose: 1 appl Docusate Sodium (Docusate Sodium 100 Mg Capsule) 100 mg PO DAILY PRN PRN Reason: Constipation Doxazosin Mesylate (Doxazosin Mesylate 1 Mg Tablet) 1 mg PO DAILY [facility]; Protocol Last Admin: 01/30/23 09:00 Dose: 1 mg Fluticasone Propionate (Fluticasone Propionate 100 Mcg Blst.W.Dev) 1 puff INHALE RBID [facility] Last Admin: 01/30/23 09:03 Dose: Not Given Gabapentin (Gabapentin 300 Mg Capsule) 600 mg PO TID [facility] Last Admin: 01/30/23 09:01 Dose: 600 mg Hydralazine HCl (Hydralazine Hcl 10 Mg Tablet) 10 mg PO TID PRN; Protocol PRN Reason: SBP>180 or DBP>100 Last Admin: 01/27/23 09:16 Dose: 10 mg Magnesium Hydroxide (Milk Of Magnesia 30 Ml Oral.Susp) 30 ml PO DAILY PRN PRN Reason: Constipation Nicotine (Nicotine 21 Mg Patch.Td24) 21 mg TRANSDERMA DAILY [facility] Last Admin: 01/30/23 08:59 Dose: 21 mg Nicotine Polacrilex (Nicotine Polacrilex 2 Mg Gum) 4 mg BUCCAL Q2H PRN PRN Reason: Nicotine Cravings Quetiapine Fumarate (Quetiapine Fumarate 200 Mg Tablet) 200 mg PO BEDTIME [facility] Last Admin: 01/29/23 21:50 Dose: 200 mg Quetiapine Fumarate (Quetiapine Fumarate 50 Mg Tablet) 50 mg PO TID@0900,1400,1700 [facility] Last Admin: 01/30/23 09:15 Dose: 50 mg Sertraline HCl (Sertraline Hcl 50 Mg Tablet) 50 mg PO DAILY [facility] Last Admin: 01/30/23 09:00 Dose: 50 mg Allergies Allergies Allergy/AdvReac Type Severity Reaction Status Date / Time Sulfa (Sulfonamide Allergy Intermediate RASH Verified 10/12/22 11:00 Antibiotics) [SULFA (SULFONAMIDE ANTIBIOTICS)] Assessment & Plan Assessment & Plan (1) Major depression: Status: Acute Code(s): F32.9 - Major depressive disorder, single episode, unspecified (2) Alcohol withdrawal: Status: Acute Code(s): F10.939 - Alcohol use, unspecified with withdrawal, unspecified Plan 01/25: Amanda meets criteria for inpatient level of care for safety and stabilization. She is not having any current acute signs of withdrawal. She continues on the phenobarbital and gabapentin. Zoloft 25 mg was initiated. Side effects discussed. She will meet with her treatment team on 01/27/202301/26: Continue current plans and regimen. 01/27: increase zoloft to 50 mg daily. increase gabapentin to 600 TID for neuropathic pain. start doxazosin 1 mg daily for BP and PTSD-related anxiety. 01/28: Pt reports feeling anxious today. She is requesting increase in Seroquel throughout the day. Pt reports feeling irritable because I just want to go to a [facility] program . denies SI/HI/VH/AH. Seroquel increased to 50mg PO TID. 01/29: Pt continues irritable, short tempered, observed yelling on phone; upset at partner for not giving her father more clothing to bring to the hospital. She reports sleep improved last night d/t increase in Seroquel; is requesting an additional dose during the evening. Seroquel increased to 50mg PO 0900, 1400, 1700 and 200mg PO bedtime. Waiting to hear back from [facility]. 01/30: Pt reports she is feeling stressed and ready to go ; pt stated, I'm over this place. People are annoying me . Pt reports she has been sleeping well. Requesting increase in Seroquel to help with anxiety and agitation. Seroquel increased to 75mg PO 0900, 1400, 1700. Patient educated on: diagnosis, medication risk/benefits and therapeutic strategies Informed Consent: understands Reason for continued inpatient stay Substantial Risk for: med/psych decompensation Time Spent With Patient Time: Total time managing care of this patient today _30___ minutes.
[2023-01-30 15:15] VITALS: BP 139/67; PULSE 96; RESP 20; TEMP 36.9; O2SAT 96
[2023-01-30] MEDS: QUEtiapine Fumarate 25 MG TABLET 75 MG PO (16:27)
[2023-01-30 19:44] VITALS: BP 134/63; PULSE 90; RESP 14; TEMP 36.8; O2SAT 96
[2023-01-30] MEDS: NaPROXEN 250 MG TABLET PO (21:05)
[2023-01-30] MEDS: QUEtiapine Fumarate 200 MG TABLET PO (21:59)
[2023-01-31 08:01] VITALS: BP 137/70; PULSE 88; TEMP 36.4; O2SAT 95
[2023-01-31] MEDS: Sertraline HCL 50 MG TABLET PO (09:13)
[2023-01-31] MEDS: Gabapentin 300 MG CAPSULE 600 MG PO ×3 (09:13→20:19)
[2023-01-31] MEDS: Doxazosin Mesylate 1 MG TABLET PO (09:13)
[2023-01-31] MEDS: atenoloL 25 MG TABLET PO (09:13)
[2023-01-31] MEDS: amLODIPine Besylate 10 MG TABLET PO (09:13)
[2023-01-31] MEDS: QUEtiapine Fumarate 25 MG TABLET 75 MG PO ×3 (09:16→17:31)
[2023-01-31] MEDS: docosanoL 10 % Cream 2 GM TUBE 1 APPL TOPICAL ×4 (10:29→22:24)
--- NOTE | 2023-01-31 14:02 | HO.PSYCHPN ---
Subjective Subjective Date of Service: 01/31/23 Reason For Visit: SI and attempt Interim History: calm, cooperative. looking forward to discharge friday to [facility]. anxious, denies safety concerns. BPs remain elevated, not sedated, anxious. agrees to increase doxazosin to 2 mg daily. meds reviewed, reconciled, prescribed for friday discharge. per staff, visible, engaging. no SI/HI/AVH. dep/anx 12/08. slept well. Mental Status Exam Mental Status Exam Narrative: She is alert, oriented. Normal speech. Good eye contact. Affect is appropriate, normo-intense, non-labile. No signs of psychosis. thoughts linear and logical. mood anxious. no SI/HI/AVH. Cognitively she is intact. Judgment is intact Diagnostics Vital Signs (24Hr): Vital Signs - 24 hr 01/30/23 15:15 01/30/23 19:44 01/31/23 08:01 Temperature 98.5 F 98.3 F 97.5 F Pulse Rate 96 90 88 Respiratory Rate 20 14 Blood Pressure 139/67 134/63 137/70 Pulse Oximetry 96 96 95 Oxygen Delivery Method Room Air Room Air Room Air BMI result Body Mass Index 38.3 Labs 01/27/23 16:45 01/27/23 16:45 Medications Medications Current Medications Acetaminophen (Acetaminophen 325 Mg Tablet) 650 mg PO Q6H PRN PRN Reason: Headache/Pain Mild Scale (1-3) Last Admin: 01/27/23 09:16 Dose: 650 mg Al Hydroxide/Mg Hydroxide (Magnesium Hydrox/Alum Hydrox 30 Ml Oral.Susp) 30 ml PO Q6H PRN PRN Reason: Heartburn/Nausea Al Hydroxide/Mg Hydroxide (Magnesium Hydrox/Alum Hydrox 30 Ml Oral.Susp) 30 ml PO Q4H PRN PRN Reason: Heartburn/Nausea Albuterol Sulfate (Albuterol Sulfate 90 Mcg 8 Gm Inhaler) 1 puff INHALE RQ4H PRN PRN Reason: Shortness of Breath/Wheezing Last Admin: 01/30/23 21:59 Dose: 1 puff Amlodipine Besylate (Amlodipine Besylate 10 Mg Tablet) 10 mg PO DAILY [facility]; Protocol Last Admin: 01/31/23 09:13 Dose: 10 mg Atenolol (Atenolol 25 Mg Tablet) 25 mg PO DAILY [facility]; Protocol Last Admin: 01/31/23 09:13 Dose: 25 mg Docosanol (Docosanol 10 % Cream 2 Gm Tube) 1 appl TOPICAL 5XD [facility]; Protocol Last Admin: 01/31/23 13:14 Dose: 1 appl Docusate Sodium (Docusate Sodium 100 Mg Capsule) 100 mg PO DAILY PRN PRN Reason: Constipation Doxazosin Mesylate (Doxazosin Mesylate 2 Mg Tablet) 2 mg PO DAILY [facility]; Protocol Fluticasone Propionate (Fluticasone Propionate 100 Mcg Blst.W.Dev) 1 puff INHALE RBID [facility] Last Admin: 01/31/23 10:50 Dose: Not Given Gabapentin (Gabapentin 300 Mg Capsule) 600 mg PO TID [facility] Last Admin: 01/31/23 09:13 Dose: 600 mg Hydralazine HCl (Hydralazine Hcl 10 Mg Tablet) 10 mg PO TID PRN; Protocol PRN Reason: SBP>180 or DBP>100 Last Admin: 01/27/23 09:16 Dose: 10 mg Magnesium Hydroxide (Milk Of Magnesia 30 Ml Oral.Susp) 30 ml PO DAILY PRN PRN Reason: Constipation Naproxen (Naproxen 250 Mg Tablet) 250 mg PO BID PRN PRN Reason: Pain, Moderate(Pain Scale 4-6) Last Admin: 01/30/23 21:05 Dose: 250 mg Nicotine (Nicotine 21 Mg Patch.Td24) 21 mg TRANSDERMA DAILY [facility] Last Admin: 01/31/23 10:50 Dose: Not Given Nicotine Polacrilex (Nicotine Polacrilex 2 Mg Gum) 4 mg BUCCAL Q2H PRN PRN Reason: Nicotine Cravings Quetiapine Fumarate (Quetiapine Fumarate 200 Mg Tablet) 200 mg PO BEDTIME [facility] Last Admin: 01/30/23 21:59 Dose: 200 mg Quetiapine Fumarate (Quetiapine Fumarate 25 Mg Tablet) 75 mg PO TID@0900,1400,1700 [facility] Last Admin: 01/31/23 09:16 Dose: 75 mg Sertraline HCl (Sertraline Hcl 50 Mg Tablet) 50 mg PO DAILY [facility] Last Admin: 01/31/23 09:13 Dose: 50 mg Allergies Allergies Allergy/AdvReac Type Severity Reaction Status Date / Time Sulfa (Sulfonamide Allergy Intermediate RASH Verified 10/12/22 11:00 Antibiotics) [SULFA (SULFONAMIDE ANTIBIOTICS)] Assessment & Plan Assessment & Plan (1) Major depression: Status: Acute Code(s): F32.9 - Major depressive disorder, single episode, unspecified (2) Alcohol withdrawal: Status: Acute Code(s): F10.939 - Alcohol use, unspecified with withdrawal, unspecified Plan 01/25: Amanda meets criteria for inpatient level of care for safety and stabilization. She is not having any current acute signs of withdrawal. She continues on the phenobarbital and gabapentin. Zoloft 25 mg was initiated. Side effects discussed. She will meet with her treatment team on 01/27/202301/26: Continue current plans and regimen. 01/27: increase zoloft to 50 mg daily. increase gabapentin to 600 TID for neuropathic pain. start doxazosin 1 mg daily for BP and PTSD-related anxiety. 01/28: Pt reports feeling anxious today. She is requesting increase in Seroquel throughout the day. Pt reports feeling irritable because I just want to go to a [facility] program . denies SI/HI/VH/AH. Seroquel increased to 50mg PO TID. 01/29: Pt continues irritable, short tempered, observed yelling on phone; upset at partner for not giving her father more clothing to bring to the hospital. She reports sleep improved last night d/t increase in Seroquel; is requesting an additional dose during the evening. Seroquel increased to 50mg PO 0900, 1400, 1700 and 200mg PO bedtime. Waiting to hear back from [facility]. 01/30: Pt reports she is feeling stressed and ready to go ; pt stated, I'm over this place. People are annoying me . Pt reports she has been sleeping well. Requesting increase in Seroquel to help with anxiety and agitation. Seroquel increased to 75mg PO 0900, 1400, 1700. 01/31: increase doxazosin from 1 mg to 2 mg daily, otherwise continue current mgmt. meds reviewed, reconciled, prescribed. discharging friday to [facility]. discharge order entered. Reason for continued inpatient stay Substantial Risk for: inability to function and rapid decompensation Time Spent With Patient Time: Total time managing care of this patient today __35__ minutes.
--- NOTE | 2023-01-31 14:07 | PM.PSYDC ---
DS: Providers Provider Date of admission: 01/24/23 11:02 Primary care physician: Unknown Physician Consults: 01/27/23 13:24 Consult to Hospitalist Routine Comment: Consulting Provider: Hospitalist Reason For Exam: uncontrolled HTN DS: Diagnosis Discharge Diagnosis (1) Major depression: Status: Acute (2) Alcohol withdrawal: Status: Acute DS: Medications Discharge Medications Home Medications: Previous Rx's Medication Instructions Recorded albuterol sulfate 90 mcg/actuation 1 puff inhalation RQ4H PRN 01/31/23 aerosol inhaler (Ventolin HFA) Shortness Of Breath/Wheezing 30 days #1 inhaler amlodipine 10 mg tablet 10 mg PO DAILY 30 days #30 tabs 01/31/23 atenolol 25 mg tablet 25 mg PO DAILY 30 days #30 tabs 01/31/23 docosanol 10 % topical cream 1 appl topical 5XD 30 days #2 grams 01/31/23 (Abreva) doxazosin 1 mg tablet 2 mg PO DAILY 30 days #60 tabs 01/31/23 fluticasone propionate 100 1 inh inhalation RBID 30 days #60 01/31/23 mcg/actuation blister powder for ea inhalation (Flovent Diskus) folic acid 1 mg tablet 1 mg PO DAILY 30 days #30 tabs 01/31/23 gabapentin 300 mg capsule 600 mg (2 x 300 mg) PO TID 30 days 01/31/23 #180 caps naproxen 250 mg tablet 250 mg PO BID PRN Pain, 01/31/23 Moderate(Pain Scale 4-6) 30 days #30 tabs nicotine 21 mg/24 hr daily 21 mg transdermal DAILY 28 days 01/31/23 transdermal patch #28 ea quetiapine 200 mg tablet 200 mg PO BEDTIME 30 days #30 tabs 01/31/23 quetiapine 25 mg tablet 75 mg (3 x 25 mg) PO 01/31/23 TID@0900,1400,1700 30 days #270 tabs sertraline 50 mg tablet 50 mg PO DAILY 30 days #30 tabs 01/31/23 thiamine HCl (vitamin B1) 100 mg 100 mg PO DAILY 30 days #30 tabs 01/31/23 tablet Data Data Completed and Pending Completed studies during hospitalization [Text1]: 01/27/23 01/27/23 01/27/23 16:45 16:45 Unknown WBC 5.0 RBC 3.40 L Hgb 12.1 Hct 36.4 L MCV 107.1 H MCH 35.6 H MCHC 33.2 RDW 13.7 Plt Count 118 L D MPV 11.0 Immature Gran % (Auto) 0.2 Neut % (Auto) 65.3 Lymph % (Auto) 25.4 [place] % (Auto) 8.1 Eos % (Auto) 0.6 Baso % (Auto) 0.4 Lymph # (Auto) 1.3 [place] # (Auto) 0.4 Eos # (Auto) 0.0 Baso # (Auto) 0.0 Abs Immat Gran (auto) 0.01 Absolute Neuts (auto) 3.2 Absolute Nucleated RBC 0.000 Nucleated RBC % (auto) 0.0 PT 11.4 INR 0.9 Sodium 136 Potassium 4.4 Chloride 101 Carbon Dioxide 22 Anion Gap 17 BUN 8 L Creatinine 0.67 Estim Creat Clear Calc TNP Estimated GFR > 60 Random Glucose 208 H Calcium 10.1 D Total Bilirubin 1.0 Direct Bilirubin 0.6 H AST 105 H ALT 115 H Alkaline Phosphatase 199 H Total Protein 7.8 Albumin 3.9 Vitamin B12 419 Folate 15.4 TSH 1.37 Cancelled Urine Color Yellow Urine Appearance Clear Urine pH 6.0 Ur Specific [place] 1.015 Urine Protein Trace Urine Glucose (UA) Negative Urine Ketones Negative Urine Blood Negative Urine Nitrite Negative Ur Leukocyte Esterase Negative DS: Summary Time Spent with Patient Time attestation: Total time managing care of this patient today ____ minutes. Discharge Plan Discharge Anticipated Discharge Date/Time: 02/03/23 09:15 Patient Disposition: Xfer Inpatient Rehab Fac Discharge Diagnosis: Major Depressive Disorder Alcohol Use Disorder Referrals: Physician,Unknown J [Primary Care Provider] - 1 Week Discharge Medications: New quetiapine 25 mg Tablet 75 mg PO TID@0900,1400,1700 30 Days Qty: 270 0RF doxazosin 1 mg Tablet 2 mg PO DAILY 30 Days Qty: 60 0RF Protocol: Hold for SBP< HOLD for SBP < : 90 quetiapine 200 mg Tablet 200 mg PO BEDTIME 30 Days Qty: 30 0RF naproxen 250 mg Tablet 250 mg PO BID PRN (Reason: Pain, Moderate(Pain Scale 4-6)) 30 Days Qty: 30 0RF gabapentin 300 mg Capsule 600 mg PO TID 30 Days Qty: 180 0RF albuterol sulfate [Ventolin HFA] 90 mcg/actuation Hfa Aerosol Inhaler 1 puff inhalation RQ4H PRN (Reason: Shortness Of Breath/Wheezing) 30 Days Qty: 1 0RF sertraline 50 mg Tablet 50 mg PO DAILY 30 Days Qty: 30 0RF Flovent Diskus 100 mcg/actuation Blister With Device 1 inh inhalation RBID 30 Days Qty: 60 0RF docosanol [Abreva] 10 % Cream 1 appl topical 5XD 30 Days Qty: 2 0RF Protocol: Apply to: Apply to: lip Continued atenolol 25 mg Tablet 25 mg PO DAILY 30 Days Qty: 30 0RF Protocol: Hold for SBP/HR < HOLD for SBP < : 90 HOLD for HR < : 60 thiamine HCl (vitamin B1) 100 mg tablet 100 mg PO DAILY 30 Days Qty: 30 0RF amlodipine 10 mg tablet 10 mg PO DAILY 30 Days Qty: 30 0RF nicotine 21 mg/24 hr Patch 24 Hour 21 mg transdermal DAILY 28 Days Qty: 28 0RF folic acid 1 mg tablet 1 mg PO DAILY 30 Days Qty: 30 0RF Discontinued hydroxyzine pamoate 25 mg capsule 25 mg PO TID phenobarbital 15 mg Tablet 45 mg PO BID Qty: 10 0RF phenobarbital 15 mg Tablet 15 mg PO BID Qty: 10 0RF phenobarbital 15 mg Tablet 15 mg PO DAILY Qty: 7 0RF Discharge Orders: Discharge Order (Routine); Ordered 02/03/23 Ordered By: Edil Stone Diet: Advance to usual diet Activity on Discharge: As tolerated Stand Alone Forms: Patient Portal Discharge page Care Plan Goals: remain safe, stable, and sober in the outpatient treatment setting Health Concerns: Hypertension Asthma Plan of Treatment: take medications as prescribed, attend inpatient rehabilitation program Assessment: not at imminent risk of harm to self or others
[2023-01-31] MEDS: Nicotine 21 MG PATCH.TD24 TRANSDERMA (14:17)
[2023-01-31] MEDS: NaPROXEN 250 MG TABLET PO (17:31)
[2023-01-31] MEDS: Albuterol Sulfate 90 MCG 8 GM INHALER 1 PUFF INHALE (18:31)
[2023-01-31 20:00] VITALS: BP 129/72; PULSE 99; RESP 16; TEMP 36.6; O2SAT 95
[2023-01-31] MEDS: QUEtiapine Fumarate 200 MG TABLET PO (22:23)
[2023-02-01] MEDS: Gabapentin 300 MG CAPSULE 600 MG PO ×3 (08:09→20:47)
[2023-02-01] MEDS: atenoloL 25 MG TABLET PO (08:09)
[2023-02-01] MEDS: Doxazosin Mesylate 2 MG TABLET PO (08:10)
[2023-02-01] MEDS: Sertraline HCL 50 MG TABLET PO (08:10)
[2023-02-01] MEDS: QUEtiapine Fumarate 25 MG TABLET 75 MG PO ×3 (08:14→16:36)
[2023-02-01] MEDS: amLODIPine Besylate 10 MG TABLET PO (08:17)
[2023-02-01 08:46] VITALS: BP 130/90; PULSE 94; RESP 18; TEMP 36.2; O2SAT 97
[2023-02-01] MEDS: Nicotine 21 MG PATCH.TD24 TRANSDERMA (11:18)
[2023-02-01] MEDS: docosanoL 10 % Cream 2 GM TUBE 1 APPL TOPICAL ×3 (11:18→17:12)
--- NOTE | 2023-02-01 13:51 | HO.PSYCHPN ---
Subjective Subjective Date of Service: 02/01/23 Reason For Visit: SI and attempt Subjective Notes: Conditional Voluntary Interim History: The nursing staff reported the patient is alert oriented x4, interacting come and pleasant. The staff noticed that she looks much better, she was upset with a peer who was very noisy. On interview the patient denies new symptoms, compliant with treatment. Mental Status Exam Mental Status Exam Patient Appearance: Well Grooomed and Appropriate Patient Orientation: Person and Situation Level of Consciousness: Awake and Appropriate Patient Behavior: Guarded and Cooperative Mood Description: Calm Affect Description: Constricted Patient Cognition Impaired: Yes Ability to Follow Directions: Good Speech Pattern: Clear Hallucinations: None Delusions: Not Present Thought Process: Distracted and Linear Thought Content: positive for [place] and positive for Circumstantial Judgement: Fair Diagnostics Vital Signs (24Hr): Vital Signs - 24 hr 01/31/23 20:00 02/01/23 08:46 Temperature 97.8 F 97.2 F Pulse Rate 99 94 Respiratory Rate 16 18 Blood Pressure 129/72 130/90 H Pulse Oximetry 95 97 Oxygen Delivery Method Room Air Room Air BMI result Body Mass Index 38.3 Labs 01/27/23 16:45 01/27/23 16:45 Medications Medications Current Medications Acetaminophen (Acetaminophen 325 Mg Tablet) 650 mg PO Q6H PRN PRN Reason: Headache/Pain Mild Scale (1-3) Last Admin: 01/27/23 09:16 Dose: 650 mg Al Hydroxide/Mg Hydroxide (Magnesium Hydrox/Alum Hydrox 30 Ml Oral.Susp) 30 ml PO Q6H PRN PRN Reason: Heartburn/Nausea Al Hydroxide/Mg Hydroxide (Magnesium Hydrox/Alum Hydrox 30 Ml Oral.Susp) 30 ml PO Q4H PRN PRN Reason: Heartburn/Nausea Albuterol Sulfate (Albuterol Sulfate 90 Mcg 8 Gm Inhaler) 1 puff INHALE RQ4H PRN PRN Reason: Shortness of Breath/Wheezing Last Admin: 01/31/23 18:31 Dose: 1 puff Amlodipine Besylate (Amlodipine Besylate 10 Mg Tablet) 10 mg PO DAILY [facility]; Protocol Last Admin: 02/01/23 08:17 Dose: 10 mg Atenolol (Atenolol 25 Mg Tablet) 25 mg PO DAILY [facility]; Protocol Last Admin: 02/01/23 08:09 Dose: 25 mg Docosanol (Docosanol 10 % Cream 2 Gm Tube) 1 appl TOPICAL 5XD [facility]; Protocol Last Admin: 02/01/23 11:18 Dose: 1 appl Docusate Sodium (Docusate Sodium 100 Mg Capsule) 100 mg PO DAILY PRN PRN Reason: Constipation Doxazosin Mesylate (Doxazosin Mesylate 2 Mg Tablet) 2 mg PO DAILY [facility]; Protocol Last Admin: 02/01/23 08:10 Dose: 2 mg Fluticasone Propionate (Fluticasone Propionate 100 Mcg Blst.W.Dev) 1 puff INHALE RBID [facility] Last Admin: 02/01/23 08:11 Dose: Not Given Gabapentin (Gabapentin 300 Mg Capsule) 600 mg PO TID [facility] Last Admin: 02/01/23 08:09 Dose: 600 mg Hydralazine HCl (Hydralazine Hcl 10 Mg Tablet) 10 mg PO TID PRN; Protocol PRN Reason: SBP>180 or DBP>100 Last Admin: 01/27/23 09:16 Dose: 10 mg Magnesium Hydroxide (Milk Of Magnesia 30 Ml Oral.Susp) 30 ml PO DAILY PRN PRN Reason: Constipation Naproxen (Naproxen 250 Mg Tablet) 250 mg PO BID PRN PRN Reason: Pain, Moderate(Pain Scale 4-6) Last Admin: 01/31/23 17:31 Dose: 250 mg Nicotine (Nicotine 21 Mg Patch.Td24) 21 mg TRANSDERMA DAILY [facility] Last Admin: 02/01/23 11:18 Dose: 21 mg Nicotine Polacrilex (Nicotine Polacrilex 2 Mg Gum) 4 mg BUCCAL Q2H PRN PRN Reason: Nicotine Cravings Quetiapine Fumarate (Quetiapine Fumarate 200 Mg Tablet) 200 mg PO BEDTIME [facility] Last Admin: 01/31/23 22:23 Dose: 200 mg Quetiapine Fumarate (Quetiapine Fumarate 25 Mg Tablet) 75 mg PO TID@0900,1400,1700 [facility] Last Admin: 02/01/23 08:14 Dose: 75 mg Sertraline HCl (Sertraline Hcl 50 Mg Tablet) 50 mg PO DAILY [facility] Last Admin: 02/01/23 08:10 Dose: 50 mg Allergies Allergies Allergy/AdvReac Type Severity Reaction Status Date / Time Sulfa (Sulfonamide Allergy Intermediate RASH Verified 10/12/22 11:00 Antibiotics) [SULFA (SULFONAMIDE ANTIBIOTICS)] Assessment & Plan Assessment & Plan (1) Major depression: Status: Acute Code(s): F32.9 - Major depressive disorder, single episode, unspecified (2) Alcohol withdrawal: Status: Resolved Code(s): F10.939 - Alcohol use, unspecified with withdrawal, unspecified Plan 01/25: Amanda meets criteria for inpatient level of care for safety and stabilization. She is not having any current acute signs of withdrawal. She continues on the phenobarbital and gabapentin. Zoloft 25 mg was initiated. Side effects discussed. She will meet with her treatment team on 01/27/202301/26: Continue current plans and regimen. 01/27: increase zoloft to 50 mg daily. increase gabapentin to 600 TID for neuropathic pain. start doxazosin 1 mg daily for BP and PTSD-related anxiety. 01/28: Pt reports feeling anxious today. She is requesting increase in Seroquel throughout the day. Pt reports feeling irritable because I just want to go to a CSS program . denies SI/HI/VH/AH. Seroquel increased to 50mg PO TID. 01/29: Pt continues irritable, short tempered, observed yelling on phone; upset at partner for not giving her father more clothing to bring to the hospital. She reports sleep improved last night d/t increase in Seroquel; is requesting an additional dose during the evening. Seroquel increased to 50mg PO 0900, 1400, 1700 and 200mg PO bedtime. Waiting to hear back from [facility]. 01/30: Pt reports she is feeling stressed and ready to go ; pt stated, I'm over this place. People are annoying me . Pt reports she has been sleeping well. Requesting increase in Seroquel to help with anxiety and agitation. Seroquel increased to 75mg PO 0900, 1400, 1700. 01/31: increase doxazosin from 1 mg to 2 mg daily, otherwise continue current mgmt. meds reviewed, reconciled, prescribed. discharging friday morning to [facility]. discharge order entered. 02/01 continue same treatment Reason for continued inpatient stay Substantial Risk for: inability to function, rapid decompensation and med/psych decompensation Time Spent With Patient Time: Total time managing care of this patient today __20__ minutes.
[2023-02-01 16:37] VITALS: BP 138/82; PULSE 92; RESP 18; TEMP 36.6; O2SAT 100
[2023-02-01 19:45] VITALS: BP 133/68; PULSE 94; RESP 16; TEMP 36.5; O2SAT 96
[2023-02-01] MEDS: QUEtiapine Fumarate 200 MG TABLET PO (22:11)
[2023-02-01] MEDS: NaPROXEN 250 MG TABLET PO (22:18)
[2023-02-02] MEDS: Nicotine 21 MG PATCH.TD24 TRANSDERMA (08:44)
[2023-02-02] MEDS: Sertraline HCL 50 MG TABLET PO (08:45)
[2023-02-02] MEDS: QUEtiapine Fumarate 25 MG TABLET 75 MG PO ×3 (08:45→16:50)
[2023-02-02] MEDS: Gabapentin 300 MG CAPSULE 600 MG PO ×3 (08:45→20:40)
[2023-02-02] MEDS: atenoloL 25 MG TABLET PO (08:45)
[2023-02-02] MEDS: Doxazosin Mesylate 2 MG TABLET PO (08:46)
[2023-02-02] MEDS: amLODIPine Besylate 10 MG TABLET PO (08:46)
[2023-02-02 09:10] VITALS: BP 147/92; PULSE 88; RESP 20; TEMP 36.5; O2SAT 96
[2023-02-02] MEDS: docosanoL 10 % Cream 2 GM TUBE 1 APPL TOPICAL ×4 (10:24→21:24)
[2023-02-02 13:00] VITALS: BP 138/88; PULSE 86
--- NOTE | 2023-02-02 13:05 | HO.PSYCHPN ---
Subjective Subjective Date of Service: 02/02/23 Reason For Visit: SI and attempt Interim History: The nursing staff reported the patient has been pleasant, social, she complained of pain on her shoulder after an IM that she received in the ED. She had been compliant with medications. On interview the patient reports that she is depressed and she wants to increase her Zoloft. No safety concerns ready for discharge tomorrow. Mental Status Exam Mental Status Exam Patient Appearance: Well Grooomed Patient Orientation: Person, Place and Situation Level of Consciousness: Awake and Appropriate Patient Behavior: Guarded and Passive Mood Description: Calm Affect Description: Constricted Patient Cognition Impaired: Yes Ability to Follow Directions: Good Speech Pattern: Clear Hallucinations: None Delusions: Not Present Thought Process: Linear Thought Content: positive for [place] Judgement: Fair Diagnostics Vital Signs (24Hr): Vital Signs - 24 hr 02/01/23 16:37 02/01/23 19:45 02/02/23 09:10 Temperature 97.8 F 97.7 F 97.7 F Pulse Rate 92 94 88 Respiratory Rate 18 16 20 Blood Pressure 138/82 133/68 147/92 H Pulse Oximetry 100 96 96 Oxygen Delivery Method Room Air Room Air Room Air BMI result Body Mass Index 38.3 Labs 01/27/23 16:45 01/27/23 16:45 Medications Medications Current Medications Acetaminophen (Acetaminophen 325 Mg Tablet) 650 mg PO Q6H PRN PRN Reason: Headache/Pain Mild Scale (1-3) Last Admin: 01/27/23 09:16 Dose: 650 mg Al Hydroxide/Mg Hydroxide (Magnesium Hydrox/Alum Hydrox 30 Ml Oral.Susp) 30 ml PO Q6H PRN PRN Reason: Heartburn/Nausea Al Hydroxide/Mg Hydroxide (Magnesium Hydrox/Alum Hydrox 30 Ml Oral.Susp) 30 ml PO Q4H PRN PRN Reason: Heartburn/Nausea Albuterol Sulfate (Albuterol Sulfate 90 Mcg 8 Gm Inhaler) 1 puff INHALE RQ4H PRN PRN Reason: Shortness of Breath/Wheezing Last Admin: 01/31/23 18:31 Dose: 1 puff Amlodipine Besylate (Amlodipine Besylate 10 Mg Tablet) 10 mg PO DAILY [facility]; Protocol Last Admin: 02/02/23 08:46 Dose: 10 mg Atenolol (Atenolol 25 Mg Tablet) 25 mg PO DAILY [facility]; Protocol Last Admin: 02/02/23 08:45 Dose: 25 mg Docosanol (Docosanol 10 % Cream 2 Gm Tube) 1 appl TOPICAL 5XD [facility]; Protocol Last Admin: 02/02/23 10:24 Dose: 1 appl Docusate Sodium (Docusate Sodium 100 Mg Capsule) 100 mg PO DAILY PRN PRN Reason: Constipation Doxazosin Mesylate (Doxazosin Mesylate 2 Mg Tablet) 2 mg PO DAILY [facility]; Protocol Last Admin: 02/02/23 08:46 Dose: 2 mg Fluticasone Propionate (Fluticasone Propionate 100 Mcg Blst.W.Dev) 1 puff INHALE RBID [facility] Last Admin: 02/02/23 08:46 Dose: Not Given Gabapentin (Gabapentin 300 Mg Capsule) 600 mg PO TID [facility] Last Admin: 02/02/23 08:45 Dose: 600 mg Hydralazine HCl (Hydralazine Hcl 10 Mg Tablet) 10 mg PO TID PRN; Protocol PRN Reason: SBP>180 or DBP>100 Last Admin: 01/27/23 09:16 Dose: 10 mg Magnesium Hydroxide (Milk Of Magnesia 30 Ml Oral.Susp) 30 ml PO DAILY PRN PRN Reason: Constipation Naproxen (Naproxen 250 Mg Tablet) 250 mg PO BID PRN PRN Reason: Pain, Moderate(Pain Scale 4-6) Last Admin: 02/01/23 22:18 Dose: 250 mg Nicotine (Nicotine 21 Mg Patch.Td24) 21 mg TRANSDERMA DAILY [facility] Last Admin: 02/02/23 08:44 Dose: 21 mg Nicotine Polacrilex (Nicotine Polacrilex 2 Mg Gum) 4 mg BUCCAL Q2H PRN PRN Reason: Nicotine Cravings Quetiapine Fumarate (Quetiapine Fumarate 200 Mg Tablet) 200 mg PO BEDTIME [facility] Last Admin: 02/01/23 22:11 Dose: 200 mg Quetiapine Fumarate (Quetiapine Fumarate 25 Mg Tablet) 75 mg PO TID@0900,1400,1700 [facility] Last Admin: 02/02/23 08:45 Dose: 75 mg Sertraline HCl (Sertraline Hcl 50 Mg Tablet) 50 mg PO DAILY [facility] Last Admin: 02/02/23 08:45 Dose: 50 mg Allergies Allergies Allergy/AdvReac Type Severity Reaction Status Date / Time Sulfa (Sulfonamide Allergy Intermediate RASH Verified 10/12/22 11:00 Antibiotics) [SULFA (SULFONAMIDE ANTIBIOTICS)] Assessment & Plan Assessment & Plan (1) Major depression: Status: Acute Code(s): F32.9 - Major depressive disorder, single episode, unspecified (2) Alcohol withdrawal: Status: Resolved Code(s): F10.939 - Alcohol use, unspecified with withdrawal, unspecified Plan 01/25: Amanda meets criteria for inpatient level of care for safety and stabilization. She is not having any current acute signs of withdrawal. She continues on the phenobarbital and gabapentin. Zoloft 25 mg was initiated. Side effects discussed. She will meet with her treatment team on 01/27/202301/26: Continue current plans and regimen. 01/27: increase zoloft to 50 mg daily. increase gabapentin to 600 TID for neuropathic pain. start doxazosin 1 mg daily for BP and PTSD-related anxiety. 01/28: Pt reports feeling anxious today. She is requesting increase in Seroquel throughout the day. Pt reports feeling irritable because I just want to go to a CSS program . denies SI/HI/VH/AH. Seroquel increased to 50mg PO TID. 01/29: Pt continues irritable, short tempered, observed yelling on phone; upset at partner for not giving her father more clothing to bring to the hospital. She reports sleep improved last night d/t increase in Seroquel; is requesting an additional dose during the evening. Seroquel increased to 50mg PO 0900, 1400, 1700 and 200mg PO bedtime. Waiting to hear back from [facility]. 01/30: Pt reports she is feeling stressed and ready to go ; pt stated, I'm over this place. People are annoying me . Pt reports she has been sleeping well. Requesting increase in Seroquel to help with anxiety and agitation. Seroquel increased to 75mg PO 0900, 1400, 1700. 01/31: increase doxazosin from 1 mg to 2 mg daily, otherwise continue current mgmt. meds reviewed, reconciled, prescribed. discharging friday morning to [facility]. discharge order entered. 02/01 continue same treatmentx. 02/02 increase Zoloft up to 100 mg po daily. Reason for continued inpatient stay Substantial Risk for: inability to function, rapid decompensation and med/psych decompensation Time Spent With Patient Time: Total time managing care of this patient today ____ minutes.
[2023-02-02 20:11] VITALS: BP 120/60; PULSE 95; RESP 16; TEMP 36.6; O2SAT 95
[2023-02-02] MEDS: Albuterol Sulfate 90 MCG 8 GM INHALER 1 PUFF INHALE (20:42)
[2023-02-02] MEDS: QUEtiapine Fumarate 200 MG TABLET PO (22:19)
[2023-02-03 08:22] VITALS: BP 157/90; PULSE 102; RESP 18; TEMP 36.2; O2SAT 96
[2023-02-03] MEDS: Albuterol Sulfate 90 MCG 8 GM INHALER 1 PUFF INHALE (08:23)
[2023-02-03] MEDS: amLODIPine Besylate 10 MG TABLET PO (08:24)
[2023-02-03] MEDS: Gabapentin 300 MG CAPSULE 600 MG PO (08:24)
[2023-02-03] MEDS: Sertraline HCL 100 MG TABLET PO (08:24)
[2023-02-03] MEDS: Doxazosin Mesylate 2 MG TABLET PO (08:25)
[2023-02-03] MEDS: atenoloL 25 MG TABLET PO (08:25)
[2023-02-03] MEDS: QUEtiapine Fumarate 25 MG TABLET 75 MG PO (08:27)
[2023-02-03] MEDS: Nicotine 21 MG PATCH.TD24 TRANSDERMA (08:29)
[2023-02-03] MEDS: docosanoL 10 % Cream 2 GM TUBE 1 APPL TOPICAL (08:29)
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
== END 2023-02-03 09:30 | DRG 754 ==
PROVIDERS: Admitting Provider Psychiatry & Neurology Psychiatry; Visit Provider Psychiatry & Neurology Psychiatry
DX: F32.9 Major depressive disorder, single episode, unspecified (principal); R45.851 Suicidal ideations; F10.239 Alcohol dependence with withdrawal, unspecified; F11.20 Opioid dependence, uncomplicated; J45.909 Unspecified asthma, uncomplicated; F17.210 Nicotine dependence, cigarettes, uncomplicated; Z86.19 Personal history of other infectious and parasitic diseases; Z71.6 Tobacco abuse counseling; Z62.810 Personal history of physical and sexual abuse in childhood; Z79.51 Long term (current) use of inhaled steroids; Z79.899 Other long term (current) drug therapy
CPT/HCPCS: 36415; 80048; 80076; 81003; 82607; 82746; 84443; 85025; 85610

== ENCOUNTER → 2023-01-24 11:02 | Outpatient (BNV) | payer OTHER, SELFPAY | PROVIDERS: Admitting Provider Psychiatry & Neurology Psychiatry; Visit Provider Psychiatry & Neurology Psychiatry | DX: F33.2 Major depressive disorder, recurrent severe without psychotic features (principal); F10.939 Alcohol use, unspecified with withdrawal, unspecified | CPT/HCPCS: 90792; 99231; 99232; 99239 ==

== ENCOUNTER → 2023-01-24 11:02 | Outpatient (BNV) | payer OTHER, SELFPAY | PROVIDERS: Admitting Provider Psychiatry & Neurology Psychiatry; Visit Provider Psychiatry & Neurology Psychiatry | DX: F33.2 Major depressive disorder, recurrent severe without psychotic features (principal); F10.939 Alcohol use, unspecified with withdrawal, unspecified | CPT/HCPCS: 99232 ==

== ENCOUNTER → 2023-01-24 11:02 | Outpatient (BNV) | payer OTHER, SELFPAY | PROVIDERS: Admitting Provider Psychiatry & Neurology Psychiatry; Visit Provider Physician Assistant | DX: F32.9 Major depressive disorder, single episode, unspecified (principal) | CPT/HCPCS: 99499 ==